=== PATIENT | male | born 1965 | race Two or more races ===

== ENCOUNTER 2020-07-17 08:21 | Outpatient (REF) | payer OTHER, SELFPAY | END 2020-07-17 08:22 | disposition home or self-care (01) | LOC: HO.LAB 08:21 | PROVIDERS: PCP Physician Assistant | DX: K70.31 Alcoholic cirrhosis of liver with ascites (principal) ==

== ENCOUNTER 2020-07-17 09:02 | Outpatient (REF) | payer OTHER, SELFPAY ==
[2020-07-17 10:01] LABS: INTERNATIONAL NORM RATIO 1.5 (0.9-1.1); Prothrombin Time 17.5 SEC (10.8-13.0)
[2020-07-17 10:31] LABS: Alanine Aminotransferase 25 U/L (0-40); Albumin Level 3.7 g/dL (3.5-5.0); Alkaline Phosphatase 52 U/L (39-117); Aspartate Amino Transferase 34 U/L (5-37); Bilirubin Total 1.8 mg/dL (0.0-1.0); Blood Urea Nitrogen 14 mg/dL (9-16); Estimated Glomerular Filt Rate > 60; Glucose Random 128 mg/dL (60-115); Total Protein 6.6 g/dL (6.5-8.0)
[2020-07-17 10:42] LABS: Anion Gap 10 (12-20); Carbon Dioxide 26 mmol/L (22-29); Chloride 110 mmol/L (96-108); Potassium 4.8 mmol/l (3.3-5.1); Sodium 141 mmol/L (135-145)
== END 2020-07-17 09:03 | disposition home or self-care (01) ==
LOC: HO.LAB 09:02
PROVIDERS: Visit Provider Internal Medicine Gastroenterology
DX: K70.31 Alcoholic cirrhosis of liver with ascites (principal)
CPT/HCPCS: 36415; 80053; 85610

== ENCOUNTER 2020-08-22 09:57 | Outpatient (REF) | payer MEDICARE, MEDICAID, SELFPAY ==
[2020-08-22 12:43] LABS: Basophils Percent Auto 0.6 % (0-2); Eosinophils Absolute Auto 0.1 X10*3/uL (0.0-0.4); Eosinophils Percent Auto 3.4 % (0-4); Hemoglobin 13.6 g/dl (14.0-18.0); Imm Gran Abs Auto 0.01 X10*3/uL (0.00-0.03); Imm Gran Pct Auto 0.3 % (0.0-0.4); Lymphocytes Absolute Auto 0.9 X10*3/uL (1.2-4.9); Lymphocytes Percent Auto 26.1 % (20-40); MANUAL DIFF FLAG SCAN; Mean Corpuscular HGB Conc 32.4 g/dl (31.0-36.0); Mean Corpuscular Hemoglobin 26.7 pg (27.0-33.0); Mean Corpuscular Volume 82.5 fL (80-98); Monocytes Absolute Auto 0.5 X10*3/uL (0.1-1.2); Monocytes Percent Auto 12.8 % (2-11); Neutrophils Percent Auto 56.8 % (45-73); Red Blood Count 5.09 X10*6/uL (4.60-5.80); Red Cell Distribution Width 16.4 % (11.0-16.0); SCAN SMEAR FLAG 1; White Blood Count 3.5 X10*3/uL (4.8-10.8)
[2020-08-22 12:45] LABS: Platelet Count 50 X10*3/uL (160-400)
[2020-08-22 12:46] LABS: PLT ABN DIST 1
[2020-08-22 12:52] LABS: INTERNATIONAL NORM RATIO 1.4 (0.9-1.1)
[2020-08-22 12:57] LABS: Alanine Aminotransferase 24 U/L (0-40); Albumin Level 3.8 g/dL (3.5-5.0); Alkaline Phosphatase 53 U/L (39-117); Anion Gap 10 (12-20); Aspartate Amino Transferase 32 U/L (5-37); Bilirubin Total 2.3 mg/dL (0.0-1.0); Blood Urea Nitrogen 14 mg/dL (9-16); Calcium 9.3 mg/dL (8.4-10.2); Carbon Dioxide 27 mmol/L (22-29); Chloride 108 mmol/L (96-108); Estimated Glomerular Filt Rate > 60; Glucose Random 93 mg/dL (60-115); Iron 98 mcg/dL (45-160); Percent Iron Saturation 27 % (15-50); Potassium 4.3 mmol/l (3.3-5.1); Sodium 141 mmol/L (135-145); Total Iron Binding Capacity 369 mcg/dL (228-428); Total Protein 6.8 g/dL (6.5-8.0); Unsaturated Iron Binding 271 ug/dL
[2020-08-28 19:09] LABS: Vitamin A 14 mcg/dL (38-98)
== END 2020-08-22 09:58 | disposition home or self-care (01) ==
LOC: HO.LAB 09:57
PROVIDERS: PCP Physician Assistant; Visit Provider Internal Medicine Gastroenterology
DX: R94.5 Abnormal results of liver function studies (principal); H60.8X1 Other otitis externa, right ear; K74.60 Unspecified cirrhosis of liver; E44.1 Mild protein-calorie malnutrition; K31.7 Polyp of stomach and duodenum
CPT/HCPCS: 36415; 80053; 83540; 84590; 85025; 85610; 99212

== ENCOUNTER 2020-09-26 09:18 | Outpatient (REF) | payer MEDICARE, MEDICAID, SELFPAY ==
[2020-09-26 09:50] LABS: MANUAL DIFF FLAG NO
[2020-09-26 09:57] LABS: Basophils Percent Auto 0.7 % (0-2); Eosinophils Absolute Auto 0.1 X10*3/uL (0.0-0.4); Eosinophils Percent Auto 2.7 % (0-4); Hemoglobin 13.9 g/dl (14.0-18.0); Imm Gran Abs Auto 0.01 X10*3/uL (0.00-0.03); Imm Gran Pct Auto 0.2 % (0.0-0.4); Lymphocytes Absolute Auto 0.8 X10*3/uL (1.2-4.9); Lymphocytes Percent Auto 18.7 % (20-40); Mean Corpuscular HGB Conc 33.1 g/dl (31.0-36.0); Mean Corpuscular Hemoglobin 27.9 pg (27.0-33.0); Mean Corpuscular Volume 84.2 fL (80-98); Monocytes Absolute Auto 0.5 X10*3/uL (0.1-1.2); Monocytes Percent Auto 11.5 % (2-11); Neutrophils Percent Auto 66.2 % (45-73); Red Blood Count 4.99 X10*6/uL (4.60-5.80); Red Cell Distribution Width 15.9 % (11.0-16.0); White Blood Count 4.5 X10*3/uL (4.8-10.8)
[2020-09-26 10:00] LABS: Platelet Count 48 X10*3/uL (160-400)
[2020-09-26 11:02] LABS: Ammonia 63 umol/L (13-55)
[2020-09-26 11:08] LABS: Alanine Aminotransferase 38 U/L (0-40); Albumin Level 3.7 g/dL (3.5-5.0); Alkaline Phosphatase 56 U/L (39-117); Aspartate Amino Transferase 34 U/L (5-37); Bilirubin Direct 1.1 mg/dL (0.0-0.5); Bilirubin Total 2.2 mg/dL (0.0-1.0); Total Protein 6.6 g/dL (6.5-8.0)
[2020-09-26 11:10] LABS: Alanine Aminotransferase 38 U/L (0-40); Albumin Level 3.8 g/dL (3.5-5.0); Alkaline Phosphatase 55 U/L (39-117); Anion Gap 12 (12-20); Aspartate Amino Transferase 34 U/L (5-37); Bilirubin Total 2.2 mg/dL (0.0-1.0); Blood Urea Nitrogen 13 mg/dL (9-16); Calcium 8.5 mg/dL (8.4-10.2); Carbon Dioxide 27 mmol/L (22-29); Chloride 108 mmol/L (96-108); Cholesterol 150 mg/dL; Estimated Glomerular Filt Rate > 60; Glucose Fasting 135 mg/dL (60-99); HDL Cholesterol 60 mg/dL; Iron 90 mcg/dL (45-160); LDL Cholesterol Calculated 80 mg/dl; Percent Iron Saturation 26 % (15-50); Potassium 3.8 mmol/l (3.3-5.1); Sodium 143 mmol/L (135-145); Total Iron Binding Capacity 344 mcg/dL (228-428); Total Protein 6.6 g/dL (6.5-8.0); Triglycerides 51 mg/dL; Unsaturated Iron Binding 254 ug/dL
[2020-09-26 11:30] LABS: TSH reflex Free T4 1.85 mIU/mL (0.32-4.0)
[2020-09-26 11:43] LABS: Folate 19.3 ng/mL (> or = 4.0); Vitamin B12 985 pg/mL (200-900)
== END 2020-09-26 09:19 | disposition home or self-care (01) ==
LOC: HO.LAB 09:18
PROVIDERS: PCP Physician Assistant; Referring Provider Physician Assistant; Visit Provider Nurse Practitioner Family
DX: K74.60 Unspecified cirrhosis of liver (principal); D50.9 Iron deficiency anemia, unspecified; E11.9 Type 2 diabetes mellitus without complications; M54.2 Cervicalgia; H60.8X1 Other otitis externa, right ear
CPT/HCPCS: 36415; 80053; 80061; 80076; 82140; 82248; 82607; 82746; 83540; 84443; 85025

== ENCOUNTER → 2020-10-11 13:15 | Outpatient (BNVA) | payer MEDICARE, MEDICAID, SELFPAY | PROVIDERS: PCP Physician Assistant; Visit Provider Surgery | DX: K74.60 Unspecified cirrhosis of liver (principal); K42.9 Umbilical hernia without obstruction or gangrene | CPT/HCPCS: 99212 ==

== ENCOUNTER 2020-10-17 10:34 | Outpatient (REF) | payer MEDICARE, MEDICAID, SELFPAY ==
--- NOTE | 2020-10-17 10:47 | XR_ITS ---
EXAMINATION: XR KNEE, LEFT XR KNEE STANDING BILATERAL CLINICAL INFORMATION: 55-year-old male with left knee pain and right knee pain. COMPARISON: None TECHNIQUE: AP standing view both knees. Left knee, lateral and sunrise views (2 views) FINDINGS: The AP standing view shows well-preserved tibiofemoral joint space at each knee. No chondrocalcinosis. No fracture or subluxation. The 2 views of the left knee show grossly normal soft tissues. No focal soft tissue swelling or joint effusion. Alignment is normal. Small osteophytes are present at the mildly degenerated patellofemoral compartment. The patella is well-positioned within the trochlear groove. XR/XR knee standing BI IMPRESSION: Mild osteoarthritis of the patellofemoral joint of the left knee.
--- NOTE | 2020-10-17 10:47 | XR_ITS ---
EXAMINATION: XR KNEE, LEFT XR KNEE STANDING BILATERAL CLINICAL INFORMATION: 55-year-old male with left knee pain and right knee pain. COMPARISON: None TECHNIQUE: AP standing view both knees. Left knee, lateral and sunrise views (2 views) FINDINGS: The AP standing view shows well-preserved tibiofemoral joint space at each knee. No chondrocalcinosis. No fracture or subluxation. The 2 views of the left knee show grossly normal soft tissues. No focal soft tissue swelling or joint effusion. Alignment is normal. Small osteophytes are present at the mildly degenerated patellofemoral compartment. The patella is well-positioned within the trochlear groove. XR/XR knee LT 2V IMPRESSION: Mild osteoarthritis of the patellofemoral joint of the left knee.
== END 2020-10-17 10:35 | disposition home or self-care (01) ==
LOC: HO.HOSX 10:34
PROVIDERS: PCP Physician Assistant; Visit Provider Orthopaedic Surgery
DX: M22.2X1 Patellofemoral disorders, right knee (principal); M22.2X2 Patellofemoral disorders, left knee
CPT/HCPCS: 73560; 73565; 99202

== ENCOUNTER 2020-11-07 10:09 | Outpatient (REF) | payer MEDICARE, MEDICAID, SELFPAY ==
[2020-11-07 11:39] LABS: Basophils Percent Auto 0.5 % (0-2); Imm Gran Abs Auto 0.01 X10*3/uL (0.00-0.03); Imm Gran Pct Auto 0.2 % (0.0-0.4); MANUAL DIFF FLAG SCAN; Mean Corpuscular Hemoglobin 27.9 pg (27.0-33.0); Red Blood Count 5.02 X10*6/uL (4.60-5.80); SCAN SMEAR FLAG 1
[2020-11-07 11:41] LABS: Eosinophils Absolute Auto 0.1 X10*3/uL (0.0-0.4); Eosinophils Percent Auto 2.8 % (0-4); Hematocrit 42.4 % (42-52); Lymphocytes Percent Auto 22.3 % (20-40); Mean Corpuscular Volume 84.5 fL (80-98); Monocytes Absolute Auto 0.5 X10*3/uL (0.1-1.2); Monocytes Percent Auto 12.2 % (2-11); Neutrophils Absolute Auto 2.7 X10*3/uL (2.0-8.3); Red Cell Distribution Width 15.1 % (11.0-16.0); White Blood Count 4.4 X10*3/uL (4.8-10.8)
[2020-11-07 11:45] LABS: Platelet Count 58 X10*3/uL (160-400)
[2020-11-07 11:46] LABS: PLT ABN DIST 1
[2020-11-07 12:25] LABS: Ferritin 19 ng/mL (20-250)
[2020-11-07 12:39] LABS: Anion Gap 11 (12-20); Blood Urea Nitrogen 13 mg/dL (9-16); Carbon Dioxide 27 mmol/L (22-29); Chloride 109 mmol/L (96-108); Estimated Glomerular Filt Rate > 60; Glucose Fasting 123 mg/dL (60-99); Potassium 3.9 mmol/l (3.3-5.1); Sodium 143 mmol/L (135-145)
[2020-11-11 22:03] LABS: Vitamin A 17 mcg/dL (38-98)
== END 2020-11-07 10:10 | disposition home or self-care (01) ==
LOC: HO.LAB 10:09
PROVIDERS: PCP Physician Assistant; Visit Provider Internal Medicine Gastroenterology
DX: K74.60 Unspecified cirrhosis of liver (principal); M54.2 Cervicalgia; E44.1 Mild protein-calorie malnutrition; H60.8X1 Other otitis externa, right ear
CPT/HCPCS: 36415; 80048; 82728; 84590; 85025; 99212

== ENCOUNTER 2020-11-09 12:39 | Outpatient (REF) | payer MEDICARE, MEDICAID, SELFPAY ==
--- NOTE | 2020-11-09 12:44 | XR_ITS ---
EXAMINATION: XR SOFT TISSUE NECK CLINICAL INDICATION: Foreign body. COMPARISON: None TECHNIQUE: 2 views of the soft tissue neck were obtained. FINDINGS: Soft tissue films of the neck demonstrate a normal larynx, pharynx and upper trachea. No soft tissue swelling or opaque foreign body is demonstrated. The prevertebral soft tissues are unremarkable. Degenerative changes noted at C5-C6 with small endplate osteophytes and disc space narrowing. Vascular calcifications are noted. The lung apices are clear. XR/XR soft tissue neck IMPRESSION: No radiopaque foreign body. Mild degenerative changes at C5-C6.
== END 2020-11-09 12:40 | disposition home or self-care (01) ==
LOC: HO.HMGCX 12:39
PROVIDERS: PCP Physician Assistant; Visit Provider Physician Assistant
DX: R52 Pain, unspecified (principal); T18.9XXA Foreign body of alimentary tract, part unspecified, initial encounter; X58.XXXA Exposure to other specified factors, initial encounter; Y93.9 Activity, unspecified; Y92.9 Unspecified place or not applicable; Y99.8 Other external cause status
CPT/HCPCS: 70360

== ENCOUNTER 2020-11-17 10:54 | Outpatient (REF) | payer MEDICARE, MEDICAID, SELFPAY | END 2020-11-17 10:55 | disposition home or self-care (01) | LOC: HO.MDS 10:54 | PROVIDERS: Visit Provider Internal Medicine Gastroenterology | DX: D50.9 Iron deficiency anemia, unspecified (principal) | CPT/HCPCS: 96365; J2916 ==

== ENCOUNTER 2020-11-24 15:42 | Outpatient (REF) | payer MEDICARE, MEDICAID, SELFPAY ==
[2020-11-24 16:03] LABS: Eosinophils Absolute Auto 0.1 X10*3/uL (0.0-0.4); MANUAL DIFF FLAG SCAN; Mean Corpuscular Volume 85.5 fL (80-98); Monocytes Absolute Auto 0.5 X10*3/uL (0.1-1.2); Red Cell Distribution Width 15.8 % (11.0-16.0); SCAN SMEAR FLAG 1
[2020-11-24 16:04] LABS: Basophils Percent Auto 0.4 % (0-2); Eosinophils Percent Auto 2.2 % (0-4); Hematocrit 43.8 % (42-52); Hemoglobin 14.3 g/dl (14.0-18.0); Imm Gran Abs Auto 0.02 X10*3/uL (0.00-0.03); Imm Gran Pct Auto 0.4 % (0.0-0.4); Lymphocytes Absolute Auto 1.1 X10*3/uL (1.2-4.9); Lymphocytes Percent Auto 24.2 % (20-40); Mean Corpuscular HGB Conc 32.6 g/dl (31.0-36.0); Mean Corpuscular Hemoglobin 27.9 pg (27.0-33.0); Monocytes Percent Auto 11.4 % (2-11); Neutrophils Absolute Auto 2.7 X10*3/uL (2.0-8.3); Neutrophils Percent Auto 61.4 % (45-73); Red Blood Count 5.12 X10*6/uL (4.60-5.80); White Blood Count 4.5 X10*3/uL (4.8-10.8)
[2020-11-24 16:06] LABS: PLT ABN DIST 1
[2020-11-24 16:11] LABS: INTERNATIONAL NORM RATIO 1.5 (0.9-1.1); Prothrombin Time 18.3 SEC (10.8-13.0)
[2020-11-24 16:25] LABS: Platelet Count 53 X10*3/uL (160-400); SLIDE REVIEW VERIFIED
[2020-11-24 16:32] LABS: Alanine Aminotransferase 24 U/L (0-40); Albumin Level 3.8 g/dL (3.5-5.0); Alkaline Phosphatase 71 U/L (39-117); Anion Gap 11 (12-20); Aspartate Amino Transferase 31 U/L (5-37); Bilirubin Total 1.6 mg/dL (0.0-1.0); Blood Urea Nitrogen 13 mg/dL (9-16); Calcium 8.8 mg/dL (8.4-10.2); Carbon Dioxide 27 mmol/L (22-29); Chloride 108 mmol/L (96-108); Estimated Glomerular Filt Rate > 60; Glucose Random 139 mg/dL (60-115); Magnesium 2.1 mg/dL (1.6-2.6); Potassium 4.1 mmol/L (3.3-5.1); Sodium 142 mmol/L (135-145); Total Protein 6.6 g/dL (6.5-8.0)
[2020-11-28 00:36] LABS: Zinc 55 mcg/dL (60-130)
== END 2020-11-24 15:43 | disposition home or self-care (01) ==
LOC: HO.LAB 15:42
PROVIDERS: PCP Physician Assistant; Visit Provider Internal Medicine Gastroenterology
DX: K76.9 Liver disease, unspecified (principal)
CPT/HCPCS: 36415; 80053; 83735; 84630; 85025; 85610

== ENCOUNTER → 2020-12-11 12:30 | Outpatient (BNVA) | payer MEDICARE, MEDICAID, SELFPAY | PROVIDERS: PCP Physician Assistant; Visit Provider Internal Medicine Gastroenterology | DX: Z13.89 Encounter for screening for other disorder (principal) | CPT/HCPCS: Q3014 ==

== ENCOUNTER 2021-01-10 10:00 | Outpatient (REF) | payer MEDICARE, MEDICAID, SELFPAY ==
[2021-01-10 10:48] LABS: Basophils Percent Auto 0.5 % (0-2); MANUAL DIFF FLAG SCAN; Monocytes Percent Auto 8.9 % (2-11); SCAN SMEAR FLAG 1
[2021-01-10 10:49] LABS: Eosinophils Absolute Auto 0.1 X10*3/uL (0.0-0.4); Eosinophils Percent Auto 2.6 % (0-4); Imm Gran Abs Auto 0.01 X10*3/uL (0.00-0.03); Imm Gran Pct Auto 0.2 % (0.0-0.4); Lymphocytes Percent Auto 22.6 % (20-40); Mean Corpuscular HGB Conc 33.3 g/dl (31.0-36.0); Mean Corpuscular Hemoglobin 27.8 pg (27.0-33.0); Mean Corpuscular Volume 83.3 fL (80-98); Monocytes Absolute Auto 0.4 X10*3/uL (0.1-1.2); Neutrophils Absolute Auto 2.8 X10*3/uL (2.0-8.3); Neutrophils Percent Auto 65.2 % (45-73); Red Cell Distribution Width 14.4 % (11.0-16.0); White Blood Count 4.3 X10*3/uL (4.8-10.8)
[2021-01-10 10:51] LABS: PLT ABN DIST 1; Platelet Count 49 X10*3/uL (160-400)
[2021-01-10 11:29] LABS: Alanine Aminotransferase 22 U/L (0-40); Albumin Level 3.8 g/dL (3.5-5.0); Alkaline Phosphatase 55 U/L (39-117); Anion Gap 13 (12-20); Aspartate Amino Transferase 26 U/L (5-37); Bilirubin Total 2.3 mg/dL (0.0-1.0); Blood Urea Nitrogen 16 mg/dL (9-16); Calcium 8.9 mg/dL (8.4-10.2); Carbon Dioxide 23 mmol/L (22-29); Chloride 109 mmol/L (96-108); Cholesterol 132 mg/dL; Estimated Glomerular Filt Rate > 60; Glucose Fasting 121 mg/dL (60-99); HDL Cholesterol 51 mg/dL; LDL Cholesterol Calculated 69 mg/dl; Potassium 4.3 mmol/L (3.3-5.1); Sodium 141 mmol/L (135-145); Total Protein 6.5 g/dL (6.5-8.0); Triglycerides 64 mg/dL
[2021-01-10 11:39] LABS: Prostate Specific Antigen Scr 0.87 ng/mL (<0.05-4.0); TSH reflex Free T4 1.62 uIU/mL (0.32-4.0)
== END 2021-01-10 10:01 | disposition home or self-care (01) ==
LOC: HO.LAB 10:00
PROVIDERS: Nurse Practitioner Family; PCP Physician Assistant; Visit Provider Physician Assistant
DX: Z13.89 Encounter for screening for other disorder (principal)
CPT/HCPCS: 36415; 80053; 80061; 84153; 84443; 85025

== ENCOUNTER 2021-01-10 10:08 | Day surgery (SDC) | payer MEDICARE, MEDICAID, SELFPAY ==
[2021-01-03 16:44] VITALS: BMI 28.1
--- NOTE | 2021-01-09 08:34 | HO.ANESPROP2 ---
Documented by User: Tania Castro 01/09/21 14:20 HPI - Anesthesia Eval Consult details Narrative: 55yo M for Upper Endoscopy Liver cirrhosis, on transplant list. Per GI note 12/2020: no ascites, no overt hepatic encephalopathy symptoms Abnormal Echo 11/[address] Diane CROCKER RN Last EGD with MAC 05/2020 [facility] Active Problems Active Problems: All Active Problems (Updated 01/05/21 @ 10:42 by Johanny Finch) Other otitis externa, right ear (Acute) HTN (hypertension) (Acute) Malnutrition (Acute) Cirrhosis of liver (Acute) Hyperplastic polyp of stomach (Acute) Serous otitis media (Acute) Neck pain (Acute) DMII (diabetes mellitus, type 2) (Acute) Fatigue (Acute) Umbilical hernia (Acute) Osteoarthritis of left knee (Acute) Liver disease (Acute) Patellofemoral pain syndrome of both knees (Acute) Swallowed chicken bone (Acute) Pain aggravated by swallowing (Acute) Migraine headache (Acute) Headache (Acute) Past Medical History Medical History (Updated 01/09/21 @ 08:35 by Tania Castro) Cirrhosis of liver DMII (diabetes mellitus, type 2) GAVE (gastric antral vascular ectasia) Head injury Headache Hemorrhoid Hepatic encephalopathy Hepatitis C virus History of blood transfusion HTN (hypertension) Hx of Clostridium difficile infection Hx of esophageal varices Iron deficiency anemia Migraine headache Neck pain Portal hypertension Family History Family History Father No problems noted. Mother Asthma Diabetes Surgical History Surgical History (Updated 01/05/21 @ 10:42 by Johanny Finch) History of colonoscopy Hx of endoscopy Social History Social History (Updated 01/03/21 @ 16:43 by Johanny iFnch) Household Members: Family Smoking Status: Former smoker Smoking Quit Date: 2009 Use of substances other than those prescribed or required for medical reasons: No Advance Directives: Yes Advance Directives Information Provided: Yes Advance Directives on File: Yes Advance Directives Date on File: 07/17/20 Meds Allergies Allergy/AdvReac Type Severity Reaction Status Date / Time No Known Allergies Allergy Verified 01/03/21 16:37 Home Medications Medication Instructions Recorded Confirmed Last Taken Type docusate sodium 100 mg capsule 100 mg PO DAILY PRN 08/02/20 01/03/21 Unknown History blood sugar diagnostic #10 ea 10/19/20 12/12/20 Unknown History lancets 28 gauge #100 ea 10/19/20 12/12/20 Unknown History Exam Exam Date and Time: January 09, 2021 0834 Height,Weight and Vital Signs: Height 5 ft 8 in Weight 83.915 kg Pertinent Lab Results Pertinent Lab Results: Laboratory Tests 11/24/20 11/24/20 11/24/20 15:50 15:50 15:50 WBC 4.5 L Hgb 14.3 Hct 43.8 Plt Count 53 L PT 18.3 H INR 1.5 H Sodium 142 Potassium 4.1 Chloride 108 Carbon Dioxide 27 BUN 13 Creatinine 1.02 Hgb A1c (Clinic) Calcium 8.8 Magnesium 2.1 Total Bilirubin 1.6 H AST 31 ALT 24 Alkaline Phosphatase 71 D Total Protein 6.6 Albumin 3.8 12/12/20 09:57 WBC Hgb Hct Plt Count PT INR Sodium Potassium Chloride Carbon Dioxide BUN Creatinine Hgb A1c (Clinic) 5.8 Calcium Magnesium Total Bilirubin AST ALT Alkaline Phosphatase Total Protein Albumin Narrative Narrative: EKG 06/2020 NSR LAD Mod criteria for LVH, ? normal variant ECHO 11/2019 LVEF 60-65% No obvious valve path Asc aorta @ 3.6cm, mild dil of sinus of valsava at 4 cm L to R flow near interatrial septum: ? IVC flow vs IA shunt Assessment and Plan Assessment Anesthesia Assessment: Chart Reviewed Documented by User: Yasmine Gray 01/10/21 10:25 [facility] Past Medical History Medical History (Updated 01/09/21 @ 08:35 by Tania Castro) Cirrhosis of liver DMII (diabetes mellitus, type 2) GAVE (gastric antral vascular ectasia) Head injury Headache Hemorrhoid Hepatic encephalopathy Hepatitis C virus History of blood transfusion HTN (hypertension) Hx of Clostridium difficile infection Hx of esophageal varices Iron deficiency anemia Migraine headache Neck pain Portal hypertension Family History Family History Father No problems noted. Mother Asthma Diabetes Surgical History Surgical History (Updated 01/05/21 @ 10:42 by Johanny Finch) History of colonoscopy Hx of endoscopy Social History Social History (Updated 01/03/21 @ 16:43 by Johanny Finch) Household Members: Family Smoking Status: Former smoker Smoking Quit Date: 2009 Use of substances other than those prescribed or required for medical reasons: No Advance Directives: Yes Advance Directives Information Provided: Yes Advance Directives on File: Yes Advance Directives Date on File: 07/17/20 Meds Allergies Allergy/AdvReac Type Severity Reaction Status Date / Time No Known Allergies Allergy Verified 01/03/21 16:37 Home Medications Medication Instructions Recorded Confirmed Last Taken Type docusate sodium 100 mg capsule 100 mg PO DAILY PRN 08/02/20 01/03/21 Unknown History blood sugar diagnostic #10 ea 10/19/20 12/12/20 Unknown History lancets 28 gauge #100 ea 10/19/20 12/12/20 Unknown History Exam Airway Mallampati Class: II TM Dist: >3cm Neck ROM: Full Heart: RRr Lungs: CTA BL Assessment and Plan Assessment Anesthesia Assessment: Anesthesia Plan Discussed and Chart Reviewed Final Anesthetic Review NPO: Yes ASA Class: III Final Preanesthetic Review: No Changes in Pt Med Stat and Consent Obtained/Reviewed Patient Risk: Intermediate Procedure Risk: Intermediate Anesthetic Plan Anesthetic Plan: MAC: Disposition: Standard PACU
--- NOTE | 2021-01-10 10:22 | MHC.SHP ---
Pre-Procedural Eval Section B Chief Complaint: cirrhosis Relevant Family History (Specify if Yes): No Relevant Social History: None Present Medications: see Short Stay Collaborative assessment Medical History: Significant History (Cirrhosis of liver DMII (diabetes mellitus, type 2) GAVE (gastric antral vascular ectasia) Head injury Headache Hemorrhoid Hepatic encephalopathy Hepatitis C virus History of blood transfusion HTN (hypertension) Hx of Clostridium difficile infection Hx of esophageal varices Iron deficiency anemia Mi) History of Previous Operations: Relevant previous surgery/procedure and date(s) (egd,colonoscopy ) Allergies: Allergies Allergy/AdvReac Type Severity Reaction Status Date / Time No Known Allergies Allergy Verified 01/03/21 16:37 Review of Systems Sugical H&P ROS: Negative: Constitution, Cardiovascular, Respiratory, Neurological, Psychiatric, Hem-Onc, Allergic/Immunologic, Gastrointestinal, Genitourinary, Musculoskeletal, Integumentary, Endocrine and Eyes/Ears/Nose/Throat Exam Surgical H&P Exam: Normal: HEENT, Normal: Heart, Normal: Lungs, Normal: Extremities, Normal: Abdomen, Normal: Skin and Normal: Neurological Plan Diagnosis/Plan: Unchanged I have reviewed the history and physical and performed a pertinent physical examination on my patient. No changes have occurred unless specified.
[2021-01-10 10:33] LABS: Glucose, Whole Blood 94 mg/dL (60-115)
[2021-01-10 10:39] VITALS: BP 146/70; PULSE 74; RESP 16; TEMP 36.6; O2SAT 98
[2021-01-10] MEDS: Lactated Ringers 1,000 ML 50 ML IV (10:45)
--- NOTE | 2021-01-10 11:24 | PM.OP ---
Brief Operative Note Date of Service: 01/10/21 Pre-op diagnosis: hx of gastric polyps Post-op diagnosis: same Procedure: see op note Surgeon: Mihaela Dubois MD Anesthesia: MAC Estimated blood loss (mL): 0 Condition: stable Disposition: PACU
--- NOTE | 2021-01-10 11:24 | W.PM.OPN ---
Operative Note Operative Note Date of Service: 01/10/21 Narrative: Procedure Description: EGD FLEXIBLE TRANSORAL UPPER GASTROINTESTINAL ENDOSCOPY UPPER ENDOSCOPY Consent: Indications for the procedure and potential complications of bleeding, perforation, reaction to medications and missed diagnosis were discussed with the patient and informed consent was obtained. Instrument: Olympus GIF H 190 J mid size upper endoscope Monitoring: Vital signs and clinical assessment, continuous EKG monitoring, Pulse oximetry, Carbon Dioxide monitoring and blood pressure monitoring were done throughout the procedure. Procedure: The patient was placed in the left lateral decubitis position and pre-procedure medications were administered and a bite block was placed. The endoscope was inserted into the mouth and advanced under direct vision to the third part of duodenum. A careful inspection was made as the upper endoscope was withdrawn including a retroflexed examination of the proximal stomach; Findings and interventions are described below. Findings: Larynx:normal Esophagus: GE junction at 38 cm, diaphragm hiatus at 38 cm, no varices or esophagitis. Stomach: diffuse gastric erythema with mosaic pattern consistent with portal hypertensive gastropathy. one pedunculated polyp in the antral area adjacent to pylorus noted which was bleeding and measured about 15-18 mm. This was injected with 1 cc of epinephrine and then removed piece meal using cold snare. There was another adjacent sessile polyp measuring 10 mm also injected with 1 cc of epinephrine also removed with cold snare. Due to ozzing 2 clips applied to larger lesion and then hemospray due to the low platelets from liver disease. Grade 2 flap valve on retroflexed examination of the cardia- no gastric varices seen Duodenum: Normal bulb and descending duodenum. Intervention: Biopsies as noted above, polypectomy and hemospray Impression/Findings: gastric polyps portal hypertensive gastropathy PLAN: can have regular diet today if profuse melena, abdominal pain, dizziness needs to come to ED but I think he will be OK avoiod nsaids
[2021-01-10 11:56] VITALS: BP 113/72; PULSE 79; RESP 16; TEMP 36.6; O2SAT 95
[2021-01-10 12:11] VITALS: BP 121/73; PULSE 75; RESP 20; TEMP 37.1; O2SAT 100
[2021-01-12 19:56] LABS: Zinc 60 mcg/dL (60-130)
== END 2021-01-10 12:50 | disposition home or self-care (01) ==
PROVIDERS: PCP Physician Assistant; Visit Provider Internal Medicine Gastroenterology
PROC: 0DJ08ZZ Inspection of Upper Intestinal Tract, Via Natural or Artificial Opening Endoscopic (ICD-10-PCS; CPT 43235; principal; 2021-01-10 11:00)
DX: K74.60 Unspecified cirrhosis of liver (principal); K31.7 Polyp of stomach and duodenum; K44.9 Diaphragmatic hernia without obstruction or gangrene; K76.6 Portal hypertension; K31.89 Other diseases of stomach and duodenum; K31.819 Angiodysplasia of stomach and duodenum without bleeding
CPT/HCPCS: 43251; 43236; 43239; 36415; 80053; 80061; 82947; 84153; 84443; 84630; 85025; 88305; 88342; J0171

== ENCOUNTER 2021-02-27 10:01 | Outpatient (REF) | payer MEDICARE, MEDICAID, SELFPAY ==
[2021-02-27 11:16] LABS: MANUAL DIFF FLAG NO
[2021-02-27 11:22] LABS: Basophils Percent Auto 0.6 % (0-2); Eosinophils Absolute Auto 0.1 X10*3/uL (0.0-0.4); Eosinophils Percent Auto 1.7 % (0-4); Hematocrit 45.3 % (42-52); Hemoglobin 15.6 g/dl (14.0-18.0); Imm Gran Abs Auto 0.01 X10*3/uL (0.00-0.03); Imm Gran Pct Auto 0.2 % (0.0-0.4); Lymphocytes Absolute Auto 1.1 X10*3/uL (1.2-4.9); Lymphocytes Percent Auto 22.6 % (20-40); Mean Corpuscular HGB Conc 34.4 g/dl (31.0-36.0); Mean Corpuscular Hemoglobin 28.5 pg (27.0-33.0); Mean Corpuscular Volume 82.8 fL (80-98); Monocytes Absolute Auto 0.4 X10*3/uL (0.1-1.2); Monocytes Percent Auto 9.2 % (2-11); Neutrophils Absolute Auto 3.1 X10*3/uL (2.0-8.3); Neutrophils Percent Auto 65.7 % (45-73); Red Blood Count 5.47 X10*6/uL (4.60-5.80); Red Cell Distribution Width 14.6 % (11.0-16.0); White Blood Count 4.7 X10*3/uL (4.8-10.8)
[2021-02-27 11:23] LABS: Platelet Count 61 X10*3/uL (160-400)
[2021-02-27 11:29] LABS: INTERNATIONAL NORM RATIO 1.5 (0.9-1.1); Prothrombin Time 17.4 SEC (10.8-13.0)
[2021-02-27 11:53] LABS: Alanine Aminotransferase 30 U/L (0-40); Albumin Level 4.3 g/dL (3.5-5.0); Alkaline Phosphatase 65 U/L (39-117); Anion Gap 11 (12-20); Aspartate Amino Transferase 34 U/L (5-37); Bilirubin Total 2.3 mg/dL (0.0-1.0); Blood Urea Nitrogen 17 mg/dL (9-16); Calcium 9.2 mg/dL (8.4-10.2); Carbon Dioxide 23 mmol/L (22-29); Chloride 110 mmol/L (96-108); Estimated Glomerular Filt Rate > 60; Glucose Random 146 mg/dL (60-115); Potassium 4.5 mmol/L (3.3-5.1); Sodium 139 mmol/L (135-145); Total Protein 7.2 g/dL (6.5-8.0)
[2021-02-27 12:15] LABS: Vitamin D 25-OH Total 26.2 ng/mL (>30)
[2021-02-27 12:32] LABS: Folate 17.8 ng/mL (> or = 4.0); Vitamin B12 769 pg/mL (200-900)
[2021-03-02 17:02] LABS: Zinc 59 mcg/dL (60-130)
[2021-03-03 03:07] LABS: Vitamin A 28 mcg/dL (38-98)
[2021-03-03 09:36] LABS: Vitamin B5 (Pantothenic Acid) 81 ng/mL (<275)
[2021-03-03 13:12] LABS: Vitamin B6 22.7 ng/mL (2.1-21.7)
[2021-03-03 18:46] LABS: Vitamin C 1.4 mg/dL (0.2-2.1)
[2021-03-04 14:46] LABS: Nicotinamide 50 ng/mL; Vit B3 - Nicotinic Acid <20 ng/mL
[2021-03-07 23:42] LABS: Vitamin K1 1411 pg/mL (130-1500)
== END 2021-02-27 10:02 | disposition home or self-care (01) ==
LOC: HO.LAB 10:01
PROVIDERS: PCP Physician Assistant; Visit Provider Internal Medicine Gastroenterology
DX: K74.60 Unspecified cirrhosis of liver (principal); K31.7 Polyp of stomach and duodenum; K76.9 Liver disease, unspecified; K75.81 Nonalcoholic steatohepatitis (NASH); E44.1 Mild protein-calorie malnutrition
CPT/HCPCS: 36415; 80053; 82180; 82306; 82607; 82746; 84207; 84446; 84590; 84591; 84597; 84630; 85025; 85610; 99212

== ENCOUNTER 2021-04-13 09:00 | Outpatient (RCR) | payer MEDICARE, MEDICAID, SELFPAY ==
--- NOTE | 2021-04-09 18:11 | MHC.PT.EP ---
[facility] [place] Office [place] Office [place] Office [address] Shahrzad Dee [address] [phone] F: [phone] F: [phone] F: [phone] F: [phone] Physical Therapy Plan of Care Date of Evaluation: Date of Surgery: N/A Diagnosis: thoracolumbar and lumbosacral disc disorder Assessment: Working PT diagnoses include lumbar strain, SI dysfunction, and lumbar radiculopathy. Was not able to assess SI at time of eval as pt experienced lumbar spasm during SI alignment assessment. pt also unable to tolerate prolonged prone position so Luis extension progression not assessed at this time. Will monitor symptoms and treat or refer out as appropriate. pt presents to physical therapy with pain, decreased range of motion, decreased strength, impaired functional mobility, impaired postural awareness, and gait deviations. pt is good candidate for skilled PT due to age, potential remediation of impairments, typical disease/condition progression and prognosis, comorbidities, and motivation. pt would benefit from tailored strengthening and stretching exercise program, functional training, gait training, postural re-training, neuromuscular re-education, modalities as needed for pain, equipment safety demonstration. Frequency and Duration: The patient will be seen 2x/wk for 4 wks Short Term Goals: pt will be I w/ HEP to promote self-management of condition. pt will demo proper sitting posture w/ lumbar roll to promote neutral spine. Mcfp Goals: pt will improve lumbar flexion to 75% to facilitate ease in donning/doffing socks and shoes for ADLs. pt will report <3/10 low back pain w/ lifting 10# object from ground to chest height x3 reps w/ proper mechanics to promote return to functional lifting. Treatment Plan: Modalities to reduce pain, spasms and effusion. Manual therapy to restore motion and function. Therapeutic exercise to improve strength and flexibility. Neuromuscular re-education for posture and balance. Therapeutic activities to return to functional activities of daily living. Electronically signed by: Yasmine Moss PT, DPT Please sign and return to therapist. Thank you for your referral.
--- NOTE | 2021-04-18 14:15 | MHC.PT.DC ---
[facility] [place] Office [place] Office [place] Office [address] Shahrzad Dee [address] [phone] F: [phone] F: [phone] F: [phone] F: [phone] Physical Therapy Discharge Report Diagnosis: thoracolumbar and lumbosacral disc disorder Date of Surgery: N/A Date of Evaluation: 04/09/21 Date of Discharge: 04/18/21 Treatments to Date: 2 Cancellations to Date: 0 No Shows to Date: 0 Discharge Status: Patient Elected to Stop Physician Discontinued Tx Discharge Summary: The patient was very irritable at the initial evaluation and difficult to perform a full assessment. At his second visit he seemed to have no impairments and no pain. He was able to perform all exercises and activities with no limitations. He arrived for his third appointment stating he was in too much pain to exercise and he was going to go to a walk-in clinic to get an x-ray. He called this office back to alert us the clinic realigned his pelvis and was advised to cancel his PT visits. He is discharged from this physical therapy plan of care. Electronically signed by: Yasmine Moss PT, DPT Please sign and return to therapist. Thank you for your referral.
== END 2021-04-18 14:15 | disposition home or self-care (01) ==
LOC: HO.PT 09:00
PROVIDERS: PCP Physician Assistant; Visit Provider Physician Assistant
DX: M51.9 Unspecified thoracic, thoracolumbar and lumbosacral intervertebral disc disorder (principal); S39.012S Strain of muscle, fascia and tendon of lower back, sequela
CPT/HCPCS: 97110; 97112; 97140; 97162

== ENCOUNTER 2021-06-11 10:33 | Outpatient (REF) | payer MEDICARE, MEDICAID, SELFPAY ==
[2021-06-11 11:05] LABS: Basophils Percent Auto 0.7 % (0-2); Hemoglobin 14.2 g/dl (14.0-18.0); Imm Gran Abs Auto 0.01 X10*3/uL (0.00-0.03); Imm Gran Pct Auto 0.2 % (0.0-0.4); MANUAL DIFF FLAG SCAN; SCAN SMEAR FLAG 1
[2021-06-11 11:07] LABS: Eosinophils Absolute Auto 0.1 X10*3/uL (0.0-0.4); Eosinophils Percent Auto 2.8 % (0-4); Hematocrit 41.1 % (42-52); Lymphocytes Absolute Auto 0.9 X10*3/uL (1.2-4.9); Lymphocytes Percent Auto 20.3 % (20-40); Mean Corpuscular HGB Conc 34.5 g/dl (31.0-36.0); Mean Corpuscular Hemoglobin 29.3 pg (27.0-33.0); Mean Corpuscular Volume 84.7 fL (80-98); Monocytes Absolute Auto 0.4 X10*3/uL (0.1-1.2); Monocytes Percent Auto 8.1 % (2-11); NRBC Pct Auto 0.7 /100WBC (0.0-0.2); Neutrophils Absolute Auto 2.9 X10*3/uL (2.0-8.3); Neutrophils Percent Auto 67.9 % (45-73); Red Blood Count 4.85 X10*6/uL (4.60-5.80); Red Cell Distribution Width 13.7 % (11.0-16.0); White Blood Count 4.3 X10*3/uL (4.8-10.8)
[2021-06-11 11:08] LABS: PLT ABN DIST 1; Platelet Count 56 X10*3/uL (160-400)
[2021-06-11 11:21] LABS: INTERNATIONAL NORM RATIO 1.5 (0.9-1.1); Prothrombin Time 17.4 SEC (9.9-13.0)
[2021-06-11 11:26] LABS: Ammonia 68 umol/L (13-55)
[2021-06-11 11:34] LABS: Alanine Aminotransferase 31 U/L (0-40); Albumin Level 4.1 g/dL (3.5-5.0); Alkaline Phosphatase 54 U/L (39-117); Anion Gap 11 (12-20); Aspartate Amino Transferase 32 U/L (5-37); Bilirubin Total 2.6 mg/dL (0.0-1.0); Blood Urea Nitrogen 11 mg/dL (9-16); Calcium 9.1 mg/dL (8.4-10.2); Carbon Dioxide 24 mmol/L (22-29); Chloride 114 mmol/L (96-108); Cholesterol 128 mg/dL; Estimated Glomerular Filt Rate > 60; Glucose Random 108 mg/dL (60-115); HDL Cholesterol 52 mg/dL; Iron 94 mcg/dL (45-160); LDL Cholesterol Calculated 67 mg/dl; Percent Iron Saturation 26 % (15-50); Potassium 4.1 mmol/L (3.3-5.1); Sodium 145 mmol/L (135-145); Total Iron Binding Capacity 356 mcg/dL (228-428); Total Protein 6.6 g/dL (6.5-8.0); Triglycerides 46 mg/dL; Unsaturated Iron Binding 262 ug/dL
[2021-06-11 11:53] LABS: TSH reflex Free T4 1.21 uIU/mL (0.32-4.0)
[2021-06-11 13:47] LABS: SLIDE REVIEW VERIFIED
[2021-06-14 06:17] LABS: Zinc 75 mcg/dL (60-130)
[2021-06-15 01:55] LABS: Vitamin A 18 mcg/dL (38-98)
== END 2021-06-11 10:34 | disposition home or self-care (01) ==
LOC: HO.LAB 10:33
PROVIDERS: Absent Provider Physician Assistant; PCP Physician Assistant; Visit Provider Internal Medicine Gastroenterology
DX: I10 Essential (primary) hypertension (principal); K74.60 Unspecified cirrhosis of liver
CPT/HCPCS: 36415; 80053; 80061; 82140; 83540; 84443; 84590; 84630; 85025; 85610

== ENCOUNTER → 2021-06-26 09:49 | Outpatient (BNVA) | payer MEDICARE, MEDICAID, SELFPAY | PROVIDERS: PCP Physician Assistant; Referring Provider Physician Assistant; Visit Provider Internal Medicine Gastroenterology | DX: K74.60 Unspecified cirrhosis of liver (principal) | CPT/HCPCS: 99212 ==

== ENCOUNTER 2021-07-23 08:28 | Outpatient (REF) | payer MEDICARE, MEDICAID, SELFPAY ==
[2021-07-23 08:54] LABS: Hematocrit 42.5 % (42-52); Hemoglobin 14.6 g/dl (14.0-18.0); Mean Corpuscular HGB Conc 34.4 g/dl (31.0-36.0); Mean Corpuscular Hemoglobin 28.4 pg (27.0-33.0); Mean Corpuscular Volume 82.7 fL (80-98); Platelet Count 57 X10*3/uL (160-400); Red Blood Count 5.14 X10*6/uL (4.60-5.80); White Blood Count 4.7 X10*3/uL (4.8-10.8)
[2021-07-23 09:13] LABS: Alanine Aminotransferase 31 U/L (0-40); Alkaline Phosphatase 57 U/L (39-117); Anion Gap 11 (12-20); Aspartate Amino Transferase 30 U/L (5-37); Blood Urea Nitrogen 12 mg/dL (9-16); Calcium 9.1 mg/dL (8.4-10.2); Carbon Dioxide 24 mmol/L (22-29); Chloride 110 mmol/L (96-108); Estimated Glomerular Filt Rate > 60; Glucose Fasting 128 mg/dL (60-99); Potassium 4.3 mmol/L (3.3-5.1); Sodium 141 mmol/L (135-145); Total Protein 6.6 g/dL (6.5-8.0)
[2021-07-27 11:21] LABS: Vitamin A 23 mcg/dL (38-98)
== END 2021-07-23 08:29 | disposition home or self-care (01) ==
LOC: HO.LAB 08:28
PROVIDERS: PCP Physician Assistant; Visit Provider Internal Medicine Gastroenterology
DX: K74.60 Unspecified cirrhosis of liver (principal); I10 Essential (primary) hypertension
CPT/HCPCS: 36415; 80053; 84590; 85027

== ENCOUNTER 2021-08-27 08:51 | Outpatient (REF) | payer MEDICARE, MEDICAID, SELFPAY ==
[2021-08-27 10:10] LABS: INTERNATIONAL NORM RATIO 1.5 (0.9-1.1); Prothrombin Time 16.6 SEC (9.9-13.0)
[2021-08-27 10:29] LABS: Alanine Aminotransferase 29 U/L (0-40); Albumin Level 3.8 g/dL (3.5-5.0); Alkaline Phosphatase 54 U/L (39-117); Anion Gap 13 (12-20); Aspartate Amino Transferase 33 U/L (5-37); Bilirubin Total 1.9 mg/dL (0.0-1.0); Blood Urea Nitrogen 12 mg/dL (9-16); Calcium 8.8 mg/dL (8.4-10.2); Carbon Dioxide 23 mmol/L (22-29); Chloride 111 mmol/L (96-108); Estimated Glomerular Filt Rate > 60; Glucose Random 130 mg/dL (60-115); Potassium 4.5 mmol/L (3.3-5.1); Sodium 142 mmol/L (135-145); Total Protein 6.3 g/dL (6.5-8.0)
[2021-08-29 13:22] LABS: Alpha Fetoprotein 3.3 ng/mL (<6.1)
== END 2021-08-27 08:52 | disposition home or self-care (01) ==
LOC: HO.LABR 08:51
PROVIDERS: PCP Physician Assistant; Visit Provider Internal Medicine Gastroenterology
DX: Z76.82 Awaiting organ transplant status (principal)
CPT/HCPCS: 36415; 80053; 82105; 85610

== ENCOUNTER 2021-09-19 10:04 | Day surgery (SDC) | payer MEDICARE, MEDICAID, SELFPAY ==
[2021-09-13 16:23] VITALS: BMI 28.5
--- NOTE | 2021-09-18 10:33 | P.CONAN_ITS ---
Documented by User: Tania Castro NP 09/18/21 10:37 HPI - Anesthesia Eval Consult details Narrative: 56yo M for Upper Endoscopy and Colonoscopy s/p EGD 12/2020 with MAC Cirrhosis - no recent paracentesis on record PMFSH Active Problems Active Problems: All Active Problems (Updated 09/13/21 @ 16:25 by Johanny Finch, RN) Hyperplastic polyp of stomach (Acute) Fatigue (Acute) Umbilical hernia (Acute) Liver disease (Acute) Adult general medical exam (Acute) HTN (hypertension) (Acute) DMII (diabetes mellitus, type 2) (Acute) Cirrhosis of liver (Acute) Migraine headache (Acute) Headache (Acute) Past Medical History Medical History (Updated 09/18/21 @ 11:35 by Ailyn Leon, MURRAY) Cirrhosis of liver DMII (diabetes mellitus, type 2) GAVE (gastric antral vascular ectasia) Head injury Headache Hemorrhoid Hepatic encephalopathy Hepatitis C virus History of abdominal paracentesis History of blood transfusion HTN (hypertension) Hx of Clostridium difficile infection Hx of esophageal varices Iron deficiency anemia Malnutrition Migraine headache Neck pain Osteoarthritis of left knee Other otitis externa, right ear Pain aggravated by swallowing Patellofemoral pain syndrome of both knees Portal hypertension Serous otitis media Somatic dysfunction of left sacroiliac joint Strain of lumbar paraspinal muscle Swallowed chicken bone Family History Family History Father No problems noted. Mother Asthma Diabetes Surgical History Surgical History (Updated 09/18/21 @ 10:35 by Tania Castro NP) History of colonoscopy Hx of endoscopy Social History Social History Household Members: Family Housing: House Alcohol intake: never Patient Tobacco Use Status: Former Tobacco user e-Cigarette/Vaping Use: Never Used Second Hand Smoke Exposure: Yes Use of substances other than those prescribed or required for medical reasons: No Are you DNR?: No Advance Directives: Yes Advance Directives Information Provided: No Advance Directives on File: No Advance Directives Date on File: 07/17/20 service: No Current occupational status: disabled Meds Allergies Allergy/AdvReac Type Severity Reaction Status Date / Time No Known Allergies Allergy Verified 09/13/21 16:23 Home Medications Medication Instructions Recorded Confirmed Last Taken Type lancets 28 gauge (FreeStyle #100 ea 10/19/20 07/02/21 Unknown History Lancets) blood-glucose meter #1 ea 02/27/21 07/02/21 Unknown History zinc gluconate 50 mg tablet 50 mg PO DAILY 02/27/21 09/13/21 Unknown History Exam Exam Date and Time: September 18, 2021 1033 Height,Weight and Vital Signs: Height 5 ft 8 in Weight 85.275 kg Pertinent Lab Results Pertinent Lab Results: Laboratory Tests 08/27/21 09:04 Sodium 142 Potassium 4.5 Chloride 111 H Carbon Dioxide 23 Anion Gap 13 BUN 12 Creatinine 0.98 Estimated GFR > 60 Random Glucose 130 H Calcium 8.8 Total Bilirubin 1.9 H AST 33 ALT 29 Alkaline Phosphatase 54 Total Protein 6.3 L Albumin 3.8 Documented by User: Per Grimm 09/19/21 12:25 [facility] Past Medical History Medical History (Updated 09/18/21 @ 11:35 by Ailyn Leon RN) Cirrhosis of liver DMII (diabetes mellitus, type 2) GAVE (gastric antral vascular ectasia) Head injury Headache Hemorrhoid Hepatic encephalopathy Hepatitis C virus History of abdominal paracentesis History of blood transfusion HTN (hypertension) Hx of Clostridium difficile infection Hx of esophageal varices Iron deficiency anemia Malnutrition Migraine headache Neck pain Osteoarthritis of left knee Other otitis externa, right ear Pain aggravated by swallowing Patellofemoral pain syndrome of both knees Portal hypertension Serous otitis media Somatic dysfunction of left sacroiliac joint Strain of lumbar paraspinal muscle Swallowed chicken bone Family History Family History Father No problems noted. Mother Asthma Diabetes Family history of problems with anesthesia: No Surgical History Surgical History (Updated 09/18/21 @ 10:35 by Tania Castro NP) History of colonoscopy Hx of endoscopy History of Problems with Anesthesia: No Social History Social History Household Members: Family Housing: House Alcohol intake: never Patient Tobacco Use Status: Former Tobacco user e-Cigarette/Vaping Use: Never Used Second Hand Smoke Exposure: Yes Use of substances other than those prescribed or required for medical reasons: No Are you DNR?: No Advance Directives: Yes Advance Directives Information Provided: No Advance Directives on File: No Advance Directives Date on File: 07/17/20 service: No Current occupational status: disabled Meds Allergies Allergy/AdvReac Type Severity Reaction Status Date / Time No Known Allergies Allergy Verified 09/13/21 16:23 Home Medications Medication Instructions Recorded Confirmed Last Taken Type lancets 28 gauge (FreeStyle #100 ea 10/19/20 07/02/21 Unknown History Lancets) blood-glucose meter #1 ea 02/27/21 07/02/21 Unknown History zinc gluconate 50 mg tablet 50 mg PO DAILY 02/27/21 09/13/21 Unknown History Exam Airway Mallampati Class: II TM Dist: >3cm Neck ROM: Full Loose/Missing/Broken Teeth: Yes Assessment and Plan Assessment Anesthesia Assessment: Anesthesia Plan Discussed Final Anesthetic Review Family History of Problems with Anesthesia: No History of Problems with Anesthesia: No NPO: Yes ASA Class: III Patient Risk: Intermediate Procedure Risk: Intermediate Anesthetic Plan Anesthetic Plan: MAC: Disposition: Standard PACU
[2021-09-19 10:17] VITALS: BP 129/76; PULSE 73; RESP 16; TEMP 36.8; O2SAT 100
[2021-09-19 10:32] LABS: Hematocrit 43.4 % (42.0-52.0); Hemoglobin 14.6 g/dl (14.0-18.0); Mean Corpuscular HGB Conc 33.6 g/dl (31.0-36.0); Mean Corpuscular Hemoglobin 27.7 pg (27.0-33.0); Mean Corpuscular Volume 82.4 fL (80.0-98.0); Platelet Count 64 X10*3/uL (160-400); Red Blood Count 5.27 X10*6/uL (4.60-5.80); Red Cell Distribution Width 13.5 % (11.0-16.0); White Blood Count 4.3 X10*3/uL (4.8-10.8)
[2021-09-19] MEDS: Lactated Ringers 1,000 ML 50 ML IVCONT (10:34)
[2021-09-19 10:38] LABS: INTERNATIONAL NORM RATIO 1.5 (0.9-1.1); Prothrombin Time 16.7 SEC (9.9-13.0)
[2021-09-19 10:39] LABS: Glucose, Whole Blood 113 mg/dL (60-115)
--- NOTE | 2021-09-19 11:28 | MHC.SHP ---
Pre-Procedural Eval Section A Date of Service: 09/19/21 Section B Chief Complaint: polyp of stomach,cirrhosis of liver Relevant Family History (Specify if Yes): No Relevant Social History: None Present Medications: see Short Stay Collaborative assessment Medical History: Significant History (Cirrhosis of liver DMII (diabetes mellitus, type 2) GAVE (gastric antral vascular ectasia) Head injury Headache Hemorrhoid Hepatic encephalopathy Hepatitis C virus History of abdominal paracentesis History of blood transfusion HTN (hypertension) Hx of Clostridium difficile infection Hx of esophageal) History of Previous Operations: Relevant previous surgery/procedure and date(s) (History of colonoscopy Hx of endoscopy) Allergies: Allergies Allergy/AdvReac Type Severity Reaction Status Date / Time No Known Allergies Allergy Verified 09/13/21 16:23 Review of Systems Sugical H&P ROS: Negative: Constitution, Cardiovascular, Respiratory, Neurological, Psychiatric, Hem-Onc, Allergic/Immunologic, Gastrointestinal, Genitourinary, Musculoskeletal, Integumentary, Endocrine and Eyes/Ears/Nose/Throat Exam Surgical H&P Exam: Normal: HEENT, Normal: Heart, Normal: Lungs, Normal: Extremities, Normal: Abdomen, Normal: Skin and Normal: Neurological Plan Diagnosis/Plan: Unchanged I have reviewed the history and physical and performed a pertinent physical examination on my patient. No changes have occurred unless specified.
--- NOTE | 2021-09-19 13:08 | P.BOP_ITS ---
Brief Operative Note Date of Service: 09/19/21 Pre-op diagnosis: hx of gastric polyps, poor colon prep Post-op diagnosis: same Procedure: see op note Surgeon: Mihaela Dubois MD Anesthesia: MAC Was an [employer] used for this Procedure?: No Estimated blood loss (mL): 0 Condition: stable Disposition: PACU
--- NOTE | 2021-09-19 13:09 | P.OP_ITS ---
Operative Note Operative Note Date of Service: 09/19/21 Narrative: Operative Information Procedure Description: EGD, Colonoscopy FLEXIBLE TRANSORAL UPPER GASTROINTESTINAL ENDOSCOPY AND COLONOSCOPY PROCEDURE NOTE UPPER ENDOSCOPY Consent: Indications for the procedure and potential complications of bleeding, perforation, reaction to medications and missed diagnosis were discussed with the patient and informed consent was obtained. Instrument: Olympus GIF H 190 J mid size upper endoscope Monitoring: Vital signs and clinical assessment, continuous EKG monitoring, Pulse oximetry, Carbon Dioxide monitoring and blood pressure monitoring were done throughout the procedure. Procedure: The patient was placed in the left lateral decubitis position and pre-procedure medications were administered and a bite block was placed. The endoscope was inserted into the mouth and advanced under direct vision to the third part of duodenum. A careful inspection was made as the upper endoscope was withdrawn including a retroflexed examination of the proximal stomach; Findings and interventions are described below. Findings: Larynx:normal Esophagus: GE junction at 38? cm, diaphragm hiatus at 38 cm, no varices or esophagitis. Stomach: diffuse gastric erythema with mosaic pattern consistent with portal hypertensive gastropathy. one pedunculated polyp in the antral area adjacent to pylorus at the 2 o'clock position noted which was bleeding with an ulcerated surface and measured about 15-18 mm. This was injected with 1 cc of epinephrine and then removed piece meal using hot snare. There were x 3 adjacent sessile polyp measuring 10 mm also injected with 1 cc of epinephrine also removed with cold snare. Due to ozzing 3 clips applied to larger lesion and x 1 clip to the other areas. Hemospray the used due to the low platelets from liver disease.? Grade 2 flap valve on retroflexed examination of the cardia- no gastric varices seen Duodenum: congestive enteropathy noted Intervention: Polypectomy, clips and hemospray COLONOSCOPY Instrument: Olympus variable stiffness pediatric scope 190L Colonoscopy Monitoring: Vital signs and clinical assessment, continuous EKG monitoring, Pulse oximetry, Carbon Dioxide monitoring and blood pressure monitoring were done throughout the procedure. Colon withdrawal time was 6 minutes. Procedure: The patient was placed in the left lateral decubitis position and pre-procedure medications were administered. After a digital rectal examination of the ano-rectum, the video colonoscope was inserted into the rectum and advanced through the colon to the cecum/TI. The colonoscope was slowly withdrawn in a retrograde panoramic fashion and the colon mucosa was carefully examined including a retroflexed view of the rectum. Findings and interventions are described below. Procedure Difficulty: easy Findings: Terminal Ileum-not entered Cecum:normal Ascending Colon: normal Transverse Colon -normal Descending Colon:normal Sigmoid Colon: normal Rectum: Retroflexion with small internal hemorrhoids, grade I Anorectum - normal Colon preparation: [place] Bowel Preparation Scale Right colon; 1 Transverse colon: 1 Left colon; 1 (0 = Unprepared colon segment with mucosa not seen due to solid stool that cannot be cleared. 1 = Portion of mucosa of the colon segment seen, but other areas of the colon segment not well seen due to staining, residual stool and/or opaque liquid. 2 = Minor amount of residual staining, small fragments of stool and/or opaque liquid, but mucosa of colon segment seen well. 3 = Entire mucosa of colon segment seen well with no residual staining, small fragments of stool or opaque liquid) Impression and Post Procedure Diagnosis: Endoscopy Findings: gastric polyps portal hypertensive gastropathy Colonoscopy Findings: internal hemorrhoids Plan: Await Pathology results Repeat Colonoscopy in 1 year or earlier if clinically indicated High fiber diet leaflet avoid straining at stool, epsom salts and sitz bath, anusol supps or cream If any evidence of melena, coffee ground emesis, abdominal pain or fever needs to come to ED avoid nsaids repeat EGD in 3-6 months Above findings were reviewed with the patient and relevant handouts were provided if indicated.
[2021-09-19 13:33] VITALS: BP 121/73; PULSE 86; RESP 16; TEMP 36.5; O2SAT 99
[2021-09-19 13:48] VITALS: BP 119/81; PULSE 69; RESP 18; TEMP 36.2; O2SAT 100
== END 2021-09-19 14:25 | disposition home or self-care (01) ==
PROVIDERS: Nurse Practitioner; PCP Physician Assistant; Visit Provider Internal Medicine Gastroenterology
PROC: (CPT 43251; principal; 2021-09-19 11:10)
DX: Z12.11 Encounter for screening for malignant neoplasm of colon (principal); K64.0 First degree hemorrhoids; K31.7 Polyp of stomach and duodenum; K74.60 Unspecified cirrhosis of liver; A04.8 Other specified bacterial intestinal infections; K76.6 Portal hypertension; K31.89 Other diseases of stomach and duodenum; K31.819 Angiodysplasia of stomach and duodenum without bleeding; K44.9 Diaphragmatic hernia without obstruction or gangrene; D50.9 Iron deficiency anemia, unspecified; I10 Essential (primary) hypertension; E11.9 Type 2 diabetes mellitus without complications; B19.20 Unspecified viral hepatitis C without hepatic coma; Z87.891 Personal history of nicotine dependence
CPT/HCPCS: 43251; G0121; 36415; 82947; 85027; 85610; 88305; 88342; J0171

== ENCOUNTER 2021-10-04 07:25 | Outpatient (REF) | payer MEDICARE, MEDICAID, SELFPAY ==
[2021-10-04 08:12] LABS: INTERNATIONAL NORM RATIO 1.5 (0.9-1.1); Prothrombin Time 17.5 SEC (9.9-13.0)
[2021-10-04 08:28] LABS: Alanine Aminotransferase 34 U/L (0-40); Albumin Level 4.1 g/dL (3.5-5.0); Alkaline Phosphatase 59 U/L (39-117); Anion Gap 11 (12-20); Aspartate Amino Transferase 36 U/L (5-37); Bilirubin Total 2.7 mg/dL (0.0-1.0); Blood Urea Nitrogen 10 mg/dL (9-16); Calcium 9.7 mg/dL (8.4-10.2); Carbon Dioxide 28 mmol/L (22-29); Chloride 110 mmol/L (96-108); Estimated Glomerular Filt Rate > 60; Glucose Random 132 mg/dL (60-115); Potassium 3.7 mmol/L (3.3-5.1); Sodium 145 mmol/L (135-145); Total Protein 6.9 g/dL (6.5-8.0)
[2021-10-08 13:42] LABS: Alpha Fetoprotein 3.1 ng/mL (<6.1)
== END 2021-10-04 07:26 | disposition home or self-care (01) ==
LOC: HO.LABR 07:25
PROVIDERS: PCP Physician Assistant; Visit Provider Internal Medicine Gastroenterology
DX: K74.60 Unspecified cirrhosis of liver (principal); Z76.82 Awaiting organ transplant status
CPT/HCPCS: 36415; 80053; 82105; 85610

== ENCOUNTER → 2021-10-29 10:47 | Outpatient (BNVA) | payer MEDICARE, MEDICAID, SELFPAY | PROVIDERS: PCP Physician Assistant; Referring Provider Physician Assistant; Visit Provider Internal Medicine Gastroenterology | DX: K76.9 Liver disease, unspecified (principal); K74.60 Unspecified cirrhosis of liver; A04.8 Other specified bacterial intestinal infections | CPT/HCPCS: 99212 ==

== ENCOUNTER 2021-11-02 07:13 | Outpatient (REF) | payer MEDICARE, MEDICAID, SELFPAY ==
[2021-11-02 08:16] LABS: Hematocrit 44.7 % (42.0-52.0); Hemoglobin 14.8 g/dl (14.0-18.0); Mean Corpuscular HGB Conc 33.1 g/dl (31.0-36.0); Mean Corpuscular Hemoglobin 26.8 pg (27.0-33.0); Red Blood Count 5.52 X10*6/uL (4.60-5.80); Red Cell Distribution Width 14.2 % (11.0-16.0); White Blood Count 5.1 X10*3/uL (4.8-10.8)
[2021-11-02 08:19] LABS: Platelet Count 62 X10*3/uL (160-400)
[2021-11-02 08:20] LABS: INTERNATIONAL NORM RATIO 1.5 (0.9-1.1); Prothrombin Time 17.7 SEC (9.9-13.0)
[2021-11-02 08:33] LABS: Microalbum/Creatinine Ratio Ur 42.9 ug/mg cr
[2021-11-02 08:35] LABS: Alanine Aminotransferase 28 U/L (0-40); Alanine Aminotransferase 30 U/L (0-40); Albumin Level 4.1 g/dL (3.5-5.0); Alkaline Phosphatase 66 U/L (39-117); Alkaline Phosphatase 67 U/L (39-117); Anion Gap 10 (12-20); Anion Gap 11 (12-20); Aspartate Amino Transferase 29 U/L (5-37); Bilirubin Total 2.1 mg/dL (0.0-1.0); Blood Urea Nitrogen 11 mg/dL (9-16); Calcium 9.4 mg/dL (8.4-10.2); Carbon Dioxide 27 mmol/L (22-29); Chloride 109 mmol/L (96-108); Cholesterol 148 mg/dL; Estimated Glomerular Filt Rate > 60; Glucose Fasting 142 mg/dL (60-99); Glucose Random 140 mg/dL (60-115); HDL Cholesterol 49 mg/dL; LDL Cholesterol Calculated 86 mg/dl; Potassium 4.1 mmol/L (3.3-5.1); Sodium 142 mmol/L (135-145); Sodium 143 mmol/L (135-145); Total Protein 6.9 g/dL (6.5-8.0); Triglycerides 66 mg/dL
[2021-11-02 08:55] LABS: Prostate Specific Antigen Scr 0.85 ng/mL (<0.05-4.0); TSH reflex Free T4 2.36 uIU/mL (0.32-4.0)
[2021-11-06 08:35] LABS: Alpha Fetoprotein 3.3 ng/mL (<6.1)
== END 2021-11-02 07:14 | disposition home or self-care (01) ==
LOC: HO.LAB 07:13
PROVIDERS: Absent Provider Internal Medicine Gastroenterology; PCP Physician Assistant; Visit Provider Physician Assistant
DX: Z12.5 Encounter for screening for malignant neoplasm of prostate (principal); K74.60 Unspecified cirrhosis of liver; E11.9 Type 2 diabetes mellitus without complications; I10 Essential (primary) hypertension; Z76.82 Awaiting organ transplant status
CPT/HCPCS: 36415; 80053; 80061; 82043; 82105; 84153; 84443; 85027; 85610

== ENCOUNTER 2021-11-20 08:32 | Outpatient (REF) | payer OTHER, SELFPAY ==
[2021-11-21 14:33] LABS: H Pylori Breath Test Negative (Negative)
== END 2021-11-20 08:33 | disposition home or self-care (01) ==
LOC: HO.LNP 08:32
PROVIDERS: PCP Physician Assistant; Referring Provider Physician Assistant; Visit Provider Internal Medicine Gastroenterology
DX: A04.8 Other specified bacterial intestinal infections (principal)
CPT/HCPCS: 83013; 99211

== ENCOUNTER 2021-12-03 06:56 | Outpatient (REF) | payer OTHER, SELFPAY ==
[2021-12-03 07:29] LABS: INTERNATIONAL NORM RATIO 1.5 (0.9-1.1); Prothrombin Time 17.4 SEC (9.9-13.0)
[2021-12-03 07:53] LABS: Alanine Aminotransferase 27 U/L (0-40); Albumin Level 4.1 g/dL (3.5-5.0); Alkaline Phosphatase 51 U/L (39-117); Anion Gap 12 (12-20); Aspartate Amino Transferase 29 U/L (5-37); Bilirubin Total 2.6 mg/dL (0.0-1.0); Blood Urea Nitrogen 11 mg/dL (9-16); Calcium 9.4 mg/dL (8.4-10.2); Carbon Dioxide 25 mmol/L (22-29); Chloride 108 mmol/L (96-108); Estimated Glomerular Filt Rate > 60; Glucose Random 128 mg/dL (60-115); Sodium 141 mmol/L (135-145); Total Protein 6.9 g/dL (6.5-8.0)
[2021-12-04 12:47] LABS: Alpha Fetoprotein 3.4 ng/mL (<6.1)
== END 2021-12-03 06:57 | disposition home or self-care (01) ==
LOC: HO.LABR 06:56
PROVIDERS: PCP Physician Assistant; Visit Provider Internal Medicine Gastroenterology
DX: K74.60 Unspecified cirrhosis of liver (principal); Z76.82 Awaiting organ transplant status
CPT/HCPCS: 36415; 80053; 82105; 85610

== ENCOUNTER 2021-12-31 08:54 | Outpatient (REF) | payer OTHER, SELFPAY ==
[2021-12-31 10:31] LABS: INTERNATIONAL NORM RATIO 1.5 (0.9-1.1); Prothrombin Time 16.9 SEC (9.9-13.0)
[2021-12-31 11:10] LABS: Alanine Aminotransferase 32 U/L (0-40); Albumin Level 4.3 g/dL (3.5-5.0); Alkaline Phosphatase 57 U/L (39-117); Anion Gap 13 (12-20); Aspartate Amino Transferase 29 U/L (5-37); Bilirubin Total 2.3 mg/dL (0.0-1.0); Blood Urea Nitrogen 12 mg/dL (9-16); Calcium 9.7 mg/dL (8.4-10.2); Carbon Dioxide 23 mmol/L (22-29); Chloride 110 mmol/L (96-108); Estimated Glomerular Filt Rate > 60; Glucose Random 145 mg/dL (60-115); Potassium 4.3 mmol/L (3.3-5.1); Sodium 142 mmol/L (135-145); Total Protein 7.1 g/dL (6.5-8.0)
[2022-01-02 13:06] LABS: Alpha Fetoprotein 3.1 ng/mL (<6.1)
== END 2021-12-31 08:55 | disposition home or self-care (01) ==
LOC: HO.LABR 08:54
PROVIDERS: PCP Physician Assistant; Visit Provider Internal Medicine Gastroenterology
DX: K74.60 Unspecified cirrhosis of liver (principal); Z76.82 Awaiting organ transplant status
CPT/HCPCS: 36415; 80053; 82105; 85610

== ENCOUNTER 2022-02-04 07:05 | Outpatient (REF) | payer OTHER, SELFPAY ==
[2022-02-04 07:35] LABS: MANUAL DIFF FLAG NO
[2022-02-04 08:26] LABS: Basophils Percent Auto 0.7 % (0-2); SCAN SMEAR FLAG 1
[2022-02-04 08:28] LABS: Eosinophils Absolute Auto 0.2 X10*3/uL (0.0-0.4); Hematocrit 44.7 % (42.0-52.0); Imm Gran Abs Auto 0.01 X10*3/uL (0.00-0.03); Imm Gran Pct Auto 0.2 % (0.0-0.4); Lymphocytes Percent Auto 23.6 % (20-40); Mean Corpuscular HGB Conc 33.6 g/dl (31.0-36.0); Mean Corpuscular Hemoglobin 28.2 pg (27.0-33.0); Monocytes Absolute Auto 0.5 X10*3/uL (0.1-1.2); Monocytes Percent Auto 12.5 % (2-11); Neutrophils Absolute Auto 2.5 x10*3/uL (2.0-8.3); Red Blood Count 5.32 X10*6/uL (4.60-5.80); Red Cell Distribution Width 15.1 % (11.0-16.0); White Blood Count 4.2 X10*3/uL (4.8-10.8)
[2022-02-04 08:34] LABS: PLT ABN DIST 1
[2022-02-04 08:35] LABS: INTERNATIONAL NORM RATIO 1.5 (0.9-1.1); Prothrombin Time 16.6 SEC (9.9-13.0)
[2022-02-04 08:37] LABS: Platelet Count 66 X10*3/uL (160-400)
[2022-02-04 08:59] LABS: Alanine Aminotransferase 22 U/L (0-40); Albumin Level 4.1 g/dL (3.5-5.0); Alkaline Phosphatase 57 U/L (39-117); Anion Gap 11 (12-20); Aspartate Amino Transferase 27 U/L (5-37); Bilirubin Total 2.4 mg/dL (0.0-1.0); Blood Urea Nitrogen 15 mg/dL (9-16); Carbon Dioxide 27 mmol/L (22-29); Chloride 112 mmol/L (96-108); Estimated Glomerular Filt Rate > 60; Glucose Random 155 mg/dL (60-115); Potassium 4.2 mmol/L (3.3-5.1); Sodium 146 mmol/L (135-145); Total Protein 6.9 g/dL (6.5-8.0)
[2022-02-04 09:21] LABS: Ferritin 33 ng/mL (20-250)
[2022-02-06 11:36] LABS: Alpha Fetoprotein 2.7 ng/mL (<6.1)
== END 2022-02-04 07:06 | disposition home or self-care (01) ==
LOC: HO.LAB 07:05
PROVIDERS: Absent Provider Internal Medicine Gastroenterology; PCP Physician Assistant; Visit Provider Internal Medicine Gastroenterology
DX: K74.60 Unspecified cirrhosis of liver (principal); Z76.82 Awaiting organ transplant status
CPT/HCPCS: 36415; 80053; 82105; 82728; 85025; 85610

== ENCOUNTER 2022-03-01 07:08 | Outpatient (REF) | payer OTHER, SELFPAY ==
[2022-03-01 07:47] LABS: INTERNATIONAL NORM RATIO 1.4 (0.9-1.1); Prothrombin Time 16.4 SEC (9.9-13.0)
[2022-03-01 08:16] LABS: Alanine Aminotransferase 30 U/L (0-40); Alkaline Phosphatase 60 U/L (39-117); Anion Gap 10 (12-20); Aspartate Amino Transferase 30 U/L (5-37); Blood Urea Nitrogen 11 mg/dL (9-16); Calcium 9.3 mg/dL (8.4-10.2); Carbon Dioxide 25 mmol/L (22-29); Chloride 111 mmol/L (96-108); Estimated Glomerular Filt Rate > 60; Glucose Random 162 mg/dL (60-115); Potassium 4.4 mmol/L (3.3-5.1); Sodium 142 mmol/L (135-145); Total Protein 6.9 g/dL (6.5-8.0)
== END 2022-03-01 07:09 | disposition home or self-care (01) ==
LOC: HO.LABR 07:08
PROVIDERS: PCP Physician Assistant; Visit Provider Internal Medicine Gastroenterology
DX: K74.60 Unspecified cirrhosis of liver (principal); Z76.82 Awaiting organ transplant status
CPT/HCPCS: 36415; 80053; 82105; 85610

== ENCOUNTER 2022-04-02 07:21 | Outpatient (REF) | payer OTHER, SELFPAY ==
[2022-04-02 07:53] LABS: INTERNATIONAL NORM RATIO 1.5 (0.9-1.1); Prothrombin Time 17.7 SEC (9.9-13.0)
[2022-04-02 08:15] LABS: Alanine Aminotransferase 28 U/L (0-40); Albumin Level 4.1 g/dL (3.5-5.0); Alkaline Phosphatase 50 U/L (39-117); Anion Gap 11 (12-20); Aspartate Amino Transferase 44 U/L (5-37); Bilirubin Total 2.2 mg/dL (0.0-1.0); Blood Urea Nitrogen 11 mg/dL (9-16); Calcium 9.4 mg/dL (8.4-10.2); Carbon Dioxide 26 mmol/L (22-29); Chloride 110 mmol/L (96-108); Estimated Glomerular Filt Rate > 60; Glucose Random 113 mg/dL (60-115); Potassium 4.3 mmol/L (3.3-5.1); Sodium 143 mmol/L (135-145); Total Protein 6.7 g/dL (6.5-8.0)
[2022-04-04 12:06] LABS: Alpha Fetoprotein 2.8 ng/mL (<6.1)
== END 2022-04-02 07:22 | disposition home or self-care (01) ==
LOC: HO.LABR 07:21
PROVIDERS: PCP Physician Assistant; Visit Provider Internal Medicine Gastroenterology
DX: K74.60 Unspecified cirrhosis of liver (principal); Z76.82 Awaiting organ transplant status
CPT/HCPCS: 36415; 80053; 82105; 85610

== ENCOUNTER 2022-05-01 08:53 | Outpatient (REF) | payer OTHER, SELFPAY ==
[2022-05-01 09:51] LABS: INTERNATIONAL NORM RATIO 1.4 (0.9-1.1); Prothrombin Time 16.1 SEC (10.0-13.1)
[2022-05-01 10:28] LABS: Alanine Aminotransferase 29 U/L (0-40); Albumin Level 4.2 g/dL (3.5-5.0); Alkaline Phosphatase 57 U/L (39-117); Anion Gap 12 (12-20); Aspartate Amino Transferase 32 U/L (5-37); Bilirubin Total 1.2 mg/dL (0.0-1.0); Blood Urea Nitrogen 12 mg/dL (9-16); Calcium 9.1 mg/dL (8.4-10.2); Carbon Dioxide 22 mmol/L (22-29); Chloride 113 mmol/L (96-108); Estimated Glomerular Filt Rate > 60; Glucose Random 136 mg/dL (60-115); Potassium 4.6 mmol/L (3.3-5.1); Sodium 142 mmol/L (135-145); Total Protein 6.8 g/dL (6.5-8.0)
== END 2022-05-01 08:54 | disposition home or self-care (01) ==
LOC: HO.LABR 08:53
PROVIDERS: PCP Physician Assistant; Visit Provider Internal Medicine Gastroenterology
DX: K74.60 Unspecified cirrhosis of liver (principal); Z76.82 Awaiting organ transplant status
CPT/HCPCS: 36415; 80053; 82105; 85610

== ENCOUNTER 2022-06-04 08:25 | Outpatient (REF) | payer OTHER, SELFPAY ==
[2022-06-04 09:13] LABS: Hematocrit 43.6 % (42.0-52.0); Mean Corpuscular HGB Conc 34.4 g/dl (31.0-36.0); Mean Corpuscular Hemoglobin 28.7 pg (27.0-33.0); Mean Corpuscular Volume 83.4 fL (80.0-98.0); Red Blood Count 5.23 X10*6/uL (4.60-5.80); Red Cell Distribution Width 14.7 % (11.0-16.0); White Blood Count 4.3 X10*3/uL (4.8-10.8)
[2022-06-04 09:14] LABS: Platelet Count 56 X10*3/uL (160-400)
[2022-06-04 09:27] LABS: INTERNATIONAL NORM RATIO 1.5 (0.9-1.1)
[2022-06-04 09:36] LABS: Alanine Aminotransferase 30 U/L (0-40); Albumin Level 4.1 g/dL (3.5-5.0); Alkaline Phosphatase 52 U/L (39-117); Anion Gap 13 (12-20); Aspartate Amino Transferase 34 U/L (5-37); Bilirubin Total 2.8 mg/dL (0.0-1.0); Blood Urea Nitrogen 14 mg/dL (9-16); Calcium 9.3 mg/dL (8.4-10.2); Carbon Dioxide 24 mmol/L (22-29); Chloride 110 mmol/L (96-108); Estimated Glomerular Filt Rate > 60; Glucose Fasting 120 mg/dL (60-99); Potassium 3.9 mmol/L (3.3-5.1); Sodium 143 mmol/L (135-145); Total Protein 6.6 g/dL (6.5-8.0)
[2022-06-04 09:44] LABS: Alanine Aminotransferase 29 U/L (0-40); Albumin Level 4.1 g/dL (3.5-5.0); Alkaline Phosphatase 53 U/L (39-117); Anion Gap 14 (12-20); Aspartate Amino Transferase 35 U/L (5-37); Bilirubin Total 2.7 mg/dL (0.0-1.0); Blood Urea Nitrogen 13 mg/dL (9-16); Calcium 9.3 mg/dL (8.4-10.2); Carbon Dioxide 23 mmol/L (22-29); Chloride 111 mmol/L (96-108); Estimated Glomerular Filt Rate > 60; Glucose Random 121 mg/dL (60-115); Sodium 144 mmol/L (135-145); Total Protein 6.6 g/dL (6.5-8.0)
[2022-06-04 09:59] LABS: Prostate Specific Antigen Scr 0.49 ng/mL (<0.05-4.0); TSH reflex Free T4 1.33 uIU/mL (0.32-4.0); Vitamin D 25-OH Total 38.9 ng/mL (>30)
[2022-06-04 11:32] LABS: Creatinine Urine 136.97 mg/dL; Microalbum/Creatinine Ratio Ur 33.5 ug/mg cr
[2022-06-06 11:51] LABS: Alpha Fetoprotein 2.4 ng/mL (<6.1)
== END 2022-06-04 08:26 | disposition home or self-care (01) ==
LOC: HO.LAB 08:25
PROVIDERS: Absent Provider Physician Assistant; PCP Physician Assistant; Visit Provider Internal Medicine Gastroenterology
DX: Z12.5 Encounter for screening for malignant neoplasm of prostate (principal); I10 Essential (primary) hypertension; E11.9 Type 2 diabetes mellitus without complications; K74.60 Unspecified cirrhosis of liver; Z76.82 Awaiting organ transplant status
CPT/HCPCS: 36415; 80053; 82043; 82105; 82306; 84153; 84443; 85027; 85610

== ENCOUNTER 2022-07-08 07:24 | Outpatient (REF) | payer OTHER, SELFPAY ==
[2022-07-08 08:41] LABS: INTERNATIONAL NORM RATIO 1.6 (0.9-1.1); Prothrombin Time 18.3 SEC (10.0-13.1)
[2022-07-08 09:16] LABS: Alanine Aminotransferase 36 U/L (0-40); Albumin Level 4.2 g/dL (3.5-5.0); Alkaline Phosphatase 55 U/L (39-117); Anion Gap 17 (12-20); Aspartate Amino Transferase 34 U/L (5-37); Bilirubin Total 2.4 mg/dL (0.0-1.0); Blood Urea Nitrogen 11 mg/dL (9-16); Calcium 9.2 mg/dL (8.4-10.2); Carbon Dioxide 24 mmol/L (22-29); Chloride 110 mmol/L (96-108); Estimated Glomerular Filt Rate > 60; Glucose Random 124 mg/dL (60-115); Potassium 4.6 mmol/L (3.3-5.1); Sodium 146 mmol/L (135-145); Total Protein 6.7 g/dL (6.5-8.0)
[2022-07-10 11:26] LABS: Alpha Fetoprotein 3.4 ng/mL (<6.1)
== END 2022-07-08 07:25 | disposition home or self-care (01) ==
LOC: HO.LAB 07:24
PROVIDERS: PCP Physician Assistant; Visit Provider Internal Medicine Gastroenterology
DX: K74.60 Unspecified cirrhosis of liver (principal); Z76.82 Awaiting organ transplant status
CPT/HCPCS: 36415; 80053; 82105; 85610

== ENCOUNTER → 2022-07-19 09:13 | Outpatient (BNVA) | payer OTHER, SELFPAY | PROVIDERS: PCP Physician Assistant; Referring Provider Physician Assistant; Visit Provider Internal Medicine Gastroenterology | DX: K74.60 Unspecified cirrhosis of liver (principal); D50.0 Iron deficiency anemia secondary to blood loss (chronic); E46 Unspecified protein-calorie malnutrition; K42.9 Umbilical hernia without obstruction or gangrene; R04.0 Epistaxis | CPT/HCPCS: 99212 ==

== ENCOUNTER → 2022-07-23 07:55 | Outpatient (REF) | payer OTHER, SELFPAY ==
--- NOTE | 2022-07-23 07:57 | CA_ITS ---
Acquisition Time: 2022-07-23 08:19:47 Total Exercise Time: 00:07:15 Test Indications: CP Medications: SEE CHART Protocol: MELINDA Max HR: 139 BPM 86% of Pred: 161 BPM Max BP: 162/068 mmHG Max Work Load: 8.9 METS Exercise stress test with exercise 7 min 15 sec of Melinda protocol, achieving 85% MPHR and request to stop due to leg fatigue and mild sob, no chest discomfort, with isolated PACs and PVCs, with normotensive response to exercise, without EKG changes meeting criteria for ischemia. Test reviewed with Dr Appiah. Referred By: Brian Vela Overread By: ELISA ALVAREZ
== END ==
LOC: HO.CARD 07:55
PROVIDERS: Visit Provider Physician Assistant
DX: R06.02 Shortness of breath (principal)
CPT/HCPCS: 93017

== ENCOUNTER 2022-07-31 07:19 | Outpatient (REF) | payer OTHER, SELFPAY ==
[2022-07-31 08:08] LABS: INTERNATIONAL NORM RATIO 1.5 (0.9-1.1); Prothrombin Time 17.5 SEC (10.0-13.1)
[2022-07-31 08:25] LABS: Alanine Aminotransferase 27 U/L (0-40); Albumin Level 4.2 g/dL (3.5-5.0); Alkaline Phosphatase 61 U/L (39-117); Anion Gap 16 (12-20); Aspartate Amino Transferase 30 U/L (5-37); Bilirubin Total 2.3 mg/dL (0.0-1.0); Blood Urea Nitrogen 11 mg/dL (9-16); Calcium 9.4 mg/dL (8.4-10.2); Carbon Dioxide 23 mmol/L (22-29); Chloride 107 mmol/L (96-108); Estimated Glomerular Filt Rate > 60; Glucose Random 122 mg/dL (60-115); Potassium 4.2 mmol/L (3.3-5.1); Sodium 142 mmol/L (135-145); Total Protein 6.9 g/dL (6.5-8.0)
[2022-08-02 13:42] LABS: Alpha Fetoprotein 3.2 ng/mL (<6.1)
== END 2022-07-31 07:20 | disposition home or self-care (01) ==
LOC: HO.LABR 07:19
PROVIDERS: PCP Physician Assistant; Visit Provider Internal Medicine Gastroenterology
DX: K74.60 Unspecified cirrhosis of liver (principal); Z76.82 Awaiting organ transplant status
CPT/HCPCS: 36415; 80053; 82105; 85610

== ENCOUNTER 2022-09-17 07:39 | Outpatient (REF) | payer OTHER, SELFPAY ==
[2022-09-17 08:03] LABS: MANUAL DIFF FLAG NO
[2022-09-17 09:41] LABS: INTERNATIONAL NORM RATIO 1.6 (0.9-1.1); Prothrombin Time 18.6 SEC (10.0-13.1)
[2022-09-17 09:49] LABS: Hemoglobin 14.8 g/dl (14.0-18.0); Red Blood Count 5.02 X10*6/uL (4.60-5.80); White Blood Count 5.2 X10*3/uL (4.8-10.8)
[2022-09-17 09:50] LABS: Basophils Percent Auto 0.6 % (0-2); Eosinophils Absolute Auto 0.2 X10*3/uL (0.0-0.4); Eosinophils Percent Auto 3.1 % (0-4); Hematocrit 42.6 % (42.0-52.0); Imm Gran Abs Auto 0.02 X10*3/uL (0.00-0.03); Imm Gran Pct Auto 0.4 % (0.0-0.4); Lymphocytes Absolute Auto 0.9 X10*3/uL (1.2-4.9); Mean Corpuscular HGB Conc 34.7 g/dl (31.0-36.0); Mean Corpuscular Hemoglobin 29.5 pg (27.0-33.0); Mean Corpuscular Volume 84.9 fL (80.0-98.0); Monocytes Absolute Auto 0.7 X10*3/uL (0.1-1.2); Monocytes Percent Auto 12.4 % (2-11); Neutrophils Absolute Auto 3.5 x10*3/uL (2.0-8.3); Neutrophils Percent Auto 66.5 % (45-73); Red Cell Distribution Width 13.3 % (11.0-16.0)
[2022-09-17 09:51] LABS: Platelet Count 75 X10*3/uL (160-400)
[2022-09-17 10:07] LABS: Creatinine Urine 131.31 mg/dL; Microalbum/Creatinine Ratio Ur 127.1 ug/mg cr
[2022-09-17 13:38] LABS: Alanine Aminotransferase 29 U/L (0-40); Albumin Level 3.9 g/dL (3.5-5.0); Alkaline Phosphatase 67 U/L (39-117); Anion Gap 10 (12-20); Aspartate Amino Transferase 22 U/L (5-37); Bilirubin Total 2.9 mg/dL (0.0-1.0); Blood Urea Nitrogen 11 mg/dL (9-16); Calcium 9.1 mg/dL (8.4-10.2); Carbon Dioxide 29 mmol/L (22-29); Chloride 107 mmol/L (96-108); Cholesterol 136 mg/dL; Estimated Glomerular Filt Rate > 60; Glucose Fasting 180 mg/dL (60-99); HDL Cholesterol 46 mg/dL; LDL Cholesterol Calculated 80 mg/dl; Potassium 4.3 mmol/L (3.3-5.1); Prostate Specific Antigen Scr 0.74 ng/mL (<0.05-4.0); Sodium 142 mmol/L (135-145); TSH reflex Free T4 1.89 uIU/mL (0.32-4.0); Total Protein 6.4 g/dL (6.5-8.0); Triglycerides 52 mg/dL
== END 2022-09-17 07:40 | disposition home or self-care (01) ==
LOC: HO.LAB 07:39
PROVIDERS: Absent Provider Internal Medicine Gastroenterology; PCP Physician Assistant; Visit Provider Physician Assistant
DX: K70.31 Alcoholic cirrhosis of liver with ascites (principal); E11.9 Type 2 diabetes mellitus without complications; Z12.5 Encounter for screening for malignant neoplasm of prostate
CPT/HCPCS: 36415; 80053; 80061; 82043; 84153; 84443; 85025; 85027; 85610

== ENCOUNTER 2022-10-23 11:20 | Day surgery (SDC) | payer OTHER, SELFPAY ==
[2022-10-21 09:00] VITALS: BMI 29.2
--- NOTE | 2022-10-22 09:47 | P.CONAN_ITS ---
Documented by User: Tania Castro NP 10/22/22 09:53 HPI - Anesthesia Eval Consult details Narrative: 57yo M for Upper Endoscopy and Colonoscopy Cirrhosis, low plt to repeat DOS s/p colo and EGD 09/2021 with MAC PMFSH Active Problems Active Problems: All Active Problems (Updated 07/02/22 @ 08:52 by Brian Vela PA-C) Hyperplastic polyp of stomach (Acute) Fatigue (Acute) Umbilical hernia (Acute) Liver disease (Acute) Adult general medical exam (Acute) H. pylori infection (Acute) Thrombocytopenia (Acute) Spasm of back muscles (Acute) Other psychoactive substance dependence, in remission (Acute) SOB (shortness of breath) on exertion (Acute) HTN (hypertension) (Acute) DMII (diabetes mellitus, type 2) (Acute) Cirrhosis of liver (Acute) Migraine headache (Acute) Headache (Acute) Past Medical History Medical History Cirrhosis of liver DMII (diabetes mellitus, type 2) GAVE (gastric antral vascular ectasia) Head injury Headache Hemorrhoid Hepatic encephalopathy Hepatitis C virus History of abdominal paracentesis History of blood transfusion HTN (hypertension) Hx of Clostridium difficile infection Hx of esophageal varices Iron deficiency anemia Malnutrition Migraine headache Neck pain Osteoarthritis of left knee Other otitis externa, right ear Pain aggravated by swallowing Patellofemoral pain syndrome of both knees Portal hypertension Serous otitis media Somatic dysfunction of left sacroiliac joint Strain of lumbar paraspinal muscle Swallowed chicken bone Family History Family History Father No problems noted. Mother Asthma Diabetes Family history of problems with anesthesia: No Surgical History Surgical History (Updated 10/21/22 @ 08:54 by Marlene Suarez RN) History of colonoscopy Hx of endoscopy History of Problems with Anesthesia: No Social History Social History Household Members: Family Housing: House Alcohol intake: never Patient Tobacco Use Status: Former Tobacco user e-Cigarette/Vaping Use: Never Used Second Hand Smoke Exposure: Yes Use of substances other than those prescribed or required for medical reasons: No Have you been hit, kicked, punched, or otherwise hurt by someone within the past year? If so, by whom?: No Are you DNR?: No Advance Directives: No Advance Directives Information Provided: Yes Advance Directives Date on File: 07/17/20 service: No Current occupational status: disabled Cognitive needs: No Hearing needs: No Vision needs: No Meds Allergies Allergy/AdvReac Type Severity Reaction Status Date / Time No Known Allergies Allergy Verified 10/17/22 11:19 Home Medications Medication Instructions Recorded Confirmed Last Taken Type lancets 28 gauge (FreeStyle #100 ea 10/19/20 07/02/22 Unknown History Lancets) blood-glucose meter #1 ea 02/27/21 07/02/22 Unknown History zinc gluconate 50 mg tablet 50 mg PO DAILY 02/27/21 10/17/22 Unknown History famotidine 40 mg tablet 40 mg PO BEDTIME 07/19/22 10/17/22 Unknown History lactulose 20 gram/30 mL oral 45 ml PO TID 07/19/22 10/17/22 Unknown History solution pantoprazole 40 mg tablet,delayed 40 mg PO BID 07/19/22 10/17/22 Unknown History release Exam Exam Date and Time: October 22, 2022 0947 Height,Weight and Vital Signs: Height 5 ft 8 in Weight 87.09 kg Pertinent Lab Results Pertinent Lab Results: Laboratory Tests 09/17/22 08:02 Potassium 4.3 Chloride 107 Carbon Dioxide 29 BUN 11 Creatinine 0.96 Calcium 9.1 Total Bilirubin 2.9 H AST 22 ALT 29 Alkaline Phosphatase 67 Total Protein 6.4 L Albumin 3.9 Narrative Narrative: Exercise Stress 07/2022 Protocol: ALONSO ? Max HR: 139 BPM? 86% of? Pred: 161 BPM Max BP: 162/068 mmHG Max Work Load: 8.9 METS ? Exercise stress test with exercise 7 min 15 sec of Alonso protocol, achieving 85% ?MPHR and request to stop due to leg fatigue and mild sob, no chest discomfort, ?with isolated PACs and PVCs, with normotensive response to exercise, without ?EKG changes meeting criteria for ischemia. Test reviewed with Dr Appiah. Assessment and Plan Assessment Anesthesia Assessment: Chart Reviewed Final Anesthetic Review Family History of Problems with Anesthesia: No History of Problems with Anesthesia: No Documented by User: Yasmine Gray MD 10/23/22 12:33 [facility] Past Medical History Medical History Cirrhosis of liver DMII (diabetes mellitus, type 2) GAVE (gastric antral vascular ectasia) Head injury Headache Hemorrhoid Hepatic encephalopathy Hepatitis C virus History of abdominal paracentesis History of blood transfusion HTN (hypertension) Hx of Clostridium difficile infection Hx of esophageal varices Iron deficiency anemia Malnutrition Migraine headache Neck pain Osteoarthritis of left knee Other otitis externa, right ear Pain aggravated by swallowing Patellofemoral pain syndrome of both knees Portal hypertension Serous otitis media Somatic dysfunction of left sacroiliac joint Strain of lumbar paraspinal muscle Swallowed chicken bone Family History Family History Father No problems noted. Mother Asthma Diabetes Surgical History Surgical History (Updated 10/21/22 @ 08:54 by Marlene Suarez RN) History of colonoscopy Hx of endoscopy Social History Social History Household Members: Family Housing: House Alcohol intake: never Patient Tobacco Use Status: Former Tobacco user e-Cigarette/Vaping Use: Never Used Second Hand Smoke Exposure: Yes Use of substances other than those prescribed or required for medical reasons: No Have you been hit, kicked, punched, or otherwise hurt by someone within the past year? If so, by whom?: No Are you DNR?: No Advance Directives: No Advance Directives Information Provided: Yes Advance Directives Date on File: 07/17/20 service: No Current occupational status: disabled Cognitive needs: No Hearing needs: No Vision needs: No Meds Allergies Allergy/AdvReac Type Severity Reaction Status Date / Time No Known Allergies Allergy Verified 10/17/22 11:19 Home Medications Medication Instructions Recorded Confirmed Last Taken Type lancets 28 gauge (FreeStyle #100 ea 10/19/20 07/02/22 Unknown History Lancets) blood-glucose meter #1 ea 02/27/21 07/02/22 Unknown History zinc gluconate 50 mg tablet 50 mg PO DAILY 02/27/21 10/17/22 Unknown History famotidine 40 mg tablet 40 mg PO BEDTIME 07/19/22 10/17/22 Unknown History lactulose 20 gram/30 mL oral 45 ml PO TID 07/19/22 10/17/22 Unknown History solution pantoprazole 40 mg tablet,delayed 40 mg PO BID 07/19/22 10/17/22 Unknown History release Exam Airway Mallampati Class: II (Missing 2) TM Dist: >3cm Neck ROM: Full Heart: rrr Lungs: cta Assessment and Plan Assessment Anesthesia Assessment: Anesthesia Plan Discussed Final Anesthetic Review NPO: Yes ASA Class: III Final Preanesthetic Review: No Changes in Pt Med Stat, Meds/Allgs Chart Reviewed and Consent Obtained/Reviewed Patient Risk: Intermediate Procedure Risk: Intermediate Anesthetic Plan Anesthetic Plan: MAC: Disposition: Standard PACU
[2022-10-23 12:13] VITALS: BP 133/78; PULSE 61; RESP 18; TEMP 36.5; O2SAT 99; BMI 12.2
[2022-10-23 12:14] LABS: Glucose, Whole Blood 115 mg/dL (60-115)
--- NOTE | 2022-10-23 12:18 | MHC.SHP ---
Pre-Procedural Eval Section A Date of Service: 10/23/22 Section B Chief Complaint: gastric polyps, screening Relevant Family History (Specify if Yes): No Relevant Social History: None Present Medications: see Short Stay Collaborative assessment Medical History: Significant History (Cirrhosis of liver DMII (diabetes mellitus, type 2) GAVE (gastric antral vascular ectasia) Head injury Headache Hemorrhoid Hepatic encephalopathy Hepatitis C virus History of abdominal paracentesis History of blood transfusion HTN (hypertension) Hx of Clostridium difficile infection Hx of esophageal) History of Previous Operations: Relevant previous surgery/procedure and date(s) (History of colonoscopy Hx of endoscopy) Allergies: Allergies Allergy/AdvReac Type Severity Reaction Status Date / Time No Known Allergies Allergy Verified 10/17/22 11:19 Review of Systems Sugical H&P ROS: Negative: Constitution, Cardiovascular, Respiratory, Neurological, Psychiatric, Hem-Onc, Allergic/Immunologic, Gastrointestinal, Genitourinary, Musculoskeletal, Integumentary, Endocrine and Eyes/Ears/Nose/Throat Exam Surgical H&P Exam: Normal: HEENT, Normal: Heart, Normal: Lungs, Normal: Extremities, Normal: Abdomen, Normal: Skin and Normal: Neurological Plan Diagnosis/Plan: Unchanged I have reviewed the history and physical and performed a pertinent physical examination on my patient. No changes have occurred unless specified. Time Spent With Patient Time: Total time managing care of this patient today ____ minutes.
[2022-10-23 12:55] LABS: Hematocrit 43.5 % (42.0-52.0); Hemoglobin 14.9 g/dl (14.0-18.0); Mean Corpuscular HGB Conc 34.3 g/dl (31.0-36.0); Mean Corpuscular Hemoglobin 29.2 pg (27.0-33.0); Mean Corpuscular Volume 85.1 fL (80.0-98.0); Mean Platelet Volume 13.8 fL (9.4-12.4); Platelet Count 54 X10*3/uL (160-400); Red Blood Count 5.11 X10*6/uL (4.60-5.80); Red Cell Distribution Width 13.2 % (11.0-16.0); White Blood Count 4.1 X10*3/uL (4.8-10.8)
[2022-10-23 13:02] LABS: INTERNATIONAL NORM RATIO 1.6 (0.9-1.1); Prothrombin Time 18.5 SEC (10.0-13.1)
--- NOTE | 2022-10-23 13:36 | W.PM.OPN ---
Operative Note Operative Note Date of Service: 10/23/22 Narrative: Operative Information Procedure Description: EGD, Colonoscopy Indication: hx of stomach polyps, screening Anesthesia: MAC FLEXIBLE TRANSORAL UPPER GASTROINTESTINAL ENDOSCOPY AND COLONOSCOPY PROCEDURE NOTE UPPER ENDOSCOPY Consent: Indications for the procedure and potential complications of bleeding, perforation, reaction to medications and missed diagnosis were discussed with the patient and informed consent was obtained. Instrument: Olympus GIF H 190 J mid size upper endoscope Monitoring: Vital signs and clinical assessment, continuous EKG monitoring, Pulse oximetry, Carbon Dioxide monitoring and blood pressure monitoring were done throughout the procedure. Procedure: The patient was placed in the left lateral decubitis position and pre-procedure medications were administered and a bite block was placed. The endoscope was inserted into the mouth and advanced under direct vision to the third part of duodenum. A careful inspection was made as the upper endoscope was withdrawn including a retroflexed examination of the proximal stomach; Findings and interventions are described below. Findings: Larynx:normal Esophagus: GE junction at 43 cm, diaphragm hiatus at 43 cm, normal mucosa, no varices seen Stomach: Congestion, patchy erythema and mosaic pattern consistent with portal hypertensive gastropathy . Biopsies were obtained. Grade 2 flap valve on retroflexed examination of the cardia. !0 mm sessile polyp in antrum removed with cold snare and then one clip applied for hemostasis. Duodenum: Normal bulb and descending duodenum, Intervention: Biopsies as noted above, snare polypectomy COLONOSCOPY Instrument: Olympus variable stiffness adult scope 190L Colonoscopy Monitoring: Vital signs and clinical assessment, continuous EKG monitoring, Pulse oximetry, Carbon Dioxide monitoring and blood pressure monitoring were done throughout the procedure. Colon withdrawal time was 8 minutes. Procedure: The patient was placed in the left lateral decubitis position and pre-procedure medications were administered. After a digital rectal examination of the ano-rectum, the video colonoscope was inserted into the rectum and advanced through the colon to the cecum/TI. The colonoscope was slowly withdrawn in a retrograde panoramic fashion and the colon mucosa was carefully examined including a retroflexed view of the rectum. Findings and interventions are described below. Procedure Difficulty: easy Findings: Terminal Ileum-normal Cecum:normal Ascending Colon: normal Transverse Colon -normal Descending Colon:normal Sigmoid Colon: normal Rectum: Retroflexion with small internal hemorrhoids, grade I Anorectum - normal Colon preparation: [place] Bowel Preparation Scale Right colon; 1 Transverse colon: 1-2 Left colon; 1-2 (0 = Unprepared colon segment with mucosa not seen due to solid stool that cannot be cleared. 1 = Portion of mucosa of the colon segment seen, but other areas of the colon segment not well seen due to staining, residual stool and/or opaque liquid. 2 = Minor amount of residual staining, small fragments of stool and/or opaque liquid, but mucosa of colon segment seen well. 3 = Entire mucosa of colon segment seen well with no residual staining, small fragments of stool or opaque liquid) Impression and Post Procedure Diagnosis: Endoscopy Findings: portal hypertensive gastropathy gastric polyp Colonoscopy Findings: internal hemorrhoids Plan: Await Pathology results Repeat Colonoscopy in 1-2 years or earlier if clinically indicated High fiber diet leaflet avoid straining at stool, epsom salts and sitz bath, anusol supps or cream repeat EGD in 1 year Above findings were reviewed with the patient and relevant handouts were provided if indicated.
[2022-10-23 13:58] VITALS: BP 120/77; PULSE 77; RESP 16; TEMP 36.5; O2SAT 97
[2022-10-23 14:13] VITALS: BP 130/78; PULSE 68; RESP 18; TEMP 36.1; O2SAT 100
== END 2022-10-23 14:35 | disposition home or self-care (01) ==
PROVIDERS: Nurse Practitioner; PCP Physician Assistant; Visit Provider Internal Medicine Gastroenterology
PROC: (CPT 43251; principal; 2022-10-23 12:50)
DX: Z12.11 Encounter for screening for malignant neoplasm of colon (principal); K64.0 First degree hemorrhoids; K76.6 Portal hypertension; K31.89 Other diseases of stomach and duodenum; K31.819 Angiodysplasia of stomach and duodenum without bleeding; K31.7 Polyp of stomach and duodenum; K44.9 Diaphragmatic hernia without obstruction or gangrene; B19.20 Unspecified viral hepatitis C without hepatic coma; K74.60 Unspecified cirrhosis of liver; I10 Essential (primary) hypertension; E11.9 Type 2 diabetes mellitus without complications; Z79.899 Other long term (current) drug therapy; Z87.891 Personal history of nicotine dependence
CPT/HCPCS: 43251; 43239; G0121; 36415; 82947; 85027; 85610; 88305; 88342

== ENCOUNTER → 2022-11-18 10:52 | Outpatient (BNVA) | payer OTHER, SELFPAY | PROVIDERS: PCP Physician Assistant; Visit Provider Internal Medicine Gastroenterology | DX: K70.31 Alcoholic cirrhosis of liver with ascites (principal); D50.0 Iron deficiency anemia secondary to blood loss (chronic); K31.7 Polyp of stomach and duodenum; E46 Unspecified protein-calorie malnutrition; Z68.28 Body mass index [BMI] 28.0-28.9, adult; K42.9 Umbilical hernia without obstruction or gangrene | CPT/HCPCS: 99212 ==

== ENCOUNTER → 2022-11-25 08:16 | Outpatient (BNVA) | payer OTHER, SELFPAY | PROVIDERS: PCP Physician Assistant; Visit Provider Internal Medicine Gastroenterology | DX: Z13.89 Encounter for screening for other disorder (principal) ==

== ENCOUNTER 2022-11-25 16:29 | Outpatient (REF) | payer OTHER, SELFPAY ==
[2022-11-27 12:06] LABS: H Pylori Breath Test Negative (Negative)
== END 2022-11-25 16:30 | disposition home or self-care (01) ==
LOC: HO.LNP 16:29
PROVIDERS: Visit Provider Internal Medicine Gastroenterology
DX: A04.8 Other specified bacterial intestinal infections (principal)
CPT/HCPCS: 83013

== ENCOUNTER 2022-12-16 09:46 | Outpatient (REF) | payer OTHER, SELFPAY ==
--- NOTE | ~2022-12-16 | US_ITS ---
EXAMINATION: US ABDOMEN LIMITED WITH LIVER ELASTOGRAPHY CLINICAL INFORMATION: Nonalcoholic steatohepatitis. COMPARISON: None. TECHNIQUE: Real-time imaging of the abdominal viscera. Noninvasive ultrasound liver fibrosis assessment is performed using Vanessa ElastPQ point quantification shear wave elastography (2D-SWE) with a C5-2 MHz transducer. Multiple elastography samples are obtained. FINDINGS: PANCREAS: The visualized pancreatic head and body are normal in appearance. The remainder of the pancreas is obscured from visualization by the overlying bowel gas. The splenic vein is slightly prominent. LIVER: The liver demonstrates normal size, contour and diffusely echogenic. No focal lesion or intrahepatic biliary duct dilatation. The right lobe measures 7.2 cm in length. The left lobe measures 13.2 cm in length. 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 There is cavernous transformation of anderson hepatis. There are abundant collateral vessels seen adjacent to the pancreas and spleen. Shear wave liver elastography median stiffness is 2.36 m/s (reference: normal median stiffness is 1.3 m/s or less). IQR/median stiffness to assess sampling precision is 0.09 (reference: good quality data set is IQR/median stiffness of 0.15 or less). GALLBLADDER: Gallbladder wall thickness measures 0.4 cm. The gallbladder is physiologically distended without evidence of stones, sludge, polyps, wall thickening or pericholecystic fluid. There is echogenic bile present. COMMON BILE DUCT: Normal in caliber measuring 0.4 cm in diameter. RIGHT KIDNEY: Normal. No hydronephrosis. No renal calculi or focal parenchymal lesions. The kidney measures 11.6 cm in maximum dimension. FREE FLUID: None. US/US abdomen ventura w elastography IMPRESSION: 1. Diffuse echogenic liver likely cirrhosis with obstructed middle portal vein and cavernous transformation. There are adjacent collateral vessels visualized. 2. Liver elastography: Median liver stiffness measures 2.36 m/s corresponding to cACLD ruled in. REFERENCE: Society of Radiologists in Ultrasound Liver Stiffness Thresholds (2020): LIVER STIFFNESS THRESHOLDS: *Liver Stiffness equal or less than 1.3 m/s: High probability of being normal. *Liver Stiffness less than 1.7 m/s: In the absence of other known clinical signs, rules out compensated advanced chronic liver disease. *Liver Stiffness 1.7-2.1 m/s: Suggestive of compensated advanced chronic liver disease but need further test for confirmation. *Liver Stiffness over 2.1 m/s: Rules in compensated advanced chronic liver disease. *Liver Stiffness over 2.4 m/s: Suggestive of clinically significant portal hypertension. QUALITY OF DATA SET: *IQR/Median value equal or less than 0.15 implies a quality data set. *IQR/Median value over 0.15 implies a poor quality data set. SIGNIFICANT CHANGE FROM PRIOR EXAM: Significant change if liver stiffness measurement is 10% or greater from prior exam. OTHER CONSIDERATIONS: The stage of liver fibrosis may be overestimated in the setting of acute hepatitis, liver inflammation, elevated liver function tests, hepatic vascular congestion, obstructive cholestasis, non-fasting state, and infiltrative diseases such as amyloidosis and lymphoma. In some patients with NAFLD, the liver stiffness thresholds for compensated advanced chronic liver disease may be lower. In causes other than viral hepatitis and NAFLD, liver stiffness thresholds are not well established.
== END 2022-12-16 09:47 | disposition home or self-care (01) ==
LOC: HO.US 09:46
PROVIDERS: PCP Physician Assistant; Visit Provider Internal Medicine Gastroenterology
DX: K75.81 Nonalcoholic steatohepatitis (NASH) (principal); K74.60 Unspecified cirrhosis of liver
CPT/HCPCS: 76705; 76981

== ENCOUNTER 2022-12-27 14:10 | Outpatient (REF) | payer OTHER, SELFPAY ==
[2022-12-27 14:21] LABS: MANUAL DIFF FLAG NO
[2022-12-27 15:22] LABS: Basophils Percent Auto 0.4 % (0-2); Eosinophils Absolute Auto 0.1 X10*3/uL (0.0-0.4); Eosinophils Percent Auto 2.1 % (0-4); Hematocrit 43.9 % (42.0-52.0); Hemoglobin 15.2 g/dl (14.0-18.0); Imm Gran Abs Auto 0.01 X10*3/uL (0.00-0.03); Imm Gran Pct Auto 0.2 % (0.0-0.4); Lymphocytes Absolute Auto 1.3 X10*3/uL (1.2-4.9); Lymphocytes Percent Auto 26.3 % (20-40); Mean Corpuscular HGB Conc 34.6 g/dl (31.0-36.0); Mean Corpuscular Hemoglobin 28.7 pg (27.0-33.0); Mean Corpuscular Volume 82.8 fL (80.0-98.0); Monocytes Absolute Auto 0.5 X10*3/uL (0.1-1.2); Monocytes Percent Auto 10.9 % (2-11); Neutrophils Absolute Auto 2.9 x10*3/uL (2.0-8.3); Neutrophils Percent Auto 60.1 % (45-73); Platelet Count 61 X10*3/uL (160-400); Red Cell Distribution Width 14.3 % (11.0-16.0); White Blood Count 4.8 X10*3/uL (4.8-10.8)
[2022-12-27 15:24] LABS: INTERNATIONAL NORM RATIO 1.4 (0.9-1.1); Prothrombin Time 16.7 SEC (10.0-13.1)
[2022-12-27 16:23] LABS: Alanine Aminotransferase 32 U/L (0-40); Albumin Level 3.8 g/dL (3.5-5.0); Alkaline Phosphatase 55 U/L (39-117); Anion Gap 13 (12-20); Aspartate Amino Transferase 31 U/L (5-37); Bilirubin Total 2.5 mg/dL (0.0-1.0); Blood Urea Nitrogen 14 mg/dL (9-16); Calcium 9.7 mg/dL (8.4-10.2); Carbon Dioxide 24 mmol/L (22-29); Chloride 110 mmol/L (96-108); Estimated Glomerular Filt Rate > 60; Glucose Random 147 mg/dL (60-115); Potassium 4.4 mmol/L (3.3-5.1); Sodium 143 mmol/L (135-145); Total Protein 6.2 g/dL (6.5-8.0)
== END 2022-12-27 14:11 | disposition home or self-care (01) ==
LOC: HO.LAB 14:10
PROVIDERS: PCP Physician Assistant; Visit Provider Internal Medicine Gastroenterology
DX: K70.31 Alcoholic cirrhosis of liver with ascites (principal)
CPT/HCPCS: 36415; 80053; 85025; 85610

== ENCOUNTER 2023-01-21 08:59 | Outpatient (REF) | payer OTHER, SELFPAY ==
[2023-01-21 09:21] LABS: Ammonia 141 umol/L (13-55)
[2023-01-21 09:30] LABS: Hematocrit 43.7 % (42.0-52.0); Hemoglobin 15.3 g/dl (14.0-18.0); Mean Corpuscular Hemoglobin 30.1 pg (27.0-33.0); Mean Corpuscular Volume 85.9 fL (80.0-98.0); Mean Platelet Volume 13.6 fL (9.4-12.4); Red Blood Count 5.09 X10*6/uL (4.60-5.80); Red Cell Distribution Width 14.4 % (11.0-16.0)
[2023-01-21 09:32] LABS: Platelet Count 57 X10*3/uL (160-400); WBC ABN SCTR FOR CBC 1; White Blood Count 3.9 X10*3/uL (4.8-10.8)
[2023-01-21 09:53] LABS: Alanine Aminotransferase 33 U/L (0-40); Albumin Level 3.9 g/dL (3.5-5.0); Alkaline Phosphatase 54 U/L (39-117); Anion Gap 12 (12-20); Aspartate Amino Transferase 32 U/L (5-37); Bilirubin Total 2.5 mg/dL (0.0-1.0); Blood Urea Nitrogen 11 mg/dL (9-16); Calcium 9.1 mg/dL (8.4-10.2); Carbon Dioxide 26 mmol/L (22-29); Chloride 112 mmol/L (96-108); Estimated Glomerular Filt Rate > 60; Glucose Fasting 146 mg/dL (60-99); Potassium 4.5 mmol/L (3.3-5.1); Sodium 145 mmol/L (135-145); Total Protein 6.4 g/dL (6.5-8.0)
[2023-01-21 10:13] LABS: TSH reflex Free T4 2.17 uIU/mL (0.32-4.0)
[2023-01-21 12:26] LABS: Creatinine Urine 172.82 mg/dL; Microalbum/Creatinine Ratio Ur 35.8 ug/mg cr
== END 2023-01-21 09:00 | disposition home or self-care (01) ==
LOC: HO.LAB 08:59
PROVIDERS: PCP Physician Assistant; Visit Provider Physician Assistant
DX: E11.9 Type 2 diabetes mellitus without complications (principal); K74.60 Unspecified cirrhosis of liver; I10 Essential (primary) hypertension
CPT/HCPCS: 36415; 80053; 82043; 82140; 84443; 85027

== ENCOUNTER 2023-01-28 07:26 | Outpatient (REF) | payer OTHER, SELFPAY ==
[2023-01-28 07:38] LABS: MANUAL DIFF FLAG NO
[2023-01-28 07:58] LABS: Hemoglobin 15.1 g/dl (14.0-18.0); Imm Gran Abs Auto 0.01 X10*3/uL (0.00-0.03); Imm Gran Pct Auto 0.2 % (0.0-0.4); Monocytes Absolute Auto 0.4 X10*3/uL (0.1-1.2); Monocytes Percent Auto 9.9 % (2-11); Red Cell Distribution Width 13.8 % (11.0-16.0)
[2023-01-28 08:00] LABS: Basophils Percent Auto 0.7 % (0-2); Eosinophils Absolute Auto 0.1 X10*3/uL (0.0-0.4); Eosinophils Percent Auto 2.8 % (0-4); Hematocrit 44.9 % (42.0-52.0); INTERNATIONAL NORM RATIO 1.4 (0.9-1.1); Lymphocytes Absolute Auto 1.1 X10*3/uL (1.2-4.9); Lymphocytes Percent Auto 25.3 % (20-40); Mean Corpuscular HGB Conc 33.6 g/dl (31.0-36.0); Mean Corpuscular Volume 86.3 fL (80.0-98.0); Neutrophils Absolute Auto 2.7 x10*3/uL (2.0-8.3); Neutrophils Percent Auto 61.1 % (45-73); Prothrombin Time 16.2 SEC (10.0-13.1); White Blood Count 4.4 X10*3/uL (4.8-10.8)
[2023-01-28 08:02] LABS: Platelet Count 52 X10*3/uL (160-400)
[2023-01-28 08:31] LABS: Alanine Aminotransferase 30 U/L (0-40); Albumin Level 3.9 g/dL (3.5-5.0); Alkaline Phosphatase 55 U/L (39-117); Anion Gap 11 (12-20); Aspartate Amino Transferase 29 U/L (5-37); Bilirubin Total 2.3 mg/dL (0.0-1.0); Blood Urea Nitrogen 13 mg/dL (9-16); Calcium 9.2 mg/dL (8.4-10.2); Carbon Dioxide 26 mmol/L (22-29); Chloride 111 mmol/L (96-108); Estimated Glomerular Filt Rate > 60; Glucose Random 136 mg/dL (60-115); Potassium 4.7 mmol/L (3.3-5.1); Sodium 143 mmol/L (135-145); Total Protein 6.3 g/dL (6.5-8.0)
[2023-01-29 13:33] LABS: Alpha Fetoprotein 2.7 ng/mL (<6.1)
== END 2023-01-28 07:27 | disposition home or self-care (01) ==
LOC: HO.LAB 07:26
PROVIDERS: PCP Physician Assistant; Visit Provider Internal Medicine Gastroenterology
DX: C22.0 Liver cell carcinoma (principal); Z76.82 Awaiting organ transplant status
CPT/HCPCS: 36415; 80053; 82105; 85025; 85610

== ENCOUNTER 2023-01-30 15:13 | Outpatient (REF) | payer OTHER, SELFPAY ==
--- NOTE | ~2023-01-30 | CT_ITS ---
EXAMINATION: CT CHEST WITH CONTRAST CLINICAL INFORMATION: Hepatocellular carcinoma COMPARISON: None available. TECHNIQUE: Multidetector volumetric CT imaging of the chest was obtained after the administration of 65 mL of Omnipaque 350 intravenous contrast without immediate adverse reactions. Axial MIP volume rendering provided. Sagittal and coronal reformatted images were obtained. This CT examination was performed using dose optimization techniques as appropriate, variously including the following: *Automated exposure control *Adjustment of mA and/or kV according to patient size (this includes techniques or standardized protocols for targeted exams where dose is matched to indication/reason for exam; i.e. extremities or head) *Use of iterative reconstruction technique DLP: 179 mGy-cm FINDINGS: LUNGS: 3 mm semisolid right upper lobe nodule axial image 117 series 7. The lungs are otherwise clear. MEDIASTINUM: The mediastinum is normal. PLEURA: There is no pleural effusion. No pleural mass or thickening. AXILLA: No lymphadenopathy. UPPER ABDOMEN: Cirrhotic liver. Splenomegaly. Very large varices. The left portal vein may be occluded. Question liver or gallbladder lesion measuring 2 x 3 cm axial image 56 series 3. Indication in the right adrenal gland. OSSEOUS STRUCTURES: Degenerative changes of the spine. CT/CT chest w IV con IMPRESSION: 3 mm semisolid right upper lobe nodule. Chest CT follow-up as per protocol. Fleischner guidelines were followed.
[2023-01-30] MEDS: iohexoL 350 MG/ML 100 ML INFUS..BTL 85 ML IV (15:47)
== END 2023-01-30 15:14 | disposition home or self-care (01) ==
LOC: HO.CT 15:13
PROVIDERS: PCP Physician Assistant; Visit Provider Nurse Practitioner
DX: Z76.82 Awaiting organ transplant status (principal); C22.0 Liver cell carcinoma
CPT/HCPCS: 71260; Q9967

== ENCOUNTER → 2023-03-07 10:25 | Outpatient (BNVA) | payer OTHER, SELFPAY | PROVIDERS: PCP Physician Assistant; Visit Provider Surgery | DX: R91.1 Solitary pulmonary nodule (principal); Z91.89 Other specified personal risk factors, not elsewhere classified | CPT/HCPCS: 99202 ==

== ENCOUNTER 2023-04-02 13:55 | Outpatient (REF) | payer OTHER, SELFPAY ==
[2023-04-02 14:08] LABS: MANUAL DIFF FLAG NO
[2023-04-02 15:34] LABS: Basophils Percent Auto 0.5 % (0-2); Eosinophils Absolute Auto 0.1 X10*3/uL (0.0-0.4); Eosinophils Percent Auto 2.5 % (0-4); Hematocrit 43.4 % (42.0-52.0); Hemoglobin 14.8 g/dl (14.0-18.0); Imm Gran Abs Auto 0.01 X10*3/uL (0.00-0.03); Imm Gran Pct Auto 0.2 % (0.0-0.4); Lymphocytes Absolute Auto 0.8 X10*3/uL (1.2-4.9); Lymphocytes Percent Auto 19.6 % (20-40); Mean Corpuscular HGB Conc 34.1 g/dl (31.0-36.0); Mean Corpuscular Hemoglobin 29.4 pg (27.0-33.0); Mean Corpuscular Volume 86.3 fL (80.0-98.0); Monocytes Absolute Auto 0.4 X10*3/uL (0.1-1.2); Monocytes Percent Auto 10.9 % (2-11); Neutrophils Absolute Auto 2.7 x10*3/uL (2.0-8.3); Neutrophils Percent Auto 66.3 % (45-73); Red Blood Count 5.03 X10*6/uL (4.60-5.80); Red Cell Distribution Width 13.9 % (11.0-16.0)
[2023-04-02 15:35] LABS: Platelet Count 49 X10*3/uL (160-400)
[2023-04-02 15:39] LABS: INTERNATIONAL NORM RATIO 1.5 (0.9-1.1)
[2023-04-02 16:15] LABS: Alanine Aminotransferase 31 U/L (0-40); Albumin Level 3.8 g/dL (3.5-5.0); Alkaline Phosphatase 50 U/L (39-117); Anion Gap 12 (12-20); Aspartate Amino Transferase 29 U/L (5-37); Bilirubin Total 2.6 mg/dL (0.0-1.0); Blood Urea Nitrogen 10 mg/dL (9-16); Calcium 9.4 mg/dL (8.4-10.2); Carbon Dioxide 24 mmol/L (22-29); Chloride 110 mmol/L (96-108); Estimated Glomerular Filt Rate > 60; Glucose Random 115 mg/dL (60-115); Potassium 3.9 mmol/L (3.3-5.1); Sodium 142 mmol/L (135-145); Total Protein 6.4 g/dL (6.5-8.0)
== END 2023-04-02 13:56 | disposition home or self-care (01) ==
LOC: HO.LAB 13:55
PROVIDERS: Visit Provider Internal Medicine Gastroenterology
DX: Z76.82 Awaiting organ transplant status (principal); Z20.2 Contact with and (suspected) exposure to infections with a predominantly sexual mode of transmission
CPT/HCPCS: 36415; 80053; 85025; 85610

== ENCOUNTER 2023-05-07 07:47 | Outpatient (REF) | payer OTHER, SELFPAY ==
[2023-05-07 08:31] LABS: Ammonia 64 umol/L (13-55)
[2023-05-07 08:34] LABS: Hematocrit 42.8 % (42.0-52.0); Hemoglobin 14.4 g/dl (14.0-18.0); Mean Corpuscular HGB Conc 33.6 g/dl (31.0-36.0); Mean Corpuscular Hemoglobin 28.7 pg (27.0-33.0); Mean Corpuscular Volume 85.4 fL (80.0-98.0); Mean Platelet Volume 13.2 fL (9.4-12.4); Red Blood Count 5.01 X10*6/uL (4.60-5.80); White Blood Count 4.3 X10*3/uL (4.8-10.8)
[2023-05-07 08:35] LABS: Platelet Count 66 X10*3/uL (160-400)
[2023-05-07 08:58] LABS: Alanine Aminotransferase 21 U/L (0-40); Albumin Level 3.9 g/dL (3.5-5.0); Alkaline Phosphatase 58 U/L (39-117); Anion Gap 11 (12-20); Aspartate Amino Transferase 24 U/L (5-37); Bilirubin Total 2.4 mg/dL (0.0-1.0); Blood Urea Nitrogen 12 mg/dL (9-16); Calcium 9.3 mg/dL (8.4-10.2); Carbon Dioxide 27 mmol/L (22-29); Chloride 109 mmol/L (96-108); Cholesterol 127 mg/dL; Estimated Glomerular Filt Rate > 60; Glucose Fasting 129 mg/dL (60-99); HDL Cholesterol 47 mg/dL; LDL Cholesterol Calculated 70 mg/dl; Potassium 3.9 mmol/L (3.3-5.1); Sodium 143 mmol/L (135-145); Total Protein 6.7 g/dL (6.5-8.0); Triglycerides 53 mg/dL
== END 2023-05-07 07:48 | disposition home or self-care (01) ==
LOC: HO.LAB 07:47
PROVIDERS: PCP Physician Assistant; Visit Provider Physician Assistant
DX: E11.9 Type 2 diabetes mellitus without complications (principal); K74.60 Unspecified cirrhosis of liver
CPT/HCPCS: 36415; 80053; 80061; 82140; 85027

== ENCOUNTER 2023-05-07 11:46 | Outpatient (REF) | payer OTHER, SELFPAY ==
--- NOTE | ~2023-05-07 | MR_ITS ---
EXAMINATION: MR ABDOMEN WITHOUT AND WITH CONTRAST CLINICAL INFORMATION: Liver lesion COMPARISON: Chest CT performed 01/30/2023. Abdominal ultrasound from 12/16/2022. TECHNIQUE: MR abdomen was performed without and with use of 8.5 mL intravenous Gadavist gadolinium contrast. Postcontrast images are performed in multiphase dynamic sequences. Imaging was performed in 3 planes. FINDINGS: LUNG BASES: The visualized lung bases are unremarkable. LIVER, GALLBLADDER, AND BILIARY TREE: Cirrhotic liver morphology with nodular Contour. There is an area in segment 7 of the liver posteriorly which is low in signal on T2-weighted imaging with a high signal rim. This area measures 7.5 x 2.5 cm in axial dimensions. On T1-weighted imaging this is centrally increased in signal. On postcontrast imaging this does not enhance. There is no definite correlate on the prior CT. Otherwise, there is no arterially enhancing lesion. No areas of early washout. Hepatic veins are patent. The portal vein is patent. The gallbladder is unremarkable with no evidence of gallbladder wall thickening, or obvious pericholecystic inflammatory changes. PANCREAS: Unremarkable. SPLEEN: Splenomegaly. The spleen measures 16 cm in CC dimension. No focal lesion. ADRENAL GLANDS: Normal. KIDNEYS AND URETERS: The kidneys are normal in size, shape, and enhance symmetrically. No hydronephrosis. No perinephric stranding. Multiple tiny simple cysts bilaterally. No specific follow-up recommended. GASTROINTESTINAL TRACT: No bowel obstruction. No ascites or fluid collection. ABDOMINAL WALL: No significant hernia is appreciated. LYMPH NODES: No lymphadenopathy. VASCULAR: Normal caliber aorta. Prominent varices in the upper abdomen. These are similar to the prior chest CT. OSSEOUS STRUCTURES: Marrow signal normal. MR/MR abdomen wo/w con IMPRESSION: 1. Cirrhotic liver. There is an area of abnormal signal in segment 7 of the liver, which does not enhance. This is not visualized on the prior CT. This may represent a complex area of fluid/blood products. Continued attention should be given follow-up imaging. No suspicious liver mass concerning for neoplasm at this time. 2. Sequela of portal hypertension with splenomegaly and varices. No ascites. 3. Multiple tiny simple renal cysts. No specific follow-up recommended.
== END 2023-05-07 11:47 | disposition home or self-care (01) ==
LOC: HO.MRI 11:46
PROVIDERS: PCP Physician Assistant; Visit Provider Internal Medicine Gastroenterology
DX: Z76.82 Awaiting organ transplant status (principal); B18.2 Chronic viral hepatitis C
CPT/HCPCS: 74183; A9585

== ENCOUNTER 2023-06-05 13:24 | Emergency (ER) | payer OTHER, SELFPAY ==
[2023-06-05 13:27] VITALS: BP 135/77; PULSE 83; RESP 19; TEMP 36.6; O2SAT 98; BMI 26.8
--- NOTE | 2023-06-05 13:27 | ED.GENADULT ---
HPI - General Adult General Chief complaint: Eye Problems Stated complaint: metal in r eye bleeding Time Seen by Provider: 06/05/23 15:09 Source: patient and RN notes reviewed Mode of arrival: ambulatory Limitations: no limitations History of Present Illness HPI narrative: This is a 58-year-old male, with a past medical history of diabetes, hypertension, presenting to the emergency department for evaluation of right eye redness since today. Patient reports that he was working on a piece of metal with his brother when suddenly a piece of metal flew back and struck him in the right eye. He states that the piece of metal scraped the surface of his eye and does not think that there is any pieces of metal left in his eye. He did have initially some bleeding in his right eye. He denies any pain to his eye, denies changes in his vision. Denies itchiness. He does not wear contact lenses. Denies any fevers, chills, nausea, vomiting or diarrhea. No other complaints or concerns at this time. MD complaint: Right eye redness Onset (ago): hour(s) Location: eyes Radiation: non-radiation Severity: mild Quality: burning Pain Consistency: constant Relieving factors: none Exacerbating factors: none Associated symptoms: denies other symptoms Treatments prior to arrival: none Related Data Home Medications Medication Instructions Recorded Confirmed lancets 28 gauge (FreeStyle #100 ea 10/19/20 03/07/23 Lancets) blood-glucose meter #1 ea 02/27/21 03/07/23 zinc gluconate 50 mg tablet 50 mg PO DAILY 02/27/21 03/07/23 famotidine 40 mg tablet 40 mg PO BEDTIME 07/19/22 03/07/23 pantoprazole 40 mg tablet,delayed 40 mg PO BID 07/19/22 03/07/23 release Previous Rx's Medication Instructions Recorded blood pressure monitor #1 ea 08/14/20 blood sugar diagnostic (FreeStyle 1 strip miscellaneous BID 30 days 10/19/20 Lite Strips) #100 strips lancets 28 gauge (FreeStyle 1 gauge topical DIRECTED 30 10/19/20 Lancets) days #100 ea vitamin A palmitate 3,000 mcg 10,000 unit PO DAILY 30 days #30 06/19/21 (10,000 unit) capsule caps amlodipine 10 mg tablet 10 mg PO DAILY #90 tabs 12/26/21 meclizine 25 mg tablet 25 mg PO BID PRN motion sickness 7 01/28/22 days #14 tabs albuterol sulfate 90 mcg/actuation 1 inh inhalation QID PRN shortness 07/02/22 aerosol inhaler of breath or wheezing 30 days #8.5 grams cyclobenzaprine 5 mg tablet 5 mg PO TID PRN muscle spasm #14 08/28/22 tabs ferrous sulfate 220 mg (44 mg 220 mg (5 mL) PO DAILY 90 days 09/16/22 iron)/5 mL oral elixir #450 mL lisinopril 20 mg tablet 20 mg PO DAILY 90 days #90 tabs 09/16/22 omeprazole 20 mg capsule,delayed 20 mg PO DAILY #90 caps 02/07/23 release lactulose 10 gram/15 mL oral 45 ml PO TID #3,000 mL 03/24/23 solution sitagliptin phosphate 100 mg 100 mg PO DAILY #90 tabs 04/10/23 tablet (Januvia) amiloride 5 mg tablet 5 mg PO DAILY #90 tabs 05/20/23 furosemide 40 mg tablet 40 mg PO DAILY #90 tabs 05/20/23 lactulose 10 gram/15 mL oral 45 ml PO TID #3,000 mL 06/02/23 solution erythromycin 5 mg/gram (0.5 %) eye 1 appl ophthalmic (eye) DAILY #3.5 06/05/23 ointment grams rifaximin 550 mg tablet (Xifaxan) 550 mg PO BID #180 tabs 06/05/23 Allergies Allergy/AdvReac Type Severity Reaction Status Date / Time No Known Allergies Allergy Verified 06/05/23 13:27 Review of Systems Review of Systems: Yes all other systems are reviewed and are negative Constitutional: Constitutional: Reports as per [facility] Past Medical History Attestation statement: The following information was validated with the patient. Medical History Cirrhosis of liver DMII (diabetes mellitus, type 2) GAVE (gastric antral vascular ectasia) Head injury Headache Hemorrhoid Hepatic encephalopathy Hepatitis C virus History of abdominal paracentesis History of blood transfusion HTN (hypertension) Hx of Clostridium difficile infection Hx of esophageal varices Iron deficiency anemia Malnutrition Migraine headache Neck pain Osteoarthritis of left knee Other otitis externa, right ear Pain aggravated by swallowing Patellofemoral pain syndrome of both knees Portal hypertension Somatic dysfunction of left sacroiliac joint Strain of lumbar paraspinal muscle Swallowed chicken bone Surgical History History of colonoscopy History of esophagogastroduodenoscopy (EGD) Family History Family History Father No problems noted. Mother Asthma Diabetes Social History Social History Household Members: Family Housing: House Alcohol intake: never Patient Tobacco Use Status: Former Tobacco user e-Cigarette/Vaping Use: Never Used Second Hand Smoke Exposure: Yes Advance Directives: Yes Advance Directives on File: Yes Advance Directives Date on File: 07/17/20 service: No Current occupational status: disabled Cognitive needs: No Hearing needs: No Vision needs: No Physical Exam ED Vital Signs: Vital Signs - 24 hr 06/05/23 13:27 Temperature 98 F Pulse Rate 83 Respiratory Rate 19 Blood Pressure 135/77 Pulse Oximetry 98 Oxygen Delivery Method Room Air BMI result Body Mass Index 26.8 Const General: cooperative, comfortable and no acute distress Orientation/consciousness: patient oriented x3 Limitations: no limitations HENMT Head: Yes normal to inspection, Yes normocephalic and Yes atraumatic Ears: hearing grossly normal bilaterally General nose exam: Normal external nose present Face and sinus: Yes normal facial exam Mouth: Normal oral and palatal mucosa present, oropharynx normal and moist mucous membranes Throat: Yes posterior oropharynx normal Eyes Other: Right eye lateral aspect there is a subconjunctival hemorrhage noted. Fluorescein examination revealing large corneal abrasion in the conjunctiva at approximal 7-8 o clock position. There is no foreign body. There is no rust ring. EOMI, PERRL. No teardrop pupil. General: appearance normal, both eyes and all related structures Eyelids: Yes eyelids normal Conjunctivae: conjunctivae normal Sclerae: sclerae normal Pupils: Equal, round and reactive pupils present EOM: EOMs intact bilaterally Neck Neck: Yes normal visual inspection, Yes full ROM and Yes no lymphadenopathy Lymphatic: no lymphadenopathy noted Chest Chest palpation & inspection: normal inspection of the chest Resp Effort & Inspection: normal respiratory effort and able to speak in complete sentences GI Inspection: Yes normal to inspection Skin General skin exam: no rashes or lesions noted Trauma: no lacerations or abrasions Wounds: no wounds Neuro General: patient oriented x3 and moves all extremities Cranial nerves: Yes Equal, round and reactive pupils present Extrem General: Yes normal to inspection Right upper extremity: normal to inspection Left upper extremity: normal to inspection Right lower extremity: normal to inspection Left lower extremity: normal to inspection Course Course Course Narrative: RME- 58-year-old male presents for evaluation of right eye pain. Patient was working at home when a piece of metal hit him in the eye. He had lend his safety glasses to his brother briefly. He has a lateral subconjunctival hemorrhage. No pupillary defect. No evidence of foreign body. Plan for visual acuity testing and eye examination Medications Administered Discontinued Medications Generic Name Dose Route Start Last Admin Trade Name Freq PRN Reason Stop Dose Admin Fluorescein Sodium 1 strip 06/05/23 13:27 06/05/23 15:08 Fluorescein Sodium Strip EYE-RIGHT 06/05/23 13:28 1 strip ONCE ONE Administration Tetracaine HCl 3 drop 06/05/23 13:27 06/05/23 15:08 Tetracaine Hcl/Pf 0.5% Oph Jordyn 4 Ml Drops EYE-RIGHT 06/05/23 13:28 3 drop ONCE ONE Administration Medical Decision Making Medical Decision Making [facility] Narrative: 4-year-old male presenting to the emergency department for evaluation of right eye redness after having piece of metal strike him in the eye. On arrival, vital signs within normal limits. Visual acuity performed without any acute findings. Patient has no eye pain or visual changes. Fluorescein stain was performed using tetracaine. There was fluorescein uptake on the lateral aspect approximately 7 and 8 o'clock position. There is no foreign body seen on examination. Pupils are equal and round. Globe rupture unlikely. Given patient's medical history of diabetes, will treat corneal abrasion with erythromycin ointment. He has an eye doctor who he can follow up with. Patient understands and agrees with plan. Given return precautions if any new or worsening symptoms occur. His tetanus is up-to-date. Stable for discharge Differential Diagnosis Differential Diagnoses: The differential diagnosis associated with the presentation includes Corneal abrasion, laceration, subconjunctival hemorrhage, foreign body, globe rupture-on likely Prescription Management I considered prescription management with: Antibiotic Chronic Conditions Patient?s care impacted by: Diabetes and Hypertension Discharge Plan Discharge Clinical Impression: Abrasion, corneal, Subconjunctival hemorrhage of right eye Patient Disposition: Home, Self-Care Instructions: Subconjunctival Hemorrhage (ED), Corneal Abrasion (ED) Additional Instructions: You have a scratch on your eye. There is no evidence of any foreign bodies in your eye. Please use antibiotic eye ointment as directed. Use this for 7 days. Finish the entire course even if your feeling better. Follow-up with your eye doctor. If any new or worsening symptoms occur including but not limited to changes in your vision, please return for re-evaluation. Prescriptions: New erythromycin 5 mg/gram (0.5 %) ointment 1 appl ophthalmic (eye) DAILY Qty: 3.5 0RF No Action (DME) blood pressure monitor Kit See Rx Instructions .ROUTE .MEDSUPPLY Qty: 1 0RF Rx Instructions: As directed (DME) lancets [FreeStyle Lancets] 28 gauge misc See Rx Instructions .ROUTE .MEDSUPPLY Qty: 100 Rx Instructions: As directed lancets [FreeStyle Lancets] 28 gauge misc 1 gauge topical DIRECTED 30 Days Qty: 100 3RF blood sugar diagnostic [FreeStyle Lite Strips] Strip 1 strip miscellaneous BID 30 Days Qty: 100 3RF vitamin A palmitate 10,000 unit capsule 10,000 unit PO DAILY 30 Days Qty: 30 0RF meclizine 25 mg tablet 25 mg PO BID PRN (Reason: motion sickness) 7 Days Qty: 14 0RF ferrous sulfate 220 mg (44 mg iron)/5 mL elixir 220 mg PO DAILY 90 Days Qty: 450 2RF lisinopril 20 mg tablet 20 mg PO DAILY 90 Days Qty: 90 2RF omeprazole 20 mg capsule,delayed release(DR/EC) 20 mg PO DAILY Qty: 90 3RF lactulose 10 gram/15 mL solution 45 ml PO TID Qty: 3000 0RF Januvia 100 mg tablet 100 mg PO DAILY Qty: 90 2RF amiloride 5 mg tablet 5 mg PO DAILY Qty: 90 0RF furosemide 40 mg tablet 40 mg PO DAILY Qty: 90 0RF lactulose 10 gram/15 mL solution 45 ml PO TID Qty: 3000 0RF Xifaxan 550 mg tablet 550 mg PO BID Qty: 180 3RF amlodipine 10 mg tablet 10 mg PO DAILY Qty: 90 2RF albuterol sulfate 90 mcg/actuation HFA aerosol inhaler 1 inh inhalation QID PRN (Reason: shortness of breath or wheezing) 30 Days Qty: 8.5 0RF cyclobenzaprine 5 mg tablet 5 mg PO TID PRN (Reason: muscle spasm) Qty: 14 0RF zinc gluconate 50 mg tablet 50 mg PO DAILY (DME) blood-glucose meter Kit See Rx Instructions .ROUTE DIRECTED Qty: 1 Rx Instructions: As directed famotidine 40 mg tablet 40 mg PO BEDTIME pantoprazole 40 mg tablet,delayed release (DR/EC) 40 mg PO BID Interventions: ED Discharge Assessment Last Done: 06/05/23 16:47 Discharge Date/Time: 06/05/23 16:49
[2023-06-05] MEDS: Fluorescein Sodium STRIP 1 STRIP EYE-RIGHT (15:08)
[2023-06-05] MEDS: Tetracaine HCl/PF 0.5% Oph Sol 4 ML DROPS 3 DROP EYE-RIGHT (15:08)
== END 2023-06-05 16:49 | disposition home or self-care (01) ==
PROVIDERS: Emergency Provider Emergency Medicine; PCP Physician Assistant
DX: S05.01XA Injury of conjunctiva and corneal abrasion without foreign body, right eye, initial encounter (principal); W22.8XXA Striking against or struck by other objects, initial encounter; H11.31 Conjunctival hemorrhage, right eye; Y93.89 Activity, other specified; Y92.9 Unspecified place or not applicable; Y99.9 Unspecified external cause status; Z79.899 Other long term (current) drug therapy; E11.9 Type 2 diabetes mellitus without complications; I10 Essential (primary) hypertension; Z87.891 Personal history of nicotine dependence
CPT/HCPCS: 99282; 99283

== ENCOUNTER 2023-07-22 09:24 | Outpatient (AMB) | payer OTHER, SELFPAY ==
[2023-07-22 09:26] VITALS: BP 120/82; PULSE 77; O2SAT 98; BMI 28.0
--- NOTE | 2023-07-22 09:26 | MHC.PC.OV ---
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 Required: No Accompanied by: Self / Same As Patient Allergies No Known Allergies Allergy (Verified 07/22/23 09:38) Medication List - Last Reconciled 07/22/23 by Brian Vela PA-C albuterol sulfate 90 mcg/actuation 1 inh inhalation QID PRN 30 days amiloride 5 mg PO DAILY amlodipine 10 mg PO DAILY blood pressure monitor As directed blood sugar diagnostic (FreeStyle Lite Strips) 1 strip miscellaneous BID 30 days blood-glucose meter As directed cyclobenzaprine 5 mg PO TID PRN erythromycin 1 appl ophthalmic (eye) DAILY famotidine 40 mg PO BEDTIME ferrous sulfate 220 mg (5 mL) PO DAILY 90 days furosemide 40 mg PO DAILY lactulose 45 mL PO TID lactulose 45 mL PO TID lancets (FreeStyle Lancets) 1 gauge topical DIRECTED 30 days lancets (FreeStyle Lancets) As directed lisinopril 20 mg PO DAILY 90 days meclizine 25 mg PO BID PRN 7 days omeprazole 20 mg PO DAILY pantoprazole 40 mg PO BID rifaximin (Xifaxan) 550 mg PO BID sitagliptin phosphate (Januvia) 100 mg PO DAILY vitamin A palmitate 10,000 units PO DAILY 30 days zinc gluconate 50 mg PO DAILY Tobacco use date assessed: 10/17/22 Dental Screening Dental Screen Date: 07/22/23 Did you have a dental visit in the last 12 months?: Yes Did you have a dental problem in the last 6 months where you did not have access to dental care?: No Was dental information given to patient?: Patient has dentist HPI f/u DMII/ Liver issues HPI Details Elroy is a 58 male here today follow-up visit. Patient's past medical history significant for essential hypertension , type 2 diabetes, liver cirrhosis, iron deficiency anemia, h/o of IV drug use and alcohol abuse. Concerns--> reports having difficulty with reducing an erection over the last 2 years. Has tried [id number] and home remedies without much relief. He is willing to try Cialis or Viagra product before sexual activity. He reports he has a stable partner over the last year. ? .. ?? ?CHRONIC MEDICAL CONDITIONS--> ?? Liver cirrhosis:? Continues to follow gastroenterology ([facility] and [facility] ) ?Had history of hep C though has cleared the treatment history liver cirrhosis..? Continues on the liver transplant list though has been stable.? Also followed by local GI doctor Silvino. Has recently gotten endoscopy showing esophageal polyps. ? Most recent liver enzymes stable. He reports he has stopped using lactulose and continues to have 3-4 bowel movements per day. Will check his ammonia level. Recently has CT abd showing a liver tumer consistent with a hepatocellular carcinoma. Underwent to CT ablation of the liver mass at [facility]. Another mass has been found and will be getting a new MRI liver. He reports he is now candidate for liver transplant. Pulmonary nodule: Of note patient did get CT of chest showing a 3 mm pulmonary nodule. Willing to see [facility] for evaluation. Does have moderate cancer risks as he has liver cirrhosis secondary to hep C and on transplant list for new liver .. Hypertension:? Blood pressures have been stable with current dose blood pressure medication. Continues on Amlodpine 10mg .. Thrombocytopenia:? Has a long history of thrombocytopenia.? Etiology unclear at this time though could be secondary to his liver disease. . Umbilical hernia:? Does have a small umbilical hernia likely fat containing.? Not candidate for repair due to his liver issues.? Manages with admits abdominal binder belt. ? . ? DMII: Has been checking his blood sugars and reports 110-130s.?Today a1c at 6.9 .? He does report his diet has been poor as of late. He promises to get back on track with his diabetic diet. [facility] Medical History Cirrhosis of liver DMII (diabetes mellitus, type 2) GAVE (gastric antral vascular ectasia) Head injury Headache Hemorrhoid Hepatic encephalopathy Hepatitis C virus History of abdominal paracentesis History of blood transfusion HTN (hypertension) Hx of Clostridium difficile infection Hx of esophageal varices Iron deficiency anemia Malnutrition Migraine headache Neck pain Osteoarthritis of left knee Other otitis externa, right ear Pain aggravated by swallowing Patellofemoral pain syndrome of both knees Portal hypertension Somatic dysfunction of left sacroiliac joint Strain of lumbar paraspinal muscle Swallowed chicken bone Surgical History History of esophagogastroduodenoscopy (EGD) History of colonoscopy Family History Father No problems noted. Mother Asthma Diabetes Social History Household Members: Family Housing: House Alcohol intake: never Patient Tobacco Use Status: Former Tobacco user e-Cigarette/Vaping Use: Never Used Second Hand Smoke Exposure: Yes Advance Directives Date on File: 07/17/20 service: No Current occupational status: disabled Cognitive needs: No Hearing needs: No Vision needs: No Questionnaire Thrive Questionnaire Date Thrive assessed: 10/17/22 CHATA-7 AMB Questionnaire CHATA-7 Date CHATA - 7 assessed: 10/17/22 Source: Developed by Drs. Yuri Lowe, Vianey Mclean, Paul Traore and colleagues, with an educational yariel from [employer]. Review of Systems Const Denies headache(s) Eyes Denies loss of vision ENT Denies vertigo, Denies dizziness, Denies headache(s) and Denies sore throat Card Denies chest pain, Denies leg edema and Denies lightheadedness Resp Denies cough, Denies hemoptysis and Denies wheezing GI Denies abdominal pain, Denies melena, Denies constipation, Denies diarrhea and Denies vomiting Denies dysuria, Denies urinary frequency and Denies urinary urgency Musc Denies arthralgias, Denies joint swelling, Denies numbness and Denies tingling Neuro Denies Abnormal speech present, Denies behavioral changes, Denies vertigo, Denies dizziness, Denies headache(s), Denies loss of vision, Denies memory loss, Denies numbness and Denies tingling Psych Denies anxiety, Denies behavioral changes, Denies depression, Denies memory loss and Denies panic attacks Jamel/Lymph Denies easy bleeding and Denies easy bruising Aller/Immun Denies wheezing Physical exam (Primary Care) Vital Signs: Last Vital Signs Pulse 77 07/22/23 09:26 BP 120/82 07/22/23 09:26 Pulse Ox 98 07/22/23 09:26 Oxygen Delivery Method Room Air 07/22/23 09:26 BMI result Body Mass Index 28.0 Tobacco/Smoking Status: Tobacco use Status Tobacco use date assessed 10/17/22 07/22/23 09:32 Patient Tobacco Use Status Former Tobacco user 07/22/23 09:32 e-Cigarette/Vaping Use Never Used 07/22/23 09:32 Thrive Assessment: Date of Thrive Assessment Date Thrive assessed 10/17/22 07/22/23 09:32 Const General: healthy appearing, no acute distress, alert and awake Nutritional Appearance: well nourished Orientation/consciousness: oriented to person, oriented to place and oriented to time HENMT Ears: TM's normal bilaterally General nose exam: Normal nasal mucous membranes and turbinates present Eyes Conjunctivae: conjunctivae normal Sclerae: sclerae normal Pupils: Equal, round and reactive pupils present Neck Neck: Yes no lymphadenopathy and Yes no JVD Thyroid: Thyroid normal Carotids: no bruits Resp Effort & Inspection: normal respiratory effort and not tachypneic Auscultation: no crackles, no rales, no rhonchi and no wheezes Cardio Rate: regular rate Rhythm: regular rhythm Heart sounds: no murmurs and normal S1 and S2 GI Palpation (GI): Soft to palpation, nontender, no hepatomegaly and no splenomegaly Auscultation: normal bowel sounds Skin General skin exam: no rashes or lesions noted and dry skin Neuro General: oriented to person, oriented to place and oriented to time Cranial nerves: Yes Equal, round and reactive pupils present Speech: No Abnormal speech present Gait exam (Neuro): Normal gait present Motor exam (neuro): no tremor noted Extrem Right upper extremity: full ROM Left upper extremity: full ROM Right lower extremity: full ROM; no edema Left lower extremity: full ROM; no edema Psych Mental Status: mental status grossly normal Speech and movement: Normal speech and movement present Affect: normal affect Attitude: cooperative Thought process: Normal thought process present Office Procedures Flu Questionnaire Does the patient have a severe egg allergy?: No Does the patient have severe life threatening allergies?: No Does the patient have a fever or illness today?: No Has the patient ever had Guillain-[place] Syndrome?: No Has the patient ever had any past reaction to a flu shot?: No Results AMB Hemoglobin A1c AMB Hemoglobin A1c 6.9 % Last Edit by AMANDA Farah on 07/22/23 09:42 Immunizations flu vacc [id number] 6mos up(PF) 60 mcg(15 mcgx4)/0.5 mL IM syringe Performing Provider: Brian Vela PA-C [facility] Administered by: AMANDA Farah on 07/22/23 10:00 Dose Route Admin Location Dispensed Lot Number Expiration Date NDC Autographer 0.5 mL IM Left Deltoid 0.5 mL [id number] 04/11/24 01682-891-60 myaNUMBER VIS Given Date VIS Provided VIS Publication Date 07/22/23 Single Vaccine 21 Eligibility Eligibility Date Funding Source Not VFC Eligible 07/22/23 Private Results Reviewed Results Reviewed: Laboratory Last Values Hgb A1c (Clinic) 6.9 % (4.0-6.0) H 07/22/23 09:32 Assessment and Plan Assessment & Plan (1) DMII (diabetes mellitus, type 2): Code(s): E11.9 - Type 2 diabetes mellitus without complications Qualifiers: Diabetes mellitus fpc insulin use: without director long term care use Diabetes mellitus complication status: without complication Qualified Code(s): E11.9 - Type 2 diabetes mellitus without complications Plan: Patient's type 2 diabetes well controlled with current anti-hyperglycemic medication. A1c slightly elevated as compared to previous. He does report some dietary indiscretion and will work on diabetic diet Goal A1c to be below 7.0 (2) Pulmonary nodule less than 1 cm in diameter with moderate to high risk for malignant neoplasm: Code(s): R91.1 - Solitary pulmonary nodule; Z91.89 - Other specified personal risk factors, not elsewhere classified Plan: As HPI patient was found to have a pulmonary nodule and 3 mm Will continue to follow lung cancer screening program (3) Cirrhosis of liver: Code(s): K74.60 - Unspecified cirrhosis of liver Qualifiers: Hepatic cirrhosis type: unspecified hepatic cirrhosis Ascites presence: unspecified Qualified Code(s): K74.60 - Unspecified cirrhosis of liver Plan: Again patient followed by local GI and was tear liver transplant team. Has been found to have hepatocellular carcinoma on MRI of liver. Recently underwent CT ablation of liver lesion. To liver enzymes have been stable though total bilirubin remains relatively high (4) HTN (hypertension): Code(s): I10 - Essential (primary) hypertension Qualifiers: Hypertension type: essential hypertension Qualified Code(s): I10 - Essential (primary) hypertension Plan: Patient's blood pressure acceptable on today in office will continue his current dose of antihypertensive medication with goal blood pressure to be below 140/90 (5) Other psychoactive substance dependence, in remission: Code(s): F19.21 - Other psychoactive substance dependence, in remission Plan: In remission Has been sober now for many years (6) Thrombocytopenia: Code(s): D69.6 - Thrombocytopenia, unspecified Plan: Continues to be stable, his thrombocytopenia thought to be related to his liver disease. No overt signs bleeding, bruising. (7) Erectile dysfunction: Code(s): N52.9 - Male erectile dysfunction, unspecified Qualifiers: Erectile dysfunction type: due to other cause Qualified Code(s): N52.8 - Other male erectile dysfunction Plan: As per HPI Orders: Orders Ammonia Today K76.9 - Liver disease, unspecified Microalbumin, Random (w Creat) 4 Months I10 - Essential (primary) hypertension Complete Blood Count no Diff 4 Months E11.9 - Type 2 diabetes mellitus without complications AMB Hemoglobin A1c Today E11.9 - Type 2 diabetes mellitus without complications Influenza [id number] Immunization Today Z23 - Encounter for immunization Comprehensive [place]. Panel Fast 4 Months E11.9 - Type 2 diabetes mellitus without complications Medications: New tadalafil (Cialis) 20 mg PO DAILY 5 days 5 tabs 0RF N52.8 - Other male erectile dysfunction On Hold lisinopril Hold Comment: Doctor's Order 20 mg PO DAILY 90 days 90 tabs 2RF I10 - Essential (primary) hypertension amlodipine Hold Comment: Doctor's Order 10 mg PO DAILY 90 tabs 2RF Coding Level of Care Code Est Pt Level 4 (49204) Diagnoses Type 2 diabetes mellitus without complication, without long-term current use of insulin E11.9 Diabetes mellitus director long term care insulin use: without director long term care use Diabetes mellitus complication status: without complication Pulmonary nodule less than 1 cm in diameter with moderate to high risk for malignant neoplasm R91.1; Z91.89 Hepatic cirrhosis, unspecified hepatic cirrhosis type, unspecified whether ascites present K74.60 Hepatic cirrhosis type: unspecified hepatic cirrhosis Ascites presence: unspecified Essential hypertension I10 Hypertension type: essential hypertension Other psychoactive substance dependence, in remission F19.21 Thrombocytopenia D69.6 Other male erectile dysfunction N52.8 Erectile dysfunction type: due to other cause
== END 2023-07-22 10:06 | disposition home or self-care (01) ==
PROVIDERS: Visit Provider Physician Assistant
DX: E11.9 Type 2 diabetes mellitus without complications (principal); K74.60 Unspecified cirrhosis of liver; F19.21 Other psychoactive substance dependence, in remission; D69.6 Thrombocytopenia, unspecified; Z23 Encounter for immunization; R91.1 Solitary pulmonary nodule; Z91.89 Other specified personal risk factors, not elsewhere classified; I10 Essential (primary) hypertension; N52.8 Other male erectile dysfunction
CPT/HCPCS: 83036; 90471; 90686; 99214

== ENCOUNTER 2023-07-26 07:51 | Outpatient (REF) | payer OTHER, SELFPAY ==
[2023-07-26 09:16] LABS: Hematocrit 41.4 % (42.0-52.0); Hemoglobin 13.8 g/dl (14.0-18.0); Mean Corpuscular HGB Conc 33.3 g/dl (31.0-36.0); Mean Corpuscular Hemoglobin 26.7 pg (27.0-33.0); Mean Corpuscular Volume 80.1 fL (80.0-98.0); Platelet Count 55 X10*3/uL (160-400); Red Blood Count 5.17 X10*6/uL (4.60-5.80); Red Cell Distribution Width 13.8 % (11.0-16.0); White Blood Count 3.9 X10*3/uL (4.8-10.8)
[2023-07-26 09:34] LABS: Alanine Aminotransferase 23 U/L (0-40); Albumin Level 4.1 g/dL (3.5-5.0); Alkaline Phosphatase 52 U/L (39-117); Anion Gap 11 (12-20); Aspartate Amino Transferase 24 U/L (5-37); Bilirubin Total 1.6 mg/dL (0.0-1.0); Blood Urea Nitrogen 12 mg/dL (9-16); Calcium 9.7 mg/dL (8.4-10.2); Carbon Dioxide 26 mmol/L (22-29); Chloride 112 mmol/L (96-108); Estimated Glomerular Filt Rate > 60; Glucose Fasting 155 mg/dL (60-99); Potassium 4.9 mmol/L (3.3-5.1); Sodium 144 mmol/L (135-145); Total Protein 6.9 g/dL (6.5-8.0)
[2023-07-26 10:14] LABS: Creatinine Urine 142.35 mg/dL; Microalbum/Creatinine Ratio Ur 42.8 ug/mg cr (<30)
[2023-07-26 11:11] LABS: Ammonia 135 umol/L (13-55)
== END 2023-07-26 07:52 | disposition home or self-care (01) ==
LOC: HO.LAB 07:51
PROVIDERS: PCP Physician Assistant; Visit Provider Physician Assistant
DX: D69.6 Thrombocytopenia, unspecified (principal); E11.9 Type 2 diabetes mellitus without complications; K76.9 Liver disease, unspecified; I10 Essential (primary) hypertension
CPT/HCPCS: 36415; 80053; 82043; 82140; 82570; 85027

== ENCOUNTER 2023-07-28 08:47 | Outpatient (AMB) | payer OTHER, SELFPAY ==
--- NOTE | 2023-07-28 08:49 | A.OFFVIS_ITS ---
Intake Vital Signs 07/28/23 08:50 Height 5 ft 8 in Weight 187 lb 6.287 oz BMI 28.5 BP 117/76 Blood Pressure Location Lt brachial Position Sitting Pulse 87 Intake Visit Reasons: f/u Intake Note: Elroy presents in the office as a follow up. CC: They took his amonium level was high over the weekend. Allergies No Known Allergies Allergy (Verified 07/22/23 09:38) HPI f/u HPI Details 58 y/o male with pmhx of iron deficiency HTN, DM II, anemia, hepatitis C and alcohol induced cirrhosis being seen for f/u RECAP: Patient had been at [facility] for detox and had labs drawn which were abnormal, repeat labs confirmed H/H 05/05.5 with pancytopneia and abn LFT, raised INR so he was sent to [place] for further assessment 04/2019 ? He denied any shortness of breath, dizziness, weakness, melena or bright red blood in his stool. He did state that he was diagnosed with hepatitis C in the ? past and this never been treated. ? U/S imaging consistent w cirrhosis, varices, no masses ? EGD: LA grade A esophagitis, erosive gastitis, and duodenitis, small varices--h pylori pos--given treatment which he completed ? colonoscopy: poor prep, mucosal trauma easy due to low plts, repeat colon in 6-12 months, internal hemorrhoids ? Plan was for treatment of hep C< but due to decompensation I wanted to treat for 24 weeks, only epclusa aproved for 12 weeks, plan was to add ribavarin ? He was commenced on epclusa and ribavarin, but his HGB dropped to 7 g/dl and he was initiated on IV iron and riba reduced to 200 mg from 600 mg. ? He was admitted to hospital with acute on chronic anemia 10/2019 and egd with bleeding hyperplastic polyp removed and required clip and hemospray ? He had spontaneous bacterial peritonitis on 09/02/2019 and possible recurrent episode on 11/23/2019. He was tapped on both visits with elevated WBCs. He was placed on Cipro 500 mg twice daily. He was tapped again on 11/25/2019 showing improved WBCs count that was not consistent with bacterial peritonitis. ? He? had c diff and was treated with vancomycin ? colonoscopy 03/2020-- fair to poor prep- ? he had admission for HE, thought to be due to constipation from iron treatment ? he had returned to normal ? He had an EGD with residual hyperplastic polyps and duodenitis and congestion--polyps removed ? I ordered us revealing splenorenal shunt probably explaining the recurring HE ? I spoke with his director of physiotherapy services to update her on colonoscopy, prep was fair but no large lesions or masses, repeat colon in 1 yr recommenced, ? His renal function was gettign worse so [facility] stopped all diuretics, had recurrence of swelling ankles, restarted small dose lasix 20 mg ? ? EGD: 12/2020--pedunculated polyp removed, PHG noted--hyperplastic polyp EGD/colonoscopy : 09/2021--several hyperplastic polyps removed, came back as H PYLORI POSITIVE, colon prep not great --rept colo in 1 yr ?h pylori pos, treated with amoxil,levoflox, PPI with neg follow up breath test. EGD/colo: portal hypertensive gastropathy gastric polyp Colonoscopy Findings: internal hemorrhoids path: Polypoid foveolar hyperplasia TESTs: ? u/s 07/2019--cirrhosis, no HCC, 1.2 L of ascitic fluid removed, SAAG consistent w portal HTN ? u/s 10/2019- cirrhosis, varices, moderate ascites, patent veins he had imaging at [facility] with US 02/2021--no HCC per Dr Esposito note ? Vit A and zinc low labs at [facility] 10/2020- BMP--nml, INR 1.2, LFT pretty good, MELD-na 10!! repeat labs : Hgb 14, LFT stable, labs: 05/2021--nml HGB--14 g/dl, LFT stable, vit a was low at 18-put on replacement ?INTERIM: He has been receiving treatment at [facility] for HCC, got RFA he feels well otherwise, has been listed for transplant no melena or rectal bleeding appetite is good no abdo pain no nausea no vomiting he denies depression no fevers or chills memory is fine, no shakes or tremors, taking lactulose once a day he is worried abt high ammonia level EXAM: GENERAL: The patient is well developed and nontoxic, overweight VITAL SIGNS:see workflow HEENT: Nonicteric sclerae, PERRLA, EOMI. Oropharynx clear. Moist mucous membranes. Conjunctivae appear well perfused. No thyroid mass. CHEST: Chest wall is nontender. HEART: Regular rate and rhythm without murmurs. LUNGS: Clear to auscultation bilaterally. ABDOMEN: Soft, positive bowel sounds, nontender, no organomegaly.no flank tenderness--small/moderate sized umbilical hernia noted--not incarcerated SKIN: normal NEUROLOGIC: Cranial nerves II-XII intact without motor/sensory deficit. No liver flap MS- nml ROM psych--normal affect A/P: 1. Alcoholic cirrhosis of liver with asc ites -no further ascites, on low dose lasix, SVR from Hep C, MELD 9-10--co managed with [facility] Dr Esposito, he has SVR for hep c but now complicated with HCC 2. Iron deficiency anemia due to chronic blood loss from stomach polyps, epistaxis - stable, HGB is good,? h pylori treated 3. Malnutrition--improved 4. umbilical hernia- managed with belt,n ot a surgical candidate due to liver issues per [facility] PLAN 1/ Zn and Vit A def, cont with supplemen ts 2/ cont boost supplement 3/ HCC screening, with [facility]-- getting r x for HCC< need to get notes from [facility] 4/ cont with low dose lasix, 5/ rept EGD and colonoscopy 1 year 6/ ascites--none at this time 7/HE--no overt sx--cont with lactulose-- can take every other day, advised that we dont' treat ammonia level, treat clinically as can be raised with liver disease and meds etc, [facility] Medical History History of abdominal paracentesis Somatic dysfunction of left sacroiliac joint Strain of lumbar paraspinal muscle Hemorrhoid Hx of esophageal varices Hepatic encephalopathy GAVE (gastric antral vascular ectasia) Hx of Clostridium difficile infection Head injury Portal hypertension History of blood transfusion Iron deficiency anemia Pain aggravated by swallowing Swallowed chicken bone Patellofemoral pain syndrome of both knees Hepatitis C virus Osteoarthritis of left knee DMII (diabetes mellitus, type 2) Migraine headache Headache Neck pain Cirrhosis of liver Malnutrition HTN (hypertension) Other otitis externa, right ear Surgical History History of esophagogastroduodenoscopy (EGD) History of colonoscopy Family History Father No problems noted. Mother Asthma Diabetes Social History Household Members: Family Housing: House Alcohol intake: never Patient Tobacco Use Status: Former Tobacco user e-Cigarette/Vaping Use: Never Used Second Hand Smoke Exposure: Yes Advance Directives Date on File: 07/17/20 service: No Current occupational status: disabled Cognitive needs: No Hearing needs: No Vision needs: No Physical Exam Vital Signs: Last Vital Signs Pulse 87 07/28/23 08:50 BP 117/76 07/28/23 08:50 BMI result Body Mass Index 28.5 Assessment & Plan Assessment & Plan (1) Hyperplastic polyp of stomach: Onset Date: ~2019 Comment: (polyps on 11/10/19, 03/13/20 & 05/18/20 EGDs) Code(s): K31.7 - Polyp of stomach and duodenum (2) Liver disease: Code(s): K76.9 - Liver disease, unspecified Coding Level of Care Code Est Pt Level 4 (37966) Diagnoses Hyperplastic polyp of stomach K31.7 Liver disease K76.9
[2023-07-28 08:50] VITALS: BP 117/76; PULSE 87; BMI 28.5
== END 2023-07-28 09:34 | disposition home or self-care (01) ==
PROVIDERS: PCP Physician Assistant; Visit Provider Internal Medicine Gastroenterology
DX: K31.7 Polyp of stomach and duodenum (principal); K76.9 Liver disease, unspecified
CPT/HCPCS: 99214

== ENCOUNTER → 2023-07-28 08:47 | Outpatient (BNVA) | payer OTHER, SELFPAY | PROVIDERS: PCP Physician Assistant; Visit Provider Internal Medicine Gastroenterology | DX: K31.7 Polyp of stomach and duodenum (principal); K76.9 Liver disease, unspecified | CPT/HCPCS: 99212 ==

== ENCOUNTER 2023-09-16 12:48 | Outpatient (AMB) | payer OTHER, SELFPAY ==
--- NOTE | 2023-09-16 12:52 | MHC.OFFVIS ---
Intake Vital Signs 09/16/23 12:56 Height 5 ft 8 in Weight 189 lb BMI 28.7 BP 141/80 H Blood Pressure Location Lt brachial Position Sitting Pulse 80 Intake Visit Reasons: Solitary pulmonary nodule, CT chest needed Intake Note: This patient presents for an assessment for solitary pulmonary nodule. *Ct Chest needed* Patient c/o; reports no complaints at this time. Abd MRI-05/07/2023 Senior Manager Required: No Accompanied by: Self / Same As Patient Allergies No Known Allergies Allergy (Verified 09/16/23 12:56) Medication List - Last Reconciled 09/16/23 by Bertrand Esparza MD albuterol sulfate 90 mcg/actuation 1 inh inhalation QID PRN 30 days amiloride 5 mg PO DAILY amlodipine 10 mg PO DAILY blood pressure monitor As directed blood sugar diagnostic (FreeStyle Lite Strips) 1 strip miscellaneous BID 30 days blood-glucose meter As directed cyclobenzaprine 5 mg PO TID PRN famotidine 40 mg PO BEDTIME ferrous sulfate 220 mg (5 mL) PO DAILY 90 days furosemide 40 mg PO DAILY lactulose 45 mL PO TID lancets (FreeStyle Lancets) 1 gauge topical DIRECTED 30 days lancets (FreeStyle Lancets) As directed lisinopril 20 mg PO DAILY 90 days meclizine 25 mg PO BID PRN 7 days omeprazole 20 mg PO DAILY rifaximin (Xifaxan) 550 mg PO BID sitagliptin phosphate (Januvia) 100 mg PO DAILY tadalafil (Cialis) 20 mg PO DAILY 5 days vitamin A palmitate 10,000 units PO DAILY 30 days zinc gluconate 50 mg PO DAILY HPI HPI Comments History of Present Illness Details Patient's for follow-up status post screening CT scan 6 months ago demonstrated a subcentimeter lung lesion. Patient discontinued smoking several years ago. Patient herself has no new respiratory issues or complaints. He denies any chronic cough, hemoptysis, wheeze, or chest pain. Patient has a complex past medical history including a cirrhosis for which he is on a liver transplant list . Chart was reviewed patient evaluated [facility] Medical History History of abdominal paracentesis Somatic dysfunction of left sacroiliac joint Strain of lumbar paraspinal muscle Hemorrhoid Hx of esophageal varices Hepatic encephalopathy GAVE (gastric antral vascular ectasia) Hx of Clostridium difficile infection Head injury Portal hypertension History of blood transfusion Iron deficiency anemia Pain aggravated by swallowing Swallowed chicken bone Patellofemoral pain syndrome of both knees Hepatitis C virus Osteoarthritis of left knee DMII (diabetes mellitus, type 2) Migraine headache Headache Neck pain Cirrhosis of liver Malnutrition HTN (hypertension) Other otitis externa, right ear Surgical History History of abdominal paracentesis History of esophagogastroduodenoscopy (EGD) History of colonoscopy Family History Father No problems noted. Mother Asthma Diabetes Social History Household Members: Family Housing: House Alcohol intake: never Patient Tobacco Use Status: Former Tobacco user e-Cigarette/Vaping Use: Never Used Second Hand Smoke Exposure: Yes Advance Directives Date on File: 07/17/20 service: No Current occupational status: disabled Cognitive needs: No Hearing needs: No Vision needs: No Physical Exam Vital Signs: Last Vital Signs Pulse 80 09/16/23 12:56 BP 141/80 H 09/16/23 12:56 BMI result Body Mass Index 28.7 HEENT Other: No cervical periclavicular or axillary adenopathy bilaterally. Chest Other: Chest sounds bilaterally, HS 1 in 2 GI Other: Moderately corpulent abdomen. Reducible umbilical hernia. Assessment & Plan Assessment & Plan (1) Pulmonary nodule less than 1 cm in diameter with moderate to high risk for malignant neoplasm: Comment: Patient's scan was approximately 6 months ago. Current plan is to repeat CT scan of the chest and direct further therapy based on these results. If this is indeed stable, patient will be put on annual low-dose CT scan screening through lung cancer screening clinic. Code(s): R91.1 - Solitary pulmonary nodule; Z91.89 - Other specified personal risk factors, not elsewhere classified Plan: As noted above Orders: Orders CT chest w IV con Today R91.1 - Solitary pulmonary nodule, Z91.89 - Other specified personal risk factors, not elsewhere classified Coding Level of Care Code New Pt Level 4 (02546) Diagnoses Pulmonary nodule less than 1 cm in diameter with moderate to high risk for malignant neoplasm R91.1; Z91.89
[2023-09-16 12:56] VITALS: BP 141/80; PULSE 80; BMI 28.7
== END 2023-09-16 13:21 | disposition home or self-care (01) ==
PROVIDERS: PCP Physician Assistant; Referring Provider Physician Assistant; Visit Provider Surgery
DX: R91.1 Solitary pulmonary nodule (principal); Z91.89 Other specified personal risk factors, not elsewhere classified
CPT/HCPCS: 99204

== ENCOUNTER → 2023-09-16 12:48 | Outpatient (BNVA) | payer OTHER, SELFPAY | PROVIDERS: PCP Physician Assistant; Referring Provider Physician Assistant; Visit Provider Surgery | DX: R91.1 Solitary pulmonary nodule (principal); Z91.89 Other specified personal risk factors, not elsewhere classified | CPT/HCPCS: 99202 ==

== ENCOUNTER 2023-09-17 09:10 | Outpatient (AMB) | payer OTHER, SELFPAY ==
[2023-09-17 09:15] VITALS: BP 122/86; PULSE 76; O2SAT 97; BMI 28.7
--- NOTE | 2023-09-17 09:15 | MHC.PC.OV ---
Vital Signs 09/17/23 09:15 Height 5 ft 8 in Weight 189 lb BMI 28.7 BP 122/86 Blood Pressure Location Lt brachial Position Sitting Pulse 76 Pulse Source Pulse Oximeter Pulse Oximetry (%) 97 Oxygen Delivery Method Room Air Intake Visit Reasons: Dry cough Intake Note: pt states dry cough and congestion, headache and back pain [id number] Allergies No Known Allergies Allergy (Verified 09/17/23 09:26) Medication List - Last Reconciled 09/17/23 by TRENT Malik albuterol sulfate 90 mcg/actuation 1 inh inhalation QID PRN 30 days amiloride 5 mg PO DAILY amlodipine 10 mg PO DAILY blood pressure monitor As directed blood sugar diagnostic (FreeStyle Lite Strips) 1 strip miscellaneous BID 30 days blood-glucose meter As directed cyclobenzaprine 5 mg PO TID PRN famotidine 40 mg PO BEDTIME ferrous sulfate 220 mg (5 mL) PO DAILY 90 days furosemide 40 mg PO DAILY lactulose 45 mL PO TID lancets (FreeStyle Lancets) 1 gauge topical DIRECTED 30 days lancets (FreeStyle Lancets) As directed lisinopril 20 mg PO DAILY 90 days meclizine 25 mg PO BID PRN 7 days omeprazole 20 mg PO DAILY rifaximin (Xifaxan) 550 mg PO BID sitagliptin phosphate (Januvia) 100 mg PO DAILY tadalafil (Cialis) 20 mg PO DAILY 5 days vitamin A palmitate 10,000 units PO DAILY 30 days zinc gluconate 50 mg PO DAILY Tobacco use date assessed: 09/17/23 HPI Dry cough HPI Details Patient is a 58-year-old male who presents today for the same day visit due to wet cough for the past 2 weeks with no improvement. Patient of LETITIA Vela. medical history significant for diabetes type 2, hypertension among others. Patient reports nasal congestion, headache, and back pain from coughing. Denies sputum production. Tried OTC meds with no improvement. Reports wheezing. Denies asthma or COPD. He reports negative COVID test at home. No shortness of breath or chest pain. [facility] Medical History Somatic dysfunction of left sacroiliac joint Strain of lumbar paraspinal muscle Hemorrhoid Hx of esophageal varices Hepatic encephalopathy GAVE (gastric antral vascular ectasia) Hx of Clostridium difficile infection Head injury Portal hypertension History of blood transfusion Iron deficiency anemia Pain aggravated by swallowing Swallowed chicken bone Patellofemoral pain syndrome of both knees Hepatitis C virus Osteoarthritis of left knee DMII (diabetes mellitus, type 2) Migraine headache Headache Neck pain Cirrhosis of liver Malnutrition HTN (hypertension) Other otitis externa, right ear Surgical History History of abdominal paracentesis History of esophagogastroduodenoscopy (EGD) History of colonoscopy Family History Father No problems noted. Mother Asthma Diabetes Social History Household Members: Family Housing: House Alcohol intake: never Patient Tobacco Use Status: Former Tobacco user e-Cigarette/Vaping Use: Never Used Second Hand Smoke Exposure: Yes Advance Directives Date on File: 07/17/20 service: No Current occupational status: disabled Cognitive needs: No Hearing needs: No Vision needs: No Questionnaire Thrive Questionnaire Date Thrive assessed: 10/17/22 AUDIT C Alcohol Use Questionnaire (AUDIT-C) 1. How often do you have a drink containing alcohol?: Never Total Score: 0 Score Reviewed/Action Taken: No CHATA-7 AMB Questionnaire CHATA-7 Date CHATA - 7 assessed: 10/17/22 Source: Developed by Drs. Yuri Lowe, Vianey Mclean, Paul Traore and colleagues, with an educational yariel from [employer]. Review of Systems Const Denies body aches, Denies chills, Denies fever(s) and Reports headache(s) ENT Denies dizziness, Denies otalgia, Reports headache(s), Reports nasal congestion, Denies nasal discharge, Denies post nasal drip, Denies sinus pain, Denies sinus pressure and Denies sore throat Card Denies chest pain, Denies edema, Denies lightheadedness and Denies dyspnea Resp Reports cough, Denies dyspnea and Reports wheezing GI Denies abdominal pain Musc Denies myalgias Neuro Denies dizziness and Reports headache(s) Aller/Immun Reports wheezing Physical exam (Primary Care) Vital Signs: Last Vital Signs Pulse 76 09/17/23 09:15 BP 122/86 09/17/23 09:15 Pulse Ox 97 09/17/23 09:15 Oxygen Delivery Method Room Air 09/17/23 09:15 BMI result Body Mass Index 28.7 Tobacco/Smoking Status: Tobacco use Status Tobacco use date assessed 09/17/23 09/17/23 09:18 Patient Tobacco Use Status Former Tobacco user 09/17/23 09:18 e-Cigarette/Vaping Use Never Used 09/17/23 09:18 Thrive Assessment: Date of Thrive Assessment Date Thrive assessed 10/17/22 09/17/23 09:18 Const General: cooperative and no acute distress Orientation/consciousness: patient oriented x3 HENMT Head: Yes normocephalic and Yes atraumatic Face and sinus: Yes sinuses nontender Mouth: oropharynx normal and moist mucous membranes Throat: Yes posterior oropharynx normal Eyes General: appearance normal, both eyes and all related structures Neck Neck: Yes normal visual inspection, Yes full ROM and Yes no lymphadenopathy Resp Effort & Inspection: normal respiratory effort, able to speak in complete sentences and Actively coughing Quality: wet Auscultation: no crackles, no rales, rhonchi (Find throughout) and wheezes (Fine throughout) Cardio Rate: regular rate Rhythm: regular rhythm Heart sounds: S1 normal heart sound present and S2 normal heart sound present GI Auscultation: normal bowel sounds Skin General skin exam: no rashes or lesions noted Neuro General: patient oriented x3 Gait exam (Neuro): Normal gait present Extrem General: Yes full ROM and No edema Assessment and Plan Assessment & Plan (1) Cough: Code(s): R05.9 - Cough, unspecified Plan: ? Bronchitis/pneumonia Will treat with doxycycline, prednisone, albuterol inhaler Start Flonase nasal spray for nasal congestion Notify office if no improvement after finishing treatment Increase fluid consumption Encouraged supportive care Signs and symptoms reviewed to notify provider or go to the emergency department Medications: New doxycycline hyclate 100 mg PO BID 5 days 10 tabs 0RF R05.9 - Cough, unspecified fluticasone propionate 50 mcg/actuation (Flonase Allergy Relief) administer into each nostril 1 spray intranasal DAILY 14 days 100 mL 0RF prednisone 40 mg (2 x 20 mg) PO DAILY 5 days 10 tabs 0RF Refilled albuterol sulfate 90 mcg/actuation 1 inh inhalation QID 30 days PRN 8.5 grams 0RF shortness of breath or wheezing R06.02 - Shortness of breath Coding Level of Care Code Est Pt Level 3 (57419) Diagnoses Cough R05.9
== END 2023-09-17 09:49 | disposition home or self-care (01) ==
PROVIDERS: PCP Physician Assistant; Visit Provider Nurse Practitioner Family
DX: R05.9 Cough, unspecified (principal)
CPT/HCPCS: 99213

== ENCOUNTER 2023-09-23 12:30 | Outpatient (REF) | payer OTHER, SELFPAY ==
[2023-09-23 13:15] LABS: Hematocrit 38.1 % (42.0-52.0); Hemoglobin 12.5 g/dl (14.0-18.0); Mean Corpuscular HGB Conc 32.8 g/dl (31.0-36.0); Mean Corpuscular Hemoglobin 25.6 pg (27.0-33.0); Mean Corpuscular Volume 77.9 fL (80.0-98.0); Platelet Count 48 X10*3/uL (160-400); Red Blood Count 4.89 X10*6/uL (4.60-5.80); Red Cell Distribution Width 15.3 % (11.0-16.0); White Blood Count 3.8 X10*3/uL (4.8-10.8)
[2023-09-23 13:39] LABS: Alanine Aminotransferase 38 U/L (0-40); Albumin Level 3.8 g/dL (3.5-5.0); Alkaline Phosphatase 50 U/L (39-117); Anion Gap 9 (12-20); Aspartate Amino Transferase 30 U/L (5-37); Bilirubin Direct 0.5 mg/dL (0.0-0.5); Bilirubin Total 1.2 mg/dL (0.0-1.0); Blood Urea Nitrogen 16 mg/dL (9-16); Calcium 9.6 mg/dL (8.4-10.2); Carbon Dioxide 29 mmol/L (22-29); Chloride 108 mmol/L (96-108); Estimated Glomerular Filt Rate > 60; Glucose Random 249 mg/dL (60-115); Potassium 4.2 mmol/L (3.3-5.1); Sodium 142 mmol/L (135-145); Total Protein 6.7 g/dL (6.5-8.0)
== END 2023-09-23 12:31 | disposition home or self-care (01) ==
LOC: HO.LAB 12:30
PROVIDERS: PCP Physician Assistant; Visit Provider Physician Assistant
DX: K62.5 Hemorrhage of anus and rectum (principal); R05.9 Cough, unspecified; R53.82 Chronic fatigue, unspecified
CPT/HCPCS: 36415; 80048; 80076; 85027

== ENCOUNTER 2023-09-29 07:25 | Outpatient (REF) | payer OTHER, SELFPAY ==
[2023-09-29 08:14] LABS: Blood Urea Nitrogen 14 mg/dL (9-16); Estimated Glomerular Filt Rate > 60
== END 2023-09-29 07:26 | disposition home or self-care (01) ==
LOC: HO.LAB 07:25
PROVIDERS: PCP Physician Assistant; Visit Provider Surgery
DX: R91.1 Solitary pulmonary nodule (principal); Z91.89 Other specified personal risk factors, not elsewhere classified
CPT/HCPCS: 36415; 82565; 84520

== ENCOUNTER 2023-10-02 08:20 | Day surgery (SDC) | payer OTHER, SELFPAY ==
--- NOTE | 2023-10-01 10:32 | HO.ANESPROP2 ---
Documented by User: Tania Castro NP 10/01/23 10:49 HPI - Anesthesia Eval Consult details Narrative: 58yo M for Sigmoidoscopy Flexible 09/17/23 sick visit for cough/URI - rx'd abx, prednisone. T/C to patient 10/01/23: Pt reports feeling better. No further sick symptoms. s/p EGD, [place] 10/2022 with MAC ETOH and HepC Cirrhosis, nonbleeding varices, thrombocytopenia (Platelets = 48K on 09/23/23), hepatic encephalopathy GAVE PMFSH Active Problems Active Problems: All Active Problems (Updated 09/23/23 @ 11:58 by Brian Vela PA-C) Rectal bleed (Acute) Cough (Acute) Erectile dysfunction (Acute) Pulmonary nodule less than 1 cm in diameter with moderate to high risk for malignant neoplasm (Acute) Hyperplastic polyp of stomach (Acute ~2019) Fatigue (Acute) Umbilical hernia (Acute) Liver disease (Acute) H. pylori infection (Acute ~2018) Thrombocytopenia (Acute) Spasm of back muscles (Acute) Other psychoactive substance dependence, in remission (Acute) SOB (shortness of breath) on exertion (Acute) HTN (hypertension) (Acute) DMII (diabetes mellitus, type 2) (Acute) Cirrhosis of liver (Acute) Migraine headache (Acute) Headache (Acute) Past Medical History Medical History Asthma Umbilical hernia GERD (gastroesophageal reflux disease) Somatic dysfunction of left sacroiliac joint Strain of lumbar paraspinal muscle Hemorrhoid Hx of esophageal varices Hepatic encephalopathy GAVE (gastric antral vascular ectasia) Hx of Clostridium difficile infection Head injury Portal hypertension History of blood transfusion Iron deficiency anemia Pain aggravated by swallowing Swallowed chicken bone Patellofemoral pain syndrome of both knees Hepatitis C virus Osteoarthritis of left knee DMII (diabetes mellitus, type 2) Migraine headache Headache Neck pain Cirrhosis of liver Malnutrition HTN (hypertension) Other otitis externa, right ear Family History Family History Father No problems noted. Mother Asthma Diabetes Family history of problems with anesthesia: No Surgical History Surgical History History of surgery of liver History of esophagogastroduodenoscopy (EGD) History of abdominal paracentesis History of colonoscopy History of Problems with Anesthesia: No Social History Social History Household Members: Family Housing: House Alcohol intake: never Patient Tobacco Use Status: Former Tobacco user Quit Date: 15 yrs ago e-Cigarette/Vaping Use: Never Used Second Hand Smoke Exposure: Yes Advance Directives Date on File: 07/17/20 service: No Current occupational status: disabled Cognitive needs: No Hearing needs: No Vision needs: No Meds Allergies Allergy/AdvReac Type Severity Reaction Status Date / Time No Known Allergies Allergy Verified 10/02/23 08:34 Home Medications Medication Instructions Recorded Confirmed Last Taken Type lancets 28 gauge (FreeStyle #100 ea 10/19/20 10/02/23 Unknown History Lancets) blood-glucose meter #1 ea 02/27/21 10/02/23 Unknown History zinc gluconate 50 mg tablet 50 mg PO DAILY 02/27/21 10/02/23 Unknown History famotidine 40 mg tablet 40 mg PO BEDTIME 07/19/22 10/02/23 Unknown History doxycycline hyclate 100 mg tablet 100 mg PO BID 10/02/23 10/02/23 Unknown History (LymePak) Exam Pertinent Lab Results Pertinent Lab Results: Laboratory Tests 09/23/23 09/23/23 09/29/23 12:41 12:41 07:35 WBC 3.8 L Hgb 12.5 L Hct 38.1 L Plt Count 48 L Sodium 142 Potassium 4.2 Chloride 108 Carbon Dioxide 29 BUN 14 Creatinine 1.16 Assessment and Plan Assessment Anesthesia Assessment: Chart Reviewed Final Anesthetic Review Family History of Problems with Anesthesia: No History of Problems with Anesthesia: No Documented by User: Yasmin Mcmanus MD 10/02/23 09:58 PMFSH Active Problems Active Problems: All Active Problems (Updated 10/02/23 @ 08:45 by Yasmin Mcmanus MD) Rectal bleed (Acute) Cough (Acute) Erectile dysfunction (Acute) Pulmonary nodule less than 1 cm in diameter with moderate to high risk for malignant neoplasm (Acute) Hyperplastic polyp of stomach (Acute ~2020) Fatigue (Acute) Umbilical hernia (Acute) Liver disease (Acute) H. pylori infection (Acute ~2019) Thrombocytopenia (Acute) Spasm of back muscles (Acute) Other psychoactive substance dependence, in remission (Acute) SOB (shortness of breath) on exertion (Acute) HTN (hypertension) (Acute) DMII (diabetes mellitus, type 2) (Acute) Cirrhosis of liver (Acute) Migraine headache (Acute) Headache (Acute) Denies recent GIB Denies ETOH x 6 years Past Medical History Medical History Asthma Umbilical hernia GERD (gastroesophageal reflux disease) Somatic dysfunction of left sacroiliac joint Strain of lumbar paraspinal muscle Hemorrhoid Hx of esophageal varices Hepatic encephalopathy GAVE (gastric antral vascular ectasia) Hx of Clostridium difficile infection Head injury Portal hypertension History of blood transfusion Iron deficiency anemia Pain aggravated by swallowing Swallowed chicken bone Patellofemoral pain syndrome of both knees Hepatitis C virus Osteoarthritis of left knee DMII (diabetes mellitus, type 2) Migraine headache Headache Neck pain Cirrhosis of liver Malnutrition HTN (hypertension) Other otitis externa, right ear Family History Family History Father No problems noted. Mother Asthma Diabetes Surgical History Surgical History History of surgery of liver History of esophagogastroduodenoscopy (EGD) History of abdominal paracentesis History of colonoscopy Social History Social History Household Members: Family Housing: House Alcohol intake: never Patient Tobacco Use Status: Former Tobacco user Quit Date: 15 yrs ago e-Cigarette/Vaping Use: Never Used Second Hand Smoke Exposure: Yes Advance Directives Date on File: 07/17/20 service: No Current occupational status: disabled Cognitive needs: No Hearing needs: No Vision needs: No Meds Allergies Allergy/AdvReac Type Severity Reaction Status Date / Time No Known Allergies Allergy Verified 10/02/23 08:34 Home Medications Medication Instructions Recorded Confirmed Last Taken Type lancets 28 gauge (FreeStyle #100 ea 10/19/20 10/02/23 Unknown History Lancets) blood-glucose meter #1 ea 02/27/21 10/02/23 Unknown History zinc gluconate 50 mg tablet 50 mg PO DAILY 02/27/21 10/02/23 Unknown History famotidine 40 mg tablet 40 mg PO BEDTIME 07/19/22 10/02/23 Unknown History doxycycline hyclate 100 mg tablet 100 mg PO BID 10/02/23 10/02/23 Unknown History (LymePak) Exam Height,Weight and Vital Signs: Height 5 ft 8 in Weight 83.28 kg Vital Signs Temp Pulse Resp BP Pulse Ox O2 Del Method 10/02/23 08:37 98.7 F 69 18 152/80 H 98 Room Air Pertinent Lab Results Pertinent Lab Results: Laboratory Tests 09/23/23 09/23/23 09/29/23 12:41 12:41 07:35 WBC 3.8 L Hgb 12.5 L Hct 38.1 L Plt Count 48 L Sodium 142 Potassium 4.2 Chloride 108 Carbon Dioxide 29 BUN 14 Creatinine 1.16 Laboratory Results - last 24 hr 10/02/23 08:40 POC Glucose 127 H Airway Mallampati Class: II TM Dist: >3cm Neck ROM: Full Loose/Missing/Broken Teeth: Yes (Missing some teeth back) Heart: RRR Lungs: CTAB Assessment and Plan Assessment Anesthesia Assessment: Anesthesia Plan Discussed Final Anesthetic Review NPO: Yes ASA Class: III Final Preanesthetic Review: No Changes in Pt Med Stat, Meds/Allgs Chart Reviewed, Consent Obtained/Reviewed and Anes Risks/Benef Reviewed Patient Risk: Intermediate Procedure Risk: Low Assessment/Block/Sedation in SS: Assess/Block/Sedation-SS Anesthetic Plan Anesthetic Plan: MAC: Disposition: Standard PACU
--- NOTE | 2023-10-02 08:26 | MHC.SHP ---
Pre-Procedural Eval Section A Date of Service: 10/02/23 Section B Chief Complaint: Unspecified hemorrhoids Details of Present Illness: rectal bleeding Relevant Family History (Specify if Yes): No Relevant Social History: None Present Medications: see Short Stay Collaborative assessment Medical History: Significant History ( History of abdominal paracentesis Somatic dysfunction of left sacroiliac joint Strain of lumbar paraspinal muscle Hemorrhoid Hx of esophageal varices Hepatic encephalopathy GAVE (gastric antral vascular ectasia) Hx of Clostridium difficile infection Head injury Portal hypertension History of blood ) History of Previous Operations: Relevant previous surgery/procedure and date(s) (History of esophagogastroduodenoscopy (EGD) History of colonoscopy) Allergies: Allergies Allergy/AdvReac Type Severity Reaction Status Date / Time No Known Allergies Allergy Verified 09/17/23 09:26 Review of Systems Sugical H&P ROS: Negative: Constitution, Cardiovascular, Respiratory, Neurological, Psychiatric, Hem-Onc, Allergic/Immunologic, Gastrointestinal, Genitourinary, Musculoskeletal, Integumentary, Endocrine and Eyes/Ears/Nose/Throat Exam Surgical H&P Exam: Normal: HEENT, Normal: Heart, Normal: Lungs, Normal: Extremities, Normal: Abdomen, Normal: Skin and Normal: Neurological Plan Diagnosis/Plan: Unchanged I have reviewed the history and physical and performed a pertinent physical examination on my patient. No changes have occurred unless specified. sigmoidoscopy to check for rectal bleedign etiology Time Spent With Patient Time: Total time managing care of this patient today ____ minutes.
[2023-10-02 08:34] VITALS: BMI 27.9
[2023-10-02 08:37] VITALS: BP 152/80; PULSE 69; RESP 18; TEMP 37.1; O2SAT 98
[2023-10-02] MEDS: Lactated Ringers 1,000 ML 100 ML IVCONT (08:42)
[2023-10-02 08:44] LABS: Glucose, Whole Blood 127 mg/dL (60-115)
--- NOTE | 2023-10-02 09:19 | W.PM.OPN ---
Operative Note Operative Note Date of Service: 10/02/23 Narrative: Operative Information Procedure Description: sigmoidoscopy Indication: rectal bleeding Anesthesia: MAC Sigmoidoscopy Instrument: Upper endoscope Colonoscopy Monitoring: Vital signs and clinical assessment, continuous EKG monitoring, Pulse oximetry, Carbon Dioxide monitoring and blood pressure monitoring were done throughout the procedure. Procedure: The patient was placed in the left lateral decubitis position and pre-procedure medications were administered. After a digital rectal examination of the ano-rectum, the video colonoscope was inserted into the rectum and advanced through the colon to the transverse colon. The scope was slowly withdrawn in a retrograde panoramic fashion and the colon mucosa was carefully examined including a retroflexed view of the rectum. Findings and interventions are described below. Procedure Difficulty: easy Findings: Transverse Colon -normal Descending Colon:normal Sigmoid Colon: normal Rectum: Retroflexion with small internal hemorrhoids, grade I- Anorectum - normal Colon preparation: fair Impression and Post Procedure Diagnosis: internal hemorrhoids Plan: he has no bleeding for some time, so no banding done, recommend high fiber diet and miralax, stool softener as needed Above findings were reviewed with the patient and relevant handouts were provided if indicated.
[2023-10-02 09:26] VITALS: BP 125/81; PULSE 75; RESP 16; TEMP 36.6; O2SAT 98
[2023-10-02 09:41] VITALS: BP 113/80; PULSE 67; RESP 16; TEMP 36.5; O2SAT 100
== END 2023-10-02 09:54 | disposition home or self-care (01) ==
PROVIDERS: PCP Physician Assistant; Visit Provider Internal Medicine Gastroenterology
PROC: 0DJD8ZZ Inspection of Lower Intestinal Tract, Via Natural or Artificial Opening Endoscopic (ICD-10-PCS; CPT 45330; principal; 2023-10-02 13:50)
DX: K64.0 First degree hemorrhoids (principal); D50.9 Iron deficiency anemia, unspecified; I10 Essential (primary) hypertension; E11.9 Type 2 diabetes mellitus without complications; K70.30 Alcoholic cirrhosis of liver without ascites; B19.20 Unspecified viral hepatitis C without hepatic coma; K31.819 Angiodysplasia of stomach and duodenum without bleeding; Z79.899 Other long term (current) drug therapy; Z87.891 Personal history of nicotine dependence
CPT/HCPCS: 45330; 82947; J2704

== ENCOUNTER → 2023-10-02 08:20 | Outpatient (BNV) | payer OTHER, SELFPAY | PROVIDERS: PCP Physician Assistant; Visit Provider Internal Medicine Gastroenterology | DX: K62.5 Hemorrhage of anus and rectum (principal); K64.0 First degree hemorrhoids | CPT/HCPCS: 45330 ==

== ENCOUNTER 2023-10-22 09:45 | Outpatient (AMB) | payer OTHER, SELFPAY ==
--- NOTE | 2023-10-22 09:47 | A.OFFPC_ITS ---
Vital Signs 10/22/23 09:48 Height 5 ft 8 in Weight 188 lb 0.4 oz BMI 28.6 BP 122/70 Blood Pressure Location Lt brachial Position Sitting Pulse 84 Pulse Source Pulse Oximeter Pulse Oximetry (%) 99 Oxygen Delivery Method Room Air Intake Visit Reasons: f/u DMII / liver disease Poster Required: No Allergies No Known Allergies Allergy (Verified 10/22/23 10:12) Medication List - Last Reconciled 10/22/23 by Brian Vela PA-C albuterol sulfate 90 mcg/actuation 1 inh inhalation QID PRN 30 days amiloride 5 mg PO DAILY amlodipine 10 mg PO DAILY blood pressure monitor As directed blood sugar diagnostic (FreeStyle Lite Strips) 1 strip miscellaneous BID 30 days blood-glucose meter As directed cyclobenzaprine 5 mg PO TID PRN doxycycline hyclate (LymePak) 100 mg PO BID famotidine 40 mg PO BEDTIME ferrous sulfate 220 mg (5 mL) PO DAILY 90 days fluticasone propionate 50 mcg/actuation (Flonase Allergy Relief) 1 spray intranasal DAILY 14 days furosemide 40 mg PO DAILY lactulose 45 mL PO TID lancets (FreeStyle Lancets) 1 gauge topical DIRECTED 30 days lancets (FreeStyle Lancets) As directed lisinopril 20 mg PO DAILY 90 days meclizine 25 mg PO BID PRN 7 days omeprazole 20 mg PO DAILY psyllium husk (Metamucil) 1 tbsp PO BID rifaximin (Xifaxan) 550 mg PO BID sitagliptin phosphate (Januvia) 100 mg PO DAILY vitamin A palmitate 10,000 units PO DAILY 30 days zinc gluconate 50 mg PO DAILY Tobacco use date assessed: 10/22/23 Dental Screening Dental Screen Date: 10/22/23 Did you have a dental visit in the last 12 months?: Yes Did you have a dental problem in the last 6 months where you did not have access to dental care?: No Was dental information given to patient?: Patient has dentist HPI f/u DMII / liver disease HPI Details Elroy is a 58 male here today follow-up visit. Patient's past medical history significant for essential hypertension , type 2 diabetes, liver cirrhosis, iron deficiency anemia, h/o of IV drug use and alcohol abuse. Concerns--> reports having right ear feeling of congestion. Often does get cerumen impactions. Tried ear lavage today in office was unable to dislodge room in. Does have abnormal ear canal and would need ENT evaluation for removal. ? .. ?? ?CHRONIC MEDICAL CONDITIONS--> ?? Liver cirrhosis:? Continues to follow gastroenterology ([facility] and [facility] ) ?Had history of hep C though has cleared the treatment history liver cirrhosis..? Continues on the liver transplant list though has been stable.? Als o followed by local GI doctor Silvino. Has recently gotten endoscopy showing esophageal polyps. ? Most recent liver enzymes stable. He reports he has stopped using lactulose and continues to have 3-4 bowel movements per day. Will check his ammonia level. Recently has CT abd showing a liver tumer consistent with a hepatocellular carcinoma. Underwent to CT ablation of the liver mass at [facility].. He reports he is now candidate for liver transplant. Pulmonary nodule: Of note patient did get CT of chest showing a 3 mm pulmonary nodule. He is now seeing thoracic surgeon and will have his pulmonary nodule followed. .. Hypertension:? Blood pressures have been stable with current dose blood pressure medication. Continues on Amlodpine 10mg and lisinopril. .. Thrombocytopenia:? Has a long history of thrombocytopenia.? Etiology unclear at this time though could be secondary to his liver disease. . Umbilical hernia:? Does have a small umbilical hernia likely fat containing.? Not candidate for repair due to his liver issues.? Manages with admits abdominal binder belt. ? . ? DMII: Has been checking his blood sugars and reports 110-130s.?Today a1c at 7.7 .? He does report his diet has been poor as of late. He promises to get back on track with his diabetic diet. Laboratory Tests 07/22/23 07/26/23 07/26/23 09:32 08:30 08:30 Hgb Hct Hgb A1c (Clinic) 6.9 H Total Bilirubin 1.6 H Urine Microalbumin 61.0 09/23/23 09/23/23 10/22/23 12:41 12:41 10:00 Hgb 12.5 L Hct 38.1 L Hgb A1c (Clinic) 7.7 H Total Bilirubin 1.2 H Urine Microalbumin COUNT INCLUDES THE [facility] Medical History Asthma Umbilical hernia GERD (gastroesophageal reflux disease) Somatic dysfunction of left sacroiliac joint Strain of lumbar paraspinal muscle Hemorrhoid Hx of esophageal varices Hepatic encephalopathy GAVE (gastric antral vascular ectasia) Hx of Clostridium difficile infection Head injury Portal hypertension History of blood transfusion Iron deficiency anemia Pain aggravated by swallowing Swallowed chicken bone Patellofemoral pain syndrome of both knees Hepatitis C virus Osteoarthritis of left knee DMII (diabetes mellitus, type 2) Migraine headache Headache Neck pain Cirrhosis of liver Malnutrition HTN (hypertension) Other otitis externa, right ear Surgical History History of surgery of liver History of esophagogastroduodenoscopy (EGD) History of abdominal paracentesis History of colonoscopy Family History Father No problems noted. Mother Asthma Diabetes Social History Household Members: Family Housing: House Alcohol intake: never Patient Tobacco Use Status: Former Tobacco user Quit Date: 15 yrs ago e-Cigarette/Vaping Use: Never Used Second Hand Smoke Exposure: Yes Advance Directives Date on File: 07/17/20 service: No Current occupational status: disabled Cognitive needs: No Hearing needs: No Vision needs: No Questionnaire Thrive Questionnaire Date Thrive assessed: 10/17/22 AUDIT C Alcohol Use Questionnaire (AUDIT-C) 1. How often do you have a drink containing alcohol?: Never Total Score: 0 Score Reviewed/Action Taken: No CHATA-7 AMB Questionnaire CHATA-7 Date CHATA - 7 assessed: 10/22/23 Source: Developed by Drs. Yuri Lowe, Vianey Mclean, Paul Traore and colleagues, with an educational yariel from [employer]. Review of Systems Const Denies headache(s) Eyes Denies loss of vision ENT Denies vertigo, Denies dizziness, Denies headache(s) and Denies sore throat Card Denies chest pain, Denies leg edema and Denies lightheadedness Resp Denies cough, Denies hemoptysis and Denies wheezing GI Denies abdominal pain, Denies melena, Denies constipation, Denies diarrhea and Denies vomiting Denies dysuria, Denies urinary frequency and Denies urinary urgency Musc Denies arthralgias, Denies joint swelling, Denies numbness and Denies tingling Neuro Denies Abnormal speech present, Denies behavioral changes, Denies vertigo, Denies dizziness, Denies headache(s), Denies loss of vision, Denies memory loss, Denies numbness and Denies tingling Psych Denies anxiety, Denies behavioral changes, Denies depression, Denies memory loss and Denies panic attacks Jamel/Lymph Denies easy bleeding and Denies easy bruising Aller/Immun Denies wheezing Physical exam (Primary Care) Vital Signs: Last Vital Signs Pulse 84 10/22/23 09:48 BP 122/70 10/22/23 09:48 Pulse Ox 99 10/22/23 09:48 Oxygen Delivery Method Room Air 10/22/23 09:48 BMI result Body Mass Index 28.6 Tobacco/Smoking Status: Tobacco use Status Tobacco use date assessed 10/22/23 10/22/23 09:48 Patient Tobacco Use Status Former Tobacco user 10/22/23 09:48 e-Cigarette/Vaping Use Never Used 10/22/23 09:48 Thrive Assessment: Date of Thrive Assessment Date Thrive assessed 10/17/22 10/22/23 09:48 Const General: healthy appearing, no acute distress, alert and awake Nutritional Appearance: well nourished Orientation/consciousness: oriented to person, oriented to place and oriented to time HENMT Other: BILATERAL EAR CANALS WITH CERUMEN IMPACTIONS Ears: TM's normal bilaterally General nose exam: Normal nasal mucous membranes and turbinates present Eyes Conjunctivae: conjunctivae normal Sclerae: sclerae normal Pupils: Equal, round and reactive pupils present Neck Neck: Yes no lymphadenopathy and Yes no JVD Thyroid: Thyroid normal Carotids: no bruits Resp Effort & Inspection: normal respiratory effort and not tachypneic Auscultation: no crackles, no rales, no rhonchi and no wheezes Cardio Rate: regular rate Rhythm: regular rhythm Heart sounds: no murmurs and normal S1 and S2 GI Palpation (GI): Soft to palpation, nontender, no hepatomegaly and no splenomegaly Auscultation: normal bowel sounds Skin General skin exam: no rashes or lesions noted and dry skin Neuro General: oriented to person, oriented to place and oriented to time Cranial nerves: Yes Equal, round and reactive pupils present Speech: No Abnormal speech present Gait exam (Neuro): Normal gait present Motor exam (neuro): no tremor noted Extrem Right upper extremity: full ROM Left upper extremity: full ROM Right lower extremity: full ROM; no edema Left lower extremity: full ROM; no edema Psych Mental Status: mental status grossly normal Speech and movement: Normal speech and movement present Affect: normal affect Attitude: cooperative Thought process: Normal thought process present Office Procedures Cerumen Removal From which ear canal was the cerumen removed: right Removal: irrigation and otoscope w/curette Notes: patient tolerated procedure well [id number] Irrigation/Lavage Results AMB Hemoglobin A1c AMB Hemoglobin A1c 7.7 % Last Edit by AMANDA Messina on 10/22/23 10:01 Results Reviewed Results Reviewed: Laboratory Last Values Hgb A1c (Clinic) 7.7 % (4.0-6.0) H 10/22/23 10:00 Assessment and Plan Assessment & Plan (1) DMII (diabetes mellitus, type 2): Code(s): E11.9 - Type 2 diabetes mellitus without complications Qualifiers: Diabetes mellitus complication status: without complication 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 He reports dietary indiscretion and is willing to restart a diabetic diet. No changes in anti-hyperglycemic medication made today. Goal A1c to be below 7.0 (2) Cirrhosis of liver: Code(s): K74.60 - Unspecified cirrhosis of liver Qualifiers: Ascites presence: unspecified Hepatic cirrhosis type: unspecified hepatic cirrhosis Qualified Code(s): K74.60 - Unspecified cirrhosis of liver Plan: Again patient followed by local GI and was tear liver transplant team. Has been found to have hepatocellular carcinoma on MRI of liver. Recently underwent CT ablation of liver lesion. He has upcoming appointment with process checker in [facility]. (3) HTN (hypertension): Code(s): I10 - Essential (primary) hypertension Qualifiers: Hypertension type: essential hypertension Qualified Code(s): I10 - Essential (primary) hypertension Plan: Patient's blood pressure acceptable on today in office will continue his current dose of antihypertensive medication with goal blood pressure to be below 140/90 (4) Other psychoactive substance dependence, in remission: Code(s): F19.21 - Other psychoactive substance dependence, in remission Plan: In remission Has been sober now for many years (5) Thrombocytopenia: Code(s): D69.6 - Thrombocytopenia, unspecified Plan: Continues to be stable, his thrombocytopenia thought to be related to his liver disease. No overt signs bleeding, bruising. (6) Pulmonary nodule less than 1 cm in diameter with moderate to high risk for malignant neoplasm: Comment: Patient's scan was approximately 6 months ago. Current plan is to repeat CT scan of the chest and direct further therapy based on these results. If this is indeed stable, patient will be put on annual low-dose CT scan screening through lung cancer screening clinic. Code(s): R91.1 - Solitary pulmonary nodule; Z91.89 - Other specified personal risk factors, not elsewhere classified Plan: As HPI patient was found to have a pulmonary nodule and 3 mm Will continue to follow lung cancer screening program (7) Impacted cerumen of both ears: Code(s): H61.23 - Impacted cerumen, bilateral Plan: Tried ear lavage today in office the was unsuccessful. Does have ear canal shape and will likely need to see ENT removal cerumen impaction. Orders: Orders AMB Hemoglobin A1c Today E11.9 - Type 2 diabetes mellitus without complications Comprehensive [place]. Panel Fast Today E11.9 - Type 2 diabetes mellitus without complications Microalbumin, Random (w Creat) Today E11.9 - Type 2 diabetes mellitus without complications Lipid Panel Today E11.9 - Type 2 diabetes mellitus without complications Complete Blood Count no Diff Today D69.6 - Thrombocytopenia, unspecified Prostate Specific Antigen Scr Today E11.9 - Type 2 diabetes mellitus without complications, Z12.5 - Encounter for screening for malignant neoplasm of pr ostate Medications: New sildenafil 100 mg PO DAILY 4 tabs 0RF 4 days N52.8 - Other male erectile dysf unction Resumed amlodipine 10 mg PO DAILY 90 tabs 2RF lisinopril 20 mg PO DAILY 90 days 90 tabs 2RF I10 - Essential (primary) hypertension lisinopril 20 mg PO DAILY 90 days 90 tabs 2RF I10 - Essential (primary) hypertension amlodipine 10 mg PO DAILY 90 tabs 2RF Coding Level of Care Code Est Pt Level 4 (97292) Diagnoses Type 2 diabetes mellitus without complication, without long-term current use of insulin E11.9 Diabetes mellitus complication status: without complication Diabetes mellitus long-term insulin use: without 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
[2023-10-22 09:48] VITALS: BP 122/70; PULSE 84; O2SAT 99; BMI 28.6
== END 2023-10-22 10:50 | disposition home or self-care (01) ==
PROVIDERS: PCP Physician Assistant; Visit Provider Physician Assistant
DX: E11.9 Type 2 diabetes mellitus without complications (principal); K74.60 Unspecified cirrhosis of liver; H61.23 Impacted cerumen, bilateral; D69.6 Thrombocytopenia, unspecified; R91.1 Solitary pulmonary nodule; Z91.89 Other specified personal risk factors, not elsewhere classified
CPT/HCPCS: 69210; 83036; 99214

== ENCOUNTER 2023-10-30 07:51 | Outpatient (REF) | payer OTHER, SELFPAY ==
--- NOTE | ~2023-10-30 | CT_ITS ---
EXAMINATION: CT CHEST WITH CONTRAST CLINICAL INFORMATION: Follow-up pulmonary nodule. COMPARISON: Prior chest CT examination dated 01/30/2023; MRI abdomen dated 05/07/2023. TECHNIQUE: Multidetector volumetric CT imaging of the chest was obtained after the administration of 50 mL of Omnipaque 350 intravenous contrast without immediate adverse reactions. Axial MIP volume rendering provided. Sagittal and coronal reformatted images were obtained. This CT examination was performed using dose optimization techniques as appropriate, variously including the following: *Automated exposure control *Adjustment of mA and/or kV according to patient size (this includes techniques or standardized protocols for targeted exams where dose is matched to indication/reason for exam; i.e. extremities or head) *Use of iterative reconstruction technique DLP: 148 mGy-cm FINDINGS: MICROWAVE REMOTE SENSING SCIENTIST: The lungs are symmetrically well-expanded and grossly clear. There is mild elevation of the right hemidiaphragm. LUNGS: The previously identified 3 mm right upper lobe nodule is not redemonstrated. No new nodule, mass, infiltrate or groundglass opacity is seen. There is no generalized increase in peripheral interlobular septal markings. No bleb or bullous formation is seen. There is no generalized small airway thickening. No bronchiectasis is seen. The central airways appear patent. MEDIASTINUM: The thyroid is unremarkable. There is no thoracic aortic aneurysm or dissection. There are mild atherosclerotic calcifications of the great vessel origins and thoracic aorta. No significant coronary artery atherosclerotic calcification is seen. No mediastinal or hilar lymphadenopathy is seen. PLEURA: There is no pleural effusion. No pleural mass or thickening. AXILLA: No lymphadenopathy. UPPER ABDOMEN: Again, the liver has a cirrhotic appearance. Towards the junction of segments 6 and 7 (3:53), a peripheral 5.0 x 2.3 cm low-attenuation lesion is newly seen, with postcontrast Hounsfield value of 45.4 units. There is splenomegaly. There are marked varices suggesting portal hypertension. OSSEOUS STRUCTURES: There is multi-level marked lower thoracic and mild upper lumbar spondylosis. No acute or aggressive osseous finding is seen. CT/CT chest w IV con IMPRESSION: 1. The previously identified 3 mm right upper lobe nodule is resolved in the interim. The lungs are presently clear. 2. No thoracic lymphadenopathy or pleural effusion is seen. 3. The previously noted poorly enhancing density at the junction of hepatic segments 7 and 8 is redemonstrated, consistent with prior MRI findings (please see report). Current dimensions are detailed above. Again, the liver has a cirrhotic appearance. 4. There is splenomegaly. The portal vein is patent, and there are multiple large upper abdominal varices, suggesting portal hypertension. 5. There are degenerative changes of the thoracolumbar spine. No aggressive osseous lesion is seen. Fleischner guidelines were followed.
[2023-10-30] MEDS: iohexoL 350 MG/ML 100 ML INFUS..BTL 65 ML IV (08:17)
[2023-10-30 10:57] LABS: MANUAL DIFF FLAG NO
[2023-10-30 11:34] LABS: Basophils Percent Auto 0.7 % (0-2); Eosinophils Absolute Auto 0.1 X10*3/uL (0.0-0.4); Eosinophils Percent Auto 1.8 % (0-4); Hematocrit 41.1 % (42.0-52.0); Hemoglobin 13.7 g/dl (14.0-18.0); Imm Gran Abs Auto 0.01 X10*3/uL (0.00-0.03); Imm Gran Pct Auto 0.2 % (0.0-0.4); Lymphocytes Percent Auto 23.5 % (20-40); Mean Corpuscular HGB Conc 33.3 g/dl (31.0-36.0); Mean Corpuscular Hemoglobin 26.2 pg (27.0-33.0); Mean Corpuscular Volume 78.7 fL (80.0-98.0); Monocytes Absolute Auto 0.4 X10*3/uL (0.1-1.2); Monocytes Percent Auto 9.1 % (2-11); Neutrophils Absolute Auto 2.8 x10*3/uL (2.0-8.3); Neutrophils Percent Auto 64.7 % (45-73); Red Blood Count 5.22 X10*6/uL (4.60-5.80); Red Cell Distribution Width 17.5 % (11.0-16.0); White Blood Count 4.4 X10*3/uL (4.8-10.8)
[2023-10-30 11:37] LABS: INTERNATIONAL NORM RATIO 1.3 (0.9-1.1); Prothrombin Time 16.4 SEC (11.1-13.3)
[2023-10-30 11:39] LABS: Platelet Count 59 X10*3/uL (160-400)
[2023-10-30 11:58] LABS: Alanine Aminotransferase 22 U/L (0-40); Albumin Level 3.9 g/dL (3.5-5.0); Alkaline Phosphatase 48 U/L (39-117); Anion Gap 11 (12-20); Aspartate Amino Transferase 23 U/L (5-37); Bilirubin Total 2.1 mg/dL (0.0-1.0); Blood Urea Nitrogen 13 mg/dL (9-16); Carbon Dioxide 29 mmol/L (22-29); Chloride 108 mmol/L (96-108); Estimated Glomerular Filt Rate > 60; Glucose Random 189 mg/dL (60-115); Potassium 3.5 mmol/L (3.3-5.1); Sodium 144 mmol/L (135-145); Total Protein 6.7 g/dL (6.5-8.0)
[2023-10-31 13:33] LABS: Alpha Fetoprotein 2.7 ng/mL (<6.1)
== END 2023-10-30 07:52 | disposition home or self-care (01) ==
LOC: HO.CT 07:51
PROVIDERS: Absent Provider Internal Medicine Gastroenterology; PCP Physician Assistant; Visit Provider Surgery
DX: R91.1 Solitary pulmonary nodule (principal); K70.31 Alcoholic cirrhosis of liver with ascites; C22.0 Liver cell carcinoma; Z76.82 Awaiting organ transplant status; Z91.89 Other specified personal risk factors, not elsewhere classified
CPT/HCPCS: 36415; 71260; 80053; 82105; 85025; 85610; Q9967

== ENCOUNTER 2023-11-04 11:39 | Outpatient (AMB) | payer OTHER, SELFPAY ==
--- NOTE | 2023-11-04 11:42 | A.OFFVIS_ITS ---
Intake Vital Signs 11/04/23 11:47 Height 5 ft 8 in BP 148/86 H Blood Pressure Location Rt brachial Position Sitting Pulse 89 Intake Visit Reasons: Pulmonary nodule, CT results Intake Note: Patient here to discuss chest CT results. Diagnosed with pulmonary nodule. Aperture Mask Etcher Required: No Accompanied by: Self / Same As Patient Allergies No Known Allergies Allergy (Verified 11/04/23 11:43) HPI HPI Comments History of Present Illness Details Patient presents for evaluation regarding a CT scan which had originally demonstrated a right lung lesion. Patient herself has no respiratory issues or complaints. He denies any chronic cough, hemoptysis, chest pain, or wheezing. He has on a waiting list for liver transplant. His follow-up CT scan demonstrated complete resolution of the right lung lesion. [facility] Medical History Asthma Umbilical hernia GERD (gastroesophageal reflux disease) Somatic dysfunction of left sacroiliac joint Strain of lumbar paraspinal muscle Hemorrhoid Hx of esophageal varices Hepatic encephalopathy GAVE (gastric antral vascular ectasia) Hx of Clostridium difficile infection Head injury Portal hypertension History of blood transfusion Iron deficiency anemia Pain aggravated by swallowing Swallowed chicken bone Patellofemoral pain syndrome of both knees Hepatitis C virus Osteoarthritis of left knee DMII (diabetes mellitus, type 2) Migraine headache Headache Neck pain Cirrhosis of liver Malnutrition HTN (hypertension) Other otitis externa, right ear Surgical History History of surgery of liver History of esophagogastroduodenoscopy (EGD) History of abdominal paracentesis History of colonoscopy Family History Father No problems noted. Mother Asthma Diabetes Social History Household Members: Family Housing: House Alcohol intake: never Patient Tobacco Use Status: Former Tobacco user Quit Date: 15 yrs ago e-Cigarette/Vaping Use: Never Used Second Hand Smoke Exposure: Yes Advance Directives Date on File: 07/17/20 service: No Current occupational status: disabled Cognitive needs: No Hearing needs: No Vision needs: No Physical Exam Vital Signs: Last Vital Signs Pulse 89 11/04/23 11:47 BP 148/86 H 11/04/23 11:47 Chest Other: Chest breath sounds bilaterally GI Other: Abdomen is soft. Umbilical hernia still present. Assessment & Plan Assessment & Plan (1) Pulmonary nodule less than 1 cm in diameter with moderate to high risk for malignant neoplasm: Comment: Patient's scan was approximately 6 months ago. Current plan is to repeat CT scan of the chest and direct further therapy based on these results. If this is indeed stable, patient will be put on annual low-dose CT scan screening through lung cancer screening clinic. Code(s): R91.1 - Solitary pulmonary nodule; Z91.89 - Other specified personal risk factors, not elsewhere classified (2) Umbilical hernia: Code(s): K42.9 - Umbilical hernia without obstruction or gangrene Qualifiers: Obstruction and gangrene presence: without obstruction or gangrene Qualified Code(s): K42.9 - Umbilical hernia without obstruction or gangrene Plan Patient is as noted above on the wait list for liver transplant. He was told by his transplant surgeons that with they will also address his umbilical hernia at the time of the procedure. At the present time, no acute surgical issues or complaints. Patient will otherwise follow-up p.r.n.. All questions answered. Coding Level of Care Code Est Pt Level 4 (82928) Diagnoses Pulmonary nodule less than 1 cm in diameter with moderate to high risk for malignant neoplasm R91.1; Z91.89 Umbilical hernia without obstruction and without gangrene K42.9 Obstruction and gangrene presence: without obstruction or gangrene
[2023-11-04 11:47] VITALS: BP 148/86; PULSE 89
== END 2023-11-04 11:54 | disposition home or self-care (01) ==
PROVIDERS: PCP Physician Assistant; Visit Provider Surgery
DX: R91.1 Solitary pulmonary nodule (principal); Z91.89 Other specified personal risk factors, not elsewhere classified; K42.9 Umbilical hernia without obstruction or gangrene
CPT/HCPCS: 99214

== ENCOUNTER → 2023-11-04 11:39 | Outpatient (BNVA) | payer OTHER, SELFPAY | PROVIDERS: PCP Physician Assistant; Visit Provider Surgery | DX: R91.1 Solitary pulmonary nodule (principal); K42.9 Umbilical hernia without obstruction or gangrene; Z91.89 Other specified personal risk factors, not elsewhere classified | CPT/HCPCS: 99212 ==

== ENCOUNTER 2024-01-13 15:23 | Outpatient (AMB) | payer OTHER, SELFPAY ==
--- NOTE | 2024-01-13 15:35 | MHC.PC.OV ---
Vital Signs 01/13/24 15:36 Height 5 ft 8 in Weight 167 lb BMI 25.4 BP 128/78 Blood Pressure Location Lt brachial Position Sitting Pulse 92 Pulse Source Pulse Oximeter Pulse Oximetry (%) 98 Oxygen Delivery Method Room Air Intake Visit Reasons: [id number] transplant on insulin Intake Note: Pt is here for Post-Op from [facility] after Liver transplant and now on insulin. Medical record on file. News Intern Required: No Accompanied by: Sister: Haley Allergies No Known Allergies Allergy (Verified 01/13/24 15:57) Medication List - Last Reconciled 01/13/24 by Brian Vela PA-C acetaminophen 650 mg PO QID acyclovir mg PO albuterol sulfate 90 mcg/actuation 1 inh inhalation QID PRN 30 days amlodipine 10 mg PO DAILY apixaban (Eliquis) 5 mg PO BID aspirin 81 mg PO DAILY atovaquone mg PO blood pressure monitor As directed blood sugar diagnostic (FreeStyle Lite Strips) 1 strip miscellaneous BID 30 days blood-glucose meter As directed cefadroxil PO docusate sodium 100 mg PO BID ergocalciferol (vitamin D2) 1,250 mcg PO QWEEK fluconazole mg PO fluticasone propionate 50 mcg/actuation (Flonase Allergy Relief) 1 spray intranasal DAILY 14 days furosemide 20 mg PO DAILY gabapentin mg PO gabapentin 300 mg PO BID insulin glargine (Lantus Solostar U-100 Insulin) 15 units subcut TID insulin lispro (Humalog KwikPen (U-100) Insulin) 10 units subcut lactulose 45 mL PO TID lancets (FreeStyle Lancets) 1 gauge topical DIRECTED 30 days lancets (FreeStyle Lancets) As directed lancets (OneTouch Delica Plus Lancet) As directed lisinopril 20 mg PO DAILY 90 days meclizine 25 mg PO BID PRN 7 days methocarbamol 750 mg PO TID multivitamin with folic acid 400 mcg (Daily-Josue (with folic acid)) tabs PO mycophenolate mofetil mg PO omeprazole 20 mg PO DAILY oxycodone mg PO pantoprazole 40 mg PO DAILY pen needle, diabetic (BD [place] 2nd Gen Pen Needle) As directed polyethylene glycol 3350 17 grams PO DAILY prednisone 20 mg PO DAILY rifaximin (Xifaxan) 550 mg PO BID sennosides (senna) 17.2 mg PO BID sildenafil 100 mg PO DAILY 4 days tacrolimus 5 mg PO BID tacrolimus 3 mg PO BID ursodiol 300 mg PO BID Tobacco use date assessed: 10/22/23 Dental Screening Dental Screen Date: 10/22/23 HPI [id number]-Iw-[id number] transplant on insulin HPI Details Elroy is a 58 male here today follow-up visit. Patient's past medical history significant for essential hypertension , type 2 diabetes, liver cirrhosis, end-stage liver disease,, iron deficiency anemia, h/o of IV drug use and alcohol abuse (sober since 2019). ? .. ?? ?CHRONIC MEDICAL CONDITIONS--> ?? Liver cirrhosis:? Continues to follow gastroenterology ([place] and [facility] ), recently underwent liver transplant that was complicated postoperatively with hyperglycemia. Has now been started on long-acting and short-acting insulin managed by endocrinology at [facility] ?As per patient he apparently had blood clot in the vessels around his liver and was started on Eliquis. His pain is still evident somewhat managed with oxycodone 5 mg which he reports needs to be handled by his PCP. He does understand the habit-forming nature of this medication in promises to use on a p.r.n. basis. Also reports having anxiety after his transplant surgery. He is interested in using an as-needed medication for his anxiety Pulmonary nodule: Of note patient did get CT of chest showing a 3 mm pulmonary nodule. He is now seeing thoracic surgeon and will have his pulmonary nodule followed. .. Hypertension:? Blood pressures have been stable with current dose blood pressure medication. Continues on Amlodpine 10mg and lisinopril. .. Thrombocytopenia:? Has a long history of thrombocytopenia.? Etiology unclear at this time though could be secondary to his liver disease. ? . ? DMII: Now on insulin status post liver transplant. Seeing an solution strategist at [facility]. . [facility] Medical History (Updated 01/13/24 @ 16:20 by Brian Vela PA-C) Asthma Umbilical hernia GERD (gastroesophageal reflux disease) Somatic dysfunction of left sacroiliac joint Strain of lumbar paraspinal muscle Hemorrhoid Hx of esophageal varices Hepatic encephalopathy GAVE (gastric antral vascular ectasia) Hx of Clostridium difficile infection Head injury Portal hypertension History of blood transfusion Iron deficiency anemia Pain aggravated by swallowing Swallowed chicken bone Patellofemoral pain syndrome of both knees Hepatitis C virus Osteoarthritis of left knee DMII (diabetes mellitus, type 2) Migraine headache Headache Neck pain Cirrhosis of liver Malnutrition HTN (hypertension) Other otitis externa, right ear Surgical History (Updated 01/13/24 @ 16:12 by Brian Vela PA-C) History of surgery of liver History of esophagogastroduodenoscopy (EGD) History of abdominal paracentesis History of colonoscopy Family History Father No problems noted. Mother Asthma Diabetes Social History Household Members: Family Housing: House Alcohol intake: never Patient Tobacco Use Status: Former Tobacco user Quit Date: 15 yrs ago e-Cigarette/Vaping Use: Never Used Second Hand Smoke Exposure: Yes Advance Directives Date on File: 07/17/20 service: No Current occupational status: disabled Cognitive needs: No Hearing needs: No Vision needs: No Questionnaire PHQ-9 Over the last 2 weeks, how often have you been bothered by any of the following problems? 1. Little interest or pleasure in doing things: not at all 2. Feeling down, depressed, or hopeless: not at all 3. Trouble falling or staying asleep, or sleeping too much: not at all 4. Feeling tired or having little energy: not at all 5. Poor appetite or overeating: not at all 6. Feeling bad about yourself - or that you are a failure or have let yourself or your family down: not at all 7. Trouble concentrating on things, such as reading the newspaper or watching television: not at all 8. Moving or speaking so slowly that other people could have noticed. Or the opposite - being so fidgety or restless that you have been moving around a lot more than usual: not at all 9. Thoughts that you would be better off or of hurting yourself in some way: not at all Total score: 0 Depression Screening Interpretation: Negative Depression Screening Done: Yes 91731 - PHQ-9 Billing: Yes Source: Developed by Drs. Yuri Lowe, Vianey Mclean, Paul Traore and colleagues, with an educational yariel from [employer]. Thrive Questionnaire Date Thrive assessed: 01/13/24 I am a: Patient What is your living situation today?: I have a steady place to live Within the past 12 months, did the food you bought not last and you didn't have the money to get more?: Never true Within the past 12 months, did you worry whether your food would run out before you got money to buy more?: Never true Do you have trouble paying for medicines?: No Do you have trouble getting transportation to medical appointments?: No Do you have trouble paying your heating and electricity bill?: No Do you have trouble taking care of your child, family member or friend?: No Do you have trouble with day-to-day activities such as bathing, preparing meals, shopping, managing finances, etc.?: No Are you currently unemployed and looking for a job?: No Are you interested in more education?: No Please select the resources that you would like help with: None Currently or been in a relationship where the following occur: no concerns reported THRIVE Score: 0 AUDIT C Alcohol Use Questionnaire (AUDIT-C) 1. How often do you have a drink containing alcohol?: Never Total Score: 0 Score Reviewed/Action Taken: No CHATA-7 AMB Questionnaire CHATA-7 Date CHATA - 7 assessed: 01/13/24 Source: Developed by Drs. Yuri Lowe, Vianey Mclean, Paul Traore and colleagues, with an educational yariel from [employer]. Review of Systems Const Denies headache(s) Eyes Denies loss of vision ENT Denies vertigo, Denies dizziness, Denies headache(s) and Denies sore throat Card Denies chest pain, Denies leg edema and Denies lightheadedness Resp Denies cough, Denies hemoptysis and Denies wheezing GI Denies abdominal pain, Denies melena, Denies constipation, Denies diarrhea and Denies vomiting Denies dysuria, Denies urinary frequency and Denies urinary urgency Musc Denies arthralgias, Denies joint swelling, Denies numbness and Denies tingling Neuro Denies Abnormal speech present, Denies behavioral changes, Denies vertigo, Denies dizziness, Denies headache(s), Denies loss of vision, Denies memory loss, Denies numbness and Denies tingling Psych Denies anxiety, Denies behavioral changes, Denies depression, Denies memory loss and Denies panic attacks Jamel/Lymph Denies easy bleeding and Denies easy bruising Aller/Immun Denies wheezing Physical exam (Primary Care) Vital Signs: Last Vital Signs Pulse 92 01/13/24 15:36 BP 128/78 01/13/24 15:36 Pulse Ox 98 01/13/24 15:36 Oxygen Delivery Method Room Air 01/13/24 15:36 BMI result Body Mass Index 25.4 Tobacco/Smoking Status: Tobacco use Status Tobacco use date assessed 10/22/23 01/13/24 15:49 Patient Tobacco Use Status Former Tobacco user 01/13/24 15:49 e-Cigarette/Vaping Use Never Used 01/13/24 15:49 PHQ-9: PHQ-9 Score PHQ-9: Total score 0 01/14/24 07:48 Depression Screening Interpretation: Negative Thrive Assessment: Date of Thrive Assessment Date Thrive assessed 01/13/24 01/13/24 15:49 Currently or been in a relationship where the following occur: no concerns reported Const General: healthy appearing, no acute distress, alert and awake Nutritional Appearance: well nourished Orientation/consciousness: oriented to person, oriented to place and oriented to time HENMT Ears: TM's normal bilaterally General nose exam: Normal nasal mucous membranes and turbinates present Eyes Conjunctivae: conjunctivae normal Sclerae: sclerae normal Pupils: Equal, round and reactive pupils present Neck Neck: Yes no lymphadenopathy and Yes no JVD Thyroid: Thyroid normal Carotids: no bruits Resp Effort & Inspection: normal respiratory effort and not tachypneic Auscultation: no crackles, no rales, no rhonchi and no wheezes Cardio Rate: regular rate Rhythm: regular rhythm Heart sounds: no murmurs and normal S1 and S2 GI Palpation (GI): Soft to palpation, nontender, no hepatomegaly and no splenomegaly Auscultation: normal bowel sounds Abdomen image: 1. VERY LARGE SURGICAL SCARS WITHOUT ANY SURROUNDING ERYTHEMA OR DRAINAGE HELD BY LOVE Skin General skin exam: no rashes or lesions noted and dry skin Neuro General: oriented to person, oriented to place and oriented to time Cranial nerves: Yes Equal, round and reactive pupils present Speech: No Abnormal speech present Gait exam (Neuro): Normal gait present Motor exam (neuro): no tremor noted Extrem Right upper extremity: full ROM Left upper extremity: full ROM Right lower extremity: full ROM; no edema Left lower extremity: full ROM; no edema Psych Mental Status: mental status grossly normal Speech and movement: Normal speech and movement present Affect: normal affect Attitude: cooperative Thought process: Normal thought process present Assessment and Plan Assessment & Plan (1) End stage liver disease: Code(s): K72.10 - Chronic hepatic failure without coma Plan: As per HPI recently underwent liver transplant. Now on antirejection drugs antibiotics antivirals for the next few months. Heavily followed by [facility] liver transplant team. (2) Liver transplant recipient: Code(s): Z94.4 - Liver transplant status Plan: As above. Still has some a dominant pain worse when moving his trunk. Does have oxycodone 5 mg available to him to use on a p.r.n. basis (3) Asthma: Comment: as child Code(s): J45.909 - Unspecified asthma, uncomplicated Qualifiers: Asthma complication type: uncomplicated Asthma persistence: persistent Asthma severity: mild Qualified Code(s): J45.30 - Mild persistent asthma, uncomplicated Plan: Patient reports his asthma has been somewhat evident as of late due to some abdominal swelling pushing on his diaphragm status post liver transplant surgery. He would like a nebulizer machine to use to do updraft treatments. (4) DMII (diabetes mellitus, type 2): Code(s): E11.9 - Type 2 diabetes mellitus without complications Qualifiers: Diabetes mellitus complication status: without complication Diabetes mellitus intermediate accountant insulin use: without intermediate accountant use Qualified Code(s): E11.9 - Type 2 diabetes mellitus without complications Plan: Patient now on insulin therapy due to the methylprednisone needed for liver transplant. Has solution strategist at [facility] that is managing his insulin therapy. (5) CHATA (generalized anxiety disorder): Code(s): F41.1 - Generalized anxiety disorder Plan: Does have quite a bit of anxiety status post liver transplant surgery. On multiple medications for anti rejection and prophylactic purposes. He is interested in using a as needed medication for his panic. Medications: New blood-glucose sensor (FreeStyle Alberto 3 Sensor device) As directed 1 ea 6RF E11.9 - Type 2 diabetes mellitus without complications oxycodone 5 mg PO Q4H 7 days 42 tabs 0RF Z94.4 - Liver transplant status albuterol sulfate 2.5 mg (3 mL) inhalation Q6H 30 days PRN 180 mL 0RF shortness of breath or wheezing J45.30 - Mild persistent asthma, uncomplicated blood-glucose meter,continuous (FreeStyle Alberto 3 [place]) As directed 1 ea 0RF E11.9 - Type 2 diabetes mellitus without complications lorazepam 0.5 mg PO BEDTIME 10 days 10 tabs 0RF anxiety F41.1 - Generalized anxiety disorder nebulizers (AeroEclipse II Nebulizer) As directed 1 ea 0RF J45.30 - Mild persistent asthma, uncomplicated Changed From furosemide 40 mg PO DAILY 90 tabs 0RF To furosemide 20 mg PO DAILY Coding Level of Care Code Est Pt Level 4 (22709) Diagnoses End stage liver disease K72.10 Liver transplant recipient Z94.4 Mild persistent asthma without complication J45.30 Asthma complication type: uncomplicated Asthma persistence: persistent Asthma severity: mild Type 2 diabetes mellitus without complication, without long-term current use of insulin E11.9 Diabetes mellitus complication status: without complication Diabetes mellitus intermediate accountant insulin use: without halfway use CHATA (generalized anxiety disorder) F41.1
[2024-01-13 15:36] VITALS: BP 128/78; PULSE 92; O2SAT 98; BMI 25.4
== END 2024-01-13 16:33 | disposition home or self-care (01) ==
PROVIDERS: PCP Physician Assistant; Visit Provider Physician Assistant
DX: K72.10 Chronic hepatic failure without coma (principal); Z94.4 Liver transplant status; J45.30 Mild persistent asthma, uncomplicated; E11.9 Type 2 diabetes mellitus without complications; F41.1 Generalized anxiety disorder
CPT/HCPCS: 99214

== ENCOUNTER 2024-01-21 08:59 | Outpatient (AMB) | payer OTHER, SELFPAY ==
--- NOTE | 2024-01-21 09:09 | A.OFFPC_ITS ---
Vital Signs 3 01/21/24 09:10 Height 5 ft 8 in Weight 159 lb 2 oz BMI 24.2 BP 118/86 Blood Pressure Location Lt brachial Position Sitting Pulse 117 H Pulse Source Pulse Oximeter Pulse Oximetry (%) 99 Oxygen Delivery Method Room Air Intake Visit Reasons: PE Intake Note: Patient is here today for a physical. Medical Facilities Section Director Required: No Accompanied by: Self / Same As Patient Allergies No Known Allergies Allergy (Verified 01/21/24 09:13) Medication List - Last Reconciled 01/21/24 by Brian Vela PA-C acetaminophen 650 mg PO QID acyclovir mg PO albuterol sulfate 90 mcg/actuation 1 inh inhalation QID PRN 30 days albuterol sulfate 2.5 mg (3 mL) inhalation Q6H PRN 30 days amlodipine 10 mg PO DAILY apixaban (Eliquis) 5 mg PO BID aspirin 81 mg PO DAILY atovaquone mg PO blood pressure monitor As directed blood sugar diagnostic (FreeStyle Lite Strips) 1 strip miscellaneous BID 30 days blood-glucose meter As directed blood-glucose meter,continuous (GreenTec-USAStyle Alberto 3 [place]) As directed blood-glucose sensor (FreeStyle Alberto 3 Sensor device) As directed cefadroxil PO docusate sodium 100 mg PO BID ergocalciferol (vitamin D2) 1,250 mcg PO QWEEK fluconazole mg PO fluticasone propionate 50 mcg/actuation (Flonase Allergy Relief) 1 spray intranasal DAILY 14 days furosemide 20 mg PO DAILY gabapentin mg PO gabapentin 300 mg PO BID insulin glargine (Lantus Solostar U-100 Insulin) 15 units subcut TID insulin lispro (Humalog KwikPen (U-100) Insulin) 10 units subcut lactulose 45 mL PO TID lancets (FreeStyle Lancets) 1 gauge topical DIRECTED 30 days lancets (FreeStyle Lancets) As directed lancets (OneTouch Delica Plus Lancet) As directed lisinopril 20 mg PO DAILY 90 days lorazepam 0.5 mg PO BEDTIME 10 days meclizine 25 mg PO BID PRN 7 days methocarbamol 750 mg PO TID multivitamin with folic acid 400 mcg (Daily-Josue (with folic acid)) tabs PO mycophenolate mofetil mg PO nebulizers (AeroEclipse II Nebulizer) As directed omeprazole 20 mg PO DAILY oxycodone 5 mg PO Q4H 7 days pantoprazole 40 mg PO DAILY pen needle, diabetic (BD [place] 2nd Gen Pen Needle) As directed polyethylene glycol 3350 17 grams PO DAILY prednisone 20 mg PO DAILY rifaximin (Xifaxan) 550 mg PO BID sennosides (senna) 17.2 mg PO BID sildenafil 100 mg PO DAILY 4 days tacrolimus 5 mg PO BID tacrolimus 3 mg PO BID ursodiol 300 mg PO BID Tobacco use date assessed: 10/22/23 Dental Screening Dental Screen Date: 10/22/23 HPI PE 2 HPI0 Details Elroy is a 58 male here today for a annual physical.. Patient's past medical history significant for essential hypertension , type 2 diabetes, liver cirrhosis, end-stage liver disease status post liver transplant December of 2023,, iron deficiency anemia, h/o of IV drug use and alcohol abuse (sober since 2019). LIVER TRANSPLANT--> status post transplant December 2023. reports over the last 4 days feeling somewhat fatigued, short of breath and has been a lot more abdominal pain. He has been using 5-10 mg of oxycodone at night to help him sleep which has been effective though during the day continues to have abdominal pain. He has no erythema surrounding his surgical scars though does have a small area over his central incision with purulent material. Culture taken today in office. ? .. ?? ?CHRONIC MEDICAL CONDITIONS--> ?? Liver cirrhosis:? Continues to follow gastroenterology ([place] and [facility] ), recently underwent liver transplant that was complicated postoperatively with hyperglycemia. Has now been started on long-acting and short-acting insulin managed by endocrinology at [facility] ?As per patient he apparently had blood clot in the vessels around his liver and was started on Eliquis. His pain is still evident somewhat managed with oxycodone 5 mg which he reports needs to be handled by his PCP. He does understand the habit-forming nature of this medication in promises to use on a p.r.n. basis. Also reports having anxiety after his transplant surgery. He is interested in using an as-needed medication for his anxiety Pulmonary nodule: Of note patient did get CT of chest showing a 3 mm pulmonary nodule. He is now seeing thoracic surgeon and will have his pulmonary nodule followed. .. Hypertension:? Blood pressures have been stable with current dose blood pressure medication. Continues on Amlodpine 10mg and lisinopril. .. Thrombocytopenia:? Has a long history of thrombocytopenia.? Etiology unclear at this time though could be secondary to his liver disease. ? . ? DMII: Now on insulin status post liver transplant. Seeing an supervisor chemical at [facility]. Still awaiting to get continues glucose monitor Alberto 3.. Colon cancer screening: Up-to-date with colonoscopy Vaccines: Up-to-date with COVID, pneumonia, tetanus and flu vaccines. Up-to-date with shingles vaccine [facility] Medical History (Updated 01/21/24 @ 09:37 by Brian Vela PA-C) Asthma Umbilical hernia GERD (gastroesophageal reflux disease) Somatic dysfunction of left sacroiliac joint Strain of lumbar paraspinal muscle Hemorrhoid Hx of esophageal varices Hepatic encephalopathy GAVE (gastric antral vascular ectasia) Hx of Clostridium difficile infection Head injury Portal hypertension History of blood transfusion Iron deficiency anemia Pain aggravated by swallowing Swallowed chicken bone Patellofemoral pain syndrome of both knees Hepatitis C virus Osteoarthritis of left knee DMII (diabetes mellitus, type 2) Migraine headache Headache Neck pain Cirrhosis of liver Malnutrition HTN (hypertension) Other otitis externa, right ear Surgical History History of surgery of liver History of esophagogastroduodenoscopy (EGD) History of abdominal paracentesis History of colonoscopy Family History Father No problems noted. Mother Asthma Diabetes Social History Household Members: Family Housing: House Alcohol intake: never Patient Tobacco Use Status: Former Tobacco user Quit Date: 15 yrs ago e-Cigarette/Vaping Use: Never Used Second Hand Smoke Exposure: Yes Advance Directives Date on File: 07/17/20 service: No Current occupational status: disabled Cognitive needs: No Hearing needs: No Vision needs: No Questionnaire Thrive Questionnaire Date Thrive assessed: 01/13/24 CHTAA-7 AMB Questionnaire CHATA-7 Date CHATA - 7 assessed: 01/13/24 Source: Developed by Drs. Yuri L. MynorVianey jiménez, Paul Traore and colleagues, with an educational yariel from [place]. Review of Systems Const Denies body aches, Denies chills, Denies excessive sweating, Denies fatigue, Denies fever(s) and Denies headache(s) Eyes Denies blurry vision ENT Denies dysphagia, Denies vertigo, Denies dizziness, Denies headache(s), Denies hearing loss and Denies tinnitus Card Denies chest pain, Denies chest pain with activity, Denies syncope, Denies irregular heart rhythm and Denies dyspnea Resp Denies chest congestion, Denies cough, Denies hemoptysis, Denies dyspnea and Denies wheezing GI Denies abdominal pain, Denies melena, Denies hematochezia, Denies coffee ground emesis, Denies dysphagia, Denies diarrhea, Denies nausea and Denies vomiting Denies difficulty urinating, Denies dysuria, Denies urinary frequency, Denies urinary hesitancy and Denies urinary urgency Musc Denies arthralgias, Denies limited range of motion, Denies muscle cramps and Denies muscle weakness Skin/Breast Denies rash and Denies skin ulcer Neuro Denies Abnormal speech present, Denies confusion, Denies vertigo, Denies dizziness, Denies syncope, Denies headache(s), Denies memory loss and Denies seizure-like activity Psych Denies anxiety, Denies confusion, Denies depression, Denies memory loss, Denies panic attacks and Denies paranoia Endo Denies excessive sweating, Denies fatigue, Denies flushing, Denies polydipsia and Denies polyuria Aller/Immun Denies wheezing Physical exam (Primary Care) Vital Signs: Last Vital Signs Pulse 117 H 01/21/24 09:10 BP 118/86 01/21/24 09:10 Pulse Ox 99 01/21/24 09:10 Oxygen Delivery Method Room Air 01/21/24 09:10 BMI result Body Mass Index 24.2 Tobacco/Smoking Status: Tobacco use Status Tobacco use date assessed 10/22/23 01/21/24 09:11 Patient Tobacco Use Status Former Tobacco user 01/21/24 09:11 e-Cigarette/Vaping Use Never Used 01/21/24 09:11 Thrive Assessment: Date of Thrive Assessment Date Thrive assessed 01/13/24 01/21/24 09:11 Const Other: APPEARS TO BE IN DISCOMFORT General: cooperative, no acute distress, alert and awake; No comfortable or confusion Orientation/consciousness: oriented to person, oriented to place, patient oriented x3 and No confusion HENMT Head: Yes normocephalic Ears: external ears normal and TM's normal bilaterally Face and sinus: No sinus tenderness Mouth: Normal oral and palatal mucosa present and tongue normal Teeth and gingiva: dentition normal and gingiva normal Throat: Yes posterior oropharynx normal, Yes tonsils normal and Yes uvula midline Eyes Conjunctivae: conjunctivae normal Sclerae: sclerae normal Pupils: Equal, round and reactive pupils present EOM: EOMs intact bilaterally Direct Ophthalmoscopy: No no photophobia Neck Neck: Yes no lymphadenopathy, No tender and Yes no JVD Thyroid: Thyroid normal Carotids: no bruits Chest Chest palpation & inspection: no tenderness Resp Effort & Inspection: normal respiratory effort, no audible wheezes, not labored and no stridor Auscultation: no crackles, no rales, no rhonchi and no wheezes Cardio Jugular venous distension: no JVD Rate: regular rate, not bradycardic and not tachycardic Rhythm: regular rhythm Bruits: no carotid bruits Peripheral pulses: Peripheral pulses 2+ throughout GI Inspection: Yes normal to inspection, No abdominal wall ecchymosis and No visible herniation Palpation (GI): Soft to palpation, Tenderness to palpation present (GI), no guarding, not rigid and No hepatosplenomegaly present Auscultation: normoactive bowel sounds Abdomen image: 2 1. LARGE SURGICAL SCAR HELD BY LOVE. SMALL AREA IN THE MIDLINE OF THE SURGICAL INCISION WITH PURULENT MATERIAL. NO SURROUNDING ERYTHEMA. TENDERNESS TO LIGHT PALPATION General: Yes no CVA tenderness Back/Spine/Pelvis Back: no CVA tenderness and No back tenderness Cervical Spine: cervical ROM normal Thoracic/Lumbar Spine: thoracic and lumbar spine normal to inspection, straight leg raise negative bilaterally, No thoraco-lumbar ROM limited and No lumbar spinal tenderness Skin Lesions: no lesions Rashes: no rashes Wounds: no wounds Neuro General: oriented to person, oriented to place, patient oriented x3, CN's II-XI intact bilaterally and No confusion Cranial nerves: Yes Equal, round and reactive pupils present and Yes Normal accommodation reflex present Cognition (Neuro): normal cognition Speech: No Abnormal speech present Gait exam (Neuro): Normal gait present Motor exam (neuro): 5/5 motor strength present throughout Extrem Right upper extremity: full ROM; no cyanosis Left upper extremity: full ROM; no cyanosis Right lower extremity: no edema Left lower extremity: no edema Psych Appearance: grossly normal Mental Status: mental status grossly normal Affect: normal affect Attitude: cooperative Thought process: Normal thought process present Assessment and Plan Assessment & Plan (1) Annual physical exam: Code(s): Z00.00 - Encounter for general adult medical examination without abnormal findings (2) Liver transplant recipient: Code(s): Z94.4 - Liver transplant status Plan: As per HPI recently underwent liver transplant. Now on antirejection drugs antibiotics antivirals for the next few months. Heavily followed by [facility] liver transplant team. He reports over the last 3 days he has been feeling somewhat fatigued, short of breath and in pain over his abdomen. Has been using oxycodone 5-10 mg night that has been somewhat effective though during the day continues to be in pain. Also concerns for anemia as he has chronic anemia and needed blood transfusion during his hospitalization. Will check CBC and iron studies Took culture today in office his abdominal wound as there is some purulent material in his medial incision. Otherwise no surrounding erythema. (3) DMII (diabetes mellitus, type 2): Code(s): E11.9 - Type 2 diabetes mellitus without complications Qualifiers: Diabetes mellitus complication status: without complication Diabetes mellitus buttermaker helper insulin use: without buttermaker helper use Qualified Code(s): E11.9 - Type 2 diabetes mellitus without complications Plan: Patient now on insulin therapy due to the methylprednisone needed for liver transplant. Has supervisor chemical at [facility] that is managing his insulin therapy. (4) CHATA (generalized anxiety disorder): Code(s): F41.1 - Generalized anxiety disorder Plan: Does have quite a bit of anxiety status post liver transplant surgery. On multiple medications for anti rejection and prophylactic purposes. He is interested in using a as needed medication for his panic. Orders: Orders 2 IRON PROFILE Today D50.9 - Iron deficiency anemia, unspecified, Z94.4 - Liver transplant status Comprehensive Met. Panel Today Z94.4 - Liver transplant status Routine Culture w Gram Stain Today Z94.4 - Liver transplant status Complete Blood Count no Diff Today Z94.4 - Liver transplant status Medications: New 2 oxycodone increase dose to 10mg for better pain control. 10 mg PO Q8H 21 tabs 0RF pain 7 days Z94.4 - Liver transplant status Changed 2 From methocarbamol 750 mg PO TID Z94.4 - Liver transplant status To methocarbamol 750 mg PO TID PRN 30 tabs 0RF pain (scale score 7-10) 10 days Z94.4 - Liver transplant status Discontinued 2 oxycodone Discontinued Reason: Doctor's Order 5 mg PO Q4H 7 days 42 tabs 0RF Z94.4 - Liver transplant status Coding Level of Care Code Est Pt Prev Care 40-64y(72312) Diagnoses Annual physical exam Z00.00 Liver transplant recipient Z94.4 Type 2 diabetes mellitus without complication, without long-term current use of insulin E11.9 Diabetes mellitus complication status: without complication Diabetes mellitus intermediate insulin use: without buttermaker helper use CHATA (generalized anxiety disorder) F41.1
[2024-01-21 09:10] VITALS: BP 118/86; PULSE 117; O2SAT 99; BMI 24.2
== END 2024-01-21 09:44 | disposition home or self-care (01) ==
PROVIDERS: PCP Physician Assistant; Visit Provider Physician Assistant
DX: Z00.00 Encounter for general adult medical examination without abnormal findings (principal); Z94.4 Liver transplant status; E11.9 Type 2 diabetes mellitus without complications; F41.1 Generalized anxiety disorder
CPT/HCPCS: 99396

== ENCOUNTER 2024-01-21 09:46 | Outpatient (REF) | payer OTHER, SELFPAY ==
[2024-01-21 10:55] LABS: Hematocrit 33.8 % (42.0-52.0); Hemoglobin 10.1 g/dl (14.0-18.0); Mean Corpuscular HGB Conc 29.9 g/dl (31.0-36.0); Mean Corpuscular Volume 80.5 fL (80.0-98.0); Mean Platelet Volume 11.6 fL (9.4-12.4); NRBC Pct Auto 0.2 /100WBC (0.0-0.2); Platelet Count 343 X10*3/uL (160-400); Red Cell Distribution Width 18.4 % (11.0-16.0); White Blood Count 12.2 X10*3/uL (4.8-10.8)
[2024-01-21 11:35] LABS: Prostate Specific Antigen Scr 0.55 ng/mL (<0.05-4.0)
[2024-01-21 11:57] LABS: Alanine Aminotransferase 21 U/L (0-40); Albumin Level 4.1 g/dL (3.5-5.0); Alkaline Phosphatase 91 U/L (39-117); Anion Gap 16 (12-20); Aspartate Amino Transferase 14 U/L (5-37); Bilirubin Total 1.4 mg/dL (0.0-1.0); Blood Urea Nitrogen 47 mg/dL (9-16); Calcium 9.6 mg/dL (8.4-10.2); Carbon Dioxide 22 mmol/L (22-29); Chloride 106 mmol/L (96-108); Cholesterol 195 mg/dL (<200); Estimated Glomerular Filt Rate 47; Glucose Fasting 205 mg/dL (60-99); Glucose Random 204 mg/dL (60-115); HDL Cholesterol 34 mg/dL (>40); Iron 33 mcg/dL (45-160); LDL Cholesterol Calculated 93 mg/dL (<100); Percent Iron Saturation 9 % (15-50); Potassium 5.1 mmol/L (3.3-5.1); Sodium 139 mmol/L (135-145); Total Iron Binding Capacity 350 mcg/dL (228-428); Total Protein 6.9 g/dL (6.5-8.0); Triglycerides 341 mg/dL (<150); Unsaturated Iron Binding 317 ug/dL
[2024-01-21 12:01] LABS: Creatinine Urine 182.19 mg/dL; Microalbum/Creatinine Ratio Ur 53.7 ug/mg cr (<30)
== END 2024-01-21 09:47 | disposition home or self-care (01) ==
LOC: HO.LAB 09:46
PROVIDERS: PCP Physician Assistant; Visit Provider Physician Assistant
DX: Z12.5 Encounter for screening for malignant neoplasm of prostate (principal); E11.9 Type 2 diabetes mellitus without complications; D50.9 Iron deficiency anemia, unspecified; D69.6 Thrombocytopenia, unspecified; Z94.4 Liver transplant status
CPT/HCPCS: 36415; 80053; 80061; 82043; 82570; 83540; 84153; 85027; 87070; 87205

== ENCOUNTER 2024-01-27 09:26 | Outpatient (REF) | payer OTHER, SELFPAY ==
--- NOTE | ~2024-01-27 | XR_ITS ---
EXAMINATION: XR CHEST CLINICAL INFORMATION: Shortness of breath. COMPARISON: May 16, 2020 and October 21, [address] chest 10/30/2023. TECHNIQUE: 2 views of the chest were obtained. FINDINGS: There is no gross pneumothorax. Lung volumes are low. Heart size is normal. Surgical clips in the upper abdomen. Postsurgical changes with clips and stent in the partially imaged upper abdomen. Stable cardiomediastinal silhouette. Degenerative changes in the thoracic spine. No pleural effusion. No new focal consolidation to suggest pneumonia. XR/XR chest 2V IMPRESSION: No evidence of pneumonia.
== END 2024-01-27 09:27 | disposition home or self-care (01) ==
LOC: HO.XRAY 09:26
PROVIDERS: PCP Physician Assistant; Visit Provider Physician Assistant
DX: R06.02 Shortness of breath (principal)
CPT/HCPCS: 71046

== ENCOUNTER 2024-02-09 11:38 | Outpatient (AMB) | payer OTHER, SELFPAY ==
--- NOTE | 2024-02-09 11:40 | MHC.OFFVIS ---
Vital Signs 02/09/24 11:42 Height 5 ft 8 in Weight 158 lb 11.725 oz BMI 24.1 BP 129/88 Blood Pressure Location Lt brachial Position Sitting Pulse 107 H Intake Visit Reasons: follow up Intake Note: Elroy presents in the office as a follow up. CC: Follow up liver transplant - states that he is feeling okay. states he is dealing with the pains and discomfort. Every day gets better. Medical Reimbursement Specialist Required: No Allergies No Known Allergies Allergy (Verified 02/09/24 11:42) HPI HPI follow up: Details: 58 y/o male with pmhx of iron deficiency HTN, DM II, anemia, hepatitis C and alcohol induced cirrhosis being seen for f/u RECAP: Patient had been at [facility] for detox and had labs drawn which were abnormal, repeat labs confirmed H/H 05/05.5 with pancytopneia and abn LFT, raised INR so he was sent to [facility] for further assessment 04/2019 He denied any shortness of breath, dizziness, weakness, melena or bright red blood in his stool. He did state that he was diagnosed with hepatitis C in the past and this never been treated. U/S imaging consistent w cirrhosis, varices, no masses EGD: LA grade A esophagitis, erosive gastitis, and duodenitis, small varices--h pylori pos--given treatment which he completed colonoscopy: poor prep, mucosal trauma easy due to low plts, repeat colon in 6-12 months, internal hemorrhoids Plan was for treatment of hep C< but due to decompensation I wanted to treat for 24 weeks, only epclusa aproved for 12 weeks, plan was to add ribavarin He was commenced on epclusa and ribavarin, but his HGB dropped to 7 g/dl and he was initiated on IV iron and riba reduced to 200 mg from 600 mg. He was admitted to hospital with acute on chronic anemia 10/2019 and egd with bleeding hyperplastic polyp removed and required clip and hemospray He had spontaneous bacterial peritonitis on 09/02/2019 and possible recurrent episode on 11/23/2019. He was tapped on both visits with elevated WBCs. He was placed on Cipro 500 mg twice daily. He was tapped again on 11/25/2019 showing improved WBCs count that was not consistent with bacterial peritonitis. He had c diff and was treated with vancomycin colonoscopy 03/2020-- fair to poor prep- he had admission for HE, thought to be due to constipation from iron treatment he had returned to normal He had an EGD with residual hyperplastic polyps and duodenitis and congestion--polyps removed I ordered us revealing splenorenal shunt probably explaining the recurring HE I spoke with his market specialist to update her on colonoscopy, prep was fair but no large lesions or masses, repeat colon in 1 yr recommenced, His renal function was gettign worse so [facility] stopped all diuretics, had recurrence of swelling ankles, restarted small dose lasix 20 mg EGD: 12/2020--pedunculated polyp removed, PHG noted--hyperplastic polyp EGD/colonoscopy : 09/2021--several hyperplastic polyps removed, came back as H PYLORI POSITIVE, colon prep not great --rept colo in 1 yr h pylori pos, treated with amoxil,levoflox, PPI with neg follow up breath test. EGD/colo: portal hypertensive gastropathy gastric polyp Colonoscopy Findings: internal hemorrhoids path: Polypoid foveolar hyperplasia TESTs: u/s 07/2019--cirrhosis, no HCC, 1.2 L of ascitic fluid removed, SAAG consistent w portal HTN u/s 10/2019- cirrhosis, varices, moderate ascites, patent veins he had imaging at [facility] with US 02/2021--no HCC per Dr Esposito note Vit A and zinc low labs at [facility] 10/2020- BMP--nml, INR 1.2, LFT pretty good, MELD-na 10!! repeat labs : Hgb 14, LFT stable, labs: 05/2021--nml HGB--14 g/dl, LFT stable, vit a was low at 18-put on replacement INTERIM: He had gotten a liver transplant 1 month ago--he is on mycophenolate, tacrolimus he had a lot of pain post op, better now--also had ?PVT and on e;iquis now he is still on pain medication no abdo pain no nausea no vomiting no fevers or chills EXAM: GENERAL: The patient is well developed and nontoxic, VITAL SIGNS:see workflow HEENT: Nonicteric sclerae, PERRLA, EOMI. Oropharynx clear. Moist mucous membranes. Conjunctivae appear well perfused. No thyroid mass. CHEST: Chest wall is nontender. HEART: Regular rate and rhythm without murmurs. LUNGS: Clear to auscultation bilaterally. ABDOMEN: Soft, positive bowel sounds, nontender, no organomegaly.no flank tenderness--incision noted SKIN: normal NEUROLOGIC: Cranial nerves II-XII intact without motor/sensory deficit. No liver flap MS- nml ROM psych--normal affect A/P: 1. Alcoholic cirrhosis of liver with ascites -no further ascites, on low dose lasix, SVR from Hep C, MELD 9-10--co managed with [facility] Dr Esposito, he has SVR for hep c but now complicated with HCC with s/p liver transplant PLAN 1/ cont with eliquis 2/ cont boost supplement--wants to see if can get premier brand 3/ avoid alcohol PFSH Medical History Asthma Umbilical hernia GERD (gastroesophageal reflux disease) Somatic dysfunction of left sacroiliac joint Strain of lumbar paraspinal muscle Hemorrhoid Hx of esophageal varices Hepatic encephalopathy GAVE (gastric antral vascular ectasia) Hx of Clostridium difficile infection Head injury Portal hypertension History of blood transfusion Iron deficiency anemia Pain aggravated by swallowing Swallowed chicken bone Patellofemoral pain syndrome of both knees Hepatitis C virus Osteoarthritis of left knee DMII (diabetes mellitus, type 2) Migraine headache Headache Neck pain Cirrhosis of liver Malnutrition HTN (hypertension) Other otitis externa, right ear Surgical History Hx of liver transplant History of surgery of liver History of esophagogastroduodenoscopy (EGD) History of abdominal paracentesis History of colonoscopy Family History Father No problems noted. Mother Asthma Diabetes Social History Household Members: Family Housing: House Alcohol intake: never Patient Tobacco Use Status: Former Tobacco user Quit Date: 15 yrs ago e-Cigarette/Vaping Use: Never Used Second Hand Smoke Exposure: Yes Advance Directives Date on File: 07/17/20 service: No Current occupational status: disabled Cognitive needs: No Hearing needs: No Vision needs: No Physical Exam Vital Signs: Last Vital Signs Pulse 107 H 02/09/24 11:42 BP 129/88 02/09/24 11:42 BMI result Body Mass Index 24.1 Assessment & Plan Assessment & Plan (1) Liver transplant recipient: Code(s): Z94.4 - Liver transplant status Category: Medical Plan: see above Medications: Discontinued rifaximin (Xifaxan) Discontinued Reason: Patient Completed Course 550 mg PO BID 180 tabs 3RF Coding Level of Care Code Est Pt Level 3 (12516) Diagnoses Liver transplant recipient Z94.4
[2024-02-09 11:42] VITALS: BP 129/88; PULSE 107; BMI 24.1
== END 2024-02-09 12:08 | disposition home or self-care (01) ==
PROVIDERS: PCP Physician Assistant; Visit Provider Internal Medicine Gastroenterology
DX: Z94.4 Liver transplant status (principal)
CPT/HCPCS: 99213

== ENCOUNTER → 2024-02-09 11:38 | Outpatient (BNVA) | payer OTHER, SELFPAY | PROVIDERS: PCP Physician Assistant; Visit Provider Internal Medicine Gastroenterology | DX: Z94.4 Liver transplant status (principal); B19.20 Unspecified viral hepatitis C without hepatic coma | CPT/HCPCS: 99212 ==

== ENCOUNTER 2024-03-17 08:05 | Outpatient (REF) | payer OTHER, SELFPAY ==
--- NOTE | ~2024-03-17 | US_ITS ---
EXAMINATION: US ABDOMEN COMPLETE CLINICAL INFORMATION: Liver disease, unspecified. Abdominal pain. Status post recent liver transplant December 2023. COMPARISON: MRI abdomen 05/07/2023. Ultrasound abdomen limited with elastography 12/16/2022. Ultrasound abdomen 05/31/2020. CT abdomen and pelvis 11/22/2019. TECHNIQUE: Real-time imaging of the abdominal viscera. FINDINGS: PANCREAS: The pancreas is not well seen due to bowel gas. ABDOMINAL AORTA: The proximal and distal segments are normal in caliber. The mid abdominal aorta is obscured by bowel gas. INFERIOR VENA CAVA: Visualized portions are normal. LIVER: The liver is normal in size. The liver contour is normal. Parenchymal echogenicity is normal. 1.4 x 0.8 x 1.5 cm simple cyst is seen in the right lobe. There is no intrahepatic biliary duct dilatation seen. The vascular flow in the main portal vein is hepatopedal. GALLBLADDER: Surgically absent. COMMON BILE DUCT: Normal in caliber measuring 0.3 cm in diameter. RIGHT KIDNEY: No hydronephrosis. No renal calculi or focal parenchymal lesions. The kidney measures 10.3 cm in maximum dimension. There are multiple nonshadowing, nontwinkle echogenic foci within the right kidney. LEFT KIDNEY: No hydronephrosis or renal calculi. The kidney measures 10.6 cm in maximum dimension. There are multiple nonshadowing, nontwinkle echogenic foci within the left kidney. SPLEEN: The spleen measures 15.9 cm in maximum dimension. The spleen is enlarged. FREE FLUID: None. US/US abdomen complete IMPRESSION: 1. 1.5 cm simple cyst in the right lobe of the liver. 2. Prior cholecystectomy. 3. Splenomegaly. 4. Multiple nonshadowing, nontwinkle echogenic foci within the kidneys. These are not consistent with renal calculi.
== END 2024-03-17 08:06 | disposition home or self-care (01) ==
LOC: HO.US 08:05
PROVIDERS: PCP Physician Assistant; Visit Provider Internal Medicine Gastroenterology
DX: K76.9 Liver disease, unspecified (principal)
CPT/HCPCS: 76700

== ENCOUNTER 2024-04-06 13:55 | Outpatient (AMB) | payer OTHER, SELFPAY ==
[2024-04-06 14:05] VITALS: BP 128/82; PULSE 101; TEMP 37; O2SAT 97
--- NOTE | 2024-04-06 14:05 | AM.OFFWIN_ITS ---
Intake Vital Signs 04/06/24 14:05 Height 5 ft 8 in BP 128/82 Blood Pressure Location Lt brachial Position Sitting Pulse 101 H Pulse Source Pulse Oximeter Temp 98.6 F Temp Source Oral Pulse Oximetry (%) 97 Oxygen Delivery Method Room Air Intake Visit Reasons: EP AB pain/bump/needle ~ liver transplant 12/23/23 Intake Note: pt is here for abd pain Patient Tobacco Use Status: Former Tobacco user Allergies No Known Allergies Allergy (Verified 04/06/24 14:06) Do you need a note to return to daycare/school/sports/work: No HPI HPI Comments History of Present Illness Details 59-year-old male presents today complain ing of pain in his left lower quadrant that appeared suddenly this morning. He states it is also tingly with palpation. The patient had a liver transplant a couple of months ago and this lesion is just inferior to the incision. He denies any trauma or injury to the area. Denies any nausea vomiting diarrhea or constipation. [facility] Medical History Asthma Umbilical hernia GERD (gastroesophageal reflux disease) Somatic dysfunction of left sacroiliac joint Strain of lumbar paraspinal muscle Hemorrhoid Hx of esophageal varices Hepatic encephalopathy GAVE (gastric antral vascular ectasia) Hx of Clostridium difficile infection Head injury Portal hypertension History of blood transfusion Iron deficiency anemia Pain aggravated by swallowing Swallowed chicken bone Patellofemoral pain syndrome of both knees Hepatitis C virus Osteoarthritis of left knee DMII (diabetes mellitus, type 2) Migraine headache Headache Neck pain Cirrhosis of liver Malnutrition HTN (hypertension) Other otitis externa, right ear Surgical History Hx of liver transplant History of surgery of liver History of esophagogastroduodenoscopy (EGD) History of abdominal paracentesis History of colonoscopy Family History Father No problems noted. Mother Asthma Diabetes Social History Household Members: Family Housing: House Alcohol intake: never Patient Tobacco Use Status: Former Tobacco user e-Cigarette/Vaping Use: Never Used Second Hand Smoke Exposure: Yes Advance Directives Date on File: 07/17/20 service: No Current occupational status: disabled Cognitive needs: No Hearing needs: No Vision needs: No Review of Systems Const All systems reviewed & are unremarkable except as noted in HPI and below Physical Exam Vital Signs: Last Vital Signs Temp 98.6 F 04/06/24 14:05 Pulse 101 H 04/06/24 14:05 BP 128/82 04/06/24 14:05 Pulse Ox 97 04/06/24 14:05 Oxygen Delivery Method Room Air 04/06/24 14:05 GI Inspection: Yes other (Large horizontal and vertical incision present wound is healing well) Palpation (GI): Palpable mass present (Left lower quadrant just inferior to incision) Auscultation: normal bowel sounds Assessment & Plan Assessment & Plan (1) Hernia of abdominal wall: Code(s): K43.9 - Ventral hernia without obstruction or gangrene Plan: I suspect this is a hernia or adhesion from his incision site. He did call his surgeon's office this morning in the head and returned his call as of yet. I told them to continue to pursue having them take a look at it. He will follow up or go to the ER with any severe pain. Plan See plan Coding Level of Care Code Est Pt Level 3 (06560) Diagnoses Hernia of abdominal wall K43.9
== END 2024-04-06 14:31 | disposition home or self-care (01) ==
PROVIDERS: PCP Physician Assistant; Visit Provider Physician Assistant Medical
DX: K43.9 Ventral hernia without obstruction or gangrene (principal)
CPT/HCPCS: 99213

== ENCOUNTER 2024-07-02 13:55 | Emergency (ER) | payer OTHER, SELFPAY ==
--- NOTE | ~2024-07-02 | CT_ITS ---
EXAMINATION: CT HEAD WITHOUT CONTRAST CLINICAL INFORMATION: Blurred vision in left eye. COMPARISON: Head CT dated 05/16/2020. TECHNIQUE: Contiguous axial imaging was performed from the skullbase to vertex without intravenous administration of contrast. This CT examination was performed using dose optimization techniques as appropriate, variously including the following: *Automated exposure control *Adjustment of mA and/or kV according to patient size (this includes techniques or standardized protocols for targeted exams where dose is matched to indication/reason for exam; i.e. extremities or head) *Use of iterative reconstruction technique DLP: 715 mGy-cm. FINDINGS: There is no evidence of acute intracranial hemorrhage or territorial infarction. No abnormal mass effect or midline shift is seen. Purcell to white matter differentiation is well preserved. No extra-axial fluid collections are identified. Moderate patchy areas of low-density change again visible in the cerebral white matter from presumed chronic microangiopathy. There is an age-indeterminate, the suspected chronic lacunar infarct in the left caudate head, new compared to prior imaging. Mild generalized brain parenchymal volume loss noted with mild ex vacuo prominence of the ventricles, slightly progressed from previous imaging. The osseous structures and soft tissues are normal. The mastoid air cells are well aerated. Mild mucosal thickening in the dependent maxillary sinuses. CT/CT head/brain wo IV con IMPRESSION: No acute intracranial hemorrhage or territorial infarction. Age-indeterminate lacunar infarct in the left caudate head, suspected to be chronic, but new compared to prior imaging. Moderate chronic white matter microangiopathy and mild generalized brain parenchymal volume loss. Electronically signed by: Sebastian Sandoval MD 07/02/2024 03:13 PM EDT
[2024-07-02 14:04] VITALS: BP 130/86; PULSE 74; RESP 16; TEMP 37; O2SAT 100; BMI 24.3
--- NOTE | 2024-07-02 14:12 | ED.EYEPROB ---
HPI - Eye Problem General Chief complaint: Eye Problems Stated complaint: Unable to see out of L eye Time Seen by Provider: 07/02/24 19:48 Source: patient, RN notes reviewed and old records reviewed Mode of arrival: ambulatory Limitations: no limitations History of Present Illness ED Provider: Miky HPI Narrative: 59-year-old male with past medical history significant for diabetes, liver cirrhosis, status post liver transplantation, hypertension presents for evaluation of left eye blurriness. Patient reports he has had itchy eyes for the last 2 days He has had some clear drainage from the eyes bilaterally as well. He states around 230 p.m. today, about 6 hours prior to my evaluation he had a sudden onset of ?blurry vision. ? He states that ?I have spots that seem clear than others. ? He denies any complete loss of vision. Denies any current like vision loss He has no significant eye pain or pressure pain Denies any headaches He follows with ophthalmology about every 6 months due to his history of diabetes He wears reading glasses but does not wear contacts or daily corrective lenses Related Data Home Medications ?Medication ?Instructions ?Recorded ?Confirmed lancets 28 gauge (FreeStyle #100 ea 10/19/20 01/21/24 Lancets) blood-glucose meter #1 ea 02/27/21 01/21/24 acetaminophen 325 mg tablet 650 mg PO QID 01/13/24 01/21/24 acyclovir 800 mg tablet mg PO 01/13/24 01/21/24 apixaban 5 mg tablet (Eliquis) 5 mg PO BID 01/13/24 01/21/24 aspirin 81 mg tablet,delayed 81 mg PO DAILY 01/13/24 01/21/24 release atovaquone 750 mg/5 mL oral mg PO 01/13/24 01/21/24 suspension cefadroxil 1 gram tablet PO 01/13/24 01/21/24 ergocalciferol (vitamin D2) 1,250 1,250 mcg PO QWEEK 01/13/24 01/21/24 mcg (50,000 unit) capsule insulin glargine 100 unit/mL (3 15 unit subcut TID 01/13/24 01/21/24 mL) subcutaneous pen (Lantus Solostar U-100 Insulin) insulin lispro 100 unit/mL 10 unit subcut 01/13/24 01/21/24 subcutaneous pen (Humalog KwikPen (U-100) Insulin) lancets 33 gauge (OneTouch Delica #100 ea 01/13/24 01/21/24 Plus Lancet) multivitamin with folic acid 400 tab PO 01/13/24 01/21/24 mcg tablet (Daily-Josue (with folic acid)) mycophenolate mofetil 250 mg mg PO 01/13/24 01/21/24 capsule pantoprazole 40 mg tablet,delayed 40 mg PO DAILY 01/13/24 01/21/24 release pen needle, diabetic 32 gauge x #1,200 ea 01/13/24 01/21/24 (BD [place] 2nd Gen Pen Needle) polyethylene glycol 3350 17 gram 17 g PO DAILY 01/13/24 01/21/24 oral powder packet sennosides 8.6 mg tablet (senna) 17.2 mg PO BID 01/13/24 01/21/24 tacrolimus 1 mg capsule, 3 mg PO BID 01/13/24 01/21/24 immediate-release tacrolimus 5 mg capsule, 5 mg PO BID 01/13/24 01/21/24 immediate-release ursodiol 300 mg capsule 300 mg PO BID 01/13/24 01/21/24 fluoride (sodium) 1.1 % dental PO 02/09/24 paste Previous Rx's ?Medication ?Instructions ?Recorded blood pressure monitor #1 ea 08/14/20 blood sugar diagnostic (FreeStyle 1 strip miscellaneous BID 30 days 10/19/20 Lite Strips) #100 strips lancets 28 gauge (FreeStyle 1 gauge topical DIRECTED 30 10/19/20 Lancets) days #100 ea meclizine 25 mg tablet 25 mg PO BID PRN motion sickness 7 01/28/22 days #14 tabs omeprazole 20 mg capsule,delayed 20 mg PO DAILY #90 caps 02/07/23 release lactulose 10 gram/15 mL oral 45 ml PO TID #12,272 mL 06/12/23 solution albuterol sulfate 90 mcg/actuation 1 inh inhalation QID PRN shortness 09/17/23 aerosol inhaler of breath or wheezing 30 days #8.5 grams fluticasone propionate 50 1 spray intranasal DAILY 14 days 09/17/23 mcg/actuation nasal #100 mL spray,suspension (Flonase Allergy Relief) amlodipine 10 mg tablet 10 mg PO DAILY #90 tabs 10/22/23 lisinopril 20 mg tablet 20 mg PO DAILY 90 days #90 tabs 10/22/23 sildenafil 100 mg tablet 100 mg PO DAILY 4 days #4 tabs 10/22/23 albuterol sulfate 2.5 mg/3 mL 2.5 mg (3 mL) inhalation Q6H PRN 01/13/24 (0.083 %) solution for nebulization shortness of breath or wheezing 30 days #180 mL blood-glucose meter,continuous #1 ea 01/13/24 (FreeStyle Alberto 3 [place]) blood-glucose sensor (FreeStyle #1 ea 01/13/24 Alberto 3 Sensor device) lorazepam 0.5 mg tablet 0.5 mg PO BEDTIME anxiety 10 days 01/13/24 #10 tabs nebulizers (AeroEclipse II #1 ea 01/13/24 Nebulizer) methocarbamol 750 mg tablet 750 mg PO TID PRN pain (scale 01/21/24 score 7-10) 10 days #30 tabs oxycodone-acetaminophen 5 mg-325 1 tab PO Q8H PRN pain 7 days #21 01/27/24 mg tablet tabs ferrous sulfate 220 mg (44 mg 220 mg (5 mL) PO DAILY 90 days 02/02/24 iron)/5 mL oral elixir #450 mL docusate sodium 100 mg capsule 100 mg PO BID #60 caps 06/22/24 gabapentin 300 mg capsule 300 mg PO BID 30 days #60 caps 06/22/24 ciprofloxacin HCl 0.3 % eye drops See Rx Instructions ophthalmic 07/02/24 (eye) .COMPLEX #5 mL Allergies Allergy/AdvReac Type Severity Reaction Status Date / Time No Known Allergies Allergy Verified 07/02/24 14:07 Review of Systems Constitutional: Constitutional: Denies body ache(s), Denies chills, Denies fever(s) and Denies headache(s) Eyes: Eyes: Reports blurry vision, Reports change in vision, Denies decreased night vision, Denies diplopia, Reports eye discharge, Denies floaters, Reports irritation, Reports itchy eyes, Denies loss of peripheral vision, Denies loss of vision, Denies eye pain and Denies photophobia ENT: Denies headache(s) Cardiovascular: Cardiovascular: Denies chest pain and Denies dyspnea Respiratory: Respiratory: Denies dyspnea Gastrointestinal: Gastrointestinal: Denies abdominal pain, Denies nausea and Denies vomiting Musculoskeletal: Musculoskeletal: Denies back pain Integumentary/Breasts: Skin/Breast: Denies rash Neurologic: Denies headache(s) and Denies loss of vision Allergic/Immunologic: Allergic/Immunologic: Reports itchy eyes PMFSH Past Medical History Medical History Asthma Umbilical hernia GERD (gastroesophageal reflux disease) Somatic dysfunction of left sacroiliac joint Strain of lumbar paraspinal muscle Hemorrhoid Hx of esophageal varices Hepatic encephalopathy GAVE (gastric antral vascular ectasia) Hx of Clostridium difficile infection Head injury Portal hypertension History of blood transfusion Iron deficiency anemia Pain aggravated by swallowing Swallowed chicken bone Patellofemoral pain syndrome of both knees Hepatitis C virus Osteoarthritis of left knee DMII (diabetes mellitus, type 2) Migraine headache Headache Neck pain Cirrhosis of liver Malnutrition HTN (hypertension) Other otitis externa, right ear Surgical History Hx of liver transplant History of surgery of liver History of esophagogastroduodenoscopy (EGD) History of abdominal paracentesis History of colonoscopy Family History Family History Father No problems noted. Mother Asthma Diabetes Social History Social History Household Members: Family Housing: House Alcohol intake: never Patient Tobacco Use Status: Former Tobacco user e-Cigarette/Vaping Use: Never Used Second Hand Smoke Exposure: Yes Advance Directives: Yes Advance Directives Information Provided: No Advance Directives on File: No Advance Directives Date on File: 07/17/20 service: No Current occupational status: disabled Cognitive needs: No Hearing needs: No Vision needs: No Physical Exam Vital Signs: Vital Signs: Last Vital Signs Temp 98.6 F 07/02/24 14:04 Pulse 74 07/02/24 14:04 Resp 16 07/02/24 14:04 BP 130/86 07/02/24 14:04 Pulse Ox 100 07/02/24 14:04 O2 Del Method Room Air 07/02/24 14:04 BMI result Body Mass Index 24.3 Const: General: healthy appearing, comfortable, no acute distress, alert and awake Nutritional Appearance: well nourished Orientation/consciousness: patient oriented x3 HEENT: Head: Yes normocephalic and Yes atraumatic Throat: Yes posterior oropharynx normal Eyes: Other: The patient has no obvious orbital or periorbital edema. No significant conjunctival injection. Fluorescein staining does show increased uptake overlying the left pupil Alignment and Position: alignment normal Periorbital: periorbital findings normal Eyelids: Yes eyelids normal Conjunctivae: conjunctivae normal Sclerae: sclerae normal Corneas: corneas normal Pupils: Equal, round and reactive pupils present EOM: EOMs intact bilaterally Direct Ophthalmoscopy: normal light reflex, no photophobia, no papilledema, fundi normal bilaterally, anterior chamber normal and No photophobia Neck: Neck: Yes full ROM Resp: Effort & Inspection: normal respiratory effort, able to speak in complete sentences and not labored Skin: General skin exam: elasticity normal Neuro: General: patient oriented x3 Cranial nerves: Yes CN's II-XII intact bilaterally, Yes Equal, round and reactive pupils present and Yes Bilaterally intact EOM present Cognition (Neuro): normal cognition Course Course Course Narrative: This is a Rapid Medical Examination (RME) performed by Cathy Cortez PA-C in triage. Full HPI, ROS, assessment and treatment plan per primary provider in the Main ED. 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 admits his left eye felt itchy x2 days, now reports blurred vision to left eye with black spots. denies pain/ discharge. denies previous eye problems. denies trauma to eye. + no CN palsy on exam. on visual mejia L eye, patient states my fingers are blurred, unable to tell me what numbers I am holding up. exam otherwise non focal. no conjunctival injection. no obvious fb. Plan: labs, CT head Reevaluation(s) Reevaluation #1: Visual acuity bilaterally is 20/30, OD 20/40, OS 20/70 Time: 20:46 Medical Decision Making Medical Decision Making MDM Narrative: Patient's physical exam is reassuring, he does endorse itchy eyes last couple of days, no severe pain. He was rubbing his eyes over last 2 days, his exam findings and history is consistent with a corneal abrasion. We will start the patient on ciprofloxacin drops. He does not wear contacts. 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 I have a low suspicion for iritis, glaucoma, TIA/CVA. Patient did have a brain CT ordered in triage that was unremarkable. Differential Diagnosis Differential Diagnoses: The differential diagnosis associated with the presentation includes Conjunctival injection Glaucoma Conjunctivitis Corneal abrasion Joseph attachment less likely Lab Data MDM Lab Attestation statement: I reviewed the patient's lab results. No leukocytosis or significant anemia. The patient has a mild thrombocytopenia consistent with his known history of cirrhosis and liver transplant.. No significant electrolyte abnormalities 07/02/24 14:29 07/02/24 14:29 Labs: Lab Results 07/02/24 Range/Units 14:29 WBC 5.3 (4.8-10.8) X10*3/uL RBC 5.52 D (4.60-5.80) X10*6/uL Hgb 13.9 L D (14.0-18.0) g/dl Hct 42.6 D (42.0-52.0) % MCV 77.2 L (80.0-98.0) fL MCH 25.2 L (27.0-33.0) pg MCHC 32.6 (31.0-36.0) g/dl RDW 16.9 H (11.0-16.0) % Plt Count 104 L D (160-400) X10*3/uL MPV Not Reportable Immature Gran % (Auto) 0.4 (0.0-0.4) % Neut % (Auto) 67.3 (45-73) % Lymph % (Auto) 22.6 (20-40) % [place] % (Auto) 7.2 (2-11) % Eos % (Auto) 2.3 (0-4) % Baso % (Auto) 0.2 (0-2) % Lymph # (Auto) 1.2 (1.2-4.9) X10*3/uL [place] # (Auto) 0.4 (0.1-1.2) X10*3/uL Eos # (Auto) 0.1 (0.0-0.4) X10*3/uL Baso # (Auto) 0.0 (0.0-0.2) X10*3/uL Abs Immat Gran (auto) 0.02 (0.00-0.03) X10*3/uL Absolute Neuts (auto) 3.6 (2.0-8.3) x10*3/uL Absolute Nucleated RBC 0.000 (0.0-0.012) X10*3/uL Nucleated RBC % (auto) 0.0 (0.0-0.2) /100WBC ESR 1 (0-15) MM/HR PT 13.2 H (10.9-12.4) SEC INR 1.1 (0.9-1.1) Sodium 142 (135-145) mmol/L Potassium 4.4 (3.3-5.1) mmol/L Chloride 111 H (96-108) mmol/L Carbon Dioxide 26 (22-29) mmol/L Anion Gap 9 L (12-20) BUN 15 (9-16) mg/dL Creatinine 1.34 (0.5-1.4) mg/dL Estim Creat Clear Calc 56.0 Estimated GFR 54 Random Glucose 105 (60-115) mg/dL Calcium 9.6 (8.4-10.2) mg/dL Magnesium 1.7 (1.6-2.6) mg/dL Total Bilirubin 0.7 (0.0-1.0) mg/dL AST 11 (5-37) U/L ALT 10 (0-40) U/L Alkaline Phosphatase 50 (39-117) U/L C-Reactive Protein < 0.10 (< or = 0.50) mg/dL Total Protein 6.9 (6.5-8.0) g/dL Albumin 4.5 (3.5-5.0) g/dL Discharge Plan Discharge Clinical Impression: Abrasion, corneal Patient Disposition: Home, Self-Care Instructions: Corneal Abrasion (ED) Additional Instructions: Your workup in the ER today was reassuring pain This includes your CT scan. Your physical exam showed a corneal abrasion on the left. Use the ciprofloxacin drops as prescribed Call your blower blast furnace tomorrow morning to schedule follow-up as soon as possible, return for new or worsening symptoms Prescriptions: New ciprofloxacin HCl 0.3 % drops See Rx Instructions .ROUTE .COMPLEX Qty: 5 0RF Rx Instructions: put 1-2 drps in affected eye(s) every 2hr up to 8 times/day x2days; then 4 times/day x5days No Action (DME) blood pressure monitor Kit See Rx Instructions .ROUTE .MEDSUPPLY Qty: 1 0RF Rx Instructions: As directed (DME) lancets [FreeStyle Lancets] 28 gauge misc See Rx Instructions .ROUTE .MEDSUPPLY Qty: 100 Rx Instructions: As directed lancets [FreeStyle Lancets] 28 gauge misc 1 gauge topical DIRECTED 30 Days Qty: 100 3RF blood sugar diagnostic [FreeStyle Lite Strips] Strip 1 strip miscellaneous BID 30 Days Qty: 100 3RF meclizine 25 mg tablet 25 mg PO BID PRN (Reason: motion sickness) 7 Days Qty: 14 0RF omeprazole 20 mg capsule,delayed release(DR/EC) 20 mg PO DAILY Qty: 90 3RF lactulose 10 gram/15 mL solution 45 ml PO TID Qty: 52102 0RF oxycodone-acetaminophen 5-325 mg tablet 1 tab PO Q8H PRN (Reason: pain) 7 Days Qty: 21 0RF Rx Instructions: Partial Fill upon patient request. ferrous sulfate 220 mg (44 mg iron)/5 mL elixir 220 mg PO DAILY 90 Days Qty: 450 0RF docusate sodium 100 mg capsule 100 mg PO BID Qty: 60 0RF gabapentin 300 mg capsule 300 mg PO BID 30 Days Qty: 60 1RF amlodipine 10 mg tablet 10 mg PO DAILY Qty: 90 2RF lisinopril 20 mg tablet 20 mg PO DAILY 90 Days Qty: 90 2RF sildenafil 100 mg tablet 100 mg PO DAILY 4 Days Qty: 4 0RF albuterol sulfate 90 mcg/actuation HFA aerosol inhaler 1 inh inhalation QID PRN (Reason: shortness of breath or wheezing) 30 Days Qty: 8.5 0RF fluticasone propionate [Flonase Allergy Relief] 50 mcg/actuation spray,suspension 1 spray intranasal DAILY 14 Days Qty: 100 0RF Rx Instructions: administer into each nostril methocarbamol 750 mg tablet 750 mg PO TID PRN (Reason: pain (scale score 7-10)) 10 Days Qty: 30 0RF ergocalciferol (vitamin D2) 1,250 mcg (50,000 unit) capsule 1,250 mcg PO QWEEK (DME) pen needle, diabetic [BD [place] 2nd Gen Pen Needle] 32 gauge x 5/32 needle See Rx Instructions .ROUTE .MEDSUPPLY Qty: 1200 Rx Instructions: As directed ursodiol 300 mg capsule 300 mg PO BID pantoprazole 40 mg tablet,delayed release (DR/EC) 40 mg PO DAILY acyclovir 800 mg tablet PO aspirin 81 mg tablet,delayed release (DR/EC) 81 mg PO DAILY mycophenolate mofetil 250 mg capsule PO polyethylene glycol 3350 17 gram powder in packet 17 g PO DAILY sennosides [senna] 8.6 mg tablet 17.2 mg PO BID Eliquis 5 mg tablet 5 mg PO BID cefadroxil 1 gram tablet PO (DME) lancets [OneTouch Delica Plus Lancet] 33 gauge misc See Rx Instructions .ROUTE QID Qty: 100 Rx Instructions: As directed multivitamin with folic acid [Daily-Josue (with folic acid)] 400 mcg tablet PO tacrolimus 5 mg capsule 5 mg PO BID atovaquone 750 mg/5 mL suspension PO tacrolimus 1 mg capsule 3 mg PO BID insulin lispro [Humalog KwikPen Insulin] 100 unit/mL insulin pen 10 unit subcut insulin glargine [Lantus Solostar U-100 Insulin] 100 unit/mL (3 mL) insulin pen 15 unit subcut TID acetaminophen 325 mg tablet 650 mg PO QID (DME) FreeStyle Alberto 3 Sensor Device See Rx Instructions .Route Qty: 1 6RF Rx Instructions: As directed (DME) FreeStyle Alberto 3 [place] [facility] See Rx Instructions .Route Qty: 1 0RF Rx Instructions: As directed lorazepam 0.5 mg tablet 0.5 mg PO BEDTIME 10 Days Qty: 10 0RF albuterol sulfate 2.5 mg /3 mL (0.083 %) solution for nebulization 2.5 mg inhalation Q6H PRN (Reason: shortness of breath or wheezing) 30 Days Qty: 180 0RF (DME) nebulizers [AeroEclipse II Nebulizer] [facility] [place] Rx Instructions .Route Qty: 1 0RF Rx Instructions: As directed (DME) blood-glucose meter Kit See Rx Instructions .ROUTE DIRECTED Qty: 1 Rx Instructions: As directed fluoride (sodium) 1.1 % paste PO Print Language: French
[2024-07-02 14:36] LABS: MANUAL DIFF FLAG NO
[2024-07-02 14:40] LABS: Basophils Percent Auto 0.2 % (0-2); Eosinophils Absolute Auto 0.1 X10*3/uL (0.0-0.4); Eosinophils Percent Auto 2.3 % (0-4); Hematocrit 42.6 % (42.0-52.0); Hemoglobin 13.9 g/dl (14.0-18.0); Imm Gran Abs Auto 0.02 X10*3/uL (0.00-0.03); Imm Gran Pct Auto 0.4 % (0.0-0.4); Lymphocytes Absolute Auto 1.2 X10*3/uL (1.2-4.9); Lymphocytes Percent Auto 22.6 % (20-40); Mean Corpuscular HGB Conc 32.6 g/dl (31.0-36.0); Mean Corpuscular Hemoglobin 25.2 pg (27.0-33.0); Mean Corpuscular Volume 77.2 fL (80.0-98.0); Monocytes Absolute Auto 0.4 X10*3/uL (0.1-1.2); Monocytes Percent Auto 7.2 % (2-11); Neutrophils Absolute Auto 3.6 x10*3/uL (2.0-8.3); Neutrophils Percent Auto 67.3 % (45-73); Platelet Count 104 X10*3/uL (160-400); Red Blood Count 5.52 X10*6/uL (4.60-5.80); Red Cell Distribution Width 16.9 % (11.0-16.0); White Blood Count 5.3 X10*3/uL (4.8-10.8)
[2024-07-02 14:48] LABS: INTERNATIONAL NORM RATIO 1.1 (0.9-1.1); Prothrombin Time 13.2 SEC (10.9-12.4)
[2024-07-02 14:55] LABS: Alanine Aminotransferase 10 U/L (0-40); Albumin Level 4.5 g/dL (3.5-5.0); Alkaline Phosphatase 50 U/L (39-117); Anion Gap 9 (12-20); Aspartate Amino Transferase 11 U/L (5-37); Bilirubin Total 0.7 mg/dL (0.0-1.0); Blood Urea Nitrogen 15 mg/dL (9-16); C Reactive Protein < 0.10 mg/dL (< or = 0.50); Calcium 9.6 mg/dL (8.4-10.2); Carbon Dioxide 26 mmol/L (22-29); Chloride 111 mmol/L (96-108); Estimated Glomerular Filt Rate 54; Glucose Random 105 mg/dL (60-115); Magnesium 1.7 mg/dL (1.6-2.6); Potassium 4.4 mmol/L (3.3-5.1); Sodium 142 mmol/L (135-145); Total Protein 6.9 g/dL (6.5-8.0)
[2024-07-02 15:18] LABS: Erythrocyte Sedimentation Rate 1 MM/HR (0-15)
[2024-07-02] MEDS: Fluorescein Sodium STRIP 1 STRIP EYE-LEFT (20:30)
[2024-07-02] MEDS: Tetracaine HCl/PF 0.5% Oph Sol 4 ML DROPS 1 DROP EYE-LEFT (20:30)
[2024-07-02 20:52] VITALS: BP 133/87; PULSE 97; RESP 16; TEMP 36.7; O2SAT 97
[2024-07-02 21:10] VITALS: BP 133/87; PULSE 97; RESP 16; TEMP 36.7; O2SAT 97
--- NOTE | 2024-07-03 09:44 | PC.NURSE ---
PT RETURNED TO ED AND PRESENTED TO TRIAGE STATING HIS PRESCRIPTION WASNT AT THE PHARMACY HE TOLD THEM ABOUT. THIS NURSE NOTED THAT THE PREFERRED PHARMACY LISTED WAS IN [place]- PT STATED HES NOT IN [place] AGAIN FOR ANOTHER MONTH. THIS NURSE SPOKE WITH A PROVIDER WHO PRINTED THE SCRIPT FOR THE PATIENT TO GO TO A LOCAL PHARMACY AND HIS PHARMACY IN THE SYSTEM WAS ALSO CHANGED TO [facility] PER REQUEST OF PATIENT SO THIS DOESNT HAPPEN AGAIN TO HIM.
== END 2024-07-02 21:11 | disposition home or self-care (01) ==
PROVIDERS: Physician Assistant Medical; Emergency Provider Emergency Medicine; PCP Physician Assistant
DX: S05.02XA Injury of conjunctiva and corneal abrasion without foreign body, left eye, initial encounter (principal); R51.9 Headache, unspecified; D69.6 Thrombocytopenia, unspecified; E11.9 Type 2 diabetes mellitus without complications; I10 Essential (primary) hypertension; H53.8 Other visual disturbances; X58.XXXA Exposure to other specified factors, initial encounter; Y93.89 Activity, other specified; Y92.89 Other specified places as the place of occurrence of the external cause; Y99.8 Other external cause status; Z87.891 Personal history of nicotine dependence; Z79.4 Long term (current) use of insulin
CPT/HCPCS: 36415; 70450; 80053; 83735; 85025; 85610; 85652; 86140; 99283; 99284

== ENCOUNTER 2024-08-02 10:44 | Outpatient (AMB) | payer OTHER, SELFPAY ==
--- NOTE | 2024-08-02 10:46 | MHC.OFFVIS ---
Vital Signs 08/02/24 10:48 Height 5 ft 8 in Weight 160 lb BMI 24.3 Blood Pressure Location Lt brachial Position Sitting Intake Visit Reasons: 6 month follow up Intake Note: Elroy presents in the office as a 6 month follow up. CC: He was told he had a possible stroke but then the ED here told him that he was okay. 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 Has orders of tests to see if he had a stroke and when it occurred. HE has darwin in the left side, pains in the back, he states that the medications make him have more frequent bowel movements. He states that he hears the fluids in his stomach like a gallon shaking. He has been doing some work and thinks he might have thrown his back out. 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 He did state that he was diagnosed with hepatitis C in the past and this never been treated. U/S imaging consistent w cirrhosis, varices, no masses EGD: LA grade A esophagitis, erosive gastitis, and duodenitis, small varices--h pylori pos--given treatment which he completed colonoscopy: poor prep, mucosal trauma easy due to low plts, repeat colon in 6-12 months, internal hemorrhoids Plan was for treatment of hep C< but due to decompensation I wanted to treat for 24 weeks, only epclusa aproved for 12 weeks, plan was to add ribavarin He was commenced on epclusa and ribavarin, but his HGB dropped to 7 g/dl and he was initiated on IV iron and riba reduced to 200 mg from 600 mg. He was admitted to hospital with acute on chronic anemia 10/2019 and egd with bleeding hyperplastic polyp removed and required clip and hemospray He had spontaneous bacterial peritonitis on 09/02/2019 and possible recurrent episode on 11/23/2019. He was tapped on both visits with elevated WBCs. He was placed on Cipro 500 mg twice daily. He was tapped again on 11/25/2019 showing improved WBCs count that was not consistent with bacterial peritonitis. He had c diff and was treated with vancomycin colonoscopy 03/2020-- fair to poor prep- he had admission for HE, thought to be due to constipation from iron treatment he had returned to normal He had an EGD with residual hyperplastic polyps and duodenitis and congestion--polyps removed I ordered us revealing splenorenal shunt probably explaining the recurring HE I spoke with his harness puller to update her on colonoscopy, prep was fair but no large lesions or masses, repeat colon in 1 yr recommenced, His renal function was gettign worse so [facility] stopped all diuretics, had recurrence of swelling ankles, restarted small dose lasix 20 mg EGD: 12/2020--pedunculated polyp removed, PHG noted--hyperplastic polyp EGD/colonoscopy : 09/2021--several hyperplastic polyps removed, came back as H PYLORI POSITIVE, colon prep not great --rept colo in 1 yr h pylori pos, treated with amoxil,levoflox, PPI with neg follow up breath test. EGD/colo: portal hypertensive gastropathy gastric polyp Colonoscopy Findings: internal hemorrhoids path: Polypoid foveolar hyperplasia TESTs: u/s 07/2019--cirrhosis, no HCC, 1.2 L of ascitic fluid removed, SAAG consistent w portal HTN u/s 10/2019- cirrhosis, varices, moderate ascites, patent veins he had imaging at [facility] with US 02/2021--no HCC per Dr Esposito note Vit A and zinc low labs at [facility] 10/2020- BMP--nml, INR 1.2, LFT pretty good, MELD-na 10!! repeat labs : Hgb 14, LFT stable, labs: 05/2021--nml HGB--14 g/dl, LFT stable, vit a was low at 18-put on replacement US 03/17/24 nml liver, splenomegaly INTERIM: He has worsening abdominal pain, suspected from incisional hernia, waiitng to see surgeon at [facility] was working on a fence and got musc pain from that and back pain no abdo pain no nausea no vomiting no fevers or chills he is on mycophenolate, tacrolimus he has noted worsening gerd as well EXAM: GENERAL: The patient is well developed and nontoxic, VITAL SIGNS:see workflow HEENT: Nonicteric sclerae, PERRLA, EOMI. Oropharynx clear. Moist mucous membranes. Conjunctivae appear well perfused. No thyroid mass. CHEST: Chest wall is nontender. HEART: Regular rate and rhythm without murmurs. LUNGS: Clear to auscultation bilaterally. ABDOMEN: Soft, positive bowel sounds, nontender, no organomegaly.no flank tenderness--incision noted with herniaon flexing abdo SKIN: normal NEUROLOGIC: Cranial nerves II-XII intact without motor/sensory deficit. No liver flap MS- nml ROM psych--normal affect A/P: 1. Alcoholic cirrhosis of liver with ascites -no further ascites, on low dose lasix, SVR from Hep C, MELD 9-10--co managed with [facility] Dr Esposito, he has SVR for hep c but now complicated with HCC with s/p liver transplant, now has incisional hernia --could be causing his pain and discomfort 2. worsening gerd PLAN 1/ cont with PPI 2/ EGD 3/ await surgical consult at [facility], get opthalmology notes 4/ short course of tramdol -no interaction per uptodate with immune suppresion PFSH Medical History Asthma Umbilical hernia GERD (gastroesophageal reflux disease) Somatic dysfunction of left sacroiliac joint Strain of lumbar paraspinal muscle Hemorrhoid Hx of esophageal varices Hepatic encephalopathy GAVE (gastric antral vascular ectasia) Hx of Clostridium difficile infection Head injury Portal hypertension History of blood transfusion Iron deficiency anemia Pain aggravated by swallowing Swallowed chicken bone Patellofemoral pain syndrome of both knees Hepatitis C virus Osteoarthritis of left knee DMII (diabetes mellitus, type 2) Migraine headache Headache Neck pain Cirrhosis of liver Malnutrition HTN (hypertension) Other otitis externa, right ear Surgical History Hx of liver transplant History of surgery of liver History of esophagogastroduodenoscopy (EGD) History of abdominal paracentesis History of colonoscopy Family History Father No problems noted. Mother Asthma Diabetes Social History Household Members: Family Housing: House Alcohol intake: never Patient Tobacco Use Status: Former Tobacco user e-Cigarette/Vaping Use: Never Used Second Hand Smoke Exposure: Yes Advance Directives Date on File: 07/17/20 service: No Current occupational status: disabled Cognitive needs: No Hearing needs: No Vision needs: No Physical Exam Vital Signs: BMI result Body Mass Index 24.3 Assessment & Plan Assessment & Plan (1) Hernia of abdominal wall: Code(s): K43.9 - Ventral hernia without obstruction or gangrene Category: Medical Plan: see above Medications: New tramadol 50 mg PO BID PRN 28 tabs 0RF pain vit C,G-Ad-wnwku-lutein-zeaxan 250-90-40-1 mg (PreserVision AREDS-2) 1 tab PO BID 90 tabs 1RF Coding Level of Care Code Est Pt Level 4 (51397) Diagnoses Hernia of abdominal wall K43.9
[2024-08-02 10:48] VITALS: BMI 24.3
== END 2024-08-02 12:33 | disposition home or self-care (01) ==
PROVIDERS: PCP Physician Assistant; Visit Provider Internal Medicine Gastroenterology
DX: K43.9 Ventral hernia without obstruction or gangrene (principal)
CPT/HCPCS: 99214

== ENCOUNTER → 2024-08-02 10:44 | Outpatient (BNVA) | payer OTHER, SELFPAY | PROVIDERS: PCP Physician Assistant; Visit Provider Internal Medicine Gastroenterology | DX: K43.9 Ventral hernia without obstruction or gangrene (principal) | CPT/HCPCS: 99212 ==

== ENCOUNTER 2024-08-18 10:33 | Outpatient (REF) | payer OTHER, SELFPAY ==
--- NOTE | ~2024-08-18 | US_ITS ---
EXAMINATION: US EXTRACRANIAL CAROTID DUPLEX, BILATERAL CLINICAL INFORMATION: Sudden visual loss. COMPARISON: None TECHNIQUE: Real-time ultrasound and Doppler techniques (integrating B-mode 2-D vascular images, Doppler spectral analysis and color-flow Doppler imaging) were utilized to interrogate the extracranial carotid arteries, the vertebral arteries and proximal subclavian arteries bilaterally. The degree of stenosis is determined by criteria similar to NASCET. FINDINGS: Right Side: 1. There is mild atherosclerotic plaque seen in the bifurcation/proximal ICA region. 2. The common carotid artery PSV proximally is 54 cm/s and distally 67 cm/s. 3. The proximal internal carotid artery velocities are 63 cm/s systolic and 20 cm/s diastolic. 4. The proximal external carotid artery PSV is 80 cm/s. 5. The vertebral artery shows antegrade flow. 6. The subclavian artery waveforms are normal. Left Side: 1. There is mild atherosclerotic plaque seen in the bifurcation/proximal ICA region. 2. The common carotid artery PSV proximally is 96 cm/s and distally 58 cm/s. 3. The proximal internal carotid artery velocities are 37 cm/s systolic and 11 cm/s diastolic. 4. The proximal external carotid artery PSV is 60 cm/s. 5. The vertebral artery shows antegrade flow. 6. The subclavian artery waveforms are normal. US/US carotid duplex BI IMPRESSION: 1. RIGHT: Minimal, non-hemodynamically significant stenosis of the proximal right internal carotid artery corresponding to a 0-49% stenosis by velocity criteria. 2. LEFT: Minimal, non-hemodynamically significant stenosis of the proximal left internal carotid artery corresponding to a 0-49% stenosis by velocity criteria. Electronically signed by: Srikanth Ware MD 08/24/2024 01:[address] [facility]
== END 2024-08-18 10:34 | disposition home or self-care (01) ==
LOC: HO.US 10:33
PROVIDERS: PCP Physician Assistant; Visit Provider Physician Assistant
DX: I65.23 Occlusion and stenosis of bilateral carotid arteries (principal); H53.139 Sudden visual loss, unspecified eye; H34.239 Retinal artery branch occlusion, unspecified eye
CPT/HCPCS: 93880

== ENCOUNTER → 2024-09-03 12:54 | Outpatient (REF) | payer OTHER, SELFPAY ==
--- NOTE | 2024-09-03 12:57 | CA_ITS ---
Transthoracic Echocardiogram Patient (Last, First, Middle): Elroy Sorto, Gender: Male Date of : 1965 Age: 59 Procedure Date: 09/03/2024 Procedure Type: Transthoracic Echocardiogram Location: OP Height: 172. cm Weight: 77.11 kg BSA: 1.90 m2 Heart Rate: 73 bpm BP: 142 / 85 mmHg Occupational Therapist Home Based: VERITO Referring MD: Brian Vela PA-C Designer: Tay Lanza MD Symptoms: H53.139 - Sudden visual loss, unspecified eye Study Quality: Good ECG Rhythm: Sinus Conclusions: - 1. No evidence of intra-atrial shunting by saline contrast study 2. Normal LV ejection fraction 55-60% 3. Moderate mitral calcification with normal cardiac valvular Dopplers 4. Upper limits of normal ascending aortic size 5. Normal RV systolic pressure 6. No gross pericardial effusion Findings Left Ventricle Normal left ventricular size, thickness, and systolic function. The visually estimated ejection fraction is between 55-60%. Spectral Doppler is indicative of a normal filling pattern. Right Ventricle Normal right ventricular cavity size and systolic function. Atria The left atrium is likely dilated. There is no evidence of interatrial shunt by agitated saline. The right atrium is normal in size. Aortic Valve There is mild calcification of the aortic valve. There is no aortic valve stenosis. There is no aortic valve regurgitation. Mitral Valve There is mild anterior and moderate posterior mitral leaflet thickening. There is moderate mitral annular calcification. There is trace mitral valve regurgitation. There is no mitral valve stenosis. Pulmonic Valve The pulmonic valve was not well visualized. Tricuspid Valve Normal tricuspid valve structure. There is trace tricuspid valve regurgitation. The right ventricular systolic pressure is normal. The right ventricular systolic pressure is 22 mmHg. Normal right atrial pressure. There is no evidence of pulmonary hypertension. Great Vessels The pulmonary artery was not well visualized. There is no dilatation of the ascending aorta measuring 3.60 cm. Venous The inferior vena cava is normal in size and collapses greater than 50% with inspiration. Pericardium/Pleural There is no evidence of pericardial effusion. Prior Study Comparison No significant change compared to prior study dated: 12/06/2019. Measurements 2D Linear Measurements IVSd: 1.24 0.6-0.9/0.6-1.0 cm LVIDd: 4.30 3.9-5.3/4.2-5.9 cm LVIDd Index: 2.26 2.4-3.2/2.2-3.1 cm/m2 LVIDs: 2.64 2.0-3.6 cm LVPWd: 1.29 0.7-1.1 cm LA Diam: 3.50 2.7-3.8/3.0-4.0 cm LAIDs Index: 1.84 1.5-2.3 cm/m2 LV Mass: 248.67 67-162/88-224 g LV Mass Index: 130.88 43-95/49-115 g/m2 LVOT Diam: 2.20 3.0+(-)1.3 cm 2D Systolic Function EF 4C: 56.30 >55% EF 2C: 60.70 >55% EF BiP: 58.10 >55% Mitral Valve MV Pk E: 0.77 MV PK A: 0.93 MV Decel Time: 263.00 E/A: 0.80 E'Lateral: 7.94 E'Medial: 6.09 E/E' Med: 12.70 E/E' Lat: 9.70 PHT: 77.00 MVA PHT: 2.86 Decel Baldwin: 2.94 Aortic Valve AoV Pk Donta: 1.58 AoV Mn Donta: 1.04 AoV VTI: 0.29 AoV Pk Grad: 10.00 Aov Mn Grad: 5.00 TONE Cont.VTI: 2.49 LVOT LVOT Pk Donta: 1.07 LVOT Mn Donta: 0.68 LVOT VTI: 0.19 LVOT Pk Grad: 5.00 LVOT Mn Grad: 3.00 LVOT Diam: 2.20 LVOT Area: 3.80 Diastolic Function MV Pk E: 0.77 MV Pk A: 0.93 E/A: 0.80 E'Medial: 6.09 E/E' Med: 12.70 E' Laterial: 7.94 E/E' Lat: 9.70 Right Ventricle TAPSE (mm): 24.80 TVS' Donta: 13.90 Tricuspid Valve TR Pk Donta: 2.16 TR Pk Grad: 19.00 RA Press: 3.00 RVSP: 22.00 Great Vessels Aorta Sinus of Valsalva: 3.90 2.0-3.5 cm Ao Asc: 3.60 2.1-3.4 cm Ao Arch: 2.90 Pulmonary Valve PV Pk Donta: 1.00 Peak PV Grad: 4.00 Updated in Other Vendor System with Status of Final Tay Lanza MD electronically signed on 09/04/2024 10:13:42 AM with status of Final
== END ==
LOC: HO.CARD 12:54
PROVIDERS: PCP Physician Assistant; Visit Provider Physician Assistant
DX: H54.62 Unqualified visual loss, left eye, normal vision right eye (principal); H34.239 Retinal artery branch occlusion, unspecified eye
CPT/HCPCS: 93306

== ENCOUNTER → 2024-09-03 12:57 | Outpatient (BNV) | payer OTHER, SELFPAY | PROVIDERS: PCP Physician Assistant; Visit Provider Internal Medicine Cardiovascular Disease | DX: I35.8 Other nonrheumatic aortic valve disorders (principal); I34.81 Nonrheumatic mitral (valve) annulus calcification | CPT/HCPCS: 93306 ==

== ENCOUNTER 2024-09-30 11:47 | Day surgery (SDC) | payer OTHER, SELFPAY ==
[2024-09-29 05:41] VITALS: BMI 24.8
[2024-09-30] MEDS: Lactated Ringers 1,000 ML 100 ML IVCONT (12:28)
[2024-09-30 12:38] VITALS: BP 133/89; PULSE 73; RESP 18; TEMP 36.6; O2SAT 97
[2024-09-30 12:56] LABS: Glucose, Whole Blood 103 mg/dL (60-115)
--- NOTE | 2024-09-30 13:00 | HO.ANESPROP2 ---
Documented by User: Tania Castro NP 09/29/24 09:57 HPI - Anesthesia Eval Consult details Narrative: 59yo M for ?Upper Endoscopy Cirrhosis s/p liver transplant Anesthesia Pre-Procedure Meds Is the patient on any of the following meds?: GLP1/DPP4 PMFSH Active Problems Active Problems: All Active Problems Retinal artery occlusion, branch (Acute) Acute loss of vision (Acute) Hernia of abdominal wall (Acute) Anemia (Acute) Annual physical exam (Acute) CHATA (generalized anxiety disorder) (Acute) Asthma (Acute) Liver transplant recipient (Acute) End stage liver disease (Acute) Impacted cerumen of both ears (Acute) Rectal bleed (Acute) Cough (Acute) Erectile dysfunction (Acute) Pulmonary nodule less than 1 cm in diameter with moderate to high risk for malignant neoplasm (Acute) SOB (shortness of breath) on exertion (Acute) Other psychoactive substance dependence, in remission (Acute) Spasm of back muscles (Acute) Thrombocytopenia (Acute) H. pylori infection (Acute ~2019) Liver disease (Acute) Umbilical hernia (Acute) Fatigue (Acute) Hyperplastic polyp of stomach (Acute ~2020) HTN (hypertension) (Acute) DMII (diabetes mellitus, type 2) (Acute) Cirrhosis of liver (Acute) Migraine headache (Acute) Headache (Acute) Past Medical History Medical History Asthma Umbilical hernia GERD (gastroesophageal reflux disease) Somatic dysfunction of left sacroiliac joint Strain of lumbar paraspinal muscle Hemorrhoid Hx of esophageal varices Hepatic encephalopathy GAVE (gastric antral vascular ectasia) Hx of Clostridium difficile infection Head injury Portal hypertension History of blood transfusion Iron deficiency anemia Pain aggravated by swallowing Swallowed chicken bone Patellofemoral pain syndrome of both knees Hepatitis C virus Osteoarthritis of left knee DMII (diabetes mellitus, type 2) Migraine headache Headache Neck pain Cirrhosis of liver Malnutrition HTN (hypertension) Other otitis externa, right ear Family History Family History Father No problems noted. Mother Asthma Diabetes Family history of problems with anesthesia: No Surgical History Surgical History Hx of liver transplant History of surgery of liver History of esophagogastroduodenoscopy (EGD) History of abdominal paracentesis History of colonoscopy History of Problems with Anesthesia: No Social History Social History Household Members: Family Household Members Other:: lives with his brother and brother's spouse Housing: House Are you a primary director of patient care to a significant other at home: No Do you presently have visiting nurse or other home services: No Alcohol intake: never Patient Tobacco Use Status: Former Tobacco user e-Cigarette/Vaping Use: Never Used Second Hand Smoke Exposure: Yes Have you been hit, kicked, punched, or otherwise hurt by someone within the past year? If so, by whom?: No Are you DNR?: No Advance Directives: No Advance Directives Information Provided: Yes Advance Directives Date on File: 07/17/20 Recently lost weight without trying: No Nutrition Risks: No Nutritional Risk service: No Current occupational status: disabled Cognitive needs: No Hearing needs: No Vision needs: No Meds Allergies Allergy/AdvReac Type Severity Reaction Status Date / Time No Known Allergies Allergy Verified 09/30/24 12:39 Home Medications ?Medication ?Instructions ?Recorded ?Confirmed ?Last Taken ?Type aspirin 81 mg tablet,delayed 81 mg PO DAILY 01/13/24 09/30/24 Unknown History release multivitamin with folic acid 400 1 tab PO DAILY 01/13/24 09/30/24 Unknown History mcg tablet (Daily-Josue (with folic acid)) mycophenolate mofetil 250 mg 250 mg PO DAILY 01/13/24 09/30/24 Unknown History capsule pantoprazole 40 mg tablet,delayed 40 mg PO DAILY 01/13/24 09/30/24 Unknown History release sennosides 8.6 mg tablet (senna) 17.2 mg PO BID 01/13/24 09/30/24 Unknown History tacrolimus 1 mg capsule, 3 mg PO BID 01/13/24 09/30/24 09/30/24 History immediate-release tacrolimus 5 mg capsule, 5 mg PO BID 01/13/24 09/30/24 09/30/24 History immediate-release plecanatide 3 mg tablet (Trulance) 3 mg PO DAILY 08/02/24 09/30/24 Unknown History sitagliptin phosphate 100 mg 100 mg PO DAILY 08/02/24 09/30/24 09/28/24 History tablet (Januvia) ergocalciferol (vitamin D2) 1,250 1,250 mcg PO QWEEK 09/30/24 09/30/24 Unknown History mcg (50,000 unit) capsule plecanatide 3 mg tablet (Trulance) 3 mg PO DAILY 09/30/24 09/30/24 Unknown History sulfamethoxazole 400 1 tab PO 3XW 09/30/24 09/30/24 Unknown History mg-trimethoprim 80 mg tablet Exam Height,Weight and Vital Signs: Height 5 ft 8 in Weight 73.936 kg Pertinent Lab Results Pertinent Lab Results: Laboratory Tests 07/02/24 14:29 WBC 5.3 RBC 5.52 D Hgb 13.9 L D Hct 42.6 D Plt Count 104 L D Sodium 142 Potassium 4.4 Chloride 111 H Carbon Dioxide 26 BUN 15 Creatinine 1.34 Narrative Narrative: ECHO 08/2024 Conclusions: - 1. No evidence of intra-atrial shunting by saline contrast study 2. Normal LV ejection fraction 55-60% 3. Moderate mitral calcification with normal cardiac valvular Dopplers 4. Upper limits of normal ascending aortic size 5. Normal RV systolic pressure 6. No gross pericardial effusion EKG 12/2023 NSR @ 74 LAD Mod volt critera for LVH Assessment and Plan Assessment Anesthesia Assessment: Chart Reviewed Final Anesthetic Review Family History of Problems with Anesthesia: No History of Problems with Anesthesia: No Documented by User: Ailyn Steiner DO 09/30/24 13:04 HPI - Anesthesia Eval Anesthesia Pre-Procedure Meds Is the patient on any of the following meds?: GLP1/DPP4 PMFSH Past Medical History Medical History Asthma Umbilical hernia GERD (gastroesophageal reflux disease) Somatic dysfunction of left sacroiliac joint Strain of lumbar paraspinal muscle Hemorrhoid Hx of esophageal varices Hepatic encephalopathy GAVE (gastric antral vascular ectasia) Hx of Clostridium difficile infection Head injury Portal hypertension History of blood transfusion Iron deficiency anemia Pain aggravated by swallowing Swallowed chicken bone Patellofemoral pain syndrome of both knees Hepatitis C virus Osteoarthritis of left knee DMII (diabetes mellitus, type 2) Migraine headache Headache Neck pain Cirrhosis of liver Malnutrition HTN (hypertension) Other otitis externa, right ear Family History Family History Father No problems noted. Mother Asthma Diabetes Family history of problems with anesthesia: No Surgical History Surgical History Hx of liver transplant History of surgery of liver History of esophagogastroduodenoscopy (EGD) History of abdominal paracentesis History of colonoscopy History of Problems with Anesthesia: No Social History Social History Household Members: Family Household Members Other:: lives with his brother and brother's spouse Housing: House Are you a primary director of patient care to a significant other at home: No Do you presently have visiting nurse or other home services: No Alcohol intake: never Patient Tobacco Use Status: Former Tobacco user e-Cigarette/Vaping Use: Never Used Second Hand Smoke Exposure: Yes Have you been hit, kicked, punched, or otherwise hurt by someone within the past year? If so, by whom?: No Are you DNR?: No Advance Directives: No Advance Directives Information Provided: Yes Advance Directives Date on File: 07/17/20 Recently lost weight without trying: No Nutrition Risks: No Nutritional Risk service: No Current occupational status: disabled Cognitive needs: No Hearing needs: No Vision needs: No Meds Allergies Allergy/AdvReac Type Severity Reaction Status Date / Time No Known Allergies Allergy Verified 09/30/24 12:39 Home Medications ?Medication ?Instructions ?Recorded ?Confirmed ?Last Taken ?Type aspirin 81 mg tablet,delayed 81 mg PO DAILY 01/13/24 09/30/24 Unknown History release multivitamin with folic acid 400 1 tab PO DAILY 01/13/24 09/30/24 Unknown History mcg tablet (Daily-Josue (with folic acid)) mycophenolate mofetil 250 mg 250 mg PO DAILY 01/13/24 09/30/24 Unknown History capsule pantoprazole 40 mg tablet,delayed 40 mg PO DAILY 01/13/24 09/30/24 Unknown History release sennosides 8.6 mg tablet (senna) 17.2 mg PO BID 01/13/24 09/30/24 Unknown History tacrolimus 1 mg capsule, 3 mg PO BID 01/13/24 09/30/24 09/30/24 History immediate-release tacrolimus 5 mg capsule, 5 mg PO BID 01/13/24 09/30/24 09/30/24 History immediate-release plecanatide 3 mg tablet (Trulance) 3 mg PO DAILY 08/02/24 09/30/24 Unknown History sitagliptin phosphate 100 mg 100 mg PO DAILY 08/02/24 09/30/24 09/28/24 History tablet (Januvia) ergocalciferol (vitamin D2) 1,250 1,250 mcg PO QWEEK 09/30/24 09/30/24 Unknown History mcg (50,000 unit) capsule plecanatide 3 mg tablet (Trulance) 3 mg PO DAILY 09/30/24 09/30/24 Unknown History sulfamethoxazole 400 1 tab PO 3XW 09/30/24 09/30/24 Unknown History mg-trimethoprim 80 mg tablet Exam Exam Date and Time: 09/30/24 1300 Height,Weight and Vital Signs: Height 5 ft 8 in Weight 73.936 kg Vital Signs Temperature 97.9 F 09/30/24 12:38 Pulse Rate 73 09/30/24 12:38 Respiratory Rate 18 09/30/24 12:38 Blood Pressure 133/89 09/30/24 12:38 Pulse Oximetry 97 09/30/24 12:38 Oxygen Delivery Method Room Air 09/30/24 12:38 Temperature 97.9 F 09/30/24 12:38 Pulse Rate 73 09/30/24 12:38 Respiratory Rate 18 09/30/24 12:38 Blood Pressure 133/89 09/30/24 12:38 Pulse Oximetry 97 09/30/24 12:38 Oxygen Delivery Method Room Air 09/30/24 12:38 Airway Mallampati Class: I TM Dist: >3cm Neck ROM: Full Loose/Missing/Broken Teeth: No (patient denies any loose or broken teeth) Heart: S1S2 Lungs: CTAB Assessment and Plan Assessment Anesthesia Assessment: Anesthesia Plan Discussed and Chart Reviewed Final Anesthetic Review Family History of Problems with Anesthesia: No History of Problems with Anesthesia: No NPO: Yes ASA Class: III Final Preanesthetic Review: No Changes in Pt Med Stat, Meds/Allgs Chart Reviewed, Consent Obtained/Reviewed and Anes Risks/Benef Reviewed Patient Risk: Intermediate Procedure Risk: Low Anesthetic Plan Anesthetic Plan: MAC: and Agree w/ Assess. and Plan Disposition: Standard PACU
--- NOTE | 2024-09-30 13:24 | MHC.SHP ---
Pre-Procedural Eval Section A - 24 Hr Update-Section A only Date of Service: 09/30/24 Section B - Complete if H&P > 30 days Chief Complaint: Ventral hernia without obstruction or gangrene Details of Present Illness: hx of gastric polyps Relevant Family History (Specify if Yes): No Relevant Social History: None Present Medications: see Short Stay Collaborative assessment Medical History: Significant History (Asthma Umbilical hernia GERD (gastroesophageal reflux disease) Somatic dysfunction of left sacroiliac joint Strain of lumbar paraspinal muscle Hemorrhoid Hx of esophageal varices Hepatic encephalopathy GAVE (gastric antral vascular ectasia) Hx of Clostridium difficile infection Head injury Portal hy) History of Previous Operations: Relevant previous surgery/procedure and date(s) ( Hx of liver transplant History of surgery of liver History of esophagogastroduodenoscopy (EGD) History of abdominal paracentesis History of colonoscopy) Allergies: Allergies Allergy/AdvReac Type Severity Reaction Status Date / Time No Known Allergies Allergy Verified 09/30/24 12:39 Review of Systems Sugical H&P ROS: Negative: Constitution, Cardiovascular, Respiratory, Neurological, Psychiatric, Hem-Onc, Allergic/Immunologic, Gastrointestinal, Genitourinary, Musculoskeletal, Integumentary, Endocrine and Eyes/Ears/Nose/Throat Exam Surgical H&P Exam: Normal: HEENT, Normal: Heart, Normal: Lungs, Normal: Extremities, Normal: Abdomen, Normal: Skin and Normal: Neurological Plan Diagnosis/Plan: Unchanged I have reviewed the history and physical and performed a pertinent physical examination on my patient. No changes have occurred unless specified. Time Spent With Patient Time: Total time managing care of this patient today ____ minutes.
--- NOTE | 2024-09-30 13:50 | W.PM.OPN ---
Operative Note Operative Note Date of Service: 09/30/24 Narrative: Procedure Description: EGD Indication: hx of gastric polyps Anesthesia: MAC FLEXIBLE TRANSORAL UPPER GASTROINTESTINAL ENDOSCOPY UPPER ENDOSCOPY Consent: Indications for the procedure and potential complications of bleeding, perforation, reaction to medications and missed diagnosis were discussed with the patient and informed consent was obtained. Instrument: Olympus GIF H 190 J mid size upper endoscope Monitoring: Vital signs and clinical assessment, continuous EKG monitoring, Pulse oximetry, Carbon Dioxide monitoring and blood pressure monitoring were done throughout the procedure. Procedure: The patient was placed in the left lateral decubitis position and pre-procedure medications were administered and a bite block was placed. The endoscope was inserted into the mouth and advanced under direct vision to the third part of duodenum. A careful inspection was made as the upper endoscope was withdrawn including a retroflexed examination of the proximal stomach; Findings and interventions are described below. Findings: Larynx:normal Esophagus: GE junction at 40 cm, diaphragm hiatus at 04 cm, normal mucosa Stomach: Granular mucosa . Biopsies were obtained. Grade 2 flap valve on retroflexed examination of the cardia. Duodenum: mild bulbar duodenitis Intervention: Biopsies as noted above, Impression/Findings: duodenitis gastropathy PLAN: if h pylori pos then treat cont with PPI-check compliance
[2024-09-30 13:58] VITALS: BP 124/84; PULSE 78; RESP 16; TEMP 36.3; O2SAT 98
[2024-09-30 14:11] VITALS: BP 130/95; PULSE 75; RESP 16; TEMP 36.1; O2SAT 98
== END 2024-09-30 14:28 | disposition home or self-care (01) ==
PROVIDERS: PCP Physician Assistant; Visit Provider Internal Medicine Gastroenterology
PROC: 0DJ08ZZ Inspection of Upper Intestinal Tract, Via Natural or Artificial Opening Endoscopic (ICD-10-PCS; CPT 43235; principal; 2024-09-30 14:00)
DX: K43.9 Ventral hernia without obstruction or gangrene (principal); K31.7 Polyp of stomach and duodenum; K29.80 Duodenitis without bleeding; K70.30 Alcoholic cirrhosis of liver without ascites; Z94.4 Liver transplant status; I10 Essential (primary) hypertension; E11.9 Type 2 diabetes mellitus without complications; D64.9 Anemia, unspecified; K21.9 Gastro-esophageal reflux disease without esophagitis; K42.9 Umbilical hernia without obstruction or gangrene; K31.819 Angiodysplasia of stomach and duodenum without bleeding; K76.82 Hepatic encephalopathy; B19.20 Unspecified viral hepatitis C without hepatic coma; K31.9 Disease of stomach and duodenum, unspecified; Z86.19 Personal history of other infectious and parasitic diseases; K76.6 Portal hypertension; K44.9 Diaphragmatic hernia without obstruction or gangrene; J45.909 Unspecified asthma, uncomplicated; Z79.82 Long term (current) use of aspirin; Z79.84 Long term (current) use of oral hypoglycemic drugs; Z79.899 Other long term (current) drug therapy; Z98.890 Other specified postprocedural states; Z87.891 Personal history of nicotine dependence
CPT/HCPCS: 43239; 82947; 88305; 88313; 88342; J1100; J1596; J2003; J2704

== ENCOUNTER → 2024-09-30 11:47 | Outpatient (BNV) | payer OTHER, SELFPAY | PROVIDERS: PCP Physician Assistant; Visit Provider Internal Medicine Gastroenterology | DX: K29.80 Duodenitis without bleeding (principal); K31.89 Other diseases of stomach and duodenum | CPT/HCPCS: 43239 ==

== ENCOUNTER → 2024-11-18 15:44 | Outpatient (BNVA) | payer OTHER, SELFPAY | PROVIDERS: PCP Physician Assistant; Visit Provider Physician Assistant | DX: N48.1 Balanitis (principal); E11.9 Type 2 diabetes mellitus without complications; F41.1 Generalized anxiety disorder; I10 Essential (primary) hypertension; Z94.4 Liver transplant status | CPT/HCPCS: 90471; 99212 ==

== ENCOUNTER 2024-12-20 10:31 | Outpatient (AMB) | payer OTHER, SELFPAY ==
--- NOTE | 2024-12-20 10:40 | A.OFFVIS_ITS ---
Vital Signs 12/20/24 10:42 Height 5 ft 8 in Weight 185 lb 3.013 oz BMI 28.2 BP 140/97 H Blood Pressure Location Lt brachial Position Sitting Pulse 98 Intake Visit Reasons: 5 mnth follow up Intake Note: Elroy presents in the office as a 5 month follow up. CC: states he is feeling good no concerns. Allergies No Known Allergies Allergy (Verified 12/20/24 10:43) HPI HPI 5 mnth follow up: Details: 59 y/o male with pmhx of iron deficiency HTN, DM II, anemia, hepatitis C and alcohol induced cirrhosis s/p liver transplant being seen for f/u RECAP: Patient had been at [facility] for detox and had labs drawn which were abnormal, repeat labs confirmed H/H 05/05.5 with pancytopneia and abn LFT, raised INR so he was sent to [place] for further assessment 04/2019 He denied any shortness of breath, dizziness, weakness, melena or bright red blood in his stool. He did state that he was diagnosed with hepatitis C in t he past and this never been treated. U/S imaging consistent w cirrhosis, varices, no masses EGD: LA grade A esophagitis, erosive gastitis, and duodenitis, small varices--h pylori pos--given treatment which he completed colonoscopy: poor prep, mucosal trauma easy due to low plts, repeat colon in 6-12 months, internal hemorrhoids Plan was for treatment of hep C< but due to decompensation I wanted to treat for 24 weeks, only epclusa aproved for 12 weeks, plan was to add ribavarin He was commenced on epclusa and ribavarin, but his HGB dropped to 7 g/dl and he was initiated on IV iron and riba reduced to 200 mg from 600 mg. He was admitted to hospital with acute on chronic anemia 10/2019 and egd with bleeding hyperplastic polyp removed and required clip and hemospray He had spontaneous bacterial peritonitis on 09/02/2019 and possible recurrent episode on 11/23/2019. He was tapped on both visits with elevated WBCs. He was placed on Cipro 500 mg twice daily. He was tapped again on 11/25/2019 showing improved WBCs count that was not consistent with bacterial peritonitis. He had c diff and was treated with vancomycin colonoscopy 03/2020-- fair to poor prep- he had admission for HE, thought to be due to constipation from iron treatment he had returned to normal He had an EGD with residual hyperplastic polyps and duodenitis and congestion--polyps removed I ordered us revealing splenorenal shunt probably explaining the recurring HE I spoke with his javascript engineer to update her on colonoscopy, prep was fair but no large lesions or masses, repeat colon in 1 yr recommenced, His renal function was gettign worse so [facility] stopped all diuretics, had recurrence of swelling ankles, restarted small dose lasix 20 mg EGD: 12/2020--pedunculated polyp removed, PHG noted--hyperplastic polyp EGD/colonoscopy : 09/2021--several hyperplastic polyps removed, came back as H PYLORI POSITIVE, colon prep not great --rept colo in 1 yr h pylori pos, treated with amoxil,levoflox, PPI with neg follow up breath test. EGD/colo: portal hypertensive gastropathy gastric polyp Colonoscopy Findings: internal hemorrhoids path: Polypoid foveolar hyperplasia TESTs: u/s 07/2019--cirrhosis, no HCC, 1.2 L of ascitic fluid removed, SAAG consistent w portal HTN u/s 10/2019- cirrhosis, varices, moderate ascites, patent veins he had imaging at [facility] with US 02/2021--no HCC per Dr Esposito note Vit A and zinc low labs at [facility] 10/2020- BMP--nml, INR 1.2, LFT pretty good, MELD-na 10!! repeat labs : Hgb 14, LFT stable, labs: 05/2021--nml HGB--14 g/dl, LFT stable, vit a was low at 18-put on replacement US 03/17/24 nml liver, splenomegaly INTERIM: he saw a surgeon and told its a weak muscle and not a hernia EGD without polyps 10/05 no abdo pain no nausea no vomiting no fevers or chills he is still on mycophenolate, tacrolimus EXAM: GENERAL: The patient is well developed and nontoxic, VITAL SIGNS:see workflow HEENT: Nonicteric sclerae, PERRLA, EOMI. Oropharynx clear. Moist mucous membranes. Conjunctivae appear well perfused. No thyroid mass. CHEST: Chest wall is nontender. HEART: Regular rate and rhythm without murmurs. LUNGS: Clear to auscultation bilaterally. ABDOMEN: Soft, positive bowel sounds, nontender, no organomegaly.no flank tenderness--incision noted with herniaon flexing abdo SKIN: normal NEUROLOGIC: Cranial nerves II-XII intact without motor/sensory deficit. No liver flap MS- nml ROM psych--normal affect A/P: 1. Alcoholic cirrhosis of liver with ascites -no further ascites, on low dose lasix, SVR from Hep C, MELD 9-10--co managed with [facility] Dr Esposito, he has SVR for hep c but now complicated with HCC with s/p liver transplant--doing well 2. worsening gerd--controlled now PLAN 1/ with PPI, make sure taking MV and vit D 1000 units 2/ f/u 1 year, still seeing [facility] as well [facility] Medical History Asthma Umbilical hernia GERD (gastroesophageal reflux disease) Somatic dysfunction of left sacroiliac joint Strain of lumbar paraspinal muscle Hemorrhoid Hx of esophageal varices Hepatic encephalopathy GAVE (gastric antral vascular ectasia) Hx of Clostridium difficile infection Head injury Portal hypertension History of blood transfusion Iron deficiency anemia Pain aggravated by swallowing Swallowed chicken bone Patellofemoral pain syndrome of both knees Hepatitis C virus Osteoarthritis of left knee DMII (diabetes mellitus, type 2) Migraine headache Headache Neck pain Malnutrition HTN (hypertension) Other otitis externa, right ear Surgical History Hx of liver transplant History of surgery of liver History of esophagogastroduodenoscopy (EGD) History of abdominal paracentesis History of colonoscopy Family History Father No problems noted. Mother Asthma Diabetes Social History Household Members: Family Household Members Other:: lives with his brother and brother's spouse Housing: House Are you a primary home care attendant to a significant other at home: No Do you presently have visiting nurse or other home services: No Alcohol intake: never Patient Tobacco Use Status: Former Tobacco user e-Cigarette/Vaping Use: Never Used Second Hand Smoke Exposure: Yes Advance Directives Date on File: 07/17/20 service: No Current occupational status: disabled Cognitive needs: No Hearing needs: No Vision needs: No Physical Exam Vital Signs: Last Vital Signs Pulse 98 12/20/24 10:42 BP 140/97 H 12/20/24 10:42 BMI result Body Mass Index 28.2 Assessment & Plan Assessment & Plan (1) Liver transplant recipient: Code(s): Z94.4 - Liver transplant status Category: Medical Plan: as above Coding Level of Care Code Est Pt Level 3 (08198) Diagnoses Liver transplant recipient Z94.4
[2024-12-20 10:42] VITALS: BP 140/97; PULSE 98; BMI 28.2
== END 2024-12-20 11:08 | disposition home or self-care (01) ==
PROVIDERS: PCP Physician Assistant; Visit Provider Internal Medicine Gastroenterology
DX: Z94.4 Liver transplant status (principal)
CPT/HCPCS: 99213

== ENCOUNTER → 2024-12-20 10:31 | Outpatient (BNVA) | payer OTHER, SELFPAY | PROVIDERS: PCP Physician Assistant; Visit Provider Internal Medicine Gastroenterology | DX: Z94.4 Liver transplant status (principal) | CPT/HCPCS: 99212 ==

== ENCOUNTER 2025-02-01 07:45 | Outpatient (REF) | payer OTHER, SELFPAY ==
[2025-02-01 09:03] LABS: Hematocrit 47.1 % (42.0-52.0); Hemoglobin 15.6 g/dl (14.0-18.0); Mean Corpuscular HGB Conc 33.1 g/dl (31.0-36.0); Mean Corpuscular Volume 78.5 fL (80.0-98.0); Mean Platelet Volume 12.1 fL (9.4-12.4); Platelet Count 117 X10*3/uL (160-400); Red Cell Distribution Width 14.6 % (11.0-16.0); White Blood Count 6.7 X10*3/uL (4.8-10.8)
[2025-02-01 09:45] LABS: Alanine Aminotransferase 17 U/L (0-40); Albumin Level 4.5 g/dL (3.5-5.0); Alkaline Phosphatase 56 U/L (39-117); Anion Gap 10 (12-20); Aspartate Amino Transferase 17 U/L (5-37); Bilirubin Total 0.7 mg/dL (0.0-1.0); Blood Urea Nitrogen 14 mg/dL (9-16); Calcium 9.1 mg/dL (8.4-10.2); Carbon Dioxide 27 mmol/L (22-29); Chloride 112 mmol/L (96-108); Estimated Glomerular Filt Rate > 60; Glucose Fasting 119 mg/dL (60-99); Potassium 4.2 mmol/L (3.3-5.1); Sodium 145 mmol/L (135-145); Total Protein 6.8 g/dL (6.5-8.0)
[2025-02-01 10:55] LABS: Creatinine Urine 179.72 mg/dL
[2025-02-01 11:06] LABS: Microalbum/Creatinine Ratio Ur 531.3 ug/mg cr (<30)
== END 2025-02-01 07:46 | disposition home or self-care (01) ==
LOC: HO.LAB 07:45
PROVIDERS: PCP Physician Assistant; Visit Provider Physician Assistant
DX: D69.6 Thrombocytopenia, unspecified (principal); E11.9 Type 2 diabetes mellitus without complications; I10 Essential (primary) hypertension
CPT/HCPCS: 36415; 80053; 82043; 82570; 85027

== ENCOUNTER 2025-02-07 14:25 | Outpatient (REF) | payer OTHER, SELFPAY ==
[2025-02-07 15:43] LABS: Creatinine Urine 131.15 mg/dL; Microalbum/Creatinine Ratio Ur 367.5 ug/mg cr (<30)
== END 2025-02-07 14:26 | disposition home or self-care (01) ==
LOC: HO.LAB 14:25
PROVIDERS: PCP Physician Assistant; Visit Provider Physician Assistant
DX: E11.29 Type 2 diabetes mellitus with other diabetic kidney complication (principal); R80.9 Proteinuria, unspecified
CPT/HCPCS: 82043; 82570

== ENCOUNTER 2025-02-15 11:10 | Outpatient (AMB) | payer OTHER, SELFPAY ==
--- NOTE | 2025-02-15 11:23 | A.OFFPC_ITS ---
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 Required: No Accompanied by: Self / Same As Patient Allergies No Known Allergies Allergy (Verified 02/15/25 11:28) Medication List - Last Reconciled 02/15/25 by Brian Vela PA-C albuterol sulfate 90 mcg/actuation 1 inh inhalation QID PRN 30 days albuterol sulfate 2.5 mg (3 mL) inhalation Q6H PRN 30 days amlodipine 10 mg PO DAILY aspirin 81 mg PO DAILY clotrimazole-betamethasone 1-0.05 % 1 appl topical BID 30 days docusate sodium 100 mg PO BID ergocalciferol (vitamin D2) 1,250 mcg PO QWEEK gabapentin 300 mg PO BID 30 days multivitamin with folic acid 400 mcg (Daily-Josue (with folic acid)) 1 tab PO DAILY mycophenolate mofetil 250 mg PO DAILY pantoprazole 40 mg PO DAILY plecanatide (Trulance) 3 mg PO DAILY sennosides (senna) 17.2 mg PO BID sitagliptin phosphate (Januvia) 100 mg PO DAILY 90 days sitagliptin phosphate (Januvia) 50 mg PO DAILY tacrolimus 3 mg PO BID tacrolimus 5 mg PO BID vit C,Q-Ig-yixnx-lutein-zeaxan 250-90-40-1 mg (PreserVision AREDS-2) 1 tab PO BID 90 days Tobacco use date assessed: 02/15/25 Dental Screening Dental Screen Date: 02/15/25 Did you have a dental visit in the last 12 months?: Yes Did you have a dental problem in the last 6 months where you did not have access to dental care?: No Was dental information given to patient?: Patient has dentist HPI f/u DMII HPI Clare Abbasi is a 60 male here today for a follow-up visit. Patient's past medical history significant for essential hypertension , type 2 diabetes, liver cirrhosis, end-stage liver disease status post liver transplant December of 2023,, iron deficiency anemia, h/o of IV drug use and alcohol abuse (sober since 2019). 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 He also reports having left ear pain and decreased hearing. Does seem to have a cerumen impaction that was dislodged today in office. He is requesting to see an ENT for sinus issues as well. Left Retinal artery occlusion : Recently noted to have a left retinal artery occlusion. He is followed by a retinal specialist. LIVER TRANSPLANT--> status post transplant December 2023. Currently doing well. Continues on anti-rejection drugs those off of prednisone. Most recent liver enzymes normal Pulmonary nodule: Of note patient did get CT of chest showing a 3 mm pulmonary nodule. He is now seeing thoracic surgeon and will have his pulmonary nodule followed. .. Hypertension:? Blood pressures have been stable with current dose blood pressure medication. Continues on Amlodpine 10mg and lisinopril. ? . ? DMII: He continues on Jardiance. . Will hold his Jardiance over the next 3 months and continue to manage his type 2 diabetes with diet and exercise. Noted significant microalbuminuria most recent labs, recheck showed improvement though still elevated. He reports only taking amlodipine for his blood pressure now off of lisinopril for unclear reason. PLAN: Will restart lisinopril to help reduce microalbuminuria Laboratory Tests 01/21/24 02/01/25 02/01/25 09:51 07:45 07:59 RBC 6.00 H Hgb 15.6 Creatinine Fasting Glucose AST Urine Microalbumin 98.0 955.0 02/01/25 02/07/25 Unknown 14:29 RBC Hgb Creatinine 1.12 Fasting Glucose 119 H AST 17 Urine Microalbumin 482.0 REPLACED BY [facility] Medical History Asthma Umbilical hernia GERD (gastroesophageal reflux disease) Somatic dysfunction of left sacroiliac joint Strain of lumbar paraspinal muscle Hemorrhoid Hx of esophageal varices Hepatic encephalopathy GAVE (gastric antral vascular ectasia) Hx of Clostridium difficile infection Head injury Portal hypertension History of blood transfusion Iron deficiency anemia Pain aggravated by swallowing Swallowed chicken bone Patellofemoral pain syndrome of both knees Hepatitis C virus Osteoarthritis of left knee DMII (diabetes mellitus, type 2) Migraine headache Headache Neck pain Malnutrition HTN (hypertension) Other otitis externa, right ear Surgical History Hx of liver transplant History of surgery of liver History of esophagogastroduodenoscopy (EGD) History of abdominal paracentesis History of colonoscopy Family History Father No problems noted. Mother Asthma Diabetes Social History Household Members: Family Household Members Other:: lives with his brother and brother's spouse Housing: House Are you a primary animal care provider to a significant other at home: No Do you presently have visiting nurse or other home services: No Alcohol intake: never Patient Tobacco Use Status: Former Tobacco user e-Cigarette/Vaping Use: Never Used Second Hand Smoke Exposure: Yes Advance Directives Date on File: 07/17/20 service: No Current occupational status: disabled Cognitive needs: No Hearing needs: No Vision needs: No Questionnaire PHQ-9 Over the last 2 weeks, how often have you been bothered by any of the following problems? 1. Little interest or pleasure in doing things: not at all 2. Feeling down, depressed, or hopeless: not at all 3. Trouble falling or staying asleep, or sleeping too much: not at all 4. Feeling tired or having little energy: not at all 5. Poor appetite or overeating: not at all 6. Feeling bad about yourself - or that you are a failure or have let yourself or your family down: not at all 7. Trouble concentrating on things, such as reading the newspaper or watching television: not at all 8. Moving or speaking so slowly that other people could have noticed. Or the opposite - being so fidgety or restless that you have been moving around a lot more than usual: not at all 9. Thoughts that you would be better off or of hurting yourself in some way: not at all Total score: 0 Depression Screening Interpretation: Negative Depression Screening Done: Yes 34382 - PHQ-9 Billing: Yes Source: Developed by Drs. Yuri Lowe, Vianey B.WPaul Melendez and colleagues, with an educational yariel from [employer]. Thrive Questionnaire Date Thrive assessed: 02/15/25 I am a: Patient What is your living situation today?: I have a steady place to live Within the past 12 months, did the food you bought not last and you didn't have the money to get more?: Never true Within the past 12 months, did you worry whether your food would run out before you got money to buy more?: Never true Do you have trouble paying for medicines?: No Do you have trouble getting transportation to medical appointments?: No Do you have trouble paying your heating and electricity bill?: No Do you have trouble taking care of your child, family member or friend?: No Do you have trouble with day-to-day activities such as bathing, preparing meals, shopping, managing finances, etc.?: No Are you currently unemployed and looking for a job?: No Are you interested in more education?: No Please select the resources that you would like help with: Housing/Skilled Nursing Currently or been in a relationship where the following occur: No concerns reported THRIVE Score: 0 AUDIT C Alcohol Use Questionnaire (AUDIT-C) 1. How often do you have a drink containing alcohol?: Never 3. How often do you have six or more drinks on one occasion?: Never Total Score: 0 CHATA-7 AMB Questionnaire CHATA-7 Date CHATA - 7 assessed: 02/15/25 Feeling nervous, anxious, or on edge: 0 = Not at all Not being able to stop or control worryin = Not at all Worrying too much about different things: 0 = Not at all Trouble relaxin = Not at all Being so restless that it is hard to sit still: 0 = Not at all Becoming easily annoyed or irritable: 0 = Not at all Feeling afraid as if something awful might happen: 0 = Not at all Total CHATA-7 score (0-4 normal; 5-9 mild; 10-14 moderate; 15-21 severe): 0 Source: Developed by Drs. Yuri Lowe, Paul Austin and colleagues, with an educational yariel from [employer]. CHATA-7 Assessment Billing CHATA-7 Assessment Tool: CHATA-7 Assessment 68425 Review of Systems Const Denies headache(s) Eyes Denies loss of vision ENT Denies vertigo, Denies dizziness, Denies headache(s) and Denies sore throat Card Denies chest pain, Denies leg edema and Denies lightheadedness Resp Denies cough, Denies hemoptysis and Denies wheezing GI Denies abdominal pain, Denies melena, Denies constipation, Denies diarrhea and Denies vomiting Denies dysuria, Denies urinary frequency and Denies urinary urgency Musc Reports back pain, Reports arthralgias, Denies joint swelling, Denies numbness and Denies tingling Neuro Denies Abnormal speech present, Denies behavioral changes, Denies vertigo, Denies dizziness, Denies headache(s), Denies loss of vision, Denies memory loss, Denies numbness and Denies tingling Psych Denies anxiety, Denies behavioral changes, Denies depression, Denies memory loss and Denies panic attacks Jamel/Lymph Denies easy bleeding and Denies easy bruising Aller/Immun Denies wheezing Physical exam (Primary Care) Vital Signs: Last Vital Signs Temp 97.5 F 02/15/25 11:24 Pulse 90 02/15/25 11:24 BP 130/90 H 02/15/25 11:24 Pulse Ox 97 02/15/25 11:24 Oxygen Delivery Method Room Air 02/15/25 11:24 BMI result Body Mass Index 27.4 Tobacco/Smoking Status: Tobacco use Status Tobacco use date assessed 02/15/25 02/15/25 11:26 Patient Tobacco Use Status Former Tobacco user 02/15/25 11:26 e-Cigarette/Vaping Use Never Used 02/15/25 11:26 PHQ-9: PHQ-9 Score PHQ-9: Total score 0 02/15/25 11:30 Depression Screening Interpretation: Negative Thrive Assessment: Date of Thrive Assessment Date Thrive assessed 02/15/25 02/15/25 11:26 Currently or been in a relationship where the following occur: No concerns reported Const General: healthy appearing, no acute distress, alert and awake Nutritional Appearance: well nourished Orientation/consciousness: oriented to person, oriented to place and oriented to time HENMT Ears: TM's normal bilaterally General nose exam: Normal nasal mucous membranes and turbinates present Eyes Conjunctivae: conjunctivae normal Sclerae: sclerae normal Pupils: Equal, round and reactive pupils present Neck Neck: Yes no lymphadenopathy and Yes no JVD Thyroid: Thyroid normal Carotids: no bruits Resp Effort & Inspection: normal respiratory effort and not tachypneic Auscultation: no crackles, no rales, no rhonchi and no wheezes Cardio Rate: regular rate Rhythm: regular rhythm Heart sounds: no murmurs and normal S1 and S2 GI Palpation (GI): Soft to palpation, nontender, no hepatomegaly and no splenomeg zabrina Auscultation: normal bowel sounds Skin General skin exam: no rashes or lesions noted and dry skin Neuro General: oriented to person, oriented to place and oriented to time Cranial nerves: Yes Equal, round and reactive pupils present Speech: No Abnormal speech present Gait exam (Neuro): Normal gait present Motor exam (neuro): no tremor noted Extrem Right upper extremity: full ROM Left upper extremity: full ROM Right lower extremity: full ROM; no edema Left lower extremity: full ROM; no edema Psych Mental Status: mental status grossly normal Speech and movement: Normal speech and movement present Affect: normal affect Attitude: cooperative Thought process: Normal thought process present Results AMB Hemoglobin A1c AMB Hemoglobin A1c 5.5 % Last Edit by DIEGO Farmer on 02/15/25 11:30 Results Reviewed Results Reviewed: Laboratory Last Values Hgb A1c (Clinic) 5.5 % (4.0-6.0) 02/15/25 11:30 Coding Level of Care Code Est Pt Level 4 (13786) Diagnoses Type 2 diabetes mellitus without complication, without long-term current use of insulin E11.9 Diabetes mellitus complication status: without complication Diabetes mellitus snf insulin use: without terminal operations supervisor use CHATA (generalized anxiety disorder) F41.1 Microalbuminuria due to type 2 diabetes mellitus E11.29; R80.9 Liver transplant recipient Z94.4 Essential hypertension I10 Hypertension type: essential hypertension Chronic pain of left knee M25.562; G89.29 Chronicity: chronic Acute midline low back pain without sciatica M54.50 Chronicity: acute Back pain laterality: midline Sciatica presence: without sciatica Seasonal allergic rhinitis due to pollen J30.1 Allergic rhinitis trigger: pollen Allergic rhinitis seasonality: seasonal Additional Codes CHATA-7 Assessment Billing - CHATA-7 Assessment Tool: CHATA-7 Assessment 69829 ([id number]) PHQ-9 - 57332 - PHQ-9 Billing: Yes ([id number]) Assessment & Plan Assessment & Plan (1) DMII (diabetes mellitus, type 2): Code(s): E11.9 - Type 2 diabetes mellitus without complications Category: Medical Qualifiers: Diabetes mellitus complication status: without complication Diabetes mellitus snf insulin use: without terminal operations supervisor use Qualified Code(s): E11.9 - Type 2 diabetes mellitus without complications Plan: Patient's type 2 diabetes well controlled with A1c now at 5.4. Now currently using Januvia 50 mg. Goal A1c is to remain below 6.5. (2) CHATA (generalized anxiety disorder): Code(s): F41.1 - Generalized anxiety disorder Category: Medical Plan: Patient reports his anxiety is fairly well controlled without medication. (3) Microalbuminuria due to type 2 diabetes mellitus: Code(s): E11.29 - Type 2 diabetes mellitus with other diabetic kidney complication; R80.9 - Proteinuria, unspecified Category: Medical Plan: Have noted worsening microalbuminuria over the last few months. Though note has not been taking lisinopril for some unclear reason. Will restart lisinopril and hopes to help stabilize his microalbuminuria. Otherwise it seems his blood pressure and type 2 diabetes has been well controlled (4) Liver transplant recipient: Code(s): Z94.4 - Liver transplant status Category: Surgical Plan: Patient is status post liver transplant in 12/31/2023. He is doing quite well in his pain is fairly controlled. He continues on anti-rejection drugs lifelong. (5) HTN (hypertension): Code(s): I10 - Essential (primary) hypertension Category: Medical Qualifiers: Hypertension type: essential hypertension Qualified Code(s): I10 - Essential (primary) hypertension Plan: Patient's blood pressure acceptable today in office. Will continue his current dose of amlodipine with goal blood pressure to remain below 140/90. Will restart lisinopril for renal protection as we have noted elevations in his microalbuminuria. (6) Left knee pain: Code(s): M25.562 - Pain in left knee Category: Medical Qualifiers: Chronicity: chronic Qualified Code(s): M25.562 - Pain in left knee; G89.29 - Other chronic pain Plan: As per HPI (7) Low back pain: Code(s): M54.50 - Low back pain, unspecified Category: Medical Qualifiers: Chronicity: acute Back pain laterality: midline Sciatica presence: without sciatica Qualified Code(s): M54.50 - Low back pain, unspecified Plan: Has noted some more acute on chronic lower back pain. He is not able to tolerate NSAIDs. Has tried Tylenol for his pain though has not been effective. Will supply patient with short-term script of low-dose oxycodone to use on a as needed basis for his low back pain (8) Allergic rhinitis: Code(s): J30.9 - Allergic rhinitis, unspecified Category: Medical Qualifiers: Allergic rhinitis trigger: pollen Allergic rhinitis seasonality: seasonal Qualified Code(s): J30.1 - Allergic rhinitis due to pollen Plan: Will supply patient with Flonase nasal spray to use for his allergy and sinus symptoms. Orders: Orders AMB Hemoglobin A1c 02/15/25 E11.9 - Type 2 diabetes mellitus without complications Microalbumin, Random (w Creat) 02/15/25 E11.29 - Type 2 diabetes mellitus with other diabetic kidney complication, R80.9 - Proteinuria, unspecified Complete Blood Count no Diff 02/15/25 E11.29 - Type 2 diabetes mellitus with other diabetic kidney complication, R80.9 - Proteinuria, unspecified Comprehensive [place]. Panel Fast 02/15/25 I10 - Essential (primary) hypertension Hemoglobin A1c 02/15/25 E11.9 - Type 2 diabetes mellitus without complications Referrals Ear/Nose/Throat Referral J32.9 - Chronic sinusitis, unspecified Medications: New lisinopril 5 mg PO DAILY 90 days 90 tabs 1RF E11.29 - Type 2 diabetes mellitus with other diabetic kidney complication, R80.9 - Proteinuria, unspecified oxycodone Partial Fill upon patient request. 5 mg PO Q8H 4 days PRN 12 tabs 0RF pain M54.50 - Low back pain, unspecified fluticasone propionate 50 mcg/actuation (Flonase Allergy Relief) administer into each nostril 1 spray intranasal DAILY 30 days 16 grams 1RF J30.9 - Allergic rhinitis, unspecified Refilled amlodipine 10 mg PO DAILY 90 tabs 2RF docusate sodium 100 mg PO BID 60 caps 1RF Patient Instructions: Goal: A1c to remain below 7.0, LDL to be below 100, blood pressure to remain below 140/90 Barriers: Adherence to physical activity and healthy eating habits
[2025-02-15 11:24] VITALS: BP 130/90; PULSE 90; TEMP 36.4; O2SAT 97; BMI 27.4
== END 2025-02-15 11:55 | disposition home or self-care (01) ==
LOC: HO.HMCH 11:11
PROVIDERS: PCP Physician Assistant; Visit Provider Physician Assistant
DX: E11.9 Type 2 diabetes mellitus without complications (principal)

== ENCOUNTER → 2025-02-15 11:10 | Outpatient (BNVA) | payer OTHER, SELFPAY | PROVIDERS: PCP Physician Assistant; Visit Provider Physician Assistant | DX: E11.29 Type 2 diabetes mellitus with other diabetic kidney complication (principal); R80.9 Proteinuria, unspecified; F41.1 Generalized anxiety disorder; I10 Essential (primary) hypertension; M25.562 Pain in left knee; G89.29 Other chronic pain; M54.50 Low back pain, unspecified; J30.1 Allergic rhinitis due to pollen; Z94.4 Liver transplant status; Z79.84 Long term (current) use of oral hypoglycemic drugs | CPT/HCPCS: 83036; 96127; 99212 ==

== ENCOUNTER 2025-05-04 08:15 | Outpatient (AMB) | payer OTHER, SELFPAY ==
[2025-05-04 08:16] VITALS: BP 96/76; PULSE 98; TEMP 36.7; O2SAT 96; BMI 27.2
--- NOTE | 2025-05-04 08:16 | MHC.OFFWIV ---
Intake Vital Signs 05/04/25 08:16 Height 5 ft 8 in Weight 179 lb BMI 27.2 BP 96/76 Blood Pressure Location Rt brachial Position Sitting Pulse 98 Pulse Source Pulse Oximeter Temp 98.1 F Temp Source Oral Pulse Oximetry (%) 96 Oxygen Delivery Method Room Air Intake Visit Reasons: EP migraine headaches & back pain Patient Tobacco Use Status: Former Tobacco user Parking Patroller Required: No Allergies No Known Allergies Allergy (Verified 05/04/25 08:20) Do you need a note to return to daycare/school/sports/work: No HPI HPI Comments History of Present Illness Details History of Present Illness - The patient is a 60-year-old male presenting with migraine and back pain. Migraine: The patient has been experiencing migraines for about a month, with severe pain over the left eye, worsened at night, and not relieved by Tylenol or ibuprofen. - Associated symptoms include light sensitivity and occasional nausea. - He has pain that is worse at night. - He states that he has 9/10 pain and that waxes and wanes. - He has been having to wear sunglasses and stay in the house. - He does have high blood pressure at times. - He has no triggers that he knows of. - He has no congestion or cold symptoms. - He denies fever, chills, CP, SOB, abd pain, vomting, visual changes, or auras. - He has had his eyes checked. Back pain: The patient reports back pain for three weeks after lifting an object, with a lump noted. - He has been having a constant pain in the left lower back with some radiation into the left buttock and leg. - There is some numbness in the left leg, and the patient applies ice for relief. - He has pain with bending and moving. - The patient has a history of a liver transplant one year ago and is advised against taking ibuprofen. - He denies saddle anesthesia, numbness, tingling, or incontinence. - He has been using Tylenol and Motrin for his pain. Physical Exam General: Cooperative, healthy appearing, comfortable, no acute distress and well developed Orientation: Patient oriented x3 Limitations: No limitations Head: Normal to inspection, but reports migraine pain over the eye Ears: Hearing grossly normal bilaterally. PERRLA, EOMI. No nystagmus noted. Nose: Normal external nose present Face and sinus: Normal facial exam Eyes: Appearance normal, but reports loss of vision six months ago and light sensitivity Neck: Normal visual inspection and Yes full ROM Respiratory: Normal respiratory effort and able to speak in complete sentences. Clear to auscultation bilaterally Cardiovascular: Regular rate and rhythm. Normal S1 and S2 GI: Normal to inspection. Soft to palpation and nontender Skin: No rashes or lesions noted Neuro: Patient oriented x3. CN 2-12 intact. Extremities: Normal to inspection. Back: FROM of the spine. Flexion and extension of the spine is intact. No midline spinous tenderness noted. No step offs noted. TTP of the lumbar paravertebral and paraspinous muscles on the left. TTP of the left SI joint. Strength is 5/5 on the LE. Ambulates with steady gait. DTR 1+ on the LE. Patient was informed and verbally consented to the use of an ambient scribe for clinic note documentation during this visit. [facility] Medical History Asthma Umbilical hernia GERD (gastroesophageal reflux disease) Somatic dysfunction of left sacroiliac joint Strain of lumbar paraspinal muscle Hemorrhoid Hx of esophageal varices Hepatic encephalopathy GAVE (gastric antral vascular ectasia) Hx of Clostridium difficile infection Head injury Portal hypertension History of blood transfusion Iron deficiency anemia Pain aggravated by swallowing Swallowed chicken bone Patellofemoral pain syndrome of both knees Hepatitis C virus Osteoarthritis of left knee DMII (diabetes mellitus, type 2) Migraine headache Headache Neck pain Malnutrition HTN (hypertension) Other otitis externa, right ear Surgical History Hx of liver transplant History of surgery of liver History of esophagogastroduodenoscopy (EGD) History of abdominal paracentesis History of colonoscopy Family History Father No problems noted. Mother Asthma Diabetes Social History Household Members: Family Household Members Other:: lives with his brother and brother's spouse Housing: House Are you a primary manager medicare to a significant other at home: No Do you presently have visiting nurse or other home services: No Alcohol intake: never Patient Tobacco Use Status: Former Tobacco user e-Cigarette/Vaping Use: Never Used Second Hand Smoke Exposure: Yes Advance Directives Date on File: 07/17/20 service: No Current occupational status: disabled Cognitive needs: No Hearing needs: No Vision needs: No Review of Systems Const All systems reviewed & are unremarkable except as noted in HPI and below Physical Exam Vital Signs: Last Vital Signs Temp 98.1 F 05/04/25 08:16 Pulse 98 05/04/25 08:16 BP 96/76 05/04/25 08:16 Pulse Ox 96 05/04/25 08:16 Oxygen Delivery Method Room Air 05/04/25 08:16 BMI result Body Mass Index 27.2 Assessment & Plan Assessment & Plan (1) Headache: Code(s): R51.9 - Headache, unspecified Qualifiers: Headache type: new daily persistent Qualified Code(s): G44.52 - New daily persistent headache (NDPH) (2) Back pain: Code(s): M54.9 - Dorsalgia, unspecified Qualifiers: Back pain location: low back pain Chronicity: acute Back pain laterality: left Sciatica presence: without sciatica Qualified Code(s): M54.50 - Low back pain, unspecified Plan Plan - Prescribe a muscle relaxant and pain medication for back pain management. - Initiate a new medication for migraine management, to be taken until the headache resolves. - Advise follow-up with primary care physician for ongoing management and evaluation. Medications: New sumatriptan succinate take 1 tab at onset of headache; if no relief may repeat 1 tab after at least 2 hrs; max = 4 tabs/24 hr PO 10 tabs 0RF cyclobenzaprine Take 1-2 tablets every 8 hours as needed for muscle spasms 5 mg PO Q8H PRN 20 tabs 0RF Muscle Spasm acetaminophen 1,000 mg (2 x 500 mg) PO Q6H PRN 30 caps 0RF pain Coding Level of Care Code Est Pt Level 4 (83217) Diagnoses New daily persistent headache G44.52 Headache type: new daily persistent Acute left-sided low back pain without sciatica M54.50 Back pain location: low back pain Chronicity: acute Back pain laterality: left Sciatica presence: without sciatica
--- OUTSIDE RECORDS SUMMARY | 2025-05-04 08:26 | XMS_ITS | Clinical Summary ---
Author Organization [facility] Address [address] [address] Phone Care Team Providers Care Concession Cashier Name Role Phone Brian Vela Primary Care Provider + Medications acetaminophen (TYLENOL) 325 mg tablet Take 650 mg by mouth every 6 (six) hours. 4 Active acyclovir (ZOVIRAX) 800 MG tablet Take 800 mg by mouth every 12 (twelve) hours. 4 Active amLODIPine (NORVASC) 10 MG tablet Take 10 mg by mouth daily. 4 Active aspirin 81 MG EC tablet Take 81 mg by mouth daily. 4 Active insulin glargine,hum.rec. anlog (LANTUS U-100 INSULIN SUBQ) Inject 9 Units under the skin every morning. 4 Active methocarbamoL (ROBAXIN) 750 MG tablet Take 750 mg by mouth 3 (three) times a day as needed (as needed for muscle spasms). 4 Active mycophenolate mofetil (CELLCEPT) 250 mg capsule Take 1,000 mg by mouth every 12 (twelve) hours. 4 Active oxyCODONE 5 MG immediate release tablet Take 10 mg by mouth every 6 (six) hours as needed for pain (specific location in comments) (surgical incisions). 4 Active apixaban (ELIQUIS) 5 mg tablet Take 5 mg by mouth 2 (two) times a day. 4 Active ergocalciferol (VITAMIN D2) 50,000 unit capsule Take 50,000 Units by mouth once a week. take for 6 weeks 4 Active fluconazole (DIFLUCAN) 200 MG tablet Take 400 mg by mouth daily. for 22 days 4 Active gabapentin (NEURONTIN) 300 MG capsule Take 300 mg by mouth every 12 (twelve) hours. 4 Active insulin lispro (ADMELOG, HUMALOG) 100 units/mL subcutaneous injection Inject 1-30 Units under the skin 4 (four) times a day before meals and nightly. Take 8 units plus sliding scale (2-10 units) subq, 3 times daily before meals and 1-5 units every night. If NOT eating, hold 8 units pre-meal insulin. Max daily dose: 59 units 4 Active tacrolimus (PROGRAF) 1 MG capsule Take 3 mg by mouth every 12 (twelve) hours. take 3 mg every 12 hours . Take with 5 mg capsule for a total of 8 mg every 12 hours 4 Active tacrolimus (PROGRAF) 5 MG capsule Take 5 mg by mouth every 12 (twelve) hours. Take 5 mg with 3 mg every 12 hours for a total of 8 mg every 12 hours 4 Active ursodioL (ACTIGALL) 300 mg capsule Take 300 mg by mouth 2 (two) times a day. 4 Active pantoprazole (PROTONIX) 40 MG tablet Take 40 mg by mouth daily. 4 Active POLYETHYLENE GLYCOL 1000 MISC Take 17 g by mouth daily. 4 Active predniSONE (DELTASONE) 5 MG tablet Take 20 mg by mouth daily. 4 Active senna 8.6 mg tablet Take 2 tablets by mouth 2 (two) times a day as needed for constipation. 4 Active atovaquone (MEPRON) 750 mg/5 mL suspension Take 1,500 mg by mouth daily. 4 Active cefadroxil (DURICEF) 1 gram tablet Take 1 g by mouth 2 (two) times a day. for 12 days 4 Active multivitamin with folic acid 400 mcg tablet Take 1 tablet by mouth daily. 4 Active docusate sodium (COLACE) 100 MG capsule Take 100 mg by mouth 2 (two) times a day. 4 Active furosemide (LASIX) 40 MG tablet Take 20 mg by mouth daily. 4 Active Social History Tobacco Use Types Packs/Day Years Used Date Smoking Tobacco: Never Assessed Home Health Assessment: Transportation Answer Date Recorded Lack of Transportation (Medical) No 01/27/2024 Lack of Transportation (Non-Medical) No 01/27/2024 Patient Unable or Declines to Respond No 01/27/2024 Education Answer Date Recorded Are you interested in more education? Not on michelle e 12/30/2023 Are you concerned about learning? Not on file 12/30/2023 No 12/30/2023 No 12/30/2023 Digital Access Answer Date Recorded No 12/30/2023 No 12/30/2023 Reliable internet access at home? Not on file 12/30/2023 Device with a working camera? Not on file Sex and Gender Information Value Date Recorded Sex Assigned at Not on file Legal Sex Male 3:04 PM EDT Gender Identity Not on file Sexual Orientation Not on file Last Filed Vital Signs Vital Sign Reading Time Taken Comments Blood Pressure 134/72 01/15/2024 10:35 AM EDT Pulse 99 01/15/2024 10:35 AM EDT Temperature 36.5 C (97.7 F) 01/15/2024 10:35 AM EDT Respiratory Rate 20 01/15/2024 10:35 AM EDT Oxygen Saturation 100% 01/15/2024 10:35 AM EDT Inhaled Oxygen Concentration - - Weight - - Height - - Body Mass Index - - Plan of Treatment Not on file Medical Devices Not on file Insurance [facility] ONE CARE MEDICARE REPLACEMENT [place]ITIA KOTHARI [id number] [facility] CARE MEDICARE REPLACEMENT [facility] CARE MEDICARE REPLACEMENT Care Teams Concession Cashier Relationship Specialty Start Date End Date Brian Vela PA [address] [place] [address] PCP - General Physician Guard Lieutenant 01/09/24 Additional Source Comments The information contained in this document represents components of the legal health record. It is not the complete legal health record.[facility]
== END 2025-05-04 09:30 | disposition home or self-care (01) ==
PROVIDERS: PCP Physician Assistant; Visit Provider Physician Assistant Medical
DX: G44.52 New daily persistent headache (NDPH) (principal); M54.50 Low back pain, unspecified

== ENCOUNTER → 2025-05-04 08:15 | Outpatient (BNVA) | payer OTHER, SELFPAY | PROVIDERS: PCP Physician Assistant; Visit Provider Physician Assistant Medical | DX: G44.52 New daily persistent headache (NDPH) (principal); M54.50 Low back pain, unspecified | CPT/HCPCS: 99212 ==

== ENCOUNTER 2025-05-31 08:45 | Outpatient (AMB) | payer OTHER, SELFPAY ==
--- NOTE | 2025-05-31 08:51 | MHC.PC.OV ---
Vital Signs 05/31/25 08:57 Height 5 ft 8 in Weight 176 lb 6 oz BMI 26.8 BP 130/68 Blood Pressure Location Lt brachial Position Sitting Pulse 77 Pulse Source Pulse Oximeter Temp 97.1 F Temp Source Temporal Artery Scan Pulse Oximetry (%) 98 Oxygen Delivery Method Room Air Intake Visit Reasons: f/u HTN/ DMII Intake Note: Patient is here to follow up on HTN, DMII. Tester Operator Helper Required: No Community Health Coordinator: Not Required per policy Accompanied by: Self / Same As Patient Allergies No Known Allergies Allergy (Verified 05/31/25 09:08) Medication List - Last Reconciled 05/31/25 by Brian Vela PA-C acetaminophen 1,000 mg (2 x 500 mg) PO Q6H PRN albuterol sulfate 90 mcg/actuation 1 inh inhalation QID PRN 30 days albuterol sulfate 2.5 mg (3 mL) inhalation Q6H PRN 30 days amlodipine 10 mg PO DAILY aspirin 81 mg PO DAILY cyclobenzaprine 5 mg PO Q8H PRN docusate sodium 100 mg PO BID ergocalciferol (vitamin D2) 1,250 mcg PO QWEEK fluticasone propionate 50 mcg/actuation (Flonase Allergy Relief) 1 spray intranasal DAILY 30 days lisinopril 5 mg PO DAILY 90 days multivitamin with folic acid 400 mcg (Daily-Jsoue (with folic acid)) 1 tab PO DAILY mycophenolate mofetil 250 mg PO DAILY oxycodone 5 mg PO Q8H PRN 3 days pantoprazole 40 mg PO DAILY plecanatide (Trulance) 3 mg PO DAILY sennosides (senna) 17.2 mg PO BID sitagliptin phosphate (Januvia) 50 mg PO DAILY sumatriptan succinate take 1 tab at onset of headache; if no relief may repeat 1 tab after at least 2 hrs; max = 4 tabs/24 hr PO tacrolimus 5 mg PO BID vit C,R-Nk-orftx-lutein-zeaxan 250-90-40-1 mg (PreserVision AREDS-2) 1 tab PO BID 90 days vit C,D-Jw-npbax-lutein-zeaxan 250-90-40-1 mg (PreserVision AREDS-2) 1 tab PO BID 90 days Tobacco use date assessed: 05/31/25 Dental Screening Dental Screen Date: 02/15/25 HPI f/u HTN/ DMII HPI Details Elroy is a 60 male here today for a follow-up visit. Patient's past medical history significant for essential hypertension , type 2 diabetes, liver cirrhosis, end-stage liver disease status post liver transplant December of 2023,, iron deficiency anemia, h/o of IV drug use and alcohol abuse (sober since 2019). Cocnerns--> no complaints today. Left Retinal artery occlusion : Recently noted to have a left retinal artery occlusion. He is followed by a retinal specialist. LIVER TRANSPLANT--> status post transplant December 2023. Continues to follow [facility] transplant Currently doing well. Continues on anti-rejection drugs those off of prednisone. Most recent liver enzymes normal Pulmonary nodule: Of note patient did get CT of chest showing a 3 mm pulmonary nodule. He is now seeing thoracic surgeon and will have his pulmonary nodule followed. .. Hypertension:? Blood pressures have been stable with current dose blood pressure medication. Continues on Amlodpine 10mg and lisinopril. Of note did have microalbuminuria on most recent urine. We have restarted lisinopril will recheck the microalbuminuria. Microalbuminuria likely due to diabetes and hypertension. ? . ? DMII: He continues on Januvia. Today's A1c of 5.4 . He continues to be very physically active riding his bike and walking on a daily basis. Noted significant microalbuminuria most recent labs, recheck showed improvement though still elevated. [facility] Medical History Asthma Umbilical hernia GERD (gastroesophageal reflux disease) Somatic dysfunction of left sacroiliac joint Strain of lumbar paraspinal muscle Hemorrhoid Hx of esophageal varices Hepatic encephalopathy GAVE (gastric antral vascular ectasia) Hx of Clostridium difficile infection Head injury Portal hypertension History of blood transfusion Iron deficiency anemia Pain aggravated by swallowing Swallowed chicken bone Patellofemoral pain syndrome of both knees Hepatitis C virus Osteoarthritis of left knee DMII (diabetes mellitus, type 2) Migraine headache Headache Neck pain Malnutrition HTN (hypertension) Other otitis externa, right ear Surgical History Hx of liver transplant History of surgery of liver History of esophagogastroduodenoscopy (EGD) History of abdominal paracentesis History of colonoscopy Family History (Reviewed 05/31/25 @ 09: by Brian Vela PA-C) Father No problems noted. Mother Asthma Diabetes Social History (Reviewed 05/31/25 @ 09: by Brian Vela PA-C) Household Members: Family Household Members Other:: lives with his brother and brother's spouse Housing: House Are you a primary career resource specialist to a significant other at home: No Do you presently have visiting nurse or other home services: No Alcohol intake: never Patient Tobacco Use Status: Former Tobacco user e-Cigarette/Vaping Use: Never Used Second Hand Smoke Exposure: Yes Advance Directives Date on File: 07/17/20 service: No Current occupational status: disabled Cognitive needs: No Hearing needs: No Vision needs: No Questionnaire Thrive Questionnaire Date Thrive assessed: 02/11/25 I am a: Patient What is your living situation today?: I have a steady place to live Within the past 12 months, did the food you bought not last and you didn't have the money to get more?: Never true Within the past 12 months, did you worry whether your food would run out before you got money to buy more?: Never true Do you have trouble paying for medicines?: No Do you have trouble getting transportation to medical appointments?: No Do you have trouble paying your heating and electricity bill?: No Do you have trouble taking care of your child, family member or friend?: No Do you have trouble with day-to-day activities such as bathing, preparing meals, shopping, managing finances, etc.?: No Are you currently unemployed and looking for a job?: No Are you interested in more education?: No Please select the resources that you would like help with: Housing/Skilled Nursing Currently or been in a relationship where the following occur: No concerns reported THRIVE Score: 0 CHATA-7 AMB Questionnaire CHATA-7 Date CHATA - 7 assessed: 02/15/25 Source: Developed by Drs. Yuri Lowe, Vianey Mclean, Paul Traore and colleagues, with an educational yariel from [employer]. Review of Systems Const Denies headache(s) Eyes Denies loss of vision ENT Denies vertigo, Denies dizziness, Denies headache(s) and Denies sore throat Card Denies chest pain, Denies leg edema and Denies lightheadedness Resp Denies cough, Denies hemoptysis and Denies wheezing GI Denies abdominal pain, Denies melena, Denies constipation, Denies diarrhea and Denies vomiting Denies dysuria, Denies urinary frequency and Denies urinary urgency Musc Denies arthralgias, Denies joint swelling, Denies numbness and Denies tingling Neuro Denies Abnormal speech present, Denies behavioral changes, Denies vertigo, Denies dizziness, Denies headache(s), Denies loss of vision, Denies memory loss, Denies numbness and Denies tingling Psych Denies anxiety, Denies behavioral changes, Denies depression, Denies memory loss and Denies panic attacks Jamel/Lymph Denies easy bleeding and Denies easy bruising Aller/Immun Denies wheezing Physical exam (Primary Care) Vital Signs: Last Vital Signs Temp 97.1 F 05/31/25 08:57 Pulse 77 05/31/25 08:57 BP 130/68 05/31/25 08:57 Pulse Ox 98 05/31/25 08:57 Oxygen Delivery Method Room Air 05/31/25 08:57 BMI result Body Mass Index 26.8 Tobacco/Smoking Status: Tobacco use Status Tobacco use date assessed 05/31/25 05/31/25 09:03 Patient Tobacco Use Status Former Tobacco user 05/31/25 08:52 e-Cigarette/Vaping Use Never Used 05/31/25 08:52 Thrive Assessment: Date of Thrive Assessment Date Thrive assessed 02/11/25 05/31/25 08:52 Currently or been in a relationship where the following occur: No concerns reported Const General: healthy appearing, no acute distress, alert and awake Nutritional Appearance: well nourished Orientation/consciousness: oriented to person, oriented to place and oriented to time HENMT Ears: TM's normal bilaterally General nose exam: Normal nasal mucous membranes and turbinates present Eyes Conjunctivae: conjunctivae normal Sclerae: sclerae normal Pupils: Equal, round and reactive pupils present Neck Neck: Yes no lymphadenopathy and Yes no JVD Thyroid: Thyroid normal Carotids: no bruits Resp Effort & Inspection: normal respiratory effort and not tachypneic Auscultation: no crackles, no rales, no rhonchi and no wheezes Cardio Rate: regular rate Rhythm: regular rhythm Heart sounds: no murmurs and normal S1 and S2 GI Palpation (GI): Soft to palpation, nontender, no hepatomegaly and no splenomegaly Auscultation: normal bowel sounds Skin General skin exam: no rashes or lesions noted and dry skin Neuro General: oriented to person, oriented to place and oriented to time Cranial nerves: Yes Equal, round and reactive pupils present Speech: No Abnormal speech present Gait exam (Neuro): Normal gait present Motor exam (neuro): no tremor noted Extrem Right upper extremity: full ROM Left upper extremity: full ROM Right lower extremity: full ROM; no edema Left lower extremity: full ROM; no edema Psych Mental Status: mental status grossly normal Speech and movement: Normal speech and movement present Affect: normal affect Attitude: cooperative Thought process: Normal thought process present Results AMB Hemoglobin A1c AMB Hemoglobin A1c 5.4 % Last Edit by AMANDA Coronado on 05/31/25 09:12 Coding Level of Care Code Est Pt Level 4 (11931) Diagnoses Type 2 diabetes mellitus without complication, without long-term current use of insulin E11.9 Diabetes mellitus longterm insulin use: without longterm use Diabetes mellitus complication status: without complication CHATA (generalized anxiety disorder) F41.1 Microalbuminuria due to type 2 diabetes mellitus E11.29; R80.9 Liver transplant recipient Z94.4 Essential hypertension I10 Hypertension type: essential hypertension Acute midline low back pain without sciatica M54.50 Chronicity: acute Back pain laterality: midline Sciatica presence: without sciatica Intractable migraine without aura and without status migrainosus G43.019 Migraine type: without aura Status migrainosus presence: without status migrainosus Intractability: intractable Assessment & Plan Assessment & Plan (1) DMII (diabetes mellitus, type 2): Code(s): E11.9 - Type 2 diabetes mellitus without complications Category: Medical Qualifiers: Diabetes mellitus longterm insulin use: without watermelon inspector use Diabetes mellitus complication status: without complication Qualified Code(s): E11.9 - Type 2 diabetes mellitus without complications Plan: Patient's type 2 diabetes well controlled with A1c now at 5.4. Now currently using Januvia 50 mg. Goal A1c is to remain below 6.5. (2) CHATA (generalized anxiety disorder): Code(s): F41.1 - Generalized anxiety disorder Category: Medical Plan: Patient reports his anxiety is fairly well controlled without medication. (3) Microalbuminuria due to type 2 diabetes mellitus: Code(s): E11.29 - Type 2 diabetes mellitus with other diabetic kidney complication; R80.9 - Proteinuria, unspecified Category: Medical Plan: Have noted worsening microalbuminuria over the last few months. Though note has not been taking lisinopril for some unclear reason. Will restart lisinopril and hopes to help stabilize his microalbuminuria. Otherwise it seems his blood pressure and type 2 diabetes has been well controlled (4) Liver transplant recipient: Code(s): Z94.4 - Liver transplant status Category: Surgical Plan: Patient is status post liver transplant in 12/31/2023. Continues to follow up with the [facility] transplant team. He is doing quite well in his pain is fairly controlled. He continues on anti-rejection drugs lifelong. (5) HTN (hypertension): Code(s): I10 - Essential (primary) hypertension Category: Medical Qualifiers: Hypertension type: essential hypertension Qualified Code(s): I10 - Essential (primary) hypertension Plan: Patient's blood pressure acceptable today in office. Will continue his current dose of amlodipine with goal blood pressure to remain below 140/90. Of note does have microalbuminuria thus we have restarted lisinopril (6) Low back pain: Code(s): M54.50 - Low back pain, unspecified Category: Medical Qualifiers: Chronicity: acute Back pain laterality: midline Sciatica presence: without sciatica Qualified Code(s): M54.50 - Low back pain, unspecified Plan: Has noted some more acute on chronic lower back pain. He is not able to tolerate NSAIDs. Has tried Tylenol for his pain though has not been effective. Will supply patient with short-term script of low-dose oxycodone to use on a as needed basis for his low back pain. He reports his low back pain has been better since being more physically active riding his bike and walking. (7) Migraine headache: Code(s): G43.909 - Migraine, unspecified, not intractable, without status migrainosus Category: Medical Qualifiers: Migraine type: without aura Status migrainosus presence: without status migrainosus Intractability: intractable Qualified Code(s): G43.019 - Migraine without aura, intractable, without status migrainosus Plan: Patient reports having migraine from time to time that are surrounded around his left eye. Has had a CT of his head in June of 2024 that did show lacunar infarct. He is concerned about using ibuprofen due to his liver transplant history. We did discuss considering an MRI though for now will hold off. Orders: Orders AMB Hemoglobin A1c Today E11.9 - Type 2 diabetes mellitus without complications Medications: Refilled lisinopril 5 mg PO DAILY 90 tabs 1RF 90 days E11.29 - Type 2 diabetes mellitus with other diabetic kidney complication, R80.9 - Proteinuria, unspecified amlodipine 10 mg PO DAILY 90 tabs 2RF vit C,P-Xf-jidmm-lutein-zeaxan 250-90-40-1 mg (PreserVision AREDS-2) 1 tab PO BID 180 tabs 4RF 90 days H34.239 - Retinal artery branch occlusion, unspecified eye
[2025-05-31 08:57] VITALS: BP 130/68; PULSE 77; TEMP 36.2; O2SAT 98; BMI 26.8
--- OUTSIDE RECORDS SUMMARY | 2025-05-31 09:30 | XMS_ITS | Clinical Summary ---
Author Organization [facility] Address [address] [address] Phone Care Team Providers Care Bromination Equipment Operator Name Role Phone Brian Vela Primary Care [...] file Medical Devices Not on file Insurance [facility] ONE CARE MEDICARE REPLACEMENT LETITIA KOTHARI [id number] [facility] CARE MEDICARE REPLACEMENT [facility] CARE MEDICARE REPLACEMENT Care Teams Bromination Equipment Operator Relationship Specialty Start Date End Date Brian Vela PA [address] [place] [address] PCP - General Physician Mortgage Branch Manager 01/09/24 Additional Source Comments The information contained in this document represents components of the legal health record. It is not the complete legal health record.[facility]
== END 2025-05-31 09:27 | disposition home or self-care (01) ==
PROVIDERS: PCP Physician Assistant; Visit Provider Physician Assistant
DX: E11.29 Type 2 diabetes mellitus with other diabetic kidney complication (principal); F41.1 Generalized anxiety disorder; R80.9 Proteinuria, unspecified; Z94.4 Liver transplant status; I10 Essential (primary) hypertension; M54.50 Low back pain, unspecified; G43.019 Migraine without aura, intractable, without status migrainosus

== ENCOUNTER → 2025-05-31 08:45 | Outpatient (BNVA) | payer OTHER, SELFPAY | PROVIDERS: PCP Physician Assistant; Visit Provider Physician Assistant | DX: I10 Essential (primary) hypertension (principal); F41.1 Generalized anxiety disorder; E11.29 Type 2 diabetes mellitus with other diabetic kidney complication; R80.9 Proteinuria, unspecified; M54.50 Low back pain, unspecified; G43.019 Migraine without aura, intractable, without status migrainosus; H34.239 Retinal artery branch occlusion, unspecified eye; Z94.4 Liver transplant status | CPT/HCPCS: 83036; 99212 ==

== ENCOUNTER 2025-06-01 07:06 | Outpatient (REF) | payer OTHER, SELFPAY ==
[2025-06-01 07:48] LABS: Hematocrit 45.6 % (42.0-52.0); Hemoglobin 15.4 g/dl (14.0-18.0); Mean Corpuscular HGB Conc 33.8 g/dl (31.0-36.0); Mean Corpuscular Hemoglobin 28.4 pg (27.0-33.0); Mean Corpuscular Volume 84.0 fL (80.0-98.0); NRBC Abs Auto 0.000 X10*3/uL (0.0-0.012); NRBC Pct Auto 0.0 /100WBC (0.0-0.2); Platelet Count 132 X10*3/uL (160-400); Red Blood Count 5.43 X10*6/uL (4.60-5.80); White Blood Count 7.2 X10*3/uL (4.8-10.8)
[2025-06-01 08:17] LABS: Alanine Aminotransferase 16 U/L (0-40); Albumin Level 4.9 g/dL (3.5-5.0); Alkaline Phosphatase 45 U/L (39-117); Anion Gap 12 (12-20); Aspartate Amino Transferase 18 U/L (5-37); Blood Urea Nitrogen 17 mg/dL (9-16); Calcium 9.2 mg/dL (8.4-10.2); Carbon Dioxide 26 mmol/L (22-29); Chloride 108 mmol/L (96-108); Estimated Glomerular Filt Rate 57; Potassium 4.2 mmol/L (3.3-5.1); Sodium 142 mmol/L (135-145); Total Protein 7.2 g/dL (6.5-8.0)
[2025-06-01 08:27] LABS: Hemoglobin A1C 130.2356 umol/L; Total Hemoglobin (HGBA1C) 4030.5300 umol/L
[2025-06-01 09:04] LABS: Microalbum/Creatinine Ratio Ur 87.2 ug/mg cr (<30)
== END 2025-06-01 07:07 | disposition home or self-care (01) ==
LOC: HO.LAB 07:06
PROVIDERS: PCP Physician Assistant; Visit Provider Physician Assistant
DX: E11.29 Type 2 diabetes mellitus with other diabetic kidney complication (principal); R80.9 Proteinuria, unspecified
CPT/HCPCS: 36415; 80053; 82043; 82570; 83036; 85027

== ENCOUNTER 2025-06-16 11:12 | Outpatient (AMB) | payer OTHER, SELFPAY ==
[2025-06-16 11:12] VITALS: BP 128/90; PULSE 90; O2SAT 98; BMI 26.6
--- NOTE | 2025-06-16 11:12 | HO.NEPHOV_ITS ---
Vital Signs 06/16/25 11:12 Height 5 ft 8 in Weight 175 lb BMI 26.6 BP 128/90 H Blood Pressure Location Lt brachial Position Sitting Pulse 90 Pulse Source Pulse Oximeter Pulse Oximetry (%) 98 Oxygen Delivery Method Room Air Intake Visit Reasons: INP: Proteinuria-Conf Laborer [place]bark Required: No Accompanied by: Self / Same As Patient Allergies No Known Allergies Allergy (Verified 06/16/25 11:15) HPI Comments Details: Year old gentleman with past medical history of hypertension, diabetes mellitus, liver cirrhosis status post transplant in 12/2023, hepatitis-C treated in 2019 is here to establish care for proteinuria Hypertension: Since , on amlodipine 10 mg and lisinopril 5 mg Diabetes mellitus: We will controlled last A1c 5.4; since 3 years , on Januvia. Has proteinuria since 2022. [facility] Medical History Asthma Umbilical hernia GERD (gastroesophageal reflux disease) Somatic dysfunction of left sacroiliac joint Strain of lumbar paraspinal muscle Hemorrhoid Hx of esophageal varices Hepatic encephalopathy GAVE (gastric antral vascular ectasia) Hx of Clostridium difficile infection Head injury Portal hypertension History of blood transfusion Iron deficiency anemia Pain aggravated by swallowing Swallowed chicken bone Patellofemoral pain syndrome of both knees Hepatitis C virus Osteoarthritis of left knee DMII (diabetes mellitus, type 2) Migraine headache Headache Neck pain Malnutrition HTN (hypertension) Other otitis externa, right ear Surgical History Hx of liver transplant History of surgery of liver History of esophagogastroduodenoscopy (EGD) History of abdominal paracentesis History of colonoscopy Family History Father No problems noted. Mother Asthma Diabetes Social History Household Members: Family Household Members Other:: lives with his brother and brother's spouse Housing: House Are you a primary patient care coordinator to a significant other at home: No Do you presently have visiting nurse or other home services: No Alcohol intake: never Patient Tobacco Use Status: Former Tobacco user e-Cigarette/Vaping Use: Never Used Second Hand Smoke Exposure: Yes Advance Directives Date on File: 07/17/20 service: No Current occupational status: disabled Cognitive needs: No Hearing needs: No Vision needs: No Review of Systems Const Details: Const : no body aches, no chills, no excessive sweating and no fatigue Eyes: no blurry vision and no change in vision ENT: no bleeding gums and no change in voice, no dizziness Card: no chest pain, no shortness of breath, no orthopnea, no PND Resp: no cough, no excessive phlegm production, no SOB GI: no abdominal pain and no nausea, no vomiting : no hematuria, no urinary frequency and no difficulty voiding Musc: no abnormal gait, no bone pain Neuro: no weakness, no dizziness Psych: no behavioral changes and no change in appetite Endo: no change in body appearance, no cold intolerance Physical Exam Vital Signs: Last Vital Signs Pulse 90 06/16/25 11:12 Pulse Ox 98 06/16/25 11:12 Oxygen Delivery Method Room Air 06/16/25 11:12 BMI result Body Mass Index 26.6 General: not in any acute distress, comfortable, sitting on the chair Nutritional Appearance: well nourished and normal weight Eyes: normal position, no icterus Neck: No lymphadenopathy, no thyromegaly Resp: bilateral air entry equal, no added sounds present Cardio: normal S1, S2 heard, no murmur heard, no edema GI: soft, nontender, no guarding, no hepatosplenomegaly : bladder normal to inspection, bladder normal to palpation, no renal angle tenderness Skin: no rashes or lesions noted and elasticity normal Neuro: oriented to person, oriented to place, oriented to time and moves all extremities, 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 Results Reviewed Nephrology Results: Hgb, (14.0-18.0) 15.4 g/dl 06/01/25 WBC, (4.8-10.8) 7.2 X10*3/uL 06/01/25 Plt Count, (160-400) 132 X10*3/uL L 06/01/25 Sodium, (135-145) 142 mmol/L 06/01/25 Potassium, (3.3-5.1) 4.2 mmol/L 06/01/25 Chloride, (96-108) 108 mmol/L 06/01/25 Carbon Dioxide, (22-29) 26 mmol/L 06/01/25 BUN, (9-16) 17 mg/dL H 06/01/25 Creatinine, (0.5-1.4) 1.28 mg/dL 06/01/25 Calcium, (8.4-10.2) 9.2 mg/dL 06/01/25 Urine Creatinine 127.17 mg/dL 06/01/25 Assessment & Plan Assessment & Plan (1) Microalbuminuria due to type 2 diabetes mellitus: Code(s): E11.29 - Type 2 diabetes mellitus with other diabetic kidney complication; R80.9 - Proteinuria, unspecified Category: Medical (2) DMII (diabetes mellitus, type 2): Code(s): E11.9 - Type 2 diabetes mellitus without complications Category: Medical Qualifiers: Diabetes mellitus intermediate designer insulin use: without assisted use Diabetes mellitus complication status: without complication Qualified Code(s): E11.9 - T ype 2 diabetes mellitus without complications Plan Chronic kidney disease stage IIIaA2 : - possibly secondary to diabetes mellitus although he was diagnosed in 2021, can also be a assisted side effect of tacrolimus. His transplant was in 2023, has proteinuria since 2022. Would like to rule out other etiologies. - no family history of CKD, no history of renal stones in the past, NSAID use. - creatinine 1.28, GFR 57 - urine microalbumin creatinine ratio: 87.2 - Renal ultrasound showed normal sized kidneys with Multiple nonshadowing, nontwinkle echogenic foci within both kidneys in 03/2024. Had a MRI of abdomen at [place] 3 months, will look for the reports. - importance of diet, weight loss, adequate blood pressure control, well explained to patient, non-smoker, doesnt drink soda or alcohol, lives a healthy lifestyle. - will get hepatitis panel, HIV, MEDHAT, ANCA, complements, SPEP, UPEP, serum free light chains, PLA2R with next set of labs. - continue lisinopril and Januvia which would help controlling proteinuria. Hypertension: - target blood pressures less than 130/90 mm Hg - compliance: good - continue amlodipine 10mg and lisinopril 5mg. This note is constructed using voice recognition software. While every effort has been made to ensure accuracy tableau analyst errors may have been included. Total time spent in the clinic is about 40 minutes, 10 minutes on chart review, review of data, 20 minutes on encounter, physical examination, counseling, answering all the questions, 10 minutes on documentation. Will followup in 4 months with labs. Orders: Orders ANCA Vasculitides Today E11.29 - Type 2 diabetes mellitus with other diabetic kidney complication, E11.9 - Type 2 diabetes mellitus without complications, R80.9 - Proteinuria, unspecified Protein Electrophoresis,Ran Ur Today E11.29 - Type 2 diabetes mellitus with other diabetic kidney complication, E11.9 - Type 2 diabetes mellitus without complications, R80.9 - Proteinuria, unspecified Complement C4 Today E11.29 - Type 2 diabetes mellitus with other diabetic kidney complication, E11.9 - Type 2 diabetes mellitus without complications, R80.9 - Proteinuria, unspecified Sangrey/Lambda Light Chain Serum Today E11.29 - Type 2 diabetes mellitus with other diabetic kidney complication, E11.9 - Type 2 diabetes mellitus without complications, R80.9 - Proteinuria, unspecified Phospholipase A2 Receptor Pnl Today E11.29 - Type 2 diabetes mellitus with other diabetic kidney complication, E11.9 - Type 2 diabetes mellitus without complications, R80.9 - Proteinuria, unspecified UA and rflx microscopic 6 Months E11.29 - Type 2 diabetes mellitus with other diabetic kidney complication, E11.9 - Type 2 diabetes mellitus without complications, R80.9 - Proteinuria, unspecified MEDHAT Reflex Titer and Pattern Today E11.29 - Type 2 diabetes mellitus with other diabetic kidney complication, E11.9 - Type 2 diabetes mellitus without complications, R80.9 - Proteinuria, unspecified HIV Ab/Ag Today E11.29 - Type 2 diabetes mellitus with other diabetic kidney complication, E11.9 - Type 2 diabetes mellitus without complications, R80.9 - Proteinuria, unspecified Hepatitis B,C Profile Today E11.29 - Type 2 diabetes mellitus with other diabetic kidney complication, E11.9 - Type 2 diabetes mellitus without complications, R80.9 - Proteinuria, unspecified Complement C3 Today E11.29 - Type 2 diabetes mellitus with other diabetic kidney complication, E11.9 - Type 2 diabetes mellitus without complications, R80.9 - Proteinuria, unspecified Protein Electrophoresis, Serum Today E11.29 - Type 2 diabetes mellitus with other diabetic kidney complication, E11.9 - Type 2 diabetes mellitus without complications, R80.9 - Proteinuria, unspecified Microalbumin, Random (w Creat) 6 Months E11.29 - Type 2 diabetes mellitus with other diabetic kidney complication, E11.9 - Type 2 diabetes mellitus without complications, R80.9 - Proteinuria, unspecified Basic Metabolic Panel 6 Months E11.29 - Type 2 diabetes mellitus with other diabetic kidney complication, E11.9 - Type 2 diabetes mellitus without complications, R80.9 - Proteinuria, unspecified Total Protein Urine Random 6 Months E11.29 - Type 2 diabetes mellitus with other diabetic kidney complication, E11.9 - Type 2 diabetes mellitus without complications, R80.9 - Proteinuria, unspecified Creatinine Urine 6 Months E11.29 - Type 2 diabetes mellitus with other diabetic kidney complication, E11.9 - Type 2 diabetes mellitus without complications, R80.9 - Proteinuria, unspecified Coding Level of Care Code New Pt Level 4 (16043) Diagnoses Microalbuminuria due to type 2 diabetes mellitus E11.29; R80.9 Type 2 diabetes mellitus without complication, without long-term current use of insulin E11. Diabetes mellitus intermediate designer insulin use: without intermediate designer use Diabetes mellitus complication status: without complication
--- OUTSIDE RECORDS SUMMARY | 2025-06-16 12:52 | XMS_ITS | Clinical Summary ---
Author Organization [facility] Address [address] [address] Phone Care Team Providers Care Art Gilder Name Role Phone Brian Vela Primary Care [...] on file Insurance [facility] ONE CARE MEDICARE REPLACEMENT LETITIA KOTHARI [id number] [facility] CARE MEDICARE REPLACEMENT [facility] CARE MEDICARE REPLACEMENT Care Teams Art Gilder Relationship Specialty Start Date End Date Brian Vela PA [address] [place] [address] PCP - General Physician Enologist 01/09/24 Additional Source Comments The information contained in this document represents components of the legal health record. It is not the complete legal health record.[facility]
== END 2025-06-16 11:45 | disposition home or self-care (01) ==
LOC: HO.HKA 11:12
PROVIDERS: PCP Physician Assistant; Referring Provider Physician Assistant; Visit Provider Internal Medicine Critical Care Medicine
DX: E11.29 Type 2 diabetes mellitus with other diabetic kidney complication (principal); R80.9 Proteinuria, unspecified
CPT/HCPCS: 99204

== ENCOUNTER → 2025-06-16 11:12 | Outpatient (BNVA) | payer OTHER, SELFPAY | PROVIDERS: PCP Physician Assistant; Referring Provider Physician Assistant; Visit Provider Internal Medicine Critical Care Medicine | DX: E11.29 Type 2 diabetes mellitus with other diabetic kidney complication (principal); R80.9 Proteinuria, unspecified; E11.22 Type 2 diabetes mellitus with diabetic chronic kidney disease; N18.31 Chronic kidney disease, stage 3a; Z94.4 Liver transplant status; Z79.84 Long term (current) use of oral hypoglycemic drugs | CPT/HCPCS: 99202 ==

== ENCOUNTER 2025-06-16 11:48 | Outpatient (REF) | payer OTHER, SELFPAY ==
[2025-06-17 04:21] LABS: HBS Num1 29.90 mIU/mL (0-7.99); HBc Num1 8.92 S/CO (0.00-0.79); HBsAGNum1 0.50 S/CO (0.00-0.99); HIV Num 1 0.05 S/CO (0.00-0.99); Hepatitis B Surface Antigen Negative (Negative); ~HepC Num1 12.16 S/CO (0.00-0.79); ~Hepatitis B Surface Antibody REACTIVE (Nonreactive); ~Hepatitis C Antibody Reactive (Nonreactive)
[2025-06-17 05:56] LABS: HBc Num2 8.30 S/CO; HBc Num3 8.93 S/CO
[2025-06-17 21:58] LABS: Prot Elec - Albumin 4.6 g/dL (3.8-4.8); Prot Elec - Alpha1 0.3 g/dL (0.2-0.3); Prot Elec - Alpha2 0.7 g/dL (0.5-0.9); Prot Elec - Beta 1 0.4 g/dL (0.4-0.6); Prot Elec - Beta 2 0.3 g/dL (0.2-0.5); Prot Elec - Gamma 0.7 g/dL (0.8-1.7); Prot Elec - Total Protein 6.9 g/dL (6.1-8.1)
[2025-06-18 08:43] LABS: Hepatitis B Core Antibody IgM NON-REACTIVE (NON-REACTIVE)
[2025-06-21 10:59] LABS: Anti Nuclear Antibody Screen NEGATIVE (NEGATIVE)
[2025-06-21 16:34] LABS: Kappa, Serum 150 mg/dL (176-443); Kappa/Lambda Ratio, Serum 1.72 (1.29-2.55); Lambda, Serum 87 mg/dL (91-240)
[2025-06-21 23:58] LABS: Phospholipase A2 IgG ELISA <4 RU/mL; Phospholipase A2 IgG IFA NEGATIVE (NEGATIVE)
== END 2025-06-16 11:49 | disposition home or self-care (01) ==
LOC: HO.10HDL 11:48
PROVIDERS: Visit Provider Internal Medicine Critical Care Medicine
DX: E11.29 Type 2 diabetes mellitus with other diabetic kidney complication (principal); R80.9 Proteinuria, unspecified; E11.9 Type 2 diabetes mellitus without complications
CPT/HCPCS: 36415; 83520; 83883; 84165; 86038; 86160; 86255; 86704; 86705; 86706; 86803; 87340; 87389

== ENCOUNTER 2025-09-05 10:57 | Outpatient (AMB) | payer OTHER, SELFPAY ==
[2025-09-05 11:15] VITALS: BP 108/82; PULSE 92; TEMP 36.8; O2SAT 97; BMI 27.4
--- NOTE | 2025-09-05 11:15 | AM.OFFWIN_ITS ---
Intake Vital Signs 09/05/25 11:15 Height 5 ft 8 in Weight 180 lb BMI 27.4 BP 108/82 Blood Pressure Location Lt brachial Position Sitting Pulse 92 Pulse Source Pulse Oximeter Temp 98.2 F Temp Source Oral Pulse Oximetry (%) 97 Oxygen Delivery Method Room Air Intake Visit Reasons: EP-lt side mid back pain Intake Note: Patient presents c/o left sided mid back pain, indigestion x8 days. Patient Tobacco Use Status: Former Tobacco user Allergies No Known Allergies Allergy (Verified 09/05/25 11:18) Do you need a note to return to daycare/school/sports/work: No HPI HPI Comments History of Present Illness Details History - The patient is a 60 year old individua l presenting with left-sided back musculoskeletal pain. - The pain has been present for about ei ght days and is localized to the left side, without radiation to the chest or buttocks. - The patient engages in regular physica l activity, including push-ups and pull- ups at home, but reports no specific injury or unusual activity preceding the onset of pain. - The pain is exacerbated by movements s uch as breathing, burping, and turning in bed, but there is no associated numbness, tingling, or rash. - The patient has not taken any medicati ons for the pain and reports that previous experiences with pain medications have been ineffective. - He states that the only thing that wor ks for him is oxycodone and wants this for his pain. - He has pain with movement. - He has no rashes. - He denies numbness or tingling. Physical Exam General: cooperative, healthy appearing and comfortable, patient oriented x3 Head: Normal to inspection, normocephalic/atraumatic Effort & Inspection: Normal respiratory effort and able to speak in complete sentences. Cardiac: RRR, no M/R/G noted. Normal S1 and S2. Respiratory: Clear to auscultation bilaterally. No w/r/r noted. Back/spine: No CVA tenderness bilaterally. Cervical, thoracic and lumbar spine normal to inspection. Cervical ROM normal, no midline spinous tenderness noted. Thoracic ROM normal, lumbar ROM normal. No midline vertebral spinous tenderness noted. No step offs noted. TTP of the left thoracic muscles. No TTP of the lumbar paraspinous or paravertebral muscles. DTR are 2+ on the lower extremities noted. Ambulates with a steady gait. Extremities: Straight leg raise test negative on right; Straight leg raise test negative on left; motor strength normal 5/5 bilaterally. Neuro: Sensation intact. No numbness or tingling reported. Patient was informed and verbally consented to the use of an ambient scribe for clinic note documentation during this visit. [facility] Medical History Asthma Umbilical hernia GERD (gastroesophageal reflux disease) Somatic dysfunction of left sacroiliac joint Strain of lumbar paraspinal muscle Hemorrhoid Hx of esophageal varices Hepatic encephalopathy GAVE (gastric antral vascular ectasia) Hx of Clostridium difficile infection Head injury Portal hypertension History of blood transfusion Iron deficiency anemia Pain aggravated by swallowing Swallowed chicken bone Patellofemoral pain syndrome of both knees Hepatitis C virus Osteoarthritis of left knee DMII (diabetes mellitus, type 2) Migraine headache Headache Neck pain Malnutrition HTN (hypertension) Other otitis externa, right ear Surgical History Hx of liver transplant History of surgery of liver History of esophagogastroduodenoscopy (EGD) History of abdominal paracentesis History of colonoscopy Family History Father No problems noted. Mother Asthma Diabetes Social History Household Members: Family Household Members Other:: lives with his brother and brother's spouse Housing: House Are you a primary medicare compliance auditor to a significant other at home: No Do you presently have visiting nurse or other home services: No Alcohol intake: never Patient Tobacco Use Status: Former Tobacco user e-Cigarette/Vaping Use: Never Used Second Hand Smoke Exposure: Yes Advance Directives Date on File: 07/17/20 service: No Current occupational status: disabled Cognitive needs: No Hearing needs: No Vision needs: No Review of Systems Const All systems reviewed & are unremarkable except as noted in HPI and below Physical Exam Vital Signs: Last Vital Signs Temp 98.2 F 09/05/25 11:15 Pulse 92 09/05/25 11:15 BP 108/82 09/05/25 11:15 Pulse Ox 97 09/05/25 11:15 Oxygen Delivery Method Room Air 09/05/25 11:15 BMI result Body Mass Index 27.4 Assessment & Plan Assessment & Plan (1) Strain of thoracic region: Code(s): S29.019A - Strain of muscle and tendon of unspecified wall of thorax, initial encounter Qualifiers: Encounter type: initial encounter Qualified Code(s): S29.019A - Strain of muscle and tendon of unspecified wall of thorax, initial encounter Plan Most likely strain plan - Prescribe naproxen 500 mg twice daily for pain management. - Prescribe a muscle relaxant to be taken three times a day to alleviate muscle spasms. - Advise the use of a heating pad to help relieve muscle tension. - Recommend contacting the primary care physician for further pain management if current treatment is ineffective. - follow up wt PCP Medications: New cyclobenzaprine 5 mg PO Q8H PRN 21 tabs 0RF Muscle Spasm 7 days naproxen 500 mg PO Q12H PRN 20 tabs 0RF pain 7 days Coding Level of Care Code Est Pt Level 3 (59590) Diagnoses Strain of thoracic region, initial encounter S29.019A Encounter type: initial encounter
--- OUTSIDE RECORDS SUMMARY | 2025-09-05 14:04 | XMS_ITS | Clinical Summary ---
Author Organization [facility] Address [address] [address] Phone Care Team Providers Care Corporate Pilot Name Role Phone Brian Vela Primary Care [...] file Medical Devices Not on file Insurance [facility] ONE CARE MEDICARE REPLACEMENT LETITIA KOTHARI [id number] [facility] CARE MEDICARE REPLACEMENT [facility] CARE MEDICARE REPLACEMENT Care Teams Corporate Pilot Relationship Specialty Start Date End Date Brian Vela PA [address] [place] [address] PCP - General Physician Jet Dyeing Machine Tender 01/09/24 Additional Source Comments The information contained in this document represents components of the legal health record. It is not the complete legal health record.[facility]
== END 2025-09-05 12:35 | disposition home or self-care (01) ==
PROVIDERS: PCP Physician Assistant; Visit Provider Physician Assistant Medical
DX: S29.019A Strain of muscle and tendon of unspecified wall of thorax, initial encounter (principal)

== ENCOUNTER → 2025-09-05 10:57 | Outpatient (BNVA) | payer OTHER, SELFPAY | PROVIDERS: PCP Physician Assistant; Visit Provider Physician Assistant Medical | DX: I10 Essential (primary) hypertension (principal); S29.019A Strain of muscle and tendon of unspecified wall of thorax, initial encounter; X58.XXXA Exposure to other specified factors, initial encounter; Y93.9 Activity, unspecified; Y92.9 Unspecified place or not applicable; Y99.9 Unspecified external cause status | CPT/HCPCS: 99212 ==

== ENCOUNTER 2025-09-30 06:38 | Outpatient (REF) | payer OTHER, SELFPAY ==
--- OUTSIDE RECORDS SUMMARY | 2025-09-30 06:41 | XMS_ITS | Clinical Summary ---
Author Organization [facility] Address [address] [address] Phone Care Team Providers Care Straw Hat Washer Operator Name Role Phone Brian Vela Primary [...] file Medical Devices Not on file Insurance [facility] ONE CARE MEDICARE REPLACEMENT LETITIA KOTHARI [id number] [facility] CARE MEDICARE REPLACEMENT [facility] CARE MEDICARE REPLACEMENT Care Teams Straw Hat Washer Operator Relationship Specialty Start Date End Date Brian Vela PA [address] [place] [address] PCP - General Physician Banking And Finance Instructor 01/09/24 Additional Source Comments The information contained in this document represents components of the legal health record. It is not the complete legal health record.[facility]
[2025-09-30 08:29] LABS: Hematocrit 46.0 % (42.0-52.0); Hemoglobin 15.7 g/dl (14.0-18.0); Mean Corpuscular HGB Conc 34.1 g/dl (31.0-36.0); Mean Corpuscular Hemoglobin 28.1 pg (27.0-33.0); Mean Corpuscular Volume 82.3 fL (80.0-98.0); NRBC Abs Auto 0.000 X10*3/uL (0.0-0.012); NRBC Pct Auto 0.0 /100WBC (0.0-0.2); Platelet Count 117 X10*3/uL (160-400); Red Blood Count 5.59 X10*6/uL (4.60-5.80); White Blood Count 6.9 X10*3/uL (4.8-10.8)
[2025-09-30 08:31] LABS: PLT ABN DIST 1
[2025-09-30 08:38] LABS: Sodium 141 mmol/L (135-145)
[2025-09-30 08:39] LABS: Alanine Aminotransferase 20 U/L (0-40); Albumin Level 4.8 g/dL (3.5-5.0); Alkaline Phosphatase 45 U/L (39-117); Anion Gap 10 (12-20); Aspartate Amino Transferase 24 U/L (5-37); Blood Urea Nitrogen 16 mg/dL (9-16); Calcium 9.4 mg/dL (8.4-10.2); Carbon Dioxide 26 mmol/L (22-29); Chloride 109 mmol/L (96-108); Cholesterol 151 mg/dL (<200); Estimated Glomerular Filt Rate > 60; HDL Cholesterol 34 mg/dL (>40); Potassium 4.3 mmol/L (3.3-5.1); Total Protein 6.9 g/dL (6.5-8.0); Triglycerides 104 mg/dL (<150)
[2025-09-30 09:35] LABS: Microalbum/Creatinine Ratio Ur 92.7 ug/mg cr (<30)
== END 2025-09-30 06:39 | disposition home or self-care (01) ==
LOC: HO.LAB 06:38
PROVIDERS: PCP Physician Assistant; Visit Provider Physician Assistant
DX: E11.9 Type 2 diabetes mellitus without complications (principal); I10 Essential (primary) hypertension; Z12.5 Encounter for screening for malignant neoplasm of prostate
CPT/HCPCS: 36415; 80053; 80061; 82043; 82570; 84153; 85027

== ENCOUNTER 2025-10-03 08:28 | Outpatient (AMB) | payer OTHER, SELFPAY ==
[2025-10-03 08:40] VITALS: BP 116/82; PULSE 81; O2SAT 98; BMI 27.3
--- NOTE | 2025-10-03 08:40 | MHC.PC.OV ---
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: No Accompanied by: Self / Same As Patient Allergies No Known Allergies Allergy (Verified 10/03/25 08:53) Medication List - Last Reconciled 10/03/25 by Brian Vela PA-C acetaminophen 1,000 mg (2 x 500 mg) PO Q6H PRN albuterol sulfate 90 mcg/actuation 1 inh inhalation QID PRN 30 days albuterol sulfate 2.5 mg (3 mL) inhalation Q6H PRN 30 days amlodipine 10 mg PO DAILY aspirin 81 mg PO DAILY cyclobenzaprine 5 mg PO Q8H PRN cyclobenzaprine 5 mg PO Q8H PRN 7 days docusate sodium 100 mg PO BID ergocalciferol (vitamin D2) 1,250 mcg PO QWEEK fluticasone propionate 50 mcg/actuation (Flonase Allergy Relief) 1 spray intranasal DAILY 30 days lisinopril 5 mg PO DAILY 90 days multivitamin with folic acid 400 mcg (Daily-Josue (with folic acid)) 1 tab PO DAILY naproxen 500 mg PO Q12H PRN 7 days oxycodone 5 mg PO Q8H PRN 3 days pantoprazole 40 mg PO DAILY sennosides (senna) 17.2 mg PO BID sitagliptin phosphate (Januvia) 50 mg PO DAILY 90 days sumatriptan succinate take 1 tab at onset of headache; if no relief may repeat 1 tab after at least 2 hrs; max = 4 tabs/24 hr orally PRN; tacrolimus 5 mg PO BID vit C,U-Ne-negni-lutein-zeaxan 250-90-40-1 mg (PreserVision AREDS-2) 1 tab PO BID 90 days Tobacco use date assessed: 10/03/25 Dental Screening Dental Screen Date: 10/03/25 Did you have a dental visit in the last 12 months?: Yes Did you have a dental problem in the last 6 months where you did not have access to dental care?: No Was dental information given to patient?: Patient has dentist HPI f/u DMII/ HTN HPI Details Elroy is a 60 male here today for a follow-up visit. Patient's past medical history significant for essential hypertension , type 2 diabetes, liver cirrhosis, end-stage liver disease status post liver transplant December of 2023,, iron deficiency anemia, h/o of IV drug use and alcohol abuse (sober since 2019). Recently was seen at the walk-in clinic for acute thoracic and flank pain. He was given a muscle relaxer which was helpful. LIVER TRANSPLANT--> status post transplant December 2023. Continues to follow [facility] transplant Currently doing well. Continues on anti-rejection drugs those off of prednisone. Most recent liver enzymes normal Pulmonary nodule: Of note patient did get CT of chest showing a 3 mm pulmonary nodule. He is now seeing thoracic surgeon and will have his pulmonary nodule followed. .. Hypertension:? Blood pressures have been stable with current dose blood pressure medication. Continues on Amlodpine 10mg and lisinopril. Of note did have microalbuminuria on most recent urine. We have restarted lisinopril will recheck the microalbuminuria. Microalbuminuria likely due to diabetes and hypertension. ? . ? DMII: He continues on Januvia. Today's A1c of 5.5. He continues to be very physically active riding his bike and walking on a daily basis. Noted significant microalbuminuria most recent labs, recheck showed improvement though still elevated. Laboratory Tests 02/01/25 02/15/25 06/01/25 Unknown 11:30 07:09 RBC Creatinine Fasting Glucose Hgb A1c (Clinic) 5.5 ALT 17 Cholesterol LDL Cholesterol, C alc PSA Screen Urine Microalbumin 111.0 06/01/25 09/30/25 09/30/25 07:13 06:08 06:52 RBC 5.59 Creatinine 1.22 Fasting Glucose 110 H 118 H Hgb A1c (Clinic) ALT Cholesterol 151 LDL Cholesterol, C alc 97 PSA Screen 1.12 Urine Microalbumin 113.0 [facility] Medical History Asthma Umbilical hernia GERD (gastroesophageal reflux disease) Somatic dysfunction of left sacroiliac joint Strain of lumbar paraspinal muscle Hemorrhoid Hx of esophageal varices Hepatic encephalopathy GAVE (gastric antral vascular ectasia) Hx of Clostridium difficile infection Head injury Portal hypertension History of blood transfusion Iron deficiency anemia Pain aggravated by swallowing Swallowed chicken bone Patellofemoral pain syndrome of both knees Hepatitis C virus Osteoarthritis of left knee DMII (diabetes mellitus, type 2) Migraine headache Headache Neck pain Malnutrition HTN (hypertension) Other otitis externa, right ear Surgical History Hx of liver transplant History of surgery of liver History of esophagogastroduodenoscopy (EGD) History of abdominal paracentesis History of colonoscopy Family History Father No problems noted. Mother Asthma Diabetes Social History Household Members: Family Household Members Other:: lives with his brother and brother's spouse Housing: House Are you a primary resident care provider to a significant other at home: No Do you presently have visiting nurse or other home services: No Alcohol intake: never Patient Tobacco Use Status: Former Tobacco user e-Cigarette/Vaping Use: Never Used Second Hand Smoke Exposure: Yes Advance Directives Date on File: 07/17/20 service: No Current occupational status: disabled Cognitive needs: No Hearing needs: No Vision needs: No Questionnaire PHQ-9 Over the last 2 weeks, how often have you been bothered by any of the following problems? 1. Little interest or pleasure in doing things: not at all 2. Feeling down, depressed, or hopeless: not at all 3. Trouble falling or staying asleep, or sleeping too much: not at all 4. Feeling tired or having little energy: not at all 5. Poor appetite or overeating: not at all 6. Feeling bad about yourself - or that you are a failure or have let yourself or your family down: not at all 7. Trouble concentrating on things, such as reading the newspaper or watching television: not at all 8. Moving or speaking so slowly that other people could have noticed. Or the opposite - being so fidgety or restless that you have been moving around a lot more than usual: not at all 9. Thoughts that you would be better off or of hurting yourself in some way: not at all Total score: 0 Depression Screening Interpretation: Negative Depression Screening Done: Yes 01425 - PHQ-9 Billing: Yes Source: Developed by Vianey Obando Kurt Kroenke and colleagues, with an educational yariel from [employer]. Thrive Questionnaire Date Thrive assessed: 10/03/25 I am a: Patient What is your living situation today?: I have a steady place to live Within the past 12 months, did the food you bought not last and you didn't have the money to get more?: Never true Within the past 12 months, did you worry whether your food would run out before you got money to buy more?: Never true Do you have trouble paying for medicines?: No Do you have trouble getting transportation to medical appointments?: No Do you have trouble paying your heating and electricity bill?: No Do you have trouble taking care of your child, family member or friend?: No Do you have trouble with day-to-day activities such as bathing, preparing meals, shopping, managing finances, etc.?: No Are you currently unemployed and looking for a job?: No Are you interested in more education?: No Please select the resources that you would like help with: Housing/Intermediate Currently or been in a relationship where the following occur: No concerns reported THRIVE Score: 0 AUDIT C Alcohol Use Questionnaire (AUDIT-C) 1. How often do you have a drink containing alcohol?: Never 3. How often do you have six or more drinks on one occasion?: Never Total Score: 0 CHATA-7 AMB Questionnaire CHATA-7 Date CHATA - 7 assessed: 10/03/25 Feeling nervous, anxious, or on edge: 0 = Not at all Not being able to stop or control worryin = Not at all Worrying too much about different things: 0 = Not at all Trouble relaxin = Not at all Being so restless that it is hard to sit still: 0 = Not at all Becoming easily annoyed or irritable: 0 = Not at all Feeling afraid as if something awful might happen: 0 = Not at all Total CHATA-7 score (0-4 normal; 5-9 mild; 10-14 moderate; 15-21 severe): 0 Source: Developed by Vianey Obando Kurt Kroenke and colleagues, with an educational yariel from [employer]. CHATA-7 Assessment Billing CHATA-7 Assessment Tool: CHATA-7 Assessment 52103 Review of Systems Const Denies headache(s) Eyes Denies loss of vision ENT Denies vertigo, Denies dizziness, Denies headache(s) and Denies sore throat Card Denies chest pain, Denies leg edema and Denies lightheadedness Resp Denies cough, Denies hemoptysis and Denies wheezing GI Denies abdominal pain, Denies melena, Denies constipation, Denies diarrhea and Denies vomiting Denies dysuria, Denies urinary frequency and Denies urinary urgency Musc Denies arthralgias, Denies joint swelling, Denies numbness and Denies tingling Neuro Denies Abnormal speech present, Denies behavioral changes, Denies vertigo, Denies dizziness, Denies headache(s), Denies loss of vision, Denies memory loss, Denies numbness and Denies tingling Psych Denies anxiety, Denies behavioral changes, Denies depression, Denies memory loss and Denies panic attacks Jamel/Lymph Denies easy bleeding and Denies easy bruising Aller/Immun Denies wheezing Physical exam (Primary Care) Vital Signs: Last Vital Signs Pulse 81 10/03/25 08:40 BP 116/82 10/03/25 08:40 Pulse Ox 98 10/03/25 08:40 Oxygen Delivery Method Room Air 10/03/25 08:40 BMI result Body Mass Index 27.3 Tobacco/Smoking Status: Tobacco use Status Tobacco use date assessed 10/03/25 10/03/25 08:44 Patient Tobacco Use Status Former Tobacco user 10/03/25 08:44 e-Cigarette/Vaping Use Never Used 10/03/25 08:44 PHQ-9: PHQ-9 Score PHQ-9: Total score 0 10/03/25 08:44 Depression Screening Interpretation: Negative Thrive Assessment: Date of Thrive Assessment Date Thrive assessed 10/03/25 10/03/25 08:44 Currently or been in a relationship where the following occur: No concerns reported Const General: healthy appearing, no acute distress, alert and awake Nutritional Appearance: well nourished Orientation/consciousness: oriented to person, oriented to place and oriented to time HENMT Ears: TM's normal bilaterally General nose exam: Normal nasal mucous membranes and turbinates present Eyes Conjunctivae: conjunctivae normal Sclerae: sclerae normal Pupils: Equal, round and reactive pupils present Neck Neck: Yes no lymphadenopathy and Yes no JVD Thyroid: Thyroid normal Carotids: no bruits Resp Effort & Inspection: normal respiratory effort and not tachypneic Auscultation: no crackles, no rales, no rhonchi and no wheezes Cardio Rate: regular rate Rhythm: regular rhythm Heart sounds: no murmurs and normal S1 and S2 GI Palpation (GI): Soft to palpation, nontender, no hepatomegaly and no splenomegaly Auscultation: normal bowel sounds Skin General skin exam: no rashes or lesions noted and dry skin Neuro General: oriented to person, oriented to place and oriented to time Cranial nerves: Yes Equal, round and reactive pupils present Speech: No Abnormal speech present Gait exam (Neuro): Normal gait present Motor exam (neuro): no tremor noted Extrem Right upper extremity: full ROM Left upper extremity: full ROM Right lower extremity: full ROM; no edema Left lower extremity: full ROM; no edema Psych Mental Status: mental status grossly normal Speech and movement: Normal speech and movement present Affect: normal affect Attitude: cooperative Thought process: Normal thought process present Coding Level of Care Code Est Pt Level 4 (41163) Diagnoses Type 2 diabetes mellitus without complication, without long-term current use of insulin E11.9 Diabetes mellitus senior living insulin use: without senior living use Diabetes mellitus complication status: without complication CHATA (generalized anxiety disorder) F41.1 Microalbuminuria due to type 2 diabetes mellitus E11.29; R80.9 Liver transplant recipient Z94.4 Essential hypertension I10 Hypertension type: essential hypertension Additional Codes PHQ-9 - 52443 - PHQ-9 Billing: Yes ([id number]) CHATA-7 Assessment Billing - CHATA-7 Assessment Tool: CHATA-7 Assessment 52600 ([id number]) Assessment & Plan Assessment & Plan (1) DMII (diabetes mellitus, type 2): Code(s): E11.9 - Type 2 diabetes mellitus without complications Category: Medical Qualifiers: Diabetes mellitus senior living insulin use: 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 Now currently using Januvia 50 mg. Goal A1c is to remain below 6.5. (2) CHATA (generalized anxiety disorder): Code(s): F41.1 - Generalized anxiety disorder Category: Medical Plan: Patient reports his anxiety is fairly well controlled without medication. (3) Microalbuminuria due to type 2 diabetes mellitus: Code(s): E11.29 - Type 2 diabetes mellitus with other diabetic kidney complication; R80.9 - Proteinuria, unspecified Category: Medical Plan: Have noted worsening microalbuminuria over the last few months. He continues on lisinopril and microalbuminuria has improved Otherwise it seems his blood pressure and type 2 diabetes has been well controlled (4) Liver transplant recipient: Code(s): Z94.4 - Liver transplant status Category: Surgical Plan: Patient is status post liver transplant in 12/31/2023. Continues to follow up with the [facility] transplant team. He is doing quite well in his pain is fairly controlled. He continues on anti-rejection drugs lifelong. (5) HTN (hypertension): Code(s): I10 - Essential (primary) hypertension Category: Medical Qualifiers: Hypertension type: essential hypertension Qualified Code(s): I10 - Essential (primary) hypertension Plan: Patient's blood pressure acceptable today in office. Will continue his current dose of amlodipine with goal blood pressure to remain below 140/90. Of note does have microalbuminuria thus we have restarted lisinopril Orders: Orders AMB Hemoglobin A1c Today Z13.9 - Encounter for screening, unspecified Complete Blood Count no Diff Today D69.6 - Thrombocytopenia, unspecified Lipid Panel Today E11.9 - Type 2 diabetes mellitus without complications Hemoglobin A1c Today E11.9 - Type 2 diabetes mellitus without complications Comprehensive Odin. Panel Fast Today E11.9 - Type 2 diabetes mellitus without complications Microalbumin, Random (w Creat) Today I10 - Essential (primary) hypertension Medications: Refilled vit C,K-Jm-etbkk-lutein-zeaxan 250-90-40-1 mg (PreserVision AREDS-2) 1 tab PO BID 180 tabs 2RF 90 days H34.239 - Retinal artery branch occlusion, unspecified eye Discontinued cyclobenzaprine Discontinued Reason: Doctor's Order 5 mg PO Q8H 7 days PRN 21 tabs 0RF Muscle Spasm
--- OUTSIDE RECORDS SUMMARY | 2025-10-03 08:41 | XMS_ITS | Clinical Summary ---
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 It is not the complete legal health record.[facility]
== END 2025-10-03 09:12 | disposition home or self-care (01) ==
LOC: HO.HMCH 08:29
PROVIDERS: PCP Physician Assistant; Visit Provider Physician Assistant
DX: E11.29 Type 2 diabetes mellitus with other diabetic kidney complication (principal); F41.1 Generalized anxiety disorder; R80.9 Proteinuria, unspecified; Z94.4 Liver transplant status; I10 Essential (primary) hypertension; Z13.9 Encounter for screening, unspecified

== ENCOUNTER → 2025-10-03 08:28 | Outpatient (BNVA) | payer OTHER, SELFPAY | PROVIDERS: PCP Physician Assistant; Visit Provider Physician Assistant | DX: I10 Essential (primary) hypertension (principal); E11.29 Type 2 diabetes mellitus with other diabetic kidney complication; R80.9 Proteinuria, unspecified; F41.1 Generalized anxiety disorder; Z94.4 Liver transplant status; Z13.31 Encounter for screening for depression; Z13.39 Encounter for screening examination for other mental health and behavioral disorders | CPT/HCPCS: 83036; 96127; 99212 ==